=== PATIENT | male | born 1945 | race Caucasian/White ===

== ENCOUNTER 2017-11-01 01:53 | Inpatient (IN) | payer OTHER ==
--- NOTE | 2017-11-01 02:04 | PDOC ---
History of Present Illness - General Chief Complaint: Altered Mental Status Stated Complaint: ALTERED MENTAL STATUS Time Seen by Provider: 11/01/17 02:03 - History of Present Illness Initial Comments: 11/01/17 02:04 Mr. David is a 72 yo male w/ pmh of neurogenic bladder w/ suprapubic tube, Syringomyelia, CVA, HTN, COPD, seizure, and frequent UTIs who presents for evaluation of nonspecific memory problems including dislodged suprapubic catheter as of today although he cannot recall how it was dislodged. He reports he has been forgetting things lately and cannot recall what day it is. The patient denies chest pain, shortness of breath, headache and dizziness. Denies fever, chills, nausea, vomit, diarrhea and constipation. Denies dysuria, frequency, urgency and hematuria. Allergies: NKDA PCP: Willow Pryor Past History - Past Medical History Allergies/Adverse Reactions: Allergies Allergy/AdvReac Type Severity Reaction Status Date / Time No Known Allergies Allergy Verified 11/01/17 02:07 Home Medications: Ambulatory Orders Gabapentin [Neurontin] 3 cap PO TID 05/25/13 Baclofen 10 mg PO TID 10/18/13 Metoprolol Tartrate [Lopressor -] 25 mg PO BID 10/18/13 hydrOXYzine HCL [Atarax -] 25 mg PO DAILY PRN 10/18/13 Phenytoin Na Extended [Dilantin -] 100 mg PO TID #100 capsule 10/23/13 Multivitamins [Multivit ([facility] Formulary)] 1 tab PO DAILY 04/14/14 Nitrofurantoin Macrocrystal [Nitrofurantoin] 1 cap PO DAILY 04/14/14 Amox-Tr/K Cl [Augmentin - 875Mg Tablet] 1 tab PO BID #14 tablet 01/06/15 Cefdinir [Omnicef -] 300 mg PO BID #20 capsule 01/06/15 CVA: Yes (left side weakness s/p tbi/cva: pt offers NO detail) COPD: Yes GI Disorders: Yes (CONSTIPATION) Disorders: Yes (Suprapubic catheter/mrsa urine) HTN: Yes Seizures: Yes - Surgical History Appendectomy: Yes - Immunization History Td Vaccination: (UNK) Immunization Up to Date: Yes (UNK) - Suicide/Smoking/Psychosocial Hx Smoking Status: No Smoking History: Never smoked Years of Tobacco Use: 0 Have you smoked in the past 12 months: No Number of Cigarettes Smoked Daily: 0 Cigars Per Day: 0 Hx Alcohol Use: No Drug/Substance Use Hx: No Substance Use Type: None Hx Substance Use Treatment: No Review of Systems - Review of Systems Comments:: 11/01/17 02:03 GENERAL/CONSTITUTIONAL: No fever or chills. No weakness. HEAD, EYES, EARS, NOSE AND THROAT: No change in vision. No ear pain or discharge. No sore throat. CARDIOVASCULAR: No chest pain or shortness of breath RESPIRATORY: No cough, wheezing, or hemoptysis. GASTROINTESTINAL: No nausea, vomiting, diarrhea or constipation. GENITOURINARY: No dysuria, frequency, or change in urination. MUSCULOSKELETAL: No joint or muscle swelling or pain. No neck or back pain. SKIN: No rash NEUROLOGIC: No headache, vertigo, loss of consciousness, or change in strength/ sensation. ENDOCRINE: No increased thirst. No abnormal weight change HEMATOLOGIC/LYMPHATIC: No anemia, easy bleeding, or history of blood clots. ALLERGIC/IMMUNOLOGIC: No hives or skin allergy. *Physical Exam - Physical Exam Comments: 11/01/17 02:04 GENERAL: Awake, alert, and oriented x2, in no acute distress HEAD: No signs of trauma, normocephalic, atraumatic EYES: PERRLA, EOMI, sclera anicteric, conjunctiva clear ENT: Auricles normal inspection, hearing grossly normal, nares patent, oropharynx clear without exudates. Moist mucosa NECK: Normal ROM, supple, no lymphadenopathy, JVD, or masses LUNGS: No distress, speaks full sentences, clear to auscultation bilaterally HEART: Regular rate and rhythm, normal S1 and S2, no murmurs, rubs or gallops, peripheral pulses normal and equal bilaterally. ABDOMEN: +Suprapubic catheter noted - Soft, nontender, normoactive bowel sounds. No guarding, no rebound. No masses EXTREMITIES: +LLE noted to be smaller in size and tone than left. 2nd toe on LLE blackened and gangrenous. NEUROLOGICAL: Cranial nerves II through XII grossly intact. Normal speech, normal gait, no focal sensorimotor deficits SKIN: Warm, Dry, normal turgor, no rashes or lesions noted. ED Treatment Course - LABORATORY CBC & Chemistry Diagram: 11/01/17 05:25 11/01/17 05:25 Medical Decision Making - Medical Decision Making 11/01/17 03:04 Mr. David is a 72 yo male w/ pmh as described who presents for evaluation of AMS. Per daughter he has gotten frequent UTI's in the past however none for the last few years. He often will have memory lapses when these occur and this is what the daughter believes is happening now. 11/01/17 06:05 Mr. David noted to have UA positive for leukocytes 3+. Also EKG findings significant of irregularly irregular rhythm. With this in conjuction with AMS as reported, paging inpatient team for admission for obs. 11/01/17 06:21 Lactate noted to be 2.3. 2nd liter NS given. 11/01/17 06:29 Patient admitted for further workup / monitoring *DC/Admit/Observation/Transfer Diagnosis at time of Disposition: History of recurrent UTI (urinary tract infection), Acute electrocardiography changes Altered mental status Qualifiers: Altered mental status type: unspecified Qualified Code(s): R41.82 - Altered mental status, unspecified - Discharge Dispostion Condition at time of disposition: Fair Decision to Admit order: Yes - Referrals Referrals: ON STAFF,NOT [Primary Care Provider] - - Patient Instructions - Post Discharge Activity
[2017-11-01] MEDS ORDERED: SODIUM CHLORIDE 1,000 ML IV STA ×2 (02:49→06:20)
[2017-11-01] MEDS ORDERED: PIPERACILLIN/TAZOB 3.375 GM 3.375 GM in DEXTROSE 5%-WATER - 50 ML IVPB ONE (04:24)
[2017-11-01] MEDS ORDERED: PIPERACILLIN/TAZOB 3.375 GM 3.375 GM/50 ML BAG IVPB ONE (05:03)
[2017-11-01 05:40] LABS: BASO % 0.4 % (0-2.0); EOS % 1.8 % (0-4.5); HEMATOCRIT 39.7 % (35.4-49); HEMOGLOBIN 13.2 GM/dL (11.7-16.9); LYMPH % 20.6 % (8-40); MCH 28.8 pg (25.7-33.7); MCHC 33.2 g/dl (32.0-35.9); MEAN CELL VOLUME 86.6 fl (80-96); MEAN PLT VOLUME 6.3 fl (7.5-11.1); MONO % 7.1 % (3.8-10.2); NEUT % 70.1 % (42.8-82.8); PLATELET COUNT 374 K/MM3 (134-434); RBC 4.58 M/mm3 (4.00-5.60); RDW 14.7 % (11.9-15.9); WHITE BLOOD COUNT 7.3 K/mm3 (4.0-10.0)
[2017-11-01 05:54] LABS: URINE APPEARANCE SLCLOUDY; URINE BILIRUBIN NEGATIVE (<2.0 mg/dL); URINE COLOR STRAW; URINE GLUCOSE (UA) 1+ (NEGATIVE); URINE KETONE NEGATIVE (NEGATIVE); URINE NITRITE POSITIVE (NEGATIVE); URINE PROTEIN NEGATIVE (NEGATIVE); URINE UROBILINOGEN NEGATIVE mg/dL (0.2-1.0)
[2017-11-01 05:58] LABS: URINE LEUK ESTERASE 3+ (NEGATIVE)
[2017-11-01 06:00] LABS: ALBUMIN 4.1 g/dl (3.4-5.0); ALK PHOS 150 U/L (45-117); ANION GAP 6 (8-16); BILIRUBIN,TOTAL 0.2 mg/dL (0.2-1.0); BLOOD UREA NITROGEN 8 mg/dL (7-18); CALCIUM 9.6 mg/dL (8.5-10.1); CHLORIDE 104 mmol/L (98-107); CO2 30 mmol/L (21-32); CREATININE 1.3 mg/dL (0.7-1.3); GLUCOSE,RANDOM 94 mg/dL (74-106); POTASSIUM 3.8 mmol/L (3.5-5.1); SGOT/AST 17 U/L (15-37); SGPT/ALT 15 U/L (12-78); SODIUM 140 mmol/L (136-145); TOT PROT 8.4 g/dl (6.4-8.2)
[2017-11-01 06:03] LABS: URINE BACTERIA MODERATE /hpf (NONE SEEN); URINE MUCUS RARE
[2017-11-01 12:20] VITALS: BMI 22.1
[2017-11-01] MEDS ORDERED: hydrOXYzine HCL 25 MG TABLET (FP) PO PRN (13:31)
[2017-11-01] MEDS ORDERED: SODIUM CHLORIDE 1,000 ML IV SCH (13:45)
[2017-11-01] MEDS: PHENYTOIN NA EXTENDED 100 MG CAPSULE (FP) PO SCH ×2 (13:49→21:34)
[2017-11-01] MEDS ORDERED: GABAPENTIN 400 MG CAPSULE (FP) PO SCH (14:00)
[2017-11-01] MEDS: BACLOFEN 10 MG TABLET (FP) PO SCH ×2 (14:25→21:37)
--- NOTE | 2017-11-01 14:56 | HP ---
Admitting History and Physical - Primary Care Physician PCP: Willow Pryor - Admission Chief Complaint: AMS History of Present Illness: This is a 72 year old male with pmhx of pmh of Syringomyelia with suprapubic tube which is changed monthly, last UTI ~5 years ago, CVA, HTN, COPD, seizure, presented to the ED with lightheadedness and "disillusionment." The patient states he knew right away it was a UTI. He denies sob, palpitations, dizziness, BARRAZA, visual chantes, fever, chills, hematuria, abdominal pain. Due to the syringomyelia he has partial sensation of his bilateral lower ext and walks with a walker.Pt [place] [facility] with daughter and grandchild. 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: CVA, Seizure, Other (paraplegia syringomyelia) Cardiovascular: Yes: HTN Pulmonary: Yes: COPD Renal/: Yes: Neurogenic Bladder, Other (SUPRAPUBIC TUBE) Infectious Disease: Yes: MRSA, Other (PSEUDOMONAS, E fecalis UTI) - Past Surgical History Additional Past Surgical History: spinal shunt several years ago - Smoking History Smoking history: Never smoked Have you smoked in the past 12 months: No Aproximately how many cigarettes per day: 0 - Alcohol/Substance Use Hx Alcohol Use: No - Social History Usual Living Arrangement: Yes: With Child ADL: Family Assistance 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 History of Recent Travel: No Home Medications - Allergies Allergies/Adverse Reactions: Allergies Allergy/AdvReac Type Severity Reaction Status Date / Time No Known Allergies Allergy Verified 11/01/17 02:07 - Home Medications Home Medications: Ambulatory Orders Gabapentin [Neurontin] 3 cap PO TID 05/25/13 Baclofen 10 mg PO TID 10/18/13 Metoprolol Tartrate [Lopressor -] 25 mg PO BID 10/18/13 hydrOXYzine HCL [Atarax -] 25 mg PO DAILY PRN 10/18/13 Phenytoin Na Extended [Dilantin -] 100 mg PO TID #100 capsule 10/23/13 Multivitamins [Multivit ([facility] Formulary)] 1 tab PO DAILY 04/14/14 Nitrofurantoin Macrocrystal [Nitrofurantoin] 1 cap PO DAILY 04/14/14 Amox-Tr/K Cl [Augmentin - 875Mg Tablet] 1 tab PO BID #14 tablet 01/06/15 Cefdinir [Omnicef -] 300 mg PO BID #20 capsule 01/06/15 Review of Systems - Review of Systems Constitutional: reports: No Symptoms Eyes: reports: No Symptoms HENT: reports: No Symptoms Neck: reports: No Symptoms Cardiovascular: reports: No Symptoms Respiratory: reports: SOB Gastrointestinal: reports: No Symptoms Genitourinary: reports: No Symptoms Musculoskeletal: reports: No Symptoms Integumentary: reports: No Symptoms Neurological: reports: Change in LOC Endocrine: reports: No Symptoms Hematology/Lymphatic: reports: No Symptoms Psychiatric: reports: No Symptoms Physical Examination Vital Signs: Vital Signs Temperature 98.5 F 11/01/17 14:23 Pulse Rate 88 11/01/17 14:23 Respiratory Rate 17 11/01/17 14:23 Blood Pressure 142/77 11/01/17 14:23 O2 Sat by Pulse Oximetry (%) 98 11/01/17 09:10 Constitutional: Yes: No Distress Eyes: Yes: Conjunctiva Clear HENT: Yes: Atraumatic Neck: Yes: Supple Cardiovascular: Yes: Regular Rate and Rhythm, S1, S2 Respiratory: Yes: Diminished (L>R, R base crackles) Gastrointestinal: Yes: Normal Bowel Sounds, Soft Renal/: Yes: Other (supra pubic tube) Musculoskeletal: Yes: WNL Extremities: Yes: WNL Edema: No Peripheral Pulses WNL: Yes Neurological: Yes: Alert, Oriented, Loss of Sensation (bilateral, diminsihed sensation worse on left) Psychiatric: Yes: Oriented Labs: CBC, BMP 11/01/17 05:25 11/01/17 05:25 Imaging - Results Chest X-ray: Report Reviewed, Image Reviewed Problem List - Problems (1) Altered mental status Code(s): R41.82 - ALTERED MENTAL STATUS, UNSPECIFIED Qualifiers: Altered mental status type: unspecified Qualified Code(s): R41.82 - Altered mental status, unspecified (2) History of recurrent UTI (urinary tract infection) Code(s): Z87.440 - PERSONAL HISTORY OF URINARY (TRACT) INFECTIONS Assessment/Plan Assessment: 72 year old male admitted with AMS Plan: 1. AMS d/t UTI - AMS improved, returned to baseline - Repeat LA now - Started IVF - Urine cx pending - Urine cx in past with pesudomonas sensitive for zosyn - Dose all meds for cr cl 50 - Takes daily macrobid - Urine, BC pending - ID consulted 2. EKG changes - Stat EKG now - Cardiology consult - PT states he takes lopressor not for cardiac history but for feelings of suffocation at night - Telemetry noted: NRS with pacs, similar to past EKG 2014 3. Syringomyelia - PT Eval, pt ambulates with walker - Baclofen 10mg TID 4. HTN - Lopressor 25mg BID 5. Seizures - Dilantin 100mg TID 6. DVT - Heparin sq Visit type - Emergency Visit Emergency Visit: Yes ED Registration Date: 11/01/17 Care time: The patient presented to the Emergency Department on the above date and was hospitalized for further evaluation of their emergent condition. - New Patient This patient is new to me today: Yes Date on this admission: 11/01/17 - Critical Care Critical Care patient: No Hospitalist Screening - Colonoscopy Questionnaire Colonoscopy Questionnaire: Colonoscopy Questionnaire - Patient: 50 - 75 years old and never had a screening colonoscopy: Unknown History of colon or rectal polyps, or CA: Unknown History of IBD, Crohn's disease or UC: Unknown History of abdominal radiation therapy as a child: Unknown - Relative: 1 with colon or rectal CA, or polyps at age 60 or younger: Unknown Colon or rectal CA diagnosed at age 45 or younger: Unknown Multiple relatives with colon or rectal CA: Unknown - Outcome: Screening Result: Negative Screen
--- NOTE | 2017-11-01 15:13 | CON.CARD ---
Consult Consult Specialty:: Cardiology Reason for Consultation:: Abnormal ECG - History of Present Illness History of Present Illness: 72 yo male w/ pmh of neurogenic bladder w/ suprapubic tube, Syringomyelia, CVA, HTN, COPD, seizure, and frequent UTIs who presents for evaluation of nonspecific memory problems including dislodged suprapubic catheter as of today although he cannot recall how it was dislodged. He reports he has been forgetting things lately and cannot recall what day it is. The patient denies chest pain, shortness of breath, headache and dizziness. Denies fever, chills, nausea, vomit, diarrhea and constipation. Denies dysuria, frequency, urgency and hematuria. 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 History of Recent Travel: No Home Medications - Allergies Allergies/Adverse Reactions: Allergies Allergy/AdvReac Type Severity Reaction Status Date / Time No Known Allergies Allergy Verified 11/01/17 02:07 - Home Medications Home Medications: Ambulatory Orders Gabapentin [Neurontin] 3 cap PO TID 05/25/13 Baclofen 10 mg PO TID 10/18/13 Metoprolol Tartrate [Lopressor -] 25 mg PO BID 10/18/13 hydrOXYzine HCL [Atarax -] 25 mg PO DAILY PRN 10/18/13 Phenytoin Na Extended [Dilantin -] 100 mg PO TID #100 capsule 10/23/13 Multivitamins [Multivit ([facility] Formulary)] 1 tab PO DAILY 04/14/14 Nitrofurantoin Macrocrystal [Nitrofurantoin] 1 cap PO DAILY 04/14/14 Amox-Tr/K Cl [Augmentin - 875Mg Tablet] 1 tab PO BID #14 tablet 01/06/15 Cefdinir [Omnicef -] 300 mg PO BID #20 capsule 01/06/15 Review of Systems - Review of Systems Constitutional: reports: Weakness Eyes: reports: No Symptoms HENT: reports: No Symptoms Neck: reports: No Symptoms Cardiovascular: denies: Chest Pain, Edema, Palpitations, Shortness of Breath Respiratory: reports: No Symptoms Gastrointestinal: reports: No Symptoms Vital Signs: Vital Signs Temperature 98.5 F 11/01/17 14:23 Pulse Rate 88 11/01/17 14:23 Respiratory Rate 17 11/01/17 14:23 Blood Pressure 142/77 11/01/17 14:23 O2 Sat by Pulse Oximetry (%) 98 11/01/17 09:10 Constitutional: Yes: No Distress, Calm. No: Pallor Eyes: Yes: Conjunctiva Clear, EOM Intact HENT: Yes: Atraumatic, Normocephalic Neck: Yes: Supple, Trachea Midline Respiratory: Yes: Regular, CTA Bilaterally Gastrointestinal: Yes: Normal Bowel Sounds, Soft Cardiovascular: Yes: Regular Rate and Rhythm. No: Gallop, Rub Heart Sounds: Yes: S1, S2 Murmur: No: Systolic Murmur, Diastolic Murmur Edema: No - Other Data Labs, Other Data: CBC, BMP 11/01/17 05:25 11/01/17 05:25 NSR nl axis and interval No STT changes. Imaging - Results Chest X-ray: Image Reviewed Problem List - Problems (1) Acute electrocardiography changes Assessment/Plan: No events on telemetry. ECG is normal. ER ECG showed occasioanl Atrial premature beats. No evidence of cardiac abnormality. DC telemetry. Will see as needed. Code(s): R94.31 - ABNORMAL ELECTROCARDIOGRAM [ECG] [EKG]
[2017-11-01 16:00] LABS: ANION GAP 7 (8-16); BLOOD UREA NITROGEN 9 mg/dL (7-18); CALCIUM 8.5 mg/dL (8.5-10.1); CHLORIDE 109 mmol/L (98-107); CO2 27 mmol/L (21-32); CREATININE 1.2 mg/dL (0.7-1.3); GLUCOSE,RANDOM 98 mg/dL (74-106); SODIUM 143 mmol/L (136-145)
[2017-11-01] MEDS ORDERED: PIPERACILLIN/TAZOBACTAM 3.375 GM VIAL IVPB ONE (17:27)
[2017-11-01] MEDS ORDERED: DEXTROSE 5%-WATER - 50 ML IVPB ONE (17:27)
[2017-11-01] MEDS: SODIUM CHLORIDE 1,000 ML IV SCH (17:46)
[2017-11-01] MEDS: PIPERACILLIN/TAZOB 3.375 GM 3.375 GM in DEXTROSE 5%-WATER - 50 ML IVPB SCH (17:46)
[2017-11-01] MEDS ORDERED: PIPERACILLIN/TAZOB 3.375 GM 3.375 GM in DEXTROSE 5%-WATER - 50 ML IVPB SCH (18:00)
[2017-11-01] MEDS ORDERED: PIPERACILLIN/TAZOB 2.25 GM 2.25 GM in DEXTROSE 5%-WATER - 50 ML IVPB SCH (18:00)
[2017-11-01] MEDS: HEPARIN NA (PORCINE) 5,000 UNITS/ML 1ML VIAL SQ SCH (21:35)
[2017-11-01] MEDS: METOPROLOL TARTRATE 25 MG TABLET (FP) PO SCH (21:41)
[2017-11-02] MEDS ORDERED: DEXTROSE 5%-WATER - 50 ML IVPB ONE (03:35)
[2017-11-02] MEDS ORDERED: PIPERACILLIN/TAZOBACTAM 3.375 GM VIAL IVPB ONE (03:35)
[2017-11-02] MEDS: PIPERACILLIN/TAZOB 3.375 GM 3.375 GM in DEXTROSE 5%-WATER - 50 ML IVPB SCH (03:47)
[2017-11-02] MEDS: PHENYTOIN NA EXTENDED 100 MG CAPSULE (FP) PO SCH ×3 (05:17→21:05)
[2017-11-02] MEDS: HEPARIN NA (PORCINE) 5,000 UNITS/ML 1ML VIAL SQ SCH ×3 (05:24→21:07)
[2017-11-02] MEDS: BACLOFEN 10 MG TABLET (FP) PO SCH ×3 (05:25→21:06)
[2017-11-02 06:33] LABS: BASO % 0.4 % (0-2.0); EOS % 2.6 % (0-4.5); HEMATOCRIT 32.4 % (35.4-49); LYMPH % 27.1 % (8-40); MCH 29.2 pg (25.7-33.7); MCHC 33.8 g/dl (32.0-35.9); MEAN CELL VOLUME 86.5 fl (80-96); MEAN PLT VOLUME 6.5 fl (7.5-11.1); MONO % 6.4 % (3.8-10.2); NEUT % 63.5 % (42.8-82.8); PLATELET COUNT 294 K/MM3 (134-434); RBC 3.75 M/mm3 (4.00-5.60); RDW 14.9 % (11.9-15.9); WHITE BLOOD COUNT 5.5 K/mm3 (4.0-10.0)
[2017-11-02 06:45] LABS: CHLORIDE 110 mmol/L (98-107); POTASSIUM 3.7 mmol/L (3.5-5.1); SODIUM 142 mmol/L (136-145)
[2017-11-02 06:55] LABS: ALBUMIN 3.3 g/dl (3.4-5.0); ALK PHOS 111 U/L (45-117); ANION GAP 7 (8-16); BILIRUBIN,TOTAL 0.4 mg/dL (0.2-1.0); BLOOD UREA NITROGEN 13 mg/dL (7-18); CALCIUM 8.4 mg/dL (8.5-10.1); CO2 25 mmol/L (21-32); CREATININE 1.3 mg/dL (0.7-1.3); GLUCOSE,RANDOM 83 mg/dL (74-106); MAGNESIUM 2.1 mg/dL (1.8-2.4); PHOSPHOROUS 3.8 mg/dL (2.5-4.9); SGOT/AST 11 U/L (15-37); SGPT/ALT 10 U/L (12-78); TOT PROT 6.4 g/dl (6.4-8.2)
--- NOTE | 2017-11-02 07:52 | PN ---
Progress Note (short form) - Note Progress Note: ID I have seen Samy multiple admissions over the years Typicaly presents with alteration of mental status which he equates with onset of UTI> As he has suprapubic catheter he is always colonized in the bladder. He rarely has fever and never has elevation of WBC. Same is true now On Zosyn Microbiology 01/06/15 13:01 Urine - Urine Malloy Urine Culture - Final Pseudomonas Aeruginosa Enterococcus Faecalis 08/10/11 09:47 Blood - Peripheral Venous Blood Culture - Final i n i r 11/01/17 05:25 Blood - Peripheral Venous Blood Culture - Preliminary NO GROWTH OBTAINED AFTER 24 HOURS, INCUBATION TO CONTINUE FOR 4 DAYS. 11/01/17 05:25 Blood - Peripheral Venous Blood Culture - Preliminary NO GROWTH OBTAINED AFTER 24 HOURS, INCUBATION TO CONTINUE FOR 4 DAYS. 08/10/11 09:47 Blood - Peripheral Venous i n i r Selected Entries 11/01/17 15:10 Temperature 98.3 F Pulse Rate 86 Respiratory 17 Rate Blood Pressure 178/74 Laboratory Tests 11/01/17 11/02/17 11/02/17 05:25 05:40 05:40 WBC 5.5 RBC 3.75 L Hgb 11.0 L D BUN 13 D Ur Leukocyte Esterase 3+ H Urine WBC (Auto) 126 Urine RBC (Auto) 11 Urine Bacteria Moderate Assessment Alteration of mental status Asymtomatic bacteruria SUprapubic catheter malfunction Plan Continue Zosyn until we get cultures back then decide what to do next Doubt po paty Guzman MD Problem List - Problems (1) Altered mental status Code(s): R41.82 - ALTERED MENTAL STATUS, UNSPECIFIED Qualifiers: Altered mental status type: unspecified Qualified Code(s): R41.82 - Altered mental status, unspecified (2) History of recurrent UTI (urinary tract infection) Code(s): Z87.440 - PERSONAL HISTORY OF URINARY (TRACT) INFECTIONS (3) Toxic metabolic encephalopathy Code(s): QTN7627 -
--- NOTE | 2017-11-02 09:23 | CONS ---
DATE OF CONSULTATION: DATE OF DICTATION: 11/02/2017 HISTORY OF PRESENT ILLNESS: This is a 72-year-old -[place] male with a history of syringomyelia and a suprapubic catheter who presented to the emergency room with altered mental status and lightheadedness. The patient is familiar to our service as we have admitted him multiple times over many years for similar presentations in which typically he develops altered mental status while at home and then gets admitted with a diagnosis of urinary tract infection to account for the alteration of mental status. As he has a chronic suprapubic catheter, not surprisingly, he always grows bacteria from his urine cultures. That said, he has not been admitted to the hospital for several years and obviously then has been doing well from a standpoint of a UTI. He, otherwise, feels well here and had no fever on admission and his WBC count, as typically happens, was normal. He was empirically treated with piperacillin/tazobactam per the nurse practitioner and I am asked to see him at this time, noting that he feels well with no chills, abdominal pain, or urinary complaints. He is completely lucid and knows that he is alert and oriented and feels back to his baseline mental status self. PAST MEDICAL HISTORY: Includes seizure disorder, paraplegia, syringomyelia, suprapubic catheter. MEDICATIONS: Baclofen, gabapentin, metoprolol, phenytoin, multivitamins. ALLERGIES: None known. 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 Denies smoking, alcohol, substance, abuse. FAMILY HISTORY: Reviewed and noncontributory. REVIEW OF SYSTEMS: Respiratory: No cough, shortness of breath. Cardiac: No chest pain, palpitations, murmur. Gastrointestinal: No abdominal pain, nausea, vomiting, diarrhea. Genitourinary: Chronic indwelling Malloy catheter. PHYSICAL EXAMINATION: General: An alert, pleasant male in no acute distress. Vital Signs: Temperature 98.3, pulse 86, blood pressure 178/74, respirations __ ___. Neck: Supple without adenopathy. Heart: S1, S2 regular rhythm without audible murmur or gallop. Abdomen: Soft, nontender without hepatosplenomegaly. Extremities: Reveal no clubbing, cyanosis, or edema. Genitourinary: Revealed a suprapubic catheter. The BUN was 13, creatinine 1.3, liver enzymes within normal limits. White count is 7.3, hemoglobin 13.2, platelets of 374. Urinalysis 3+ esterase, 126 white cells , 11 red cells, moderate bacteria. ASSESSMENT: A 72-year-old male with syringomyelia, chronic suprapubic catheter presents with altered mental status in the absence of other symptoms to suggest sepsis or urinary tract infection. Pyuria noted on his admitted urinalysis, not uncommon for patients with suprapubic catheters, does not necessarily imply the presence of a urinary tract infection. That said, he is currently on Zosyn, his blood cultures are negative, and his urine culture is pending. I will continue him on the current antibiotics for now, pending final urine culture report. I doubt that he will be susceptible to anything orally. Further recommendations regarding duration of antibiotic treatment to follow tomorrow. Last urine tox screen for evaluation of altered MS YARI ROSE M.D. VIPUL/[id number] MTDD
[2017-11-02] MEDS ORDERED: PIPERACILLIN/TAZOBACTAM 4.5 GM VIAL IVPB ONE ×2 (09:52→17:39)
[2017-11-02] MEDS ORDERED: PT OWN MED DRAWER 7, Y5N ONE ×2 (09:52→20:40)
[2017-11-02] MEDS ORDERED: DEXTROSE 5%-WATER 100 ML IVPB ONE ×2 (09:53→17:39)
[2017-11-02] MEDS ORDERED: PIPERACILLIN/TAZOB 3.375 GM 3.375 GM in DEXTROSE 5%-WATER - 50 ML IVPB SCH (10:00)
[2017-11-02] MEDS ORDERED: MULTIVITAMINS (DAILY MVI) TABLET (FP) PO SCH (10:00)
[2017-11-02] MEDS: METOPROLOL TARTRATE 25 MG TABLET (FP) PO SCH ×2 (10:42→21:07)
[2017-11-02] MEDS: PIPERACILLIN/TAZOB 4.5 GM 4.5 GM in DEXTROSE 5%-WATER 100 ML IVPB SCH ×2 (10:43→17:50)
[2017-11-02] MEDS: SODIUM CHLORIDE 1,000 ML IV SCH ×2 (10:52→17:37)
[2017-11-02 12:04] LABS: COCAINE, UR NEGATIVE ng/ml (CUTOFF=300); METHADONE, UR NEGATIVE ng/ml (CUTOFF=300); OPIATES, URI NEGATIVE ng/ml (CUTOFF=300); PHENCYCLIDINE,URINE NEGATIVE ng/ml (CUTOFF=25); URINE AMPHETAMINES NEGATIVE ng/ml (CUTOFF=500); URINE BARBITURATES NEGATIVE ng/ml (CUTOFF=200); URINE BENZODIAZEPINES NEGATIVE ng/ml (CUTOFF=200)
--- NOTE | 2017-11-02 17:54 | PN ---
Progress Note (short form) - Note Progress Note: Subjective: The patient was seen and examined at the bedside, he has no complaints at this time Current Medications Generic Name Dose Route Start Last Admin Trade Name Alex PRN Reason Stop Dose Admin Baclofen 10 mg 11/01/17 14:00 11/02/17 13:52 Lioresal - PO 10 mg TID DEBBI Administration Heparin Sodium (Porcine) 5,000 unit 11/01/17 22:00 11/02/17 13:52 Heparin - SQ 5,000 unit TID DEBBI Administration Hydroxyzine HCl 25 mg 11/01/17 13:31 Atarax - PO DAILY PRN FOR ITCHING Sodium Chloride 1,000 mls @ 42 mls/hr 11/01/17 16:15 11/02/17 17:37 Normal Saline - IV Not Given ASDIR DEBBI Piperacillin Sod/Tazobactam 100 mls @ 200 mls/hr 11/02/17 10:00 11/02/17 17: 50 Sod 4.5 gm/ Dextrose IVPB 200 mls/hr Q8H-IV DEBBI Administration Protocol Metoprolol Tartrate 25 mg 11/01/17 22:00 11/02/17 10:42 Lopressor - PO 25 mg BID DEBBI Administration Multivitamins/Minerals/Vitamin C 1 tab 11/02/17 10:00 11/02/17 10:42 Tab-A-Vit - PO 1 tab DAILY DEBBI Administration Phenytoin Sodium 100 mg 11/01/17 14:00 11/02/17 13:52 Dilantin - PO 100 mg TID DEBBI Administration Objective: Vital Signs Period Temp Pulse Resp BP Sys/Soler Pulse Ox Last 24 Hr 98.3 F-98.6 F 81-97 17-20 137-158/70-93 98-98 Physical Exam: General: NAD, A&Ox3 Ext: Left foot, 2nd digit necrosis CBCD WBC 5.5 K/mm3 (4.0-10.0) 11/02/17 05:40 RBC 3.75 M/mm3 (4.00-5.60) L 11/02/17 05:40 Hgb 11.0 GM/dL (11.7-16.9) L D 11/02/17 05:40 Hct 32.4 % (35.4-49) L D 11/02/17 05:40 MCV 86.5 fl (80-96) 11/02/17 05:40 MCHC 33.8 g/dl (32.0-35.9) 11/02/17 05:40 RDW 14.9 % (11.9-15.9) 11/02/17 05:40 Plt Count 294 K/MM3 (134-434) D 11/02/17 05:40 MPV 6.5 fl (7.5-11.1) L 11/02/17 05:40 CMP Sodium 142 mmol/L (136-145) 11/02/17 05:40 Potassium 3.7 mmol/L (3.5-5.1) 11/02/17 05:40 Chloride 110 mmol/L (98-107) H 11/02/17 05:40 Carbon Dioxide 25 mmol/L (21-32) 11/02/17 05:40 Anion Gap 7 (8-16) L 11/02/17 05:40 BUN 13 mg/dL (7-18) D 11/02/17 05:40 Creatinine 1.3 mg/dL (0.7-1.3) 11/02/17 05:40 Creat Clearance w eGFR 54.57 (>60) 11/02/17 05:40 Random Glucose 83 mg/dL (74-106) 11/02/17 05:40 Calcium 8.4 mg/dL (8.5-10.1) L 11/02/17 05:40 Total Bilirubin 0.4 mg/dL (0.2-1.0) D 11/02/17 05:40 AST 11 U/L (15-37) L D 11/02/17 05:40 ALT 10 U/L (12-78) L D 11/02/17 05:40 Alkaline Phosphatase 111 U/L (45-117) D 11/02/17 05:40 Total Protein 6.4 g/dl (6.4-8.2) D 11/02/17 05:40 Albumin 3.3 g/dl (3.4-5.0) L 11/02/17 05:40 CARDIAC ENZYMES Troponin I < 0.02 ng/ml (0.00-0.05) 11/01/17 15:00 Microbiology 11/01/17 05:25 Urine - Urine Clean Catch Urine Culture - Preliminary Lactose Fermenting Neg Bacilli 11/01/17 05:25 Blood - Peripheral Venous Blood Culture - Preliminary NO GROWTH OBTAINED AFTER 24 HOURS, INCUBATION TO CONTINUE FOR 4 DAYS. 11/01/17 05:25 Blood - Peripheral Venous Blood Culture - Preliminary NO GROWTH OBTAINED AFTER 24 HOURS, INCUBATION TO CONTINUE FOR 4 DAYS. Assessment: This is a 72 year old male with PMHx of CVA, HTN, COPD, neurogenic bladder, multidrug resistant UTI, who presented to [facility] ED with lightheadedness and confusion. Plan: 1) Acute metabolic encephalopathy 2/2 UTI - AMS resolved - Continue Zosyn - Urine culture with lactose fermenting negative bacilli. Awaiting final culture - Appreciate ID consult 2) EKG changes - ER ECG showed occasioanl Atrial premature beats - Per cardiology, no evidence of cardiac abnormality - D/c tele 3) Syringomyelia - PT Eval, pt ambulates with walker - Baclofen 10mg TID 4) HTN - Continue Lopressor 5) Hx of seizures - Continue Dilantin 6) Visit type - Emergency Visit Emergency Visit: Yes ED Registration Date: 11/03/17 Care time: The patient presented to the Emergency Department on the above date and was hospitalized for further evaluation of their emergent condition. - New Patient This patient is new to me today: No - Critical Care Critical Care patient: No
--- NOTE | 2017-11-02 23:56 | EKG ---
Test Reason : Blood Pressure : / mmHG Vent. Rate : 093 BPM Atrial Rate : 093 BPM P-R Int : 138 ms QRS Dur : 084 ms QT Int : 384 ms P-R-T Axes : 056 001 053 degrees QTc Int : 477 ms NORMAL SINUS RHYTHM NORMAL ECG WHEN COMPARED WITH ECG OF 01-NOV-2017 03:58, SINUS RHYTHM HAS REPLACED ATRIAL FIBRILLATION Confirmed by TIMOTEO GARCIA MD ([id number]) on 11/02/2017 11:55:51 PM Referred By: Flory KEY Confirmed By:TIMOTEO GARCIA MD
--- NOTE | 2017-11-03 00:25 | EKG ---
Test Reason : Blood Pressure : / mmHG Vent. Rate : 103 BPM Atrial Rate : 103 BPM P-R Int : 144 ms QRS Dur : 086 ms QT Int : 364 ms P-R-T Axes : 062 -06 085 degrees QTc Int : 476 ms SINUS TACHYCARDIA WITH PREMATURE SUPRAVENTRICULAR COMPLEXES OTHERWISE NORMAL ECG WHEN COMPARED WITH ECG OF 29-AUG-2014 08:38, NO SIGNIFICANT CHANGE WAS FOUND Confirmed by TIMOTEO GARCIA MD ([id number]) on 11/03/2017 12:25:27 AM Referred By: Confirmed By:TIMOTEO GARCIA MD
[2017-11-03] MEDS ORDERED: DEXTROSE 5%-WATER 100 ML IVPB ONE ×3 (02:45→16:19)
[2017-11-03] MEDS ORDERED: PIPERACILLIN/TAZOBACTAM 4.5 GM VIAL IVPB ONE ×2 (02:45→09:05)
[2017-11-03] MEDS: PIPERACILLIN/TAZOB 4.5 GM 4.5 GM in DEXTROSE 5%-WATER 100 ML IVPB SCH (03:01)
[2017-11-03] MEDS: HEPARIN NA (PORCINE) 5,000 UNITS/ML 1ML VIAL SQ SCH ×3 (05:33→21:17)
[2017-11-03] MEDS: PHENYTOIN NA EXTENDED 100 MG CAPSULE (FP) PO SCH ×3 (05:33→21:17)
[2017-11-03] MEDS: BACLOFEN 10 MG TABLET (FP) PO SCH ×3 (05:34→21:17)
[2017-11-03 07:15] LABS: HEMATOCRIT 31.8 % (35.4-49); HEMOGLOBIN 10.8 GM/dL (11.7-16.9); MCH 29.4 pg (25.7-33.7); MEAN CELL VOLUME 86.5 fl (80-96); MEAN PLT VOLUME 6.5 fl (7.5-11.1); PLATELET COUNT 278 K/MM3 (134-434); RBC 3.68 M/mm3 (4.00-5.60); RDW 14.3 % (11.9-15.9); WHITE BLOOD COUNT 6.5 K/mm3 (4.0-10.0)
[2017-11-03] MEDS ORDERED: hydrOXYzine HCL 25 MG TABLET (FP) PO PRN (07:24)
[2017-11-03 08:21] LABS: CHLORIDE 109 mmol/L (98-107); POTASSIUM 3.8 mmol/L (3.5-5.1); SODIUM 141 mmol/L (136-145)
[2017-11-03] MEDS: METOPROLOL TARTRATE 25 MG TABLET (FP) PO SCH ×2 (09:09→21:17)
[2017-11-03] MEDS: SODIUM CHLORIDE 1,000 ML IV SCH (09:09)
[2017-11-03] MEDS: MULTIVITAMINS (DAILY MVI) TABLET (FP) PO SCH (09:09)
[2017-11-03 09:14] LABS: ALBUMIN 3.1 g/dl (3.4-5.0); ALK PHOS 99 U/L (45-117); ANION GAP 8 (8-16); BILIRUBIN,TOTAL 0.4 mg/dL (0.2-1.0); BLOOD UREA NITROGEN 16 mg/dL (7-18); CALCIUM 8.5 mg/dL (8.5-10.1); CO2 24 mmol/L (21-32); CREATININE 1.3 mg/dL (0.7-1.3); GLUCOSE,RANDOM 85 mg/dL (74-106); SGOT/AST 10 U/L (15-37); SGPT/ALT 10 U/L (12-78); TOT PROT 6.3 g/dl (6.4-8.2)
[2017-11-03] MEDS ORDERED: PIPERACILLIN/TAZOB 4.5 GM 4.5 GM in DEXTROSE 5%-WATER 100 ML IVPB SCH (10:00)
[2017-11-03] MEDS ORDERED: PT OWN MED DRAWER 7, Y5N ONE (13:47)
[2017-11-03] MEDS ORDERED: PHENYTOIN NA EXTENDED 100 MG CAPSULE (FP) PO SCH (14:00)
--- NOTE | 2017-11-03 14:35 | PN ---
Progress Note, Physician History of Present Illness: Awake, alert No complaints No suprapubic pain No fever/ chills Afebrile WBC WNL Urine c/s Klebsiella (s) ceftriaxone - Current Medication List Current Medications: Active Medications Baclofen (Lioresal -) 10 mg PO TID [facility] Last Admin: 11/03/17 14:00 Dose: 10 mg Heparin Sodium (Porcine) (Heparin -) 5,000 unit SQ TID [facility] Last Admin: 11/03/17 13:59 Dose: 5,000 unit Hydroxyzine HCl (Atarax -) 25 mg PO DAILY PRN PRN Reason: FOR ITCHING Sodium Chloride (Normal Saline -) 1,000 mls @ 42 mls/hr IV ASDIR [facility] Last Admin: 11/03/17 09:09 Dose: 42 mls/hr Piperacillin Sod/Tazobactam (Sod 4.5 gm/ Dextrose) 100 mls @ 200 mls/hr IVPB Q8H-IV [facility] PRN Reason: Protocol Last Admin: 11/03/17 09:09 Dose: 200 mls/hr Metoprolol Tartrate (Lopressor -) 25 mg PO BID [facility] Last Admin: 11/03/17 09:09 Dose: 25 mg Multivitamins/Minerals/Vitamin C (Tab-A-Vit -) 1 tab PO DAILY [facility] Last Admin: 11/03/17 09:09 Dose: 1 tab Phenytoin Sodium (Dilantin -) 100 mg PO TID [facility] Last Admin: 11/03/17 13:59 Dose: 100 mg - Objective Vital Signs: Vital Signs Temperature 97.7 F 11/03/17 14:00 Pulse Rate 86 11/03/17 14:00 Respiratory Rate 18 11/03/17 14:00 Blood Pressure 154/78 11/03/17 14:00 O2 Sat by Pulse Oximetry (%) 98 11/03/17 07:52 Constitutional: Yes: No Distress Eyes: Yes: Conjunctiva Clear Cardiovascular: Yes: Regular Rate and Rhythm, S1, S2 Respiratory: Yes: CTA Bilaterally Gastrointestinal: Yes: Normal Bowel Sounds, Soft. No: Tenderness Genitourinary: Yes: Other (no suprapubic tenderness) Labs: CBC, BMP 11/03/17 06:39 11/03/17 06:39 Assessment/Plan Recurrent UTI Toxic metabolic encephalopathy resolved Hx neurogenic bladder/ suprapubic catheter Substitute ceftriaxone
[2017-11-03] MEDS: CEFTRIAXONE 2 GM in DEXTROSE 5%-WATER 100 ML IVPB SCH (15:38)
--- NOTE | 2017-11-03 16:11 | CONSULT ---
- Consultation REQUESTING PROVIDER: CONSULT REQUEST: We have been asked to surgically evaluate this patient for necrotic wound of Left 2nd toe. PCP:Jessica Woodall HISTORY OF PRESENT ILLNESS: 72yo M h/o syringomyelia with partial paralysis, CVA, COPD, HTN, seizure disorder was admitted to the hospital for AMS and UTI. Vascular surgery was contacted to evaluate a necrotic wound on the LLE 2nd toe. Pt states that the toe "has looked funny for awhile" and that he is unsure exactly how long it has been black. Pt states that he does no have much feeling in his left foot from her paralysis, but is ambulatory but admits hit his feet on things often and not taking good care of them. Pt denies any history of vascular problems or surgeries on his legs or feet. Pt reiterated multiple times that his preference would be to go home and have this worked up as an outpatient as he wants to leave the hospital as soon as possible. PMHx: Syringomyelia, CVA, COPD, HTN, seizure disorder SH: former smoker quit "many" years ago Home Medications Medication Instructions Recorded Gabapentin [Neurontin] 3 cap PO TID 05/25/13 Baclofen 10 mg PO TID 10/18/13 Metoprolol Tartrate [Lopressor -] 25 mg PO BID 10/18/13 hydrOXYzine HCL [Atarax -] 25 mg PO DAILY PRN 10/18/13 Multivitamins [Multivit ([facility] 1 tab PO DAILY 04/14/14 Formulary)] Nitrofurantoin Macrocrystal 1 cap PO DAILY 04/14/14 [Nitrofurantoin] Amox-Tr/K Cl [Augmentin - 875Mg 1 tab PO BID #14 tablet 01/06/15 Tablet] Cefdinir [Omnicef -] 300 mg PO BID #20 capsule 01/06/15 Phenytoin Na Extended [Dilantin -] 100 mg PO TID 11/03/17 Allergies Allergy/AdvReac Type Severity Reaction Status Date / Time No Known Allergies Allergy Verified 11/01/17 02:07 REVIEW OF SYSTEMS: CONSTITUTIONAL: Absent: fever, chills, diaphoresis, generalized weakness, malaise, loss of appetite, weight change MUSCULOSKELETAL: Absent: myalgia, arthralgia, joint swelling, SKIN: Absent: rash, itching, pallor NEUROLOGIC: Absent: numbness in Left foot PHYSICAL EXAM: GENERAL: Awake, alert, and fully oriented, in no acute distress. HEAD: Normal with no signs of trauma. EYES: PERRL, sclera anicteric, conjunctiva clear. LUNGS: Breathing comfortably HEART: Regular rate and rhythm. LOWER EXTREMITIES: warm, well-perfused. No calf tenderness. No peripheral edema. LLE shows dry gangrene on distal phalanx 2nd toe, nontender, no erythema or discharge. NEUROLOGICAL: Normal speech, gait not observed. PSYCH: Cooperative. Good eye contact. Appropriate mood and affect. SKIN: Warm, dry, normal turgor, no rashes or lesions noted. Vital Signs Temperature 97.7 F 11/03/17 14:00 Pulse Rate 86 11/03/17 14:00 Respiratory Rate 18 11/03/17 14:00 Blood Pressure 154/78 11/03/17 14:00 O2 Sat by Pulse Oximetry (%) 98 11/03/17 07:52 Lab Results WBC 6.5 K/mm3 (4.0-10.0) 11/03/17 06:39 RBC 3.68 M/mm3 (4.00-5.60) L 11/03/17 06:39 Hgb 10.8 GM/dL (11.7-16.9) L 11/03/17 06:39 Hct 31.8 % (35.4-49) L 11/03/17 06:39 MCV 86.5 fl (80-96) 11/03/17 06:39 MCHC 34.0 g/dl (32.0-35.9) 11/03/17 06:39 RDW 14.3 % (11.9-15.9) 11/03/17 06:39 Plt Count 278 K/MM3 (134-434) 11/03/17 06:39 Sodium 141 mmol/L (136-145) 11/03/17 06:39 Potassium 3.8 mmol/L (3.5-5.1) 11/03/17 06:39 Chloride 109 mmol/L (98-107) H 11/03/17 06:39 Carbon Dioxide 24 mmol/L (21-32) 11/03/17 06:39 Anion Gap 8 (8-16) 11/03/17 06:39 BUN 16 mg/dL (7-18) D 11/03/17 06:39 Creatinine 1.3 mg/dL (0.7-1.3) 11/03/17 06:39 Random Glucose 85 mg/dL (74-106) 11/03/17 06:39 Calcium 8.5 mg/dL (8.5-10.1) 11/03/17 06:39 Problem List - Problems (1) Dry gangrene Assessment/Plan: 72yo M with dry gangrene of Left 2nd toe -recommend lena/pvr study to evaluate vasculature -clean dry dressing to toe -will follow up after studies Code(s): I96 - GANGRENE, NOT ELSEWHERE CLASSIFIED
--- NOTE | 2017-11-03 17:40 | PN ---
Progress Note (short form) - Note Progress Note: Subjective: The patient was seen and examined at the bedside, he has no complaints at this time Current Medications Generic Name Dose Route Start Last Admin Trade Name Alex PRN Reason Stop Dose Admin Baclofen 10 mg 11/03/17 14:00 11/03/17 14:00 Lioresal - PO 10 mg TID DEBBI Administration Heparin Sodium (Porcine) 5,000 unit 11/03/17 14:00 11/03/17 13:59 Heparin - SQ 5,000 unit TID DEBBI Administration Hydroxyzine HCl 25 mg 11/03/17 07:24 Atarax - PO DAILY PRN FOR ITCHING Sodium Chloride 1,000 mls @ 42 mls/hr 11/03/17 07:24 11/03/17 09:09 Normal Saline - IV 42 mls/hr ASDIR DEBBI Administration Ceftriaxone Sodium 2 gm/ 100 mls @ 200 mls/hr 11/03/17 15:00 11/03/17 15:38 Dextrose IVPB 200 mls/hr DAILY DEBBI Administration Protocol Metoprolol Tartrate 25 mg 11/03/17 10:00 11/03/17 09:09 Lopressor - PO 25 mg BID DEBBI Administration Multivitamins/Minerals/Vitamin C 1 tab 11/03/17 10:00 11/03/17 09:09 Tab-A-Vit - PO 1 tab DAILY DEBBI Administration Phenytoin Sodium 100 mg 11/03/17 14:00 11/03/17 13:59 Dilantin - PO 100 mg TID DEBBI Administration Objective: Vital Signs Period Temp Pulse Resp BP Sys/Soler Pulse Ox Last 24 Hr 97.5 F-97.7 F 82-86 16-18 148-164/68-90 98-98 Physical Exam: General: NAD, A&Ox3 Ext: Left foot, 2nd digit necrosis CBCD WBC 6.5 K/mm3 (4.0-10.0) 11/03/17 06:39 RBC 3.68 M/mm3 (4.00-5.60) L 11/03/17 06:39 Hgb 10.8 GM/dL (11.7-16.9) L 11/03/17 06:39 Hct 31.8 % (35.4-49) L 11/03/17 06:39 MCV 86.5 fl (80-96) 11/03/17 06:39 MCHC 34.0 g/dl (32.0-35.9) 11/03/17 06:39 RDW 14.3 % (11.9-15.9) 11/03/17 06:39 Plt Count 278 K/MM3 (134-434) 11/03/17 06:39 MPV 6.5 fl (7.5-11.1) L 11/03/17 06:39 CMP Sodium 141 mmol/L (136-145) 11/03/17 06:39 Potassium 3.8 mmol/L (3.5-5.1) 11/03/17 06:39 Chloride 109 mmol/L (98-107) H 11/03/17 06:39 Carbon Dioxide 24 mmol/L (21-32) 11/03/17 06:39 Anion Gap 8 (8-16) 11/03/17 06:39 BUN 16 mg/dL (7-18) D 11/03/17 06:39 Creatinine 1.3 mg/dL (0.7-1.3) 11/03/17 06:39 Creat Clearance w eGFR 54.57 (>60) 11/03/17 06:39 Random Glucose 85 mg/dL (74-106) 11/03/17 06:39 Calcium 8.5 mg/dL (8.5-10.1) 11/03/17 06:39 Total Bilirubin 0.4 mg/dL (0.2-1.0) 11/03/17 06:39 AST 10 U/L (15-37) L 11/03/17 06:39 ALT 10 U/L (12-78) L 11/03/17 06:39 Alkaline Phosphatase 99 U/L (45-117) 11/03/17 06:39 Total Protein 6.3 g/dl (6.4-8.2) L 11/03/17 06:39 Albumin 3.1 g/dl (3.4-5.0) L 11/03/17 06:39 CARDIAC ENZYMES Troponin I < 0.02 ng/ml (0.00-0.05) 11/01/17 15:00 Microbiology 11/01/17 05:25 Urine - Urine Clean Catch Urine Culture - Final Klebsiella Pneumoniae 11/01/17 05:25 Blood - Peripheral Venous Blood Culture - Preliminary NO GROWTH OBTAINED AFTER 48 HOURS, INCUBATION TO CONTINUE FOR 3 DAYS. 11/01/17 05:25 Blood - Peripheral Venous Blood Culture - Preliminary NO GROWTH OBTAINED AFTER 48 HOURS, INCUBATION TO CONTINUE FOR 3 DAYS. Assessment: This is a 72 year old male with PMHx of CVA, HTN, COPD, neurogenic bladder, multidrug resistant UTI, who presented to [facility] ED with lightheadedness and confusion. Plan: 1) Acute metabolic encephalopathy 2/2 UTI - AMS resolved - Abx changed today to Ceftriaxone - Urine culture with klebsiella pneumoniae - Appreciate ID consult 2) Dry gangrene - Left 2nd digit dry gangrene - F/u lena/pvr study to eval vasculature - Clean dressing to toe - Appreciate surgery consult 3) EKG changes - ER ECG showed occasioanl Atrial premature beats - Per cardiology, no evidence of cardiac abnormality - D/c tele 4) Syringomyelia - PT Eval, pt ambulates with walker: family refused yesterday and patient was at a test today - Baclofen 10mg TID 5) HTN - Continue Lopressor 6) Hx of seizures - Continue Dilantin Visit type - Emergency Visit Emergency Visit: Yes ED Registration Date: 11/03/17 Care time: The patient presented to the Emergency Department on the above date and was hospitalized for further evaluation of their emergent condition. - New Patient This patient is new to me today: No - Critical Care Critical Care patient: No
[2017-11-04] MEDS ORDERED: PT OWN MED DRAWER 7, Y5N ONE ×2 (05:59→13:38)
[2017-11-04] MEDS: BACLOFEN 10 MG TABLET (FP) PO SCH ×3 (07:00→21:39)
[2017-11-04] MEDS: HEPARIN NA (PORCINE) 5,000 UNITS/ML 1ML VIAL SQ SCH ×3 (07:00→21:39)
[2017-11-04] MEDS: PHENYTOIN NA EXTENDED 100 MG CAPSULE (FP) PO SCH ×3 (07:00→21:40)
--- NOTE | 2017-11-04 07:56 | PN ---
Progress Note, Physician Chief Complaint: ID Ceftriaxone as of yesterday - Current Medication List Current Medications: Active Medications Baclofen (Lioresal -) 10 mg PO TID [facility] Last Admin: 11/03/17 21:17 Dose: 10 mg Heparin Sodium (Porcine) (Heparin -) 5,000 unit SQ TID [facility] Last Admin: 11/03/17 21:17 Dose: 5,000 unit Hydroxyzine HCl (Atarax -) 25 mg PO DAILY PRN PRN Reason: FOR ITCHING Sodium Chloride (Normal Saline -) 1,000 mls @ 42 mls/hr IV ASDIR [facility] Last Admin: 11/03/17 09:09 Dose: 42 mls/hr Ceftriaxone Sodium 2 gm/ (Dextrose) 100 mls @ 200 mls/hr IVPB DAILY [facility]; Protocol Last Admin: 11/03/17 15:38 Dose: 200 mls/hr Metoprolol Tartrate (Lopressor -) 25 mg PO BID [facility] Last Admin: 11/03/17 21:17 Dose: 25 mg Multivitamins/Minerals/Vitamin C (Tab-A-Vit -) 1 tab PO DAILY [facility] Last Admin: 11/03/17 09:09 Dose: 1 tab Phenytoin Sodium (Dilantin -) 100 mg PO TID [facility] Last Admin: 11/03/17 21:17 Dose: 100 mg - Objective Vital Signs: Vital Signs Temperature 98 F 11/04/17 02:00 Pulse Rate 70 11/04/17 02:00 Respiratory Rate 18 11/04/17 02:00 Blood Pressure 152/68 11/04/17 02:00 O2 Sat by Pulse Oximetry (%) 98 11/03/17 21:00 Neck: Yes: WNL, Supple Cardiovascular: Yes: S1, S2 Respiratory: Yes: WNL, Regular, CTA Bilaterally Gastrointestinal: Yes: Soft. No: Tenderness Edema: No Labs: CBC, BMP 11/03/17 06:39 11/03/17 06:39 Problem List - Problems (1) Altered mental status Code(s): R41.82 - ALTERED MENTAL STATUS, UNSPECIFIED Qualifiers: Altered mental status type: unspecified Qualified Code(s): R41.82 - Altered mental status, unspecified (2) History of recurrent UTI (urinary tract infection) Code(s): Z87.440 - PERSONAL HISTORY OF URINARY (TRACT) INFECTIONS (3) Toxic metabolic encephalopathy Code(s): YRB0141 - Assessment/Plan Microbiology 11/01/17 05:25 Urine - Urine Clean Catch Urine Culture - Final Klebsiella Pneumoniae 11/01/17 05:25 Blood - Peripheral Venous Blood Culture - Preliminary NO GROWTH OBTAINED AFTER 72 HOURS, INCUBATION TO CONTINUE FOR 2 DAYS. 11/01/17 05:25 Blood - Peripheral Venous Blood Culture - Preliminary NO GROWTH OBTAINED AFTER 72 HOURS, INCUBATION TO CONTINUE FOR 2 DAYS. Laboratory Tests 11/01/17 11/03/17 05:25 06:39 WBC 6.5 Hgb 10.8 L Hct 31.8 L Plt Count 278 Ur Leukocyte Esterase 3+ H Urine Bacteria Moderate Assessment Klebsiella UTI(?) on Ceftriaxone Altered mental status improved Plan Continue current therapy IV for now with plan to change to po in a day or 2 Megan TRACY
[2017-11-04] MEDS ORDERED: DEXTROSE 5%-WATER 100 ML IVPB ONE (09:24)
[2017-11-04] MEDS: MULTIVITAMINS (DAILY MVI) TABLET (FP) PO SCH (09:29)
[2017-11-04] MEDS: METOPROLOL TARTRATE 25 MG TABLET (FP) PO SCH ×2 (09:29→21:40)
[2017-11-04] MEDS: CEFTRIAXONE 2 GM in DEXTROSE 5%-WATER 100 ML IVPB SCH (09:29)
[2017-11-04] MEDS: SODIUM CHLORIDE 1,000 ML IV SCH (09:29)
--- NOTE | 2017-11-04 14:47 | PN ---
Progress Note (short form) - Note Progress Note: Subjective: The patient was seen and examined at the bedside, he states he does not want to stay any longer and that he "doesn't care that my toe is black". Informed the patient why arterial doppler needs to be done and he responded "I don't care if I lose my leg" Current Medications Generic Name Dose Route Start Last Admin Trade Name Freq PRN Reason Stop Dose Admin Baclofen 10 mg 11/03/17 14:00 11/04/17 13:49 Lioresal - PO 10 mg TID DEBBI Administration Heparin Sodium (Porcine) 5,000 unit 11/03/17 14:00 11/04/17 13:49 Heparin - SQ 5,000 unit TID DEBBI Administration Hydroxyzine HCl 25 mg 11/03/17 07:24 Atarax - PO DAILY PRN FOR ITCHING Sodium Chloride 1,000 mls @ 42 mls/hr 11/03/17 07:24 11/04/17 09:29 Normal Saline - IV Not Given ASDIR DEBBI Ceftriaxone Sodium 2 gm/ 100 mls @ 200 mls/hr 11/03/17 15:00 11/04/17 09:29 Dextrose IVPB 200 mls/hr DAILY DEBBI Administration Protocol Metoprolol Tartrate 25 mg 11/03/17 10:00 11/04/17 09:29 Lopressor - PO 25 mg BID DEBBI Administration Multivitamins/Minerals/Vitamin C 1 tab 11/03/17 10:00 11/04/17 09:29 Tab-A-Vit - PO 1 tab DAILY DEBBI Administration Phenytoin Sodium 100 mg 11/03/17 14:00 11/04/17 13:49 Dilantin - PO 100 mg TID DEBBI Administration Objective: Vital Signs Period Temp Pulse Resp BP Sys/Soler Pulse Ox Last 24 Hr 98 F-98.5 F 70-76 18-20 136-158/68-102 98-98 Physical Exam: General: NAD, A&Ox3 Refused CBCD WBC 6.5 K/mm3 (4.0-10.0) 11/03/17 06:39 RBC 3.68 M/mm3 (4.00-5.60) L 11/03/17 06:39 Hgb 10.8 GM/dL (11.7-16.9) L 11/03/17 06:39 Hct 31.8 % (35.4-49) L 11/03/17 06:39 MCV 86.5 fl (80-96) 11/03/17 06:39 MCHC 34.0 g/dl (32.0-35.9) 11/03/17 06:39 RDW 14.3 % (11.9-15.9) 11/03/17 06:39 Plt Count 278 K/MM3 (134-434) 11/03/17 06:39 MPV 6.5 fl (7.5-11.1) L 11/03/17 06:39 CMP Sodium 141 mmol/L (136-145) 11/03/17 06:39 Potassium 3.8 mmol/L (3.5-5.1) 11/03/17 06:39 Chloride 109 mmol/L (98-107) H 11/03/17 06:39 Carbon Dioxide 24 mmol/L (21-32) 11/03/17 06:39 Anion Gap 8 (8-16) 11/03/17 06:39 BUN 16 mg/dL (7-18) D 11/03/17 06:39 Creatinine 1.3 mg/dL (0.7-1.3) 11/03/17 06:39 Creat Clearance w eGFR 54.57 (>60) 11/03/17 06:39 Random Glucose 85 mg/dL (74-106) 11/03/17 06:39 Calcium 8.5 mg/dL (8.5-10.1) 11/03/17 06:39 Total Bilirubin 0.4 mg/dL (0.2-1.0) 11/03/17 06:39 AST 10 U/L (15-37) L 11/03/17 06:39 ALT 10 U/L (12-78) L 11/03/17 06:39 Alkaline Phosphatase 99 U/L (45-117) 11/03/17 06:39 Total Protein 6.3 g/dl (6.4-8.2) L 11/03/17 06:39 Albumin 3.1 g/dl (3.4-5.0) L 11/03/17 06:39 CARDIAC ENZYMES Troponin I < 0.02 ng/ml (0.00-0.05) 11/01/17 15:00 Microbiology 11/01/17 05:25 Blood - Peripheral Venous Blood Culture - Preliminary NO GROWTH OBTAINED AFTER 72 HOURS, INCUBATION TO CONTINUE FOR 2 DAYS. 11/01/17 05:25 Blood - Peripheral Venous Blood Culture - Preliminary NO GROWTH OBTAINED AFTER 72 HOURS, INCUBATION TO CONTINUE FOR 2 DAYS. 11/01/17 05:25 Urine - Urine Clean Catch Urine Culture - Final Klebsiella Pneumoniae Assessment: This is a 72 year old male with PMHx of CVA, HTN, COPD, neurogenic bladder, multidrug resistant UTI, who presented to [facility] ED with lightheadedness and confusion. Plan: 1) Acute metabolic encephalopathy 2/2 UTI - AMS resolved - Continue Ceftriaxone (changed yesterday) - Urine culture with klebsiella pneumoniae - Appreciate ID consult 2) Dry gangrene - Left 2nd digit dry gangrene - F/u lena/pvr study to eval vasculature - Clean dressing to toe - Appreciate surgery consult 3) EKG changes - ER ECG showed occasioanl Atrial premature beats - Per cardiology, no evidence of cardiac abnormality - D/c tele 4) Syringomyelia - PT Eval, pt ambulates with walker: patient continues to refuse PT - Baclofen 10mg TID 5) HTN - Continue Lopressor 6) Hx of seizures - Continue Dilantin Visit type - Emergency Visit Emergency Visit: Yes ED Registration Date: 11/03/17 Care time: The patient presented to the Emergency Department on the above date and was hospitalized for further evaluation of their emergent condition. - New Patient This patient is new to me today: Yes Date on this admission: 11/04/17 - Critical Care Critical Care patient: No
--- NOTE | 2017-11-04 16:34 | EKG ---
Test Reason : Blood Pressure : / mmHG Vent. Rate : 105 BPM Atrial Rate : 108 BPM P-R Int : 000 ms QRS Dur : 088 ms QT Int : 368 ms P-R-T Axes : 000 -04 101 degrees QTc Int : 486 ms ATRIAL FIBRILLATION WITH RAPID VENTRICULAR RESPONSE ABNORMAL QRS-T ANGLE, CONSIDER PRIMARY T WAVE ABNORMALITY ABNORMAL ECG WHEN COMPARED WITH ECG OF 01-NOV-2017 03:58, ATRIAL FIBRILLATION HAS REPLACED SINUS RHYTHM Confirmed by NERISSA TRACY, GWENDOLYN ([id number]) on 11/04/2017 4:33:59 PM Referred By: Confirmed By:GWENDOLYN MULTANI MD
[2017-11-05] MEDS: PHENYTOIN NA EXTENDED 100 MG CAPSULE (FP) PO SCH ×2 (06:01→16:42)
[2017-11-05] MEDS: HEPARIN NA (PORCINE) 5,000 UNITS/ML 1ML VIAL SQ SCH ×2 (06:02→16:41)
[2017-11-05] MEDS: BACLOFEN 10 MG TABLET (FP) PO SCH ×2 (06:02→16:42)
--- NOTE | 2017-11-05 07:43 | PN ---
Progress Note (short form) - Note Progress Note: ID Ceftriaxone Afebrile stable Selected Entries 11/05/17 04:24 Temperature 98.5 F Pulse Rate 90 Respiratory 18 Rate Blood Pressure 139/72 Microbiology 11/01/17 05:25 Urine - Urine Clean Catch Urine Culture - Final Klebsiella Pneumoniae 11/01/17 05:25 Blood - Peripheral Venous Blood Culture - Preliminary NO GROWTH OBTAINED AFTER 96 HOURS, INCUBATION TO CONTINUE FOR 1 DAYS. 11/01/17 05:25 Blood - Peripheral Venous Blood Culture - Preliminary NO GROWTH OBTAINED AFTER 96 HOURS, INCUBATION TO CONTINUE FOR 1 DAYS. Assessment Chronic malik Urinary tract infection working diagnosis sensitive Plan Give Ceftriaxone today and consider discharging on Vantin 100mg bid for 10 days Megan TRACY Problem List - Problems (1) Altered mental status Code(s): R41.82 - ALTERED MENTAL STATUS, UNSPECIFIED Qualifiers: Altered mental status type: unspecified Qualified Code(s): R41.82 - Altered mental status, unspecified (2) History of recurrent UTI (urinary tract infection) Code(s): Z87.440 - PERSONAL HISTORY OF URINARY (TRACT) INFECTIONS (3) Toxic metabolic encephalopathy Code(s): MGV5078 -
--- NOTE | 2017-11-05 08:29 | DS ---
Physical Exam: SUBJECTIVE: Patient seen and examined at bedside. Voices no complaints. Willing to stay for CTA later today. OBJECTIVE: Vital Signs Period Temp Pulse Resp BP Sys/Soler Pulse Ox Last 24 Hr 98.4 F-98.6 F 75-90 17-18 136-158/72-102 98 PHYSICAL EXAM GENERAL: The patient is awake, alert, and fully oriented, in no acute distress. LUNGS: Breath sounds equal, clear to auscultation bilaterally, no wheezes, no crackles, no accessory muscle use. HEART: Regular rate and rhythm, S1, S2 ABDOMEN: Soft, nontender, nondistended, normoactive bowel sounds, no guarding, no rebound, no hepatosplenomegaly, no masses. RIGHT LOWER EXTREMITY: 2+ pulses, warm, well-perfused, no edema. LEFT LOWER EXTREMITY: pulses not palpable, foot is warm; necrosis tip of left second toe NEUROLOGICAL: Cranial nerves II through XII grossly intact. Normal speech, gait not observed. LABS CBCD WBC 6.5 K/mm3 (4.0-10.0) 11/03/17 06:39 RBC 3.68 M/mm3 (4.00-5.60) L 11/03/17 06:39 Hgb 10.8 GM/dL (11.7-16.9) L 11/03/17 06:39 Hct 31.8 % (35.4-49) L 11/03/17 06:39 MCV 86.5 fl (80-96) 11/03/17 06:39 MCHC 34.0 g/dl (32.0-35.9) 11/03/17 06:39 RDW 14.3 % (11.9-15.9) 11/03/17 06:39 Plt Count 278 K/MM3 (134-434) 11/03/17 06:39 MPV 6.5 fl (7.5-11.1) L 11/03/17 06:39 CMP Sodium 141 mmol/L (136-145) 11/03/17 06:39 Potassium 3.8 mmol/L (3.5-5.1) 11/03/17 06:39 Chloride 109 mmol/L (98-107) H 11/03/17 06:39 Carbon Dioxide 24 mmol/L (21-32) 11/03/17 06:39 Anion Gap 8 (8-16) 11/03/17 06:39 BUN 16 mg/dL (7-18) D 11/03/17 06:39 Creatinine 1.3 mg/dL (0.7-1.3) 11/03/17 06:39 Creat Clearance w eGFR 54.57 (>60) 11/03/17 06:39 Calcium 8.5 mg/dL (8.5-10.1) 11/03/17 06:39 Total Bilirubin 0.4 mg/dL (0.2-1.0) 11/03/17 06:39 AST 10 U/L (15-37) L 11/03/17 06:39 ALT 10 U/L (12-78) L 11/03/17 06:39 Alkaline Phosphatase 99 U/L (45-117) 11/03/17 06:39 Total Protein 6.3 g/dl (6.4-8.2) L 11/03/17 06:39 Albumin 3.1 g/dl (3.4-5.0) L 11/03/17 06:39 HOSPITAL COURSE: Date of Admission:11/03/17 Date of Discharge: 11/05/17 Pre hospital course This is a 72 year-old male with a PMH significant for HTN, CVA, COPD, seizure disorder, neurogenic bladder (suprapubic catheter changed monthly), recurrent UTIs, and 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 Patient presented to the ED with lightheadedness and "disillusionment." The patient states he knew right away it was a UTI. He denied sob, palpitations, dizziness, BARRAZA, visual chantes, fever, chills, hematuria, abdominal pain. Acute metabolic encephalopathy secondary to Klebsiella UTI - AMS resolved - treated with ceftriaxone, discharged on Vantin to complete another 10 days of treatment Left second toe gangrene - seen and evaluated by vascular surgery - CTA performed prior to discharge, results pending - patient to follow up with [facility] Paraplegia secondary to syringomyelia - ambulates with walker; refused PT - continued Baclofen 10mg TID HTN - Continued Lopressor Seizure disorder - Continued Dilantin Minutes to complete discharge: 35 Discharge Summary Reason For Visit: ACUTE ELECTROCARDIOGRAPHY CHANGES, AMS Current Active Problems Acute electrocardiography changes (Acute) Altered mental status (Acute) Dry gangrene (Acute) History of recurrent UTI (urinary tract infection) (Acute) Condition: Improved - Instructions Diet, Activity, Other Instructions: A prescription has been sent to your pharmacy for Vantin which is an antibiotic to treat your urinary tract infection. Take this medication as directed and be sure to finish all the medication. It is recommended you follow up at the [facility] to treat your gangrenous toe. You can call [phone] to make an appointment. Return to the emergency department for any new or worsening symptoms. Referrals: Fly Cohn MD [Staff Physician] - Disposition: HOME - Home Medications Comprehensive Discharge Medication List: Ambulatory Orders Gabapentin [Neurontin] 3 cap PO TID 05/25/13 Baclofen 10 mg PO TID 10/18/13 Metoprolol Tartrate [Lopressor -] 25 mg PO BID 10/18/13 hydrOXYzine HCL [Atarax -] 25 mg PO DAILY PRN 10/18/13 Multivitamins [Multivit ([facility])] 1 tab PO DAILY 04/14/14 Phenytoin Na Extended [Dilantin -] 100 mg PO TID 11/03/17 Cefpodoxime Proxetil [Vantin (Nf) -] 100 mg PO BID #20 tablet 11/05/17 This patient is new to me today: Yes Date on this admission: 11/06/17 Emergency Visit: Yes ED Registration Date: 11/03/17 Care time: The patient presented to the Emergency Department on the above date and was hospitalized for further evaluation of their emergent condition. Critical Care patient: No - Discharge Referral Referred to [facility] No
--- NOTE | 2017-11-05 10:03 | PN ---
Progress Note (short form) - Note Progress Note: [facility] Pt seen and examined. Left 2nd toe gangrene - pt not sure how long his toe has been like that. There is no palpable dp pulse in the left foot. faint PT pulse. DELANEY/PVR -- shows waveforms to be decreased in amplitude in left metatarsal. Radiology read study as limited - pt moving. Pt needs further imaging. -- in the form of a CTA. Cr is 1.3. Please hydrate. Pt wants to go home for his grandsons monserrat on thursday. Pt does not want to stay. Can come for further workup to [facility] next week. If we hydrate him today, we might be able to get CTA prior to him being DC ken. Fly Cohn DO
[2017-11-05] MEDS ORDERED: DEXTROSE 5%-WATER 100 ML IVPB ONE (10:18)
[2017-11-05] MEDS: MULTIVITAMINS (DAILY MVI) TABLET (FP) PO SCH (10:21)
[2017-11-05] MEDS: METOPROLOL TARTRATE 25 MG TABLET (FP) PO SCH (10:21)
[2017-11-05] MEDS: CEFTRIAXONE 2 GM in DEXTROSE 5%-WATER 100 ML IVPB SCH (10:21)
[2017-11-05] MEDS ORDERED: SODIUM CHLORIDE 1,000 ML IV SCH (12:45)
[2017-11-05 13:24] VITALS: PULSE 92; TEMP 98.3
[2017-11-05 14:07] VITALS: BP 144/83
[2017-11-05] MEDS ORDERED: PT OWN MED DRAWER 7, Y5N ONE (16:39)
== END 2017-11-05 20:19 | disposition home or self-care (01) | DRG 698 ==
LOC: JER 01:53 → SUPCPDRO 01:53 → JERBED 06:28 → UNDOADMOB 06:42 → JERBED 06:42 → J2W 11:22 → OBSVTOIN 11-03 14:47
PROVIDERS: ADMIT Internal Medicine; ATTEND Nurse Practitioner Acute Care
DX: T83.511A Infection and inflammatory reaction due to indwelling urethral catheter, initial encounter (principal); G92 Toxic encephalopathy; I96 Gangrene, not elsewhere classified; G95.0 Syringomyelia and syringobulbia; G40.89 Other seizures; I69.354 Hemiplegia and hemiparesis following cerebral infarction affecting left non-dominant side; N39.0 Urinary tract infection, site not specified; Y84.6 Urinary catheterization as the cause of abnormal reaction of the patient, or of later complication, without mention of misadventure at the time of the procedure; B96.1 Klebsiella pneumoniae [K. pneumoniae] as the cause of diseases classified elsewhere; I10 Essential (primary) hypertension; J44.9 Chronic obstructive pulmonary disease, unspecified; N31.9 Neuromuscular dysfunction of bladder, unspecified; K59.00 Constipation, unspecified; B96.5 Pseudomonas (aeruginosa) (mallei) (pseudomallei) as the cause of diseases classified elsewhere; Z87.891 Personal history of nicotine dependence
CPT/HCPCS: 36415; 71045-TC-FY; 75635-TC; 80048; 80053; 80307; 81003; 81015; 83605; 83735; 84100; 84484; 85025; 85027; 87040; 87086; 87186; 93005; 93010; 93923; 99283-25; G0378; J0475; J1644; J7030

== ENCOUNTER 2017-12-04 13:39 | Day surgery (SDC) | payer OTHER ==
[2017-12-02 16:40] VITALS: BMI 23.6
[2017-12-04] MEDS ORDERED: LIDOCAINE HCL 1%, 10 MG/ML (20ML VIAL) ONE (13:59)
[2017-12-04] MEDS ORDERED: HEPARIN NA (PORCINE) 5,000 UNITS/ML 1ML VIAL ONE (13:59)
[2017-12-04] MEDS ORDERED: PROPOFOL 20 ML ONE ×3 (15:12→15:59)
[2017-12-04] MEDS ORDERED: ceFAZolin SODIUM 1 GM VIAL ONE (15:27)
--- NOTE | 2017-12-04 16:33 | OP ---
Operative Note - Note: Operative Date: 12/04/17 Pre-Operative Diagnosis: Left toe wound Operation: CO2 aortogram, LLE CO2 angiogram, SFA/Popliteal artery angioplaty with SFA stent placement Findings: SFA occlusion. Post-Operative Diagnosis: Same as Pre-op Surgeon: Fly Cohn Anesthesia: Fractional Estimated Blood Loss (mls): 50 Operative Report Dictated: Yes
--- NOTE | 2017-12-04 16:35 | HP ---
Admitting History and Physical - Admission Chief Complaint: Left foot toe ulcer . US showed sfa occlusion. 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 History of Recent Travel: No Home Medications - Allergies Allergies/Adverse Reactions: Allergies Allergy/AdvReac Type Severity Reaction Status Date / Time No Known Allergies Allergy Verified 12/02/17 16:58 - Home Medications Home Medications: Ambulatory Orders Gabapentin [Neurontin] 3 cap PO TID 05/25/13 Baclofen 10 mg PO TID 10/18/13 Metoprolol Tartrate [Lopressor -] 25 mg PO BID 10/18/13 hydrOXYzine HCL [Atarax -] 25 mg PO DAILY PRN 10/18/13 Multivitamins [Multivit ([facility] Formulary)] 1 tab PO DAILY 04/14/14 Phenytoin Na Extended [Dilantin -] 100 mg PO TID 11/03/17 Furosemide 20 mg PO DAILY 12/02/17 Review of Systems - Review of Systems Constitutional: reports: No Symptoms Eyes: reports: No Symptoms HENT: reports: No Symptoms Neck: reports: No Symptoms Cardiovascular: reports: No Symptoms Respiratory: reports: No Symptoms Integumentary: reports: No Symptoms Neurological: reports: No Symptoms Endocrine: reports: No Symptoms Hematology/Lymphatic: reports: No Symptoms Psychiatric: reports: No Symptoms Physical Examination Vital Signs: Vital Signs Temperature 98.3 F 12/04/17 14:31 Pulse Rate 77 12/04/17 14:31 Respiratory Rate 16 12/04/17 14:31 Blood Pressure 152/83 12/04/17 14:31 O2 Sat by Pulse Oximetry (%) 100 12/04/17 14:31 Constitutional: Yes: Well Nourished, No Distress, Calm Eyes: Yes: WNL, Conjunctiva Clear, EOM Intact HENT: Yes: WNL, Atraumatic, Normocephalic Neck: Yes: WNL, Supple, Trachea Midline Cardiovascular: Yes: WNL, Regular Rate and Rhythm Respiratory: Yes: WNL, Regular, CTA Bilaterally Gastrointestinal: Yes: WNL, Normal Bowel Sounds Musculoskeletal: Yes: WNL Extremities: Yes: WNL Edema: No Integumentary: Yes: WNL Neurological: Yes: WNL, Alert, Oriented ...Motor Strength: WNL Psychiatric: Yes: WNL Problem List - Problems (1) Toe ulcer Assessment/Plan: Left toe ulcer. 1. For angiogram today Code(s): L97.509 - NON-PRESSURE CHRONIC ULCER OTH PRT UNSP FOOT W UNSP SEVERITY Assessment/Plan left toe ulcer 1. For angiogram today
[2017-12-04] MEDS ORDERED: CLOPIDOGREL BISULFATE 75 MG TABLET (FP) PO SCH (16:45)
[2017-12-04] MEDS ORDERED: CLOPIDOGREL BISULFATE 75 MG TABLET (FP) ONE (17:31)
[2017-12-04 18:07] VITALS: TEMP 97.6
[2017-12-04 21:31] VITALS: BP 152/81; PULSE 69
--- NOTE | 2017-12-15 13:29 | OP ---
DATE OF OPERATION: 12/04/2017 PREOPERATIVE DIAGNOSIS: Left lower extremity toe ulcer. POSTOPERATIVE DIAGNOSIS: Left lower extremity toe ulcer. PROCEDURE: Aortogram, left lower extremity angiogram, superficial femoral artery popliteal artery angioplasty with stent placement. SURGEON: Fly Noble MD ANESTHESIA: Fractional. BLOOD LOSS: 50 mL. INDICATIONS: The patient is a 72-year-old male who comes into ambulatory surgery due to a toe ulcer that has been going on for over 3 months. Preoperative ultrasound showed that he has severe disease in his SFA popliteal artery with occlusion. It was thought that he would need an angiogram. Patient was consented for the procedure understanding all risks, benefits, and alternatives and was then taken to the operating room. PROCEDURE IN DETAIL: Once in the operating room, he was laid down on the operating table in the supine manner, and the area of the right and left groin was prepped and draped in the sterile surgical manner. We then injected 10 mL of lidocaine 1% over the right common femoral artery. We then used a micropuncture needle, punctured the right common femoral artery, a micropuncture wire was inserted, and a traditional 5-Portuguese sheath was inserted. A 0.035 floppy guidewire was inserted into the aorta under fluoroscopy. We then followed with an Omni Flush catheter. We then shot an aortogram via hand injection showing that the aorta and iliac arteries were without any disease. We then placed a 0.035 floppy guidewire up and over to the left common femoral artery and our Omni Flush catheter followed. We then shot an angiogram of the left lower extremity showing that the common femoral artery, the profunda, and the proximal SFA were patent. The mid SFA was . The SFA and the adductor canal going down to the above knee popliteal was occluded, the below popliteal artery was patent, and the patient had 2-vessel runoff into the foot. At this point, we placed a 0.035 stiff guidewire into the SFA, removed our Omni Flush catheter, and placed a 6 x 45 crossover sheath. Then, 5000 units of IV heparin were administered to the patient. We then brought our 0.035 stiff guidewire down to the occlusion. We then placed an Omni Flush catheter in, and we were able to selectively cross our lesion and place the wire into the peroneal artery. We followed that with our Quick-Cross catheter, and we were able to see that we were intraluminal by shooting an angiogram. At this point, we went ahead and used a 5 x 10 Ultraverse Balloon and performed angioplasty of the occluded segment of the SFA and above-knee popliteal artery. We then went ahead and used a 6 x 150 Life Stent, and we were able to place the stent in the area. We ballooned that in place using a 5 x 10 Ultraverse Balloon. Completion angiogram now showed .that the area was now patent. There was no recoil. There was good brisk good flow going down into the foot, and the vessel was patent. At this point, we brought our sheath up and over. A StarClose device was successfully deployed in the right common femoral artery. Pressure was held for 5 minutes. After there was no bleeding, the area was wet and dried, and Dermabond was placed. The patient tolerated the procedure with no complications. Patient transferred to PACU in stable condition. FLY NOBLE DO [id number]
== END 2017-12-04 20:15 | disposition home or self-care (01) ==
LOC: JASU-SURG 13:39
PROVIDERS: ATTEND Surgery Vascular Surgery
PROC: B40DYZZ Plain Radiography of Aorta and Bilateral Lower Extremity Arteries using Other Contrast (ICD-10-PCS; 2017-12-04)
PROC: 047N3DZ Dilation of Left Popliteal Artery with Intraluminal Device, Percutaneous Approach (ICD-10-PCS; principal; 2017-12-04 15:00)
DX: I70.292 Other atherosclerosis of native arteries of extremities, left leg (principal); L97.529 Non-pressure chronic ulcer of other part of left foot with unspecified severity; I10 Essential (primary) hypertension; J44.9 Chronic obstructive pulmonary disease, unspecified
CPT/HCPCS: 37226; C1877; 76000-TC-FY; 94760; J1644

== ENCOUNTER 2017-12-18 21:59 | Emergency (ER) | payer OTHER ==
[2017-12-18 22:18] VITALS: BP 141/87; PULSE 72; TEMP 98.1; BMI 23.6
[2017-12-18 22:24] LABS: URINE APPEARANCE CLEAR; URINE BILIRUBIN NEGATIVE (<2.0 mg/dL); URINE COLOR STRAW; URINE GLUCOSE (UA) NEGATIVE (NEGATIVE); URINE KETONE NEGATIVE (NEGATIVE); URINE NITRITE NEGATIVE (NEGATIVE); URINE PROTEIN NEGATIVE (NEGATIVE); URINE UROBILINOGEN NEGATIVE mg/dL (0.2-1.0)
[2017-12-18 22:26] LABS: URINE LEUK ESTERASE 2+ (NEGATIVE)
[2017-12-18 22:31] LABS: URINE BACTERIA FEW /hpf (NONE SEEN)
--- NOTE | 2017-12-18 22:59 | PDOC ---
History of Present Illness - General Chief Complaint: Urinary Problem Stated Complaint: Urinary Problem Time Seen by Provider: 12/18/17 22:44 History Source: Patient, Old Records Exam Limitations: No Limitations - History of Present Illness Travel History: No Initial Comments: 12/18/17 22:56 72-year-old man past medical history of syringomyelia and neurogenic bladder presents to the emergency Department with 1 day of penile pain starting this morning. Patient states his symptoms are consistent with previous UTIs and is concerned that he has a urinary tract infection. Patient is suprapubic tube in place upon arrival. Past History - Past Medical History Allergies/Adverse Reactions: Allergies Allergy/AdvReac Type Severity Reaction Status Date / Time No Known Allergies Allergy Verified 12/02/17 16:58 Home Medications: Ambulatory Orders Gabapentin [Neurontin] 3 cap PO TID 05/25/13 Baclofen 10 mg PO TID 10/18/13 Metoprolol Tartrate [Lopressor -] 25 mg PO BID 10/18/13 hydrOXYzine HCL [Atarax -] 25 mg PO DAILY PRN 10/18/13 Multivitamins [Multivit ([facility] Formulary)] 1 tab PO DAILY 04/14/14 Phenytoin Na Extended [Dilantin -] 100 mg PO TID 11/03/17 Furosemide 20 mg PO DAILY 12/02/17 Clopidogrel Bisulfate [Plavix] 75 mg PO DAILY #30 tablet 12/04/17 Anemia: No Asthma: No Cancer: No Cardiac Disorders: No CVA: (DENIES CVA) COPD: Yes CHF: No Dementia: No Diabetes: No GI Disorders: Yes (CONSTIPATION) Disorders: Yes (Suprapubic catheter/mrsa urine) HTN: Yes Hypercholesterolemia: No Seizures: Yes - Surgical History Abdominal Surgery: No Appendectomy: Yes Cardiac Surgery: No Cholecystectomy: No Lung Surgery: No Neurologic Surgery: No Orthopedic Surgery: No - Immunization History Td Vaccination: (UNK) Immunization Up to Date: Yes (UNK) - Suicide/Smoking/Psychosocial Hx Smoking Status: No Smoking History: Never smoked Years of Tobacco Use: 0 Have you smoked in the past 12 months: No Number of Cigarettes Smoked Daily: 0 Cigars Per Day: 0 Hx Alcohol Use: Yes (RARELY BEER) Drug/Substance Use Hx: No Substance Use Type: None Hx Substance Use Treatment: No Abd/GI Specific PMHX - Complaint Specific PMHX GERD: No Review of Systems - Review of Systems Able to Perform ROS?: Yes Is the patient limited Sinhala proficient: No Constitutional: No: Symptoms Reported HEENTM: No: Symptoms Reported Respiratory: No: Symptoms reported Cardiac (ROS): No: Symptoms Reported ABD/GI: No: Symptoms Reported : Yes: See HPI Musculoskeletal: No: Symptoms Reported Integumentary: No: Symptoms Reported Neurological: No: Symptoms reported Endocrine: No: Symptoms Reported Hematologic/Lymphatic: No: Symptoms Reported *Physical Exam - Vital Signs Last Vital Signs Temp Pulse Resp BP Pulse Ox 98.1 F 72 16 141/87 100 12/18/17 22:00 12/18/17 22:00 12/18/17 22:00 12/18/17 22:00 12/18/17 22:00 - Physical Exam General Appearance: Yes: Appropriately Dressed. No: Apparent Distress Respiratory/Chest: positive: Lungs Clear, Normal Breath Sounds. negative: Respiratory Distress, Accessory Muscle Use Cardiovascular: positive: Regular Rhythm, Regular Rate. negative: Murmur Gastrointestinal/Abdominal: positive: Normal Bowel Sounds, Soft. negative: Tender Male Genitalia: positive: normal genitalia. negative: discharge, testicular tenderness Musculoskeletal: positive: Normal Inspection. negative: CVA Tenderness Extremity: positive: Normal Inspection Integumentary: positive: Normal Color, Dry, Warm Neurologic: positive: Alert, Normal Response ED Treatment Course - LABORATORY CBC & Chemistry Diagram: 12/19/17 00:00 12/19/17 00:00 - ADDITIONAL ORDERS Additional order review: Laboratory Results 12/18/17 22:17 Urine Color Straw Urine Appearance Clear Urine pH 6.0 Ur Specific [place] 1.003 Urine Protein Negative Urine Glucose (UA) Negative Urine Ketones Negative Urine Blood Negative Urine Nitrite Negative Urine Bilirubin Negative Urine Urobilinogen Negative Ur Leukocyte Esterase 2+ H Urine WBC (Auto) <1 Urine RBC (Auto) <1 Urine Bacteria Few Medical Decision Making - Medical Decision Making 12/18/17 22:58 A/P: 72-year-old male with history of neurogenic bladder with penile pain No penile discharge noted Suprapubic tube in place. No erythema noted to insertion site UA, urine culture, reassess 12/18/17 23:17 Urinalysis positive for 2+ leuk esterase with normal white blood cell and RBC count. Few bacteria are seen. Patient with continued pain at the urinary meatus although it does not pass urine. I will collect basic labs and blood cultures to rule out occult infection. No systemic signs of infection discharge the patient home to follow- up with his primary doctor and urologist 12/19/17 01:11 Creatinine is 1.4 which is consistent with patient's baseline. No evidence of occult infection. Review of patient's previous urine microbiology shows multidrug-resistant Klebsiella and pseudomonas infections. Results have been related to patient who verbalizes understanding of why he will not be getting antibiotics as his urine is likely colonized if it does grow any bacteria. Patient to be discharged home to follow-up with his primary doctor and urologist. Patient is aware that he may receive a phone call regarding his cultures in the next few days. Patient verbalizes satisfaction in the care received and the current plan. *DC/Admit/Observation/Transfer Diagnosis at time of Disposition: Asymptomatic bacteriuria - Discharge Dispostion Disposition: HOME Condition at time of disposition: Fair Decision to Admit order: No - Referrals Referrals: Willow Proyr [Primary Care Provider] - - Patient Instructions Additional Instructions: Rest, drink lots of fluids: Teas, water, soups Avoid contact with others until fevers and symptoms resolved Lots of handwashing and good hygiene Continue [id number] medications for symptomatic relief Tylenol or Motrin for fever and pain Followup with private physician in one week for repeat urinalysis/reevaluation Return to emergency department for worsened symptoms, fevers, dehydration - Post Discharge Activity
[2017-12-19 00:34] LABS: BASO % 0.6 % (0-2.0); EOS % 2.9 % (0-4.5); HEMATOCRIT 31.9 % (35.4-49); HEMOGLOBIN 10.4 GM/dL (11.7-16.9); LYMPH % 19.6 % (8-40); MCH 28.2 pg (25.7-33.7); MCHC 32.6 g/dl (32.0-35.9); MEAN CELL VOLUME 86.4 fl (80-96); MEAN PLT VOLUME 6.6 fl (7.5-11.1); MONO % 12.3 % (3.8-10.2); NEUT % 64.6 % (42.8-82.8); PLATELET COUNT 369 K/MM3 (134-434); WHITE BLOOD COUNT 5.2 K/mm3 (4.0-10.0)
[2017-12-19 00:55] LABS: ANION GAP 11 (8-16); BLOOD UREA NITROGEN 12 mg/dL (7-18); CALCIUM 9.2 mg/dL (8.5-10.1); CHLORIDE 104 mmol/L (98-107); CO2 26 mmol/L (21-32); CREATININE 1.4 mg/dL (0.7-1.3); GLUCOSE,RANDOM 74 mg/dL (74-106); POTASSIUM 4.2 mmol/L (3.5-5.1); SODIUM 141 mmol/L (136-145)
== END 2017-12-19 02:39 | disposition home or self-care (01) ==
LOC: JER 21:59
DX: R82.71 Bacteriuria (principal); Z93.50 Unspecified cystostomy status
CPT/HCPCS: 36415; 80048; 81003; 81015; 85025; 87086; 99283-25

== ENCOUNTER 2018-10-01 10:09 | Emergency (ER) | payer OTHER ==
[2018-10-01 10:30] VITALS: TEMP 97.9; BMI 23.6
[2018-10-01 11:01] LABS: URINE APPEARANCE CLEAR; URINE BACTERIA 699.7 /hpf (NEGATIVE); URINE BILIRUBIN NEGATIVE (NEGATIVE); URINE CASTS 17 /lpf (0-8); URINE COLOR YELLOW; URINE GLUCOSE (UA) NEGATIVE (NEGATIVE); URINE KETONE TRACE (NEGATIVE); URINE LEUK ESTERASE 3+ (NEGATIVE); URINE NITRITE NEGATIVE (NEGATIVE); URINE PROTEIN 1+ (NEGATIVE); URINE RBC 156 /hpf (0-4); URINE UROBILINOGEN 0.2 mg/dL (0.2-1.0); URINE WBC 31 /hpf (0-5)
[2018-10-01 12:17] LABS: BASO % 0.7 % (0-2.0); EOS % 0.7 % (0-4.5); HEMATOCRIT 37.1 % (35.4-49); HEMOGLOBIN 12.2 GM/dL (11.7-16.9); LYMPH % 18.8 % (8-40); MCH 28.5 pg (25.7-33.7); MCHC 32.9 g/dl (32.0-35.9); MEAN CELL VOLUME 86.4 fl (80-96); MEAN PLT VOLUME 6.8 fl (7.5-11.1); MONO % 11.4 % (3.8-10.2); NEUT % 68.4 % (42.8-82.8); PLATELET COUNT 351 K/MM3 (134-434); RDW 15.9 % (11.9-15.9); WHITE BLOOD COUNT 5.2 K/mm3 (4.0-10.0)
[2018-10-01 12:36] LABS: ALK PHOS 144 U/L (45-117); ANION GAP 5 MMOL/L (8-16); BILIRUBIN,TOTAL 0.2 mg/dL (0.2-1); BLOOD UREA NITROGEN 11 mg/dL (7-18); CALCIUM 9.5 mg/dL (8.5-10.1); CHLORIDE 104 mmol/L (98-107); CO2 29 mmol/L (21-32); CREATININE 1.5 mg/dL (0.55-1.3); GLUCOSE,RANDOM 105 mg/dL (74-106); POTASSIUM 4.9 mmol/L (3.5-5.1); SGOT/AST 23 U/L (15-37); SGPT/ALT 15 U/L (13-61); SODIUM 138 mmol/L (136-145); TOT PROT 7.6 g/dl (6.4-8.2)
[2018-10-01] MEDS ORDERED: SULFAMETHOXAZOLE/TRIMETHOPRIM 800MG/160MG D.S. TABLET PO ONE (13:02)
[2018-10-01] MEDS ORDERED: SULFAMETHOXAZOLE/TRIMETHOPRIM 800MG/160MG D.S. TABLET ONE (13:32)
--- NOTE | 2018-10-01 13:34 | PDOC ---
Documentation entered by Terese Burton SCRIBE, acting as scribe for Chase Monson MD. Chase Monson MD: This documentation has been prepared by the Josephine bustos Amanda, SCRIBE, under my direction and personally reviewed by me in its entirety. I confirm that the documentation accurately reflects all work, treatment, procedures, and medical decision making performed by me. History of Present Illness - General Chief Complaint: Urinary Problem Stated Complaint: R/O UTI Time Seen by Provider: 10/01/18 10:29 History Source: Patient Exam Limitations: No Limitations - History of Present Illness Initial Comments: 10/01/18 11:15 The patient is a 73 year old male, with a significant past medical history of Syringomyelia with suprapubic tube which is changed monthly (last changed 2 weeks ago), CVA, HTN, COPD, seizure, and spinal shunt, who presents to the emergency department with complaint of altered mental status which he describes as feeling off. He states he feels he has a UTI, however, denies dysuria, abdominal pain or back pain. He denies any other complaints. He does endorse having a recent procedure (possibly prostate bx 1 or 2 weeks ago) and was on a recent course of flagyl and bactrim. The patient denies fever, chills, nausea, vomit, diarrhea and constipation. The patient denies chest pain, shortness of breath, headache and dizziness. The patient denies dysuria, frequency, urgency and hematuria. Allergies: NKDA PCP - Dr. Pryor ([facility]) Urologist: Dr. Dennis Sharp Past History - Past Medical History Allergies/Adverse Reactions: Allergies Allergy/AdvReac Type Severity Reaction Status Date / Time No Known Allergies Allergy Verified 12/02/17 16:58 Home Medications: Ambulatory Orders Gabapentin [Neurontin] 3 cap PO TID 05/25/13 Baclofen 10 mg PO TID 10/18/13 Metoprolol Tartrate [Lopressor -] 25 mg PO BID 10/18/13 hydrOXYzine HCL [Atarax -] 25 mg PO DAILY PRN 10/18/13 Multivitamins [Multivit ([facility] Formulary)] 1 tab PO DAILY 04/14/14 Phenytoin Na Extended [Dilantin -] 100 mg PO TID 11/03/17 Furosemide 20 mg PO DAILY 12/02/17 Clopidogrel Bisulfate [Plavix] 75 mg PO DAILY #30 tablet 12/04/17 Amoxicillin/Potassium Clav [Augmentin 875-125 Tablet] 1 each PO BID #14 tablet 10/01/18 Anemia: No Asthma: No Cancer: No Cardiac Disorders: No CVA: (DENIES CVA) COPD: Yes CHF: No Dementia: No Diabetes: No GI Disorders: Yes (CONSTIPATION) Disorders: Yes (Suprapubic catheter/mrsa urine) HTN: Yes Hypercholesterolemia: No Seizures: Yes - Surgical History Abdominal Surgery: No Appendectomy: Yes Cardiac Surgery: No Cholecystectomy: No Lung Surgery: No Neurologic Surgery: No Orthopedic Surgery: No - Immunization History Td Vaccination: (UNK) Immunization Up to Date: Yes (UNK) - Suicide/Smoking/Psychosocial Hx Smoking Status: No Smoking History: Never smoked Years of Tobacco Use: 0 Have you smoked in the past 12 months: No Number of Cigarettes Smoked Daily: 0 Cigars Per Day: 0 Hx Alcohol Use: No Drug/Substance Use Hx: No Substance Use Type: None Hx Substance Use Treatment: No Review of Systems - Review of Systems Able to Perform ROS?: Yes Comments:: 10/01/18 11:16 CONSTITUTIONAL: No reported: Fever, Chills, Diaphoresis, Generalized Weakness, Malaise, Loss of Appetite HEENT: No reported: Rhinorrhea, Nasal Congestion, Throat Pain, Throat Swelling, Difficulty Swallowing, Mouth Swelling, Ear Pain, Eye Pain, Visual Changes CARDIOVASCULAR: No reported: Chest Pain, Syncope, Palpitations, Irregular Heart Rate, Lightheadedness, Peripheral Edema RESPIRATORY: No reported: Cough, Shortness of Breath, SOB with Exertion, Orthopnea, Wheezing , Stridor, Hemoptysis GASTROINTESTINAL: No reported: Abdominal pain, Abdominal Distension, Nausea, Vomiting, Diarrhea, Constipation, Melena, Hematochezia GENITOURINARY: No reported: Dysuria, Frequency, Urgency, Hesitancy, Flank Pain, Genital Pain MUSCULOSKELETAL: No reported: Myalgia, Arthralgia, Joint Swelling, Back pain, Neck Pain SKIN: No reported: Rash, Itching, Pallor HEMEATOLOGIC/IMMUNOLOGIC: No reported: Easy Bleeding, Easy Bruising, Lymphadenopathy, Frequent infections ENDOCRINE: No reported: Unexplained Weight Gain, Unexplained Weight Loss, Heat Intolerance , Cold Intolerance NEUROLOGIC: (+) altered ("feeling off"). No reported: Headache, Focal Weakness, Paresthesias, Vertigo, Lightheadedness, Unsteady Gait, Seizure, Incontinence PSYCHIATRIC: No reported: Anxiety, Depression *Physical Exam - Vital Signs Last Vital Signs Temp Pulse Resp BP Pulse Ox 97.9 F 70 18 153/73 99 10/01/18 10:22 10/01/18 10:22 10/01/18 10:22 10/01/18 10:22 10/01/18 10:22 - Physical Exam Comments: 10/01/18 11:16 GENERAL: The patient is awake, alert, and fully oriented, Nontoxic - in no acute distress. HEAD: Normocephalic, atraumatic. EYES: extraocular movements intact, sclera anicteric, conjunctiva clear. ENT: Normal voice, Moist mucous membranes. NECK: Normal range of motion, supple LUNGS: Breath sounds equal, clear to auscultation bilaterally. No wheezes, no rhonchi, no rales. HEART: Regular rate and rhythm, without murmur, rub or gallop. ABDOMEN: Suprapubic catheter in place without surrounding erythema, tenderness, or signs of infection. Soft, nontender, No guarding, no rebound.No CVA tenderness EXTREMITIES: Normal range of motion, no edema. No cyanosis. No erythema, or tenderness. NEUROLOGICAL: No facial assymetry, Normal speech, PSYCH: Normal mood, normal affect. SKIN: Warm, Dry, normal turgor, ED Treatment Course - LABORATORY CBC & Chemistry Diagram: 10/01/18 11:49 10/01/18 11:49 - ADDITIONAL ORDERS Additional order review: Laboratory Results 10/01/18 10:32 Urine Color Yellow Urine Appearance Clear Urine pH 7.0 Ur Specific [place] 1.017 Urine Protein 1+ H Urine Glucose (UA) Negative Urine Ketones Trace H Urine Blood 3+ H Urine Nitrite Negative Urine Bilirubin Negative Urine Urobilinogen 0.2 Ur Leukocyte Esterase 3+ H Urine WBC (Auto) 31 Urine RBC (Auto) 156 Urine Casts (Auto) 17 U Epithel Cells (Auto) 2.0 Urine Bacteria (Auto) 699.7 Medical Decision Making - Medical Decision Making 10/01/18 11:33 73y M with neurogenic bladder presents with malaise/fatigue geno tthe patient states is cw prior history of UTI. pt denie sany fevers, back pain/chills, n/v. pt well appearing on exam will ck basic labs case dw dr. Mann covering for Dr. King - requests labs and if neg can dc the pt withoutpatient fu w/ augmetin as he was recently on bactrim 10/01/18 13:01 pt was on bactrim recently - will start augmentin and a dose of iv ctx here pts labs unremarkble w/o signs of leukocytosis no clinical signs of uti/sepsis will send culture to see if +UTI will start augmentin and pt fu with urology as outpatient return precautions were discussed I discussed the physical exam findings, ancillary test results and final diagnoses with the patient. I answered all of the patient's questions. The patient was satisfied with the care received and felt comfortable with the discharge plan and treatment plan. The patient will call their primary care physician within 24 hours to arrange follow-up and will return to the Emergency Department with any new, persistent or worsening symptoms. *DC/Admit/Observation/Transfer Diagnosis at time of Disposition: Weakness - Discharge Dispostion Disposition: HOME Condition at time of disposition: Stable Decision to Admit order: No - Prescriptions Prescriptions: Amoxicillin/Potassium Clav [Augmentin 875-125 Tablet] 1 each PO BID #14 tablet - Referrals Referrals: Willow Pryor MD [Primary Care Provider] - Dennis Sharp MD [Staff Physician] - - Patient Instructions Printed Discharge Instructions: DI for Urinary Tract Infection (UTI) Additional Instructions: Your weakness may be caused by a UTI. Take the bactrim as prescribed until cultures are back. Follow up with your urologist next week. Return to the Emergency Department if you have fever/chills, backpain, vomiting or any other concerns. - Post Discharge Activity
[2018-10-01] MEDS ORDERED: CEFTRIAXONE 1 GM in DEXTROSE 5%-WATER - 50 ML IVPB ONE (14:09)
[2018-10-01] MEDS ORDERED: SODIUM CHLORIDE 1,000 ML IV ONE (14:09)
[2018-10-01] MEDS ORDERED: CEFTRIAXONE 1 GM/50 ML BAG ONE (14:11)
[2018-10-01 15:35] VITALS: PULSE 72
[2018-10-01 15:52] VITALS: BP 142/70
== END 2018-10-01 17:46 | disposition home or self-care (01) ==
LOC: JER 10:09
DX: N39.0 Urinary tract infection, site not specified (principal); R53.1 Weakness; I10 Essential (primary) hypertension; J44.9 Chronic obstructive pulmonary disease, unspecified; G40.909 Epilepsy, unspecified, not intractable, without status epilepticus; Z93.50 Unspecified cystostomy status; Z86.73 Personal history of transient ischemic attack (TIA), and cerebral infarction without residual deficits; Z86.14 Personal history of Methicillin resistant Staphylococcus aureus infection; Z96.89 Presence of other specified functional implants
CPT/HCPCS: 36415; 80053; 81003; 85025; 87040; 87086; 96365; 99282-25; J7030

== ENCOUNTER 2018-12-04 21:14 | Emergency (ER) | payer OTHER ==
--- NOTE | 2018-12-04 21:27 | PDOC ---
History of Present Illness - General Chief Complaint: Weakness Stated Complaint: WEAKNESS Time Seen by Provider: 12/04/18 21:24 History Source: Patient - History of Present Illness Initial Comments: 12/04/18 21:33 The patient is a 73 year old male with a PMH of syringomyelia ngomyelia with suprapubic tube which is changed monthly (last changed yesterday), CVA, HTN, COPD, seizure, and spinal shunt, who presents to our ED c/o 1 day h/o dysuria. Denies any hematuria, increased urgency/frequency, fevers/chills, abdominal pain or flank pain. NKDA Surgical: states he has had surgeries but he doesn't remember which surgeries; as per EMR, spinal shunt Social: denies toxic habits PMD: Dr. Konstantin Adams ([facility]) Urology: Dr. Lila Adams As per EMR, patient most recently evaluated in our ED for generalized weakness/ malaise in 09/2018, UA showed 3+ blood and (+) LE, labs unremarkable. Patient urologist requested Augmentin and outpatient follow-up. Patient d/c home. UCx contaminated. Past History - Past Medical History Allergies/Adverse Reactions: Allergies Allergy/AdvReac Type Severity Reaction Status Date / Time No Known Allergies Allergy Verified 12/04/18 21:35 Home Medications: Ambulatory Orders Gabapentin [Neurontin] 3 cap PO TID 05/25/13 Baclofen 10 mg PO TID 10/18/13 Metoprolol Tartrate [Lopressor -] 25 mg PO BID 10/18/13 hydrOXYzine HCL [Atarax -] 25 mg PO DAILY PRN 10/18/13 Multivitamins [Multivit ([facility] Formul[facility])] 1 tab PO DAILY 04/14/14 Phenytoin Na Extended [Dilantin -] 100 mg PO TID 11/03/17 Furosemide 20 mg PO DAILY 12/02/17 Clopidogrel Bisulfate [Plavix] 75 mg PO DAILY #30 tablet 12/04/17 Amoxicillin/Potassium Clav [Augmentin 875-125 Tablet] 1 each PO BID #14 tablet 10/01/18 Anemia: No Asthma: No Cancer: No Cardiac Disorders: No CVA: (DENIES CVA) COPD: Yes CHF: No Dementia: No Diabetes: No GI Disorders: Yes (CONSTIPATION) Disorders: Yes (Suprapubic catheter/mrsa urine) HTN: Yes Hypercholesterolemia: No Seizures: Yes - Surgical History Abdominal Surgery: No Appendectomy: Yes Cardiac Surgery: No Cholecystectomy: No Lung Surgery: No Neurologic Surgery: No Orthopedic Surgery: No - Immunization History Td Vaccination: (UNK) Immunization Up to Date: Yes (UNK) - Suicide/Smoking/Psychosocial Hx Smoking Status: No Smoking History: Never smoked Years of Tobacco Use: 0 Have you smoked in the past 12 months: No Number of Cigarettes Smoked Daily: 0 Cigars Per Day: 0 Hx Alcohol Use: Yes (RARELY BEER) Drug/Substance Use Hx: No Substance Use Type: None Hx Substance Use Treatment: No Review of Systems - Review of Systems Constitutional: No: Chills, Fever Respiratory: No: Cough, Shortness of Breath Cardiac (ROS): No: Chest Pain, Palpitations ABD/GI: No: Constipated, Diarrhea, Nausea, Vomiting : Yes: Dysuria. No: Hematuria *Physical Exam - Physical Exam General Appearance: Yes: Thin HEENT: positive: Normal Voice, Hearing Grossly Normal Neck: positive: Trachea midline, Supple Respiratory/Chest: positive: Wheezing. negative: Rapid RR Cardiovascular: positive: S1, S2 Vascular Pulses: Dorsalis-Pedis (R): 2+, Doralis-Pedis (L): 2+ Gastrointestinal/Abdominal: positive: Normal Bowel Sounds, Soft, Other ( Attending exam: RUQ TTP w/o peritoneal sign) ED Treatment Course - LABORATORY CBC & Chemistry Diagram: 12/04/18 22:40 12/04/18 22:40 Medical Decision Making - Medical Decision Making 12/04/18 21:54 73 y/o male with suprapubic tube 2/2 to syringomyelia presents c/o dysuria. Hypertensive (183/85), other VS unremarkable Will check UA for active infection as well as basic labs. Replace suprapubic tube Reassess. 12/04/18 22:57 Multiple failed attempts at peripheral IV access, IV access obtained using U/S Labs pending 12/04/18 23:55 UA negative No leukocytosis Will discharge patient home as low clinical suspicion for active infection ( patient afebrile, no concerning lab findings) Patient reassessed @ bedside BP 155/80, other VSS Amenable to discharge and will return to ED with new/worsening/concerning symptoms. 12/05/18 00:16 Call received from patient's daughter, Myra David, updated on plan of care. Agrees with d/c home and close urology follow-up as outpatent. I discussed the physical exam findings, ancillary test results and final diagnoses with the patient. I answered all of the patient's questions. The patient was satisfied with the care received and felt comfortable with the discharge plan and treatment plan. The patient will return to the Emergency Department with any new, persistent or worsening symptoms. *DC/Admit/Observation/Transfer Diagnosis at time of Disposition: History of recurrent UTI (urinary tract infection) - Discharge Dispostion Disposition: HOME Condition at time of disposition: Good Decision to Admit order: No - Referrals - Patient Instructions Additional Instructions: You were evaluated today for your abdominal pain with urination. A test of your urine and all of your labs show no concerning findings. At this time you are safe for discharge home. Follow up with your primary care doctor in the next 3 days. Your care is not complete until you are evaluated by your primary care doctor. Return to the Emergency Department for any new/worsening/concerning symptoms. - Post Discharge Activity
[2018-12-04 21:34] VITALS: TEMP 98.1; BMI 20.7
[2018-12-04 22:54] LABS: BASO % 0.6 % (0-2.0); EOS % 1.8 % (0-4.5); HEMATOCRIT 39.4 % (35.4-49); HEMOGLOBIN 12.9 GM/dL (11.7-16.9); LYMPH % 14.5 % (8-40); MCH 28.7 pg (25.7-33.7); MCHC 32.7 g/dl (32.0-35.9); MEAN CELL VOLUME 87.7 fl (80-96); MEAN PLT VOLUME 6.6 fl (7.5-11.1); MONO % 5.3 % (3.8-10.2); NEUT % 77.8 % (42.8-82.8); PLATELET COUNT 384 K/MM3 (134-434); RBC 4.49 M/mm3 (4.00-5.60); RDW 14.8 % (11.9-15.9); WHITE BLOOD COUNT 7.2 K/mm3 (4.0-10.0)
[2018-12-04 23:13] LABS: INR 0.91 (0.83-1.09); PROTHROMBIN TIME (PATIENT) 10.7 SEC (9.7-13.0)
[2018-12-04 23:16] LABS: ACTIVATED PTT 35.9 SECONDS (25.2-36.5)
[2018-12-04 23:27] LABS: URINE APPEARANCE TURBID; URINE COLOR YELLOW
[2018-12-04 23:28] LABS: PH,URINE 7.5 (5.0-8.0); URINE BILIRUBIN NEGATIVE (NEGATIVE); URINE GLUCOSE (UA) NEGATIVE (NEGATIVE); URINE KETONE NEGATIVE (NEGATIVE); URINE PROTEIN 2+ (NEGATIVE); URINE UROBILINOGEN 0.2 mg/dL (0.2-1.0)
[2018-12-04 23:29] LABS: URINE LEUK ESTERASE 3+ (NEGATIVE); URINE NITRITE NEGATIVE (NEGATIVE)
[2018-12-04 23:32] LABS: URINE BACTERIA 4+ /hpf (NEGATIVE); URINE RBC 0-2 /hpf (0-4)
[2018-12-04 23:33] LABS: URINE CRYSTALS FEW CALCIUM OXALATE /hpf
[2018-12-04 23:43] LABS: ALBUMIN 4.6 g/dl (3.4-5.0); BILIRUBIN,TOTAL 0.3 mg/dL (0.2-1); CALCIUM 9.7 mg/dL (8.5-10.1); CREATININE 1.3 mg/dL (0.55-1.3); TOT PROT 9.1 g/dl (6.4-8.2)
[2018-12-04 23:44] LABS: POTASSIUM 4.2 mmol/L (3.5-5.1)
--- NOTE | 2018-12-04 23:51 | PDOC ---
Documentation entered by Suzie Castaneda SCRIBE, acting as scribe for Tee Victor MD. Tee Victor MD: This documentation has been prepared by the Leonel bustos Collisia, SCRIBE, under my direction and personally reviewed by me in its entirety. I confirm that the documentation accurately reflects all work, treatment, procedures, and medical decision making performed by me. Attending Attestation - Resident Resident Name: BaGertrude - ED Attending Attestation I have performed the following: I have examined & evaluated the patient, The case was reviewed & discussed with the resident, I agree w/resident's findings & plan, Exceptions are as noted - HPI HPI: 12/04/18 23:46 The patient is a 73 year old male with a significant past medical history of hypertension, COPD, seizure, spina shunt and syringomyelia (with suprapubic tube ) who presents to the emergency department with dysuria for 1 day. The patient reports having his suprapubic tube changed earlier this week. He denies any hematuria, urgency, frequency, fever, chills, nausea, vomiting, diarrhea, constipation. He denies any abdominal or flank pain. He denies any other symptoms or complaints. PMD: Dr. Lila Adams - Physicial Exam PE: 12/04/18 23:56 Vitals: Triage vital signs reviewed General Appearance: No acute distress, well nourished, well developed Chest Wall: Nontender Cardiac: Regular rate and rhythm, no murmurs, no rubs, no gallops Lungs: Clear to auscultation bilateral, good air movement bilaterally Abdomen: Soft, nondistended, normal bowel sounds, nontender to palpation Extremities: Full range of motion to all extremities, no cyanosis, clubbing, or edema Skin: Warm and dry, no rashes or lesions, no rash, no petechiae Psych: Normal mood, normal affect 12/05/18 01:26 - Medical Decision Making 12/04/18 23:47 The patient is a 73 year old male with a significant past medical history of hypertension, COPD, seizure, spinal shunt and syringomyelia (with suprapubic tube) who presents to the emergency department with dysuria for 1 day. Will check get labs, UA/UC, change malik and reasses. Mild dysuria has since resolved patient with no complaints at this time urinalysis was taken from chronic Malik. Given no fever no white count low suspicion for acute infection at this time cultures sent. UA with slight WBC and leukocytosis likely from chronic indwelling malik. We'll follow up culture place patient in call backlog findings discussed with patient however we have arranged for transportation home Findings, the need for follow-up and strict return instructions discussed with patient and family.
[2018-12-05 00:40] VITALS: BP 165/90; PULSE 76
--- NOTE | 2018-12-05 13:07 | EKG ---
Test Reason : Blood Pressure : / mmHG Vent. Rate : 069 BPM Atrial Rate : 069 BPM P-R Int : 148 ms QRS Dur : 086 ms QT Int : 410 ms P-R-T Axes : 070 006 051 degrees QTc Int : 439 ms NORMAL SINUS RHYTHM WITH SINUS ARRHYTHMIA POOR R WAVE PROGRESSION NONSPECIFIC ST ABNORMALITY Confirmed by ASAD RÍOS MD ([id number]) on 12/05/2018 1:07:03 PM Referred By: Confirmed By:ASAD RÍOS MD
== END 2018-12-05 02:43 | disposition home or self-care (01) ==
LOC: JER 21:14
DX: R30.0 Dysuria (principal); Z87.440 Personal history of urinary (tract) infections; Z93.59 Other cystostomy status; G95.0 Syringomyelia and syringobulbia; I10 Essential (primary) hypertension; J44.9 Chronic obstructive pulmonary disease, unspecified; G40.909 Epilepsy, unspecified, not intractable, without status epilepticus
CPT/HCPCS: 36415; 71045-TC-FY; 80053; 81003; 83605; 84484; 85025; 85610; 85730; 87040; 87086; 93005; 93010; 99284-25

== ENCOUNTER 2019-01-28 17:10 | Emergency (ER) | payer OTHER ==
[2019-01-28 17:33] VITALS: BMI 23.7
--- NOTE | 2019-01-28 18:13 | PDOC ---
History of Present Illness - General Chief Complaint: Altered Mental Status Stated Complaint: ALTERED MENTAL STATUS Time Seen by Provider: 01/28/19 17:48 History Source: Unavil. due to pt. cond. Exam Limitations: Clinical Condition - History of Present Illness Initial Comments: 01/28/19 18:09 73yo man PMH of syringomyelia w/ suprapubic tube which is changed monthly, CVA, HTN, COPD, seizure, and spinal shunt, who presents from home with altered mental status. Seen frequently in the past for UTI and AMS. Patient altered and not oriented at time of exam giving nonsense answers, most frequently "I can't" to all questions. Only affirmative answer when asked if he has pain when palpated near suprapubic catheter. PER CHART REVIEW: NKDA Surgical: spinal shunt Social: denied smoking / ETOH / illicits PMD: Dr. Konstantin Admas ([facility]) Urology: Dr. Lila Adams Past History - Past Medical History Allergies/Adverse Reactions: Allergies Allergy/AdvReac Type Severity Reaction Status Date / Time No Known Allergies Allergy Verified 01/28/19 17:29 Home Medications: Ambulatory Orders Gabapentin [Neurontin] 3 cap PO TID 05/25/13 Baclofen 10 mg PO TID 10/18/13 Metoprolol Tartrate [Lopressor -] 25 mg PO BID 10/18/13 hydrOXYzine HCL [Atarax -] 25 mg PO DAILY PRN 10/18/13 Multivitamins [Multivit ([facility] Formulary)] 1 tab PO DAILY 04/14/14 Phenytoin Na Extended [Dilantin -] 100 mg PO TID 11/03/17 Furosemide 20 mg PO DAILY 12/02/17 Clopidogrel Bisulfate [Plavix] 75 mg PO DAILY #30 tablet 12/04/17 Amoxicillin/Potassium Clav [Augmentin 875-125 Tablet] 1 each PO BID #14 tablet 10/01/18 Sulfamethoxazole/Trimethoprim [Bactrim Ds -] 1 tab PO BID #14 tablet 01/28/19 Anemia: No Asthma: No Cancer: No Cardiac Disorders: No CVA: (DENIES CVA) COPD: Yes CHF: No Dementia: No Diabetes: No GI Disorders: Yes (CONSTIPATION) Disorders: Yes (Suprapubic catheter/mrsa urine) HTN: Yes Hypercholesterolemia: No Seizures: Yes Other medical history: SYRINGOMYELIA - Surgical History Abdominal Surgery: No Appendectomy: Yes Cardiac Surgery: No Cholecystectomy: No Lung Surgery: No Neurologic Surgery: No Orthopedic Surgery: No - Immunization History Td Vaccination: (UNK) Immunization Up to Date: Yes (UNK) - Suicide/Smoking/Psychosocial Hx Smoking Status: No Smoking History: Never smoked Years of Tobacco Use: 0 Have you smoked in the past 12 months: No Number of Cigarettes Smoked Daily: 0 Cigars Per Day: 0 Hx Alcohol Use: No Drug/Substance Use Hx: No Substance Use Type: None Hx Substance Use Treatment: No Review of Systems - Review of Systems Able to Perform ROS?: No (Patient noncooperative ) Is the patient limited Citizen [place] proficient: No *Physical Exam - Vital Signs Last Vital Signs Temp Pulse Resp BP Pulse Ox 97.5 F L 97 H 18 162/88 99 01/28/19 17:30 01/28/19 17:30 01/28/19 17:30 01/28/19 17:30 01/28/19 17:30 - Physical Exam Comments: 01/28/19 19:29 Vitals reviewed, AFVSS Gen: older man, resting in hospital stretcher, minimally cooperative HEENT: normal morphologies, EOMI, MMM, trachea midline, no apparent trauma CV: RRR, nl s1/s2, no murmurs or bruits appreciated Pulm: CTABL, normal WOB, no wheezes / rales / rhonchi Abd: soft, nontender, nondistended, indicates some pain with palpation around suprapubic catheter site - non-swollen, non-erythematous, no crepitus, no rebound or guarding. Neuro: A&Ox0 with nonsensical answers on my exam, moves all extremities Pulses: 2+ Radial and PT Ext: no clubbing / cyanosis / edema ED Treatment Course - LABORATORY CBC & Chemistry Diagram: 01/28/19 19:00 01/28/19 19:00 Medical Decision Making - Medical Decision Making 01/28/19 18:22 73yo man PMH of syringomyelia w/ suprapubic tube which is changed monthly, CVA, HTN, COPD, seizure, and spinal shunt, who presents from home with altered mental status. H&P limited by AMS, chart review demonstrates recurrent UTIs with AMS at presentation. Due to limited cooperation and clinical state, plan for full workup for vascular, metabolic, infectious causes. Will defer intox assessment given no Hx, no toxidrome evident. Possible psych component. Most likely AMS secondary to UTI. -CXR, NCHCT, EKG -CBC, CMP, Lactate, Cardiac Profile, BGM, VBG -UA, UCx -IV placed with US guidance, 20 gauge, L AC -1L IVF 01/28/19 19:27 -PT more interactive with other providers, more appropriately responsive -EKG without ischemic changes, NSR, normal axis, normal intervals, no concerning morphologies 01/28/19 19:50 -Pt having full conversations with other staff members, alert and oriented, laughs at sports jokes -Cantankerous with CT staff, refuses head CT - non-focal neuro exam, variable MSE with different people, normal coags, no trauma - low concern for acute intracranial process. -Found attempting to exit his bed - functional paraplegia - witnessed sliding down onto the floor in attempt to leave 01/28/19 19:53 -Vitals remain stable, still not talking to this interviewer or assigned nurse -No leukocytosis, normal H&H, normal INR, Lactate 1.2 01/28/19 20:24 -Pt with UTI, culture pending -Recent cultures with contamination, last recent positive was in 2018 -IVF switched to banana bag given temporal wasting / low weight ? malnutrition, folic acid ordered -Give Bactrim DS here and order to pharmacy -Mild hyponetramia 135, otherwise unremarkable CMP Dispo plan: home 01/28/19 21:18 -Attempted to locate suprapubic catheter in the ED to replace catheter in infected urine. No supplies available, pt instructed to follow up with his PCP and urologist in the next several days for a change. -Banana bag still running while we arrange transport home. *DC/Admit/Observation/Transfer Diagnosis at time of Disposition: History of recurrent UTI (urinary tract infection), UTI (lower urinary tract infection) - Discharge Dispostion Disposition: HOME Condition at time of disposition: Improved Decision to Admit order: No - Prescriptions Prescriptions: Sulfamethoxazole/Trimethoprim [Bactrim Ds -] 1 tab PO BID #14 tablet - Referrals - Patient Instructions Printed Discharge Instructions: DI for Urinary Tract Infection (UTI) Additional Instructions: 1. You were seen and evaluated in the ED for altered mental status, you were found to be unaltered. Your urine studies showed that you have a urinary tract infection. 2. You were given IV fluids and one dose of antibiotics in the department. The rest of your antibiotic course was sent to your pharmacy. Please fill this prescription as soon as you can (tonight or tomorrow morning) and take the pill twice a day for the next seven days. If your urine culture shows a bacteria resistant to the prescribed antibiotic, you will received a phone call regarding this and a change of medication. 3. Please follow up with your primary care doctor within 1-2 days. If you are unable to see them in this time, please do not hesitate to return to the ED for any new or concerning symptoms including but not limited to; changes in your mental status, pain non-resolving with medication, chest pain, shortness of breath, or fevers and chills with back pain. - Post Discharge Activity
[2019-01-28 19:22] LABS: VENOUS PC02 53.4 mmHg (41-51); VENOUS PH 7.36 (7.31-7.41)
[2019-01-28 19:24] LABS: VENOUS PO2 < 49 mmHg (30-40)
[2019-01-28] MEDS ORDERED: SODIUM CHLORIDE 1,000 ML IV STA (19:26)
[2019-01-28 19:40] LABS: BASO % 0.2 % (0-2.0); HEMATOCRIT 38.4 % (35.4-49); HEMOGLOBIN 12.9 GM/dL (11.7-16.9); LYMPH % 11.4 % (8-40); MCH 28.6 pg (25.7-33.7); MCHC 33.7 g/dl (32.0-35.9); MEAN PLT VOLUME 6.4 fl (7.5-11.1); NEUT % 81.4 % (42.8-82.8); PLATELET COUNT 425 K/MM3 (134-434); RBC 4.51 M/mm3 (4.00-5.60); RDW 14.9 % (11.9-15.9); WHITE BLOOD COUNT 7.9 K/mm3 (4.0-10.0)
[2019-01-28 19:41] LABS: INR 1.01 (0.83-1.09); PROTHROMBIN TIME (PATIENT) 11.9 SEC (9.7-13.0)
[2019-01-28] MEDS ORDERED: FOLIC ACID INJECTION - 1 MG, THIAMINE HCL 100 MG, MULTIVIT INJECTION ADULT 10 ML in SOD... IVPB ONE (20:08)
[2019-01-28 20:12] LABS: EPI CELLS 6.9 /HPF (0-5/HPF); HYALINE CASTS 76 /lpf (0-8); PH,URINE >= 9.0 (5.0-8.0); URINE APPEARANCE TURBID; URINE BACTERIA 2821.3 /hpf (NEGATIVE); URINE BILIRUBIN NEGATIVE (NEGATIVE); URINE COLOR YELLOW; URINE GLUCOSE (UA) NEGATIVE (NEGATIVE); URINE KETONE NEGATIVE (NEGATIVE); URINE LEUK ESTERASE 3+ (NEGATIVE); URINE NITRITE POSITIVE (NEGATIVE); URINE PROTEIN 1+ (NEGATIVE); URINE RBC 3 /hpf (0-4); URINE UROBILINOGEN 0.2 mg/dL (0.2-1.0); URINE WBC 112 /hpf (0-5)
[2019-01-28] MEDS ORDERED: SULFAMETHOXAZOLE/TRIMETHOPRIM 800MG/160MG D.S. TABLET PO ONE (20:16)
--- NOTE | 2019-01-28 20:19 | PDOC ---
Documentation entered by Cecille Saldana SCRIBE, acting as scribe for Nemo Kapadia MD. Nemo Kapadia MD: This documentation has been prepared by the scribe, Cecille Saldana SCRIBE, under my direction and personally reviewed by me in its entirety. I confirm that the documentation accurately reflects all work, treatment, procedures, and medical decision making performed by me. Attending Attestation - Resident Resident Name: EnzoFracisco - ED Attending Attestation I have performed the following: I have examined & evaluated the patient, The case was reviewed & discussed with the resident, I agree w/resident's findings & plan, Exceptions are as noted - HPI HPI: 01/28/19 19:40 The patient is a 73-year-old male, with a past medical history of syringomyelia (with suprapubic tube that is changed monthly), CVA, HTN, COPD, seizure, and spinal shunt, who presents to the ED with AMS. HPI is limited due to patients clinical condition. - Physicial Exam PE: 01/28/19 19:40 GENERAL: (+)Thin cachetic, temporal wasting. Awake, alert, and fully oriented, in no acute distress HEAD: No signs of trauma EYES: PERRLA, EOMI, sclera anicteric, conjunctiva clear ENT: Auricles normal inspection, hearing grossly normal, nares patent, oropharynx clear without exudates. Moist mucosa NECK: Normal ROM, supple, no lymphadenopathy, JVD, or masses LUNGS: Breath sounds equal, clear to auscultation bilaterally. No wheezes, and no crackles HEART: Regular rate and rhythm, normal S1 and S2, no murmurs, rubs or gallops ABDOMEN: (+)Suprapubic tenderness. Soft, normoactive bowel sounds. No guarding , no rebound. No masses EXTREMITIES: Normal range of motion, no edema. No clubbing or cyanosis. No cords, erythema, or tenderness NEUROLOGICAL: Alert and oriented x3. SKIN: Warm, Dry, normal turgor, no rashes or lesions noted. - Medical Decision Making 01/28/19 21:28 Pt feeling better; we will treat him with bactrimDS for his UTI and he will follow with Dr. Sharp early next week; we d/w his daughter and she is agreeing to take him home; she understands that he is alert and awake and feeling better and that all labs are normal. UTI. 01/29/19 00:20 Ambulance is here to take pt home.
[2019-01-28] MEDS ORDERED: SULFAMETHOXAZOLE/TRIMETHOPRIM 800MG/160MG D.S. TABLET ONE (20:29)
[2019-01-28 20:36] LABS: ALBUMIN 4.4 g/dl (3.4-5.0); BILIRUBIN,TOTAL 0.4 mg/dL (0.2-1); BLOOD UREA NITROGEN 9.8 mg/dL (7-18); CALCIUM 9.9 mg/dL (8.5-10.1); CREATININE 1.1 mg/dL (0.55-1.3); POTASSIUM 4.5 mmol/L (3.5-5.1); TOT PROT 8.7 g/dl (6.4-8.2)
[2019-01-28 22:50] VITALS: PULSE 100
[2019-01-28 22:58] LABS: URINE CRYSTALS AMORPHOUS PHOSPHATES /hpf; YEAST NONE SEEN (NEGATIVE)
[2019-01-29 00:21] VITALS: BP 167/79; TEMP 97.9
--- NOTE | 2019-01-30 11:40 | EKG ---
Test Reason : Blood Pressure : / mmHG Vent. Rate : 081 BPM Atrial Rate : 081 BPM P-R Int : 164 ms QRS Dur : 088 ms QT Int : 370 ms P-R-T Axes : 060 -02 042 degrees QTc Int : 429 ms NORMAL SINUS RHYTHM NONSPECIFIC T WAVE ABNORMALITY ABNORMAL ECG WHEN COMPARED WITH ECG OF 04-DEC-2018 22:46, NO SIGNIFICANT CHANGE WAS FOUND Confirmed by TINO CHIRINOS MD ([id number]) on 01/30/2019 11:39:36 AM Referred By: Confirmed By:TINO CHIRINOS MD
== END 2019-01-29 00:22 | disposition home or self-care (01) ==
LOC: JER 17:10
PROC: 3E033GC Introduction of Other Therapeutic Substance into Peripheral Vein, Percutaneous Approach (ICD-10-PCS; principal; 2019-01-28)
PROC: 3E0337Z Introduction of Electrolytic and Water Balance Substance into Peripheral Vein, Percutaneous Approach (ICD-10-PCS; 2019-01-28)
DX: N39.0 Urinary tract infection, site not specified (principal); I10 Essential (primary) hypertension; J44.9 Chronic obstructive pulmonary disease, unspecified; Z95.828 Presence of other vascular implants and grafts; R56.9 Unspecified convulsions; Z86.73 Personal history of transient ischemic attack (TIA), and cerebral infarction without residual deficits; Z87.440 Personal history of urinary (tract) infections; G95.0 Syringomyelia and syringobulbia
CPT/HCPCS: 36415; 71045-TC-FY; 80053; 81003; 82550; 82553; 82803; 83605; 84484; 85025; 85610; 87040; 87086; 87186; 93005; 93010; 96361; 96365; 99284-25; J7030

== ENCOUNTER 2019-02-03 00:49 | Inpatient (IN) | payer OTHER ==
--- NOTE | 2019-02-03 01:40 | PDOC ---
Attending Attestation - Resident Resident Name: Pillo Peters - ED Attending Attestation I have performed the following: I have examined & evaluated the patient, The case was reviewed & discussed with the resident, I agree w/resident's findings & plan - HPI HPI: 02/03/19 02:59 see resident hpi - Physicial Exam PE: 02/03/19 03:01 agree with resident exam - Medical Decision Making 02/03/19 03:02 73 yo male with pseudomonas positive urine culture and indwelling suprapubic catheter Zosyn administered based on sensitivity admit to hospitalist service
--- NOTE | 2019-02-03 01:46 | PDOC ---
History of Present Illness - General Chief Complaint: Urinary Problem Stated Complaint: UTI Time Seen by Provider: 02/03/19 01:40 History Source: Patient Exam Limitations: No Limitations - History of Present Illness Initial Comments: 02/03/19 02:31 73M w/ pmh of syringomelia, neurogenic bladder w/ suprapubic catheter, thoracic spine shunt, CVA, weakness to LLE, HTN, COPD, seizures referred to [email or web address] for UCX results resulting w/ pseudomonas. Patient had recent [facility] presentation on 01/28/19 for AMS thought to be 2/2 to UTI(+LE, +nitrites), sent home with bactrim and instructed to fu with his urologist for catheter exchange. UCX results returned on 02/02/19. Patient received a phone call instructing him to present to the ED for IVF. Denies symptoms. Denies changes in catheter output color, smell. Did not fu w/ urology. Endorses daily cleaning of suprapubic site with hydrogen peroxide. Lives at home with daughter and other family members. Ambulates with walker at baseline but has had increasing weakness. Associated Symptoms: reports: denies symptoms. denies: chest pain, cough, diaphoresis, fever/chills, loss of appetite, malaise, nausea/vomiting, shortness of breath, syncope Past History - Travel Traveled outside of the country in the last 30 days: No Close contact w/someone who was outside of country & ill: No - Past Medical History Allergies/Adverse Reactions: Allergies Allergy/AdvReac Type Severity Reaction Status Date / Time No Known Allergies Allergy Verified 02/03/19 00:54 Home Medications: Ambulatory Orders Gabapentin [Neurontin] 3 cap PO TID 05/25/13 Baclofen 10 mg PO TID 10/18/13 Metoprolol Tartrate [Lopressor -] 25 mg PO BID 10/18/13 hydrOXYzine HCL [Atarax -] 25 mg PO DAILY PRN 10/18/13 Multivitamins [Multivit ([facility] Formulary)] 1 tab PO DAILY 04/14/14 Phenytoin Na Extended [Dilantin -] 100 mg PO TID 11/03/17 Furosemide 20 mg PO DAILY 12/02/17 Clopidogrel Bisulfate [Plavix] 75 mg PO DAILY #30 tablet 12/04/17 Amoxicillin/Potassium Clav [Augmentin 875-125 Tablet] 1 each PO BID #14 tablet 10/01/18 Sulfamethoxazole/Trimethoprim [Bactrim Ds -] 1 tab PO BID #14 tablet 01/28/19 Anemia: No Asthma: No Cancer: No Cardiac Disorders: No CVA: (DENIES CVA) COPD: Yes CHF: No Dementia: No Diabetes: No GI Disorders: Yes (CONSTIPATION) Disorders: Yes (Suprapubic catheter/mrsa urine) HTN: Yes Hypercholesterolemia: No Seizures: Yes - Surgical History Abdominal Surgery: Yes (?anterior approach to spine surgery) Appendectomy: Yes Cardiac Surgery: No Cholecystectomy: No Lung Surgery: No Neurologic Surgery: Yes (T7 shunt) Orthopedic Surgery: No - Family Disease History Family Disease History: Heart Disease: Grandparents (HTN) - Immunization History Td Vaccination: (UNK) Immunization Up to Date: Yes (UNK) - Suicide/Smoking/Psychosocial Hx Smoking Status: No Smoking History: Former smoker (quit 25ys prior) Years of Tobacco Use: 0 Have you smoked in the past 12 months: No Number of Cigarettes Smoked Daily: 0 Cigars Per Day: 0 Information on smoking cessation initiated: No Hx Alcohol Use: No Drug/Substance Use Hx: No Substance Use Type: None Hx Substance Use Treatment: No Review of Systems - Review of Systems Able to Perform ROS?: Yes Is the patient limited Kiswahili proficient: No Constitutional: Yes: Loss of Appetite, Unintentional Wgt. Loss (loss ~20lbs in 4months). No: Chills, Fever, Weakness HEENTM: No: Eye Pain, Double Vision, Difficulty Swallowing Respiratory: No: Cough, Orthopnea, Shortness of Breath, SOB at Rest, Wheezing Cardiac (ROS): No: Chest Pain, Irregular Heart Rate, Lightheadedness, Palpitations ABD/GI: Yes: Poor Appetite. No: Abdominal Distended, Constipated, Diarrhea, Nausea, Vomiting : No: Burning, Dysuria, Discharge, Urgency, Testicular Swelling Musculoskeletal: No: See HPI, Back Pain, Muscle Weakness Integumentary: No: Bruising, Change in Color, Dryness, Erythema Neurological: No: Headache, Numbness, Seizure, Tremors, Dizziness *Physical Exam - Vital Signs Last Vital Signs Temp Pulse Resp BP Pulse Ox 97.8 F 80 18 176/89 H 100 02/03/19 00:54 02/03/19 00:54 02/03/19 00:54 02/03/19 00:54 02/03/19 00:54 - Physical Exam General Appearance: Yes: Cachetic, Thin. No: Apparent Distress HEENT: positive: Normal Voice. negative: Pale Conjunctivae, Photophobia, Scleral Icterus (R), Scleral Icterus (L), Muffled/Hoarse voice Neck: positive: Trachea midline, Supple. negative: Tender, Decreased range of motion, Lymphadenopathy (R), Lymphadenopathy (L) Respiratory/Chest: positive: Lungs Clear, Normal Breath Sounds. negative: Chest Tender, Accessory Muscle Use Cardiovascular: positive: Regular Rate, S1, S2 Gastrointestinal/Abdominal: positive: Soft. negative: Distended, Guarding, Rebound, Tenderness Male Genitalia: positive: other (suprapubic catheter in place w/o discharge or erythema at site. Urinary leg bag is empty). negative: CVAT Musculoskeletal: positive: Decreased Range of Motion (Left wrist abduction) Extremity: positive: Other (Left LLE atrophy, weakness to dorsiflexion/ plantarflexion. Left wrist with firm nodules and grossly abnormal bony deformity , bony deformity to L MTPs. Left dorsal forearm with 5-10cm mobile soft subcutaneous mass) Integumentary: positive: Dry Neurologic: positive: Fully Oriented, Alert. negative: Confused, Disoriented ED Treatment Course - LABORATORY CBC & Chemistry Diagram: 02/03/19 03:40 02/03/19 03:40 Medical Decision Making - Medical Decision Making 02/03/19 03:19 73M w/ pmh of syringomelia, neurogenic bladder w/ suprapubic catheter, thoracic spine shunt, CVA, weakness to LLE, HTN, COPD, seizures referred to [facility] for UCX results showing pseudomonas. Patient is asymptomatic. - fu CBC, CMP - UA showing +LE, +nitrites - administer zosyn 02/03/19 05:44 - WBC 6.3 - Cr 1.5 -- CAMACHO - decision to admit for complicated UTI growing pseudomonas *DC/Admit/Observation/Transfer Diagnosis at time of Disposition: History of recurrent UTI (urinary tract infection) UTI (urinary tract infection) due to urinary indwelling catheter Qualifiers: Indwelling urinary catheter type: indwelling urethral catheter Encounter type: initial encounter Qualified Code(s): T83.511A - Infection and inflammatory reaction due to indwelling urethral catheter, initial encounter; N39.0 - Urinary tract infection, site not specified - Discharge Dispostion Condition at time of disposition: Stable Decision to Admit order: Yes - Referrals - Patient Instructions - Post Discharge Activity
[2019-02-03] MEDS ORDERED: PIPERACILLIN/TAZOB 4.5 GM 4.5 GM in DEXTROSE 5%-WATER 100 ML IVPB ONE (02:50)
[2019-02-03 03:22] LABS: EPI CELLS 1.7 /HPF (0-5/HPF); HYALINE CASTS 22 /lpf (0-8); URINE APPEARANCE CLOUDY; URINE BACTERIA 856.7 /hpf (NEGATIVE); URINE BILIRUBIN NEGATIVE (NEGATIVE); URINE COLOR YELLOW; URINE GLUCOSE (UA) NEGATIVE (NEGATIVE); URINE KETONE TRACE (NEGATIVE); URINE LEUK ESTERASE 3+ (NEGATIVE); URINE NITRITE POSITIVE (NEGATIVE); URINE PROTEIN 1+ (NEGATIVE); URINE RBC 2 /hpf (0-4); URINE UROBILINOGEN 0.2 mg/dL (0.2-1.0); URINE WBC 45 /hpf (0-5)
[2019-02-03] MEDS ORDERED: PIPERACILLIN/TAZOB 4.5 GM 4.5 GM/100 ML BAG IVPB ONE (03:50)
[2019-02-03 04:06] LABS: BASO % 0.7 % (0-2.0); HEMATOCRIT 36.6 % (35.4-49); HEMOGLOBIN 12.2 GM/dL (11.7-16.9); LYMPH % 24.1 % (8-40); MCH 28.5 pg (25.7-33.7); MCHC 33.2 g/dl (32.0-35.9); MEAN CELL VOLUME 85.8 fl (80-96); MEAN PLT VOLUME 6.5 fl (7.5-11.1); MONO % 7.6 % (3.8-10.2); NEUT % 65.6 % (42.8-82.8); PLATELET COUNT 423 K/MM3 (134-434); RBC 4.27 M/mm3 (4.00-5.60); RDW 14.9 % (11.9-15.9); WHITE BLOOD COUNT 6.3 K/mm3 (4.0-10.0)
[2019-02-03 04:38] LABS: YEAST NEGATIVE (NEGATIVE)
[2019-02-03 05:25] LABS: ALBUMIN 4.2 g/dl (3.4-5.0); BILIRUBIN,TOTAL 0.2 mg/dL (0.2-1); CALCIUM 9.2 mg/dL (8.5-10.1); CREATININE 1.5 mg/dL (0.55-1.3)
[2019-02-03 05:41] LABS: BLOOD UREA NITROGEN 18.1 mg/dL (7-18)
--- NOTE | 2019-02-03 07:38 | HP ---
CHIEF COMPLAINT:UTI PCP:Dr. Pryor; Urologist; Dr. Sharp HISTORY OF PRESENT ILLNESS: 73 y/o male with PMH of syringomyelia (started at age 28), HTN, seizure disorder, previous CVA, neurogenic bladder (requiring suprapubic catheter) presents to the ED after being called back urine cx resuts- patient was here on 02/09 with AMS found to have a UTI and was sent home on Bactrim, patient was called back on Thursday when the culture came back growing Pseudomonas. He has had recurrent UTI's growing psueodomonas, MRSA, and klebsiella in the past- he has a suprapubic catheter which he gets changed every month by Dr. Sharp and the last time it was changed was 2 weeks ago; he denies any urinary symptoms ( no burning, frequency, no foul smelling odor). 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 Family History: family history of HTN on both sides Allergies No Known Allergies Allergy (Verified 02/03/19 00:54) HOME MEDICATIONS: Home Medications Medication Instructions Recorded Gabapentin [Neurontin] 3 cap PO TID 05/25/13 Baclofen 10 mg PO TID 10/18/13 Metoprolol Tartrate [Lopressor -] 25 mg PO BID 10/18/13 hydrOXYzine HCL [Atarax -] 25 mg PO DAILY PRN 10/18/13 Multivitamins [Multivit ([facility] 1 tab PO DAILY 04/14/14 Formulary)] Phenytoin Na Extended [Dilantin -] 100 mg PO TID 11/03/17 Furosemide 20 mg PO DAILY 12/02/17 Clopidogrel Bisulfate [Plavix] 75 mg PO DAILY #30 tablet 12/04/17 Amoxicillin/Potassium Clav 1 each PO BID #14 tablet 10/01/18 [Augmentin 875-125 Tablet] Sulfamethoxazole/Trimethoprim 1 tab PO BID #14 tablet 01/28/19 [Bactrim Ds -] REVIEW OF SYSTEMS (all ROS negative) CONSTITUTIONAL: Absent: fever, chills, diaphoresis, generalized weakness, malaise, loss of appetite, weight change HEENT: Absent: rhinorrhea, nasal congestion, throat pain, throat swelling, difficulty swallowing, mouth swelling, ear pain, eye pain, visual changes CARDIOVASCULAR: Absent: chest pain, syncope, palpitations, irregular heart rate, lightheadedness , peripheral edema RESPIRATORY: Absent: cough, shortness of breath, dyspnea with exertion, orthopnea, wheezing, stridor, hemoptysis GASTROINTESTINAL: Absent: abdominal pain, abdominal distension, nausea, vomiting, diarrhea, constipation, melena, hematochezia GENITOURINARY: Absent: dysuria, frequency, urgency, hesitancy, hematuria, flank pain, genital pain MUSCULOSKELETAL: Absent: myalgia, arthralgia, joint swelling, back pain, neck pain SKIN: Absent: rash, itching, pallor HEMATOLOGIC/IMMUNOLOGIC: Absent: easy bleeding, easy bruising, lymphadenopathy, frequent infections ENDOCRINE: Absent: unexplained weight gain, unexplained weight loss, heat intolerance, cold intolerance NEUROLOGIC: Absent: headache, focal weakness or paresthesias, dizziness, unsteady gait, seizure, mental status changes, bladder or bowel incontinence PSYCHIATRIC: Absent: anxiety, depression, suicidal or homicidal ideation, hallucinations. PHYSICAL EXAMINATION Vital Signs - 24 hr 02/03/19 02/03/19 02/03/19 00:54 06:28 06:44 Temperature 97.8 F Pulse Rate 80 Pulse Rate [ 75 Apical] Respiratory 18 18 Rate Blood Pressure 176/89 H Blood Pressure 145/67 [Right Arm] O2 Sat by Pulse 100 96 99 Oximetry (%) GENERAL: Awake, alert, and fully oriented, in no acute distress. EYES: PEERLA; EOMI; no scleral icterus NECK: no JVD; no lymphadenoapthy LUNGS:CTA B/L; no rales, rhonchi or wheezing HEART: Regular rate and rhythm, normal S1 and S2 without murmur, rub or gallop. ABDOMEN: Soft, nontender, not distended, no suprapubic tenderness upon palpation ; +BS in all 4 quadrants EXTREMITIES: warm; well-perfused no clubbing/cyanosis or edema NEUROLOGICAL: Cranial nerves II-XII intact. moving extremities however diminished sensation on B/L LE SKIN: Warm, dry, normal turgor, no rashes or lesions noted, normal capillary refill. Laboratory Results - last 24 hr 02/03/19 02/03/19 02/03/19 03:07 03:40 03:40 WBC 6.3 RBC 4.27 Hgb 12.2 Hct 36.6 MCV 85.8 MCH 28.5 MCHC 33.2 RDW 14.9 Plt Count 423 MPV 6.5 L Absolute Neuts (auto) 4.1 Neutrophils % 65.6 Lymphocytes % 24.1 D Monocytes % 7.6 Eosinophils % 2.0 D Basophils % 0.7 D Nucleated RBC % 0 Sodium 136 Potassium 4.0 Chloride 99 Carbon Dioxide 28 Anion Gap 9 BUN 18.1 H Creatinine 1.5 H Est GFR (CKD-EPI)AfAm 53.52 Est GFR (CKD-EPI)NonAf 46.17 Random Glucose 114 H Calcium 9.2 Total Bilirubin 0.2 AST 26 ALT 16 Alkaline Phosphatase 179 H Total Protein 8.0 Albumin 4.2 Urine Color Yellow Urine Appearance Cloudy Urine pH 6.0 D Ur Specific [place] 1.018 Urine Protein 1+ H Urine Glucose (UA) Negative Urine Ketones Trace H Urine Blood Negative Urine Nitrite Positive H Urine Bilirubin Negative Urine Urobilinogen 0.2 Ur Leukocyte Esterase 3+ H Urine WBC (Auto) 45 Urine RBC (Auto) 2 Urine Casts (Auto) 22 U Pathogenic Cast Auto Negative U Epithel Cells (Auto) 1.7 Urine Bacteria (Auto) 856.7 Urine Yeast (Auto) Negative ASSESSMENT/PLAN: 73 y/o male with PMH of syringomyelia (started at age 28), HTN, seizure disorder, previous CVA, neurogenic bladder (requiring suprapubic catheter) presents to the ED after being called back urine cx resuts growing Pseudomonas #Complicated UTI 2/2 suprapubic catheter urine cx from 01/30 growing Pseudomonas sensitive to Zosyn -patient already received 1 dose of Zosyn in the ED -will c/w Zosyn -Will consult urology, Dr. Sharp -ID consult- Dr. Springer #CAMACHO patients Cr upon arrival was 1.5 -baseline is around 1.1-1.2 -will hydrate and monitor #HTN will continue with lopressor 25 BID #Seizure Disorder patient has not had a seizure in many years -will c/w patients Dilantin 100 TID F/E/N NS @75mls x1 bag monitor electrolytes sodium controlled diet dvt ppx: heparin sq Problem List - Problem (1) HTN (hypertension) Code(s): I10 - ESSENTIAL (PRIMARY) HYPERTENSION (2) Seizure disorder Code(s): G40.909 - EPILEPSY, UNSP, NOT INTRACTABLE, WITHOUT STATUS EPILEPTICUS (3) UTI (urinary tract infection) due to urinary indwelling catheter Code(s): T83.511A - I/I REACT D/T INDWELLING URETHRAL CATHETER, INIT; N39.0 - URINARY TRACT INFECTION, SITE NOT SPECIFIED Qualifiers: Indwelling urinary catheter type: indwelling urethral catheter Encounter type: initial encounter Qualified Code(s): T83.511A - Infection and inflammatory reaction due to indwelling urethral catheter, initial encounter; N39.0 - Urinary tract infection, site not specified Visit type - Emergency Visit Emergency Visit: Yes ED Registration Date: 02/03/19 Care time: The patient presented to the Emergency Department on the above date and was hospitalized for further evaluation of their emergent condition. - New Patient This patient is new to me today: Yes Date on this admission: 02/03/19 - Critical Care Critical Care patient: No ATTENDING PHYSICIAN STATEMENT I saw and evaluated the patient. I reviewed the resident's note and discussed the case with the resident. I agree with the resident's findings and plan as documented. SUBJECTIVE: OBJECTIVE: ASSESSMENT AND PLAN:
[2019-02-03] MEDS ORDERED: SODIUM CHLORIDE 1,000 ML IV SCH (08:45)
[2019-02-03] MEDS ORDERED: hydrOXYzine HCL 25 MG TABLET (FP) PO PRN (09:09)
[2019-02-03] MEDS: HEPARIN NA (PORCINE) 5,000 UNITS/ML 1ML VIAL SQ SCH ×3 (09:12→22:22)
[2019-02-03] MEDS ORDERED: hydrALAZINE HCL 25 MG TABLET (FP) ONE ×2 (09:20→21:38)
[2019-02-03] MEDS: hydrALAZINE HCL 25 MG TABLET (FP) PO SCH ×2 (09:24→22:22)
[2019-02-03] MEDS ORDERED: FUROSEMIDE 40 MG TABLET (FP) ONE (09:26)
[2019-02-03] MEDS ORDERED: PIPERACILLIN/TAZOB 3.375 GM 3.375 GM/50 ML BAG IVPB ONE (09:26)
[2019-02-03] MEDS ORDERED: METOPROLOL TARTRATE 25 MG TABLET (FP) ONE ×2 (09:26→21:38)
[2019-02-03] MEDS: METOPROLOL TARTRATE 25 MG TABLET (FP) PO SCH ×2 (09:35→22:22)
[2019-02-03] MEDS ORDERED: PIPERACILLIN/TAZOB 3.375 GM 3.375 GM in DEXTROSE 5%-WATER - 50 ML IVPB SCH (10:00)
[2019-02-03] MEDS ORDERED: FUROSEMIDE 20 MG PO SCH (10:00)
--- NOTE | 2019-02-03 11:38 | EKG ---
Test Reason : Blood Pressure : / mmHG Vent. Rate : 078 BPM Atrial Rate : 078 BPM P-R Int : 146 ms QRS Dur : 088 ms QT Int : 424 ms P-R-T Axes : 070 -02 044 degrees QTc Int : 483 ms NORMAL SINUS RHYTHM NONSPECIFIC T WAVE ABNORMALITY ABNORMAL ECG WHEN COMPARED WITH ECG OF 28-JAN-2019 17:19, NO SIGNIFICANT CHANGE WAS FOUND Confirmed by NIEVES HULL MD ([id number]) on 02/03/2019 11:38:00 AM Referred By: Confirmed By:NIEVES HULL MD
--- NOTE | 2019-02-03 13:08 | PN ---
Teaching Attending Note Name of Resident: Sylwia See ATTENDING PHYSICIAN STATEMENT I saw and evaluated the patient. I reviewed the resident's note and discussed the case with the resident. I agree with the resident's findings and plan as documented. CC: patient was called due to + urine cx for pseudomonas HPI: Unfortunate 73 y/o man with h/o Syringomyelia, neurogenic bladder, suprapubic cath, recurrent UTIs, seizure disorder, CVA who presented to the ER on 01/28 for AMS , He was found to have pyuria and was prescribed Bactrim to go home. He was called yesterday due to urine cx growing pseudomonas. after his ER visit, his mental status continued to improve, he is at his base line now. denies fever , chills, abd pain, or change in urine odor or color. He has suprapubic cath which gets changed monthly by Dr. Sharp. it was changed last 2 weeks ago. he denies any change in hi PO intake. No N/V. OBJECTIVE: NAD, awake, alert, oriented. cooperative. HEENT: MMM, no JVD, no facial droop, round equal pupils, reactive to light. CV: RRR, no MRG Lungs: CTAB Abd: soft, NT, ND , NL BS. suprapubic cath in place with intact surrounding skin Ext : no edema or erythema on legs or arms. 3 cm bulge under L elbow with no skin changes and no tenderness. No skin breakdown on feet. Neuro: EOMI, round equal pupils, reactive to light ,no facial droop. tongue and uvula at mid line. strength 5/5 in upper extremities proximally and distally. RLE: 1/5 hip flexion and knee flexion. 0/5 ankle drosiflexion and plantar flexion LLLE: : 0/5 hip flexion and knee flexion. 0/5 ankle drosiflexion and plantar flexion sensation decreased on LE L > R. and on LUE. Nl sensation in face and RUE. reflexes: 2+ knee jerk b/l. 1+ biceps bilaterally ASSESSMENT AND PLAN: Unfortunate 73 y/o man with h/o Syringomyelia, neurogenic bladder, suprapubic cath, recurrent UTIs, seizure disorder, CVA who presented to Er on 01/28, diagnosed with UTI, then called back due to + cx for pseudomonas 1- Possible Complicated UTI: patient might be colonized , but due to the AMS on 01/28 might need to treat for UTI. of note, AMS could be the result of volume depletion. - sensitivity reviewed. will give zosyn pending ID input ( ? need to treat) - will ask uro to change cath 2- Darío: likely volume depletion. - start gentle hydration and repeat Cr in am - if no improvement , then will perform US to r/o obstruction - hold lasix 3- H/o Seizures: resume his dilantin 4- Syringomyelia and Paraplegia: - cont baclofen - cont neurontin. 5- HTN: cont hydralazin DVT PX: Heparin sq dispo : HLOC pending above
[2019-02-03] MEDS ORDERED: PATIENT'S OWN MEDICATION (NON-FORMULARY) (Baclofen [Baclofen] 10 MG) PO SCH (14:00)
--- NOTE | 2019-02-03 14:13 | PN ---
Progress Note (short form) - Note Progress Note: ID consult dictated imp/reccd 73 yo man seen in ER on 01/28 with confusion improved with IVF started on bactrim and discharged home he was called back on Thursday and didn't come because he felt fine still feels well today, no complaints alert he has a suprapubic tube he is alert and afebrile wbc is normal I donot think he has a symptomatic UTI urine culture represents colonization can d/c zosyn suspect camacho due to bactrim Problem List - Problems (1) Asymptomatic bacteriuria Code(s): N39.0 - URINARY TRACT INFECTION, SITE NOT SPECIFIED (2) CAMACHO (acute kidney injury) Code(s): N17.9 - ACUTE KIDNEY FAILURE, UNSPECIFIED (3) Suprapubic catheter Code(s): Z93.59 - OTHER CYSTOSTOMY STATUS
[2019-02-03] MEDS ORDERED: BACLOFEN 10 MG TABLET (FP) ONE ×2 (14:45→21:38)
[2019-02-03] MEDS ORDERED: PHENYTOIN NA EXTENDED 100 MG CAPSULE (FP) ONE ×2 (14:45→21:38)
[2019-02-03] MEDS ORDERED: HEPARIN NA (PORCINE) 5,000 UNITS/ML 1ML VIAL ONE ×2 (14:46→21:39)
[2019-02-03] MEDS: GABAPENTIN 400 MG CAPSULE (FP) PO SCH ×2 (16:10→22:22)
[2019-02-03] MEDS: BACLOFEN 10 MG TABLET (FP) PO SCH ×2 (16:11→22:22)
[2019-02-03] MEDS: PHENYTOIN NA EXTENDED 100 MG CAPSULE (FP) PO SCH ×2 (16:11→22:22)
--- NOTE | 2019-02-03 20:12 | CONS ---
DATE OF CONSULTATION: 02/03/2019 This is a 73-year-old man who is known from prior admissions. He has a history of suprapubic tube that he has had for years. He has a history of syringomyelia, hypertension, seizure disorder, and a neurogenic bladder with a suprapubic tube. He was seen in the emergency room on the , at which time he complained of change in mental status, which he felt was indicative of a urinary tract infection. He was given some IV fluids, oral Bactrim, and discharged home. After going home, he reports being back at his baseline and feeling well. On Thursday, he received a call from the hospital saying that he had a drug-resistant urine culture and to come back. He did not return because he felt great and he had errands to run. He returned today for follow up and was admitted. He currently feels well. He has no nausea, vomiting, diarrhea. He is awake and alert. PAST MEDICAL HISTORY: Notable for a history of syringomyelia, COPD. He has a suprapubic tube. He has had multiple resistant organisms in the past. he has had an appendectomy. He has had spine surgery. FAMILY HISTORY: Notable for hypertension in his grandparents. SOCIAL HISTORY: He is a former smoker. He quit many years ago. He lives in the community. He lives at home with his daughter and he ambulates with a walker at baseline. REVIEW OF SYSTEMS: He has no nausea, vomiting, diarrhea, or dysuria. He has no fevers or chills. He has never had fevers or chills. PHYSICAL EXAMINATION: General: He is awake and alert. Vital Signs: Temperature is 98.2, pulse is 59, blood pressure 180/80, respiratory rate 15. He is saturating 98% on room air. HEENT: He is normocephalic. His eyes are anicteric. Neck: Supple. Lungs: Clear to auscultation. Heart: Regular rate and rhythm. Abdomen: Soft. He has a suprapubic tube, the site of which is clean. Extremities: Without edema. LABORATORY: Notable for a white count of 6.3, hemoglobin 12.2, platelets are 423. BUN is 18 and creatinine is 1.5. Urine culture from the is growing pseudomonas. IN SUMMARY: This is a 73-year-old man who was called back for a urine culture from the for an organism that we never treated him for, yet he is asymptomatic and feels well. I do not feel that he has a symptomatic UTI. The suprapubic tube was always going to grow some organism and it will always be colonized. There is no guarantee that he will not have a UTI in the future, but currently he does not have a UTI and I would stop the Zosyn. I suspect his elevated creatinine is due to his Bactrim. The case was discussed with the hospitalist and the antibiotics were discontinued. GATITO SMITH M.D. [id number]
--- NOTE | 2019-02-03 21:52 | CONS ---
DATE OF CONSULTATION: DATE OF DICTATION: 02/03/2019 HISTORY: Patient is a 73-year-old male admitted via the emergency room this afternoon with history of possible urosepsis. Patient does have history of syringomyelia as well as neurogenic with a suprapubic catheter for the past 7 years. He also has a thoracic spine shunt. He has had a CVA in the past with weakness to the left lower extremity. Patient also has a history of high blood pressure, COPD, and seizure disorder. He has been getting recurrent urinary tract infections with pseudomonas. Patient was recently at [facility] with a similar episode. Was treated with Bactrim and was discharged. He did not follow up with his urologist. He presently denies any fever or chills. He denies travelling out of the country. He denies any allergies. He is on multiple medications including gabapentin, baclofen, metoprolol, Atarax, vitamins, Dilantin, Lasix, Plavix, Augmentin, and Bactrim. He does complain of constipation. His suprapubic tract has always cultured positive for MRSA. He has had spinal surgery in the past. He also has a shunt at the level of T7. The patient's BUN 18.1 and creatinine 1.5 in the emergency room. His random glucose was 114. His white count was 6.3, hemoglobin 12.2, hematocrit 36.6, platelets were 423. The patient's urine revealed a large amount of RBCs as well as nitrates. He was commenced on Zosyn on admission. DIAGNOSIS: Urosepsis. The patient should undergo a renal and pelvic ultrasound to rule out upper tract disease. We will also change suprapubic [place] during this hospital admission. We will follow with you. JESSICA KAPLAN M.D. [id number]
[2019-02-04 02:54] VITALS: BMI 22.6
[2019-02-04] MEDS: HEPARIN NA (PORCINE) 5,000 UNITS/ML 1ML VIAL SQ SCH ×2 (07:38→14:51)
[2019-02-04] MEDS: PHENYTOIN NA EXTENDED 100 MG CAPSULE (FP) PO SCH ×2 (07:39→14:51)
[2019-02-04] MEDS: GABAPENTIN 400 MG CAPSULE (FP) PO SCH ×2 (07:39→14:51)
[2019-02-04] MEDS: BACLOFEN 10 MG TABLET (FP) PO SCH ×2 (07:49→14:52)
[2019-02-04 08:09] LABS: BASO % 0.6 % (0-2.0); EOS % 3.9 % (0-4.5); HEMATOCRIT 32.1 % (35.4-49); HEMOGLOBIN 10.7 GM/dL (11.7-16.9); LYMPH % 26.1 % (8-40); MCH 28.9 pg (25.7-33.7); MCHC 33.2 g/dl (32.0-35.9); MEAN CELL VOLUME 87.1 fl (80-96); MEAN PLT VOLUME 6.5 fl (7.5-11.1); MONO % 8.5 % (3.8-10.2); NEUT % 60.9 % (42.8-82.8); PLATELET COUNT 363 K/MM3 (134-434); RBC 3.69 M/mm3 (4.00-5.60); RDW 15.5 % (11.9-15.9); WHITE BLOOD COUNT 4.6 K/mm3 (4.0-10.0)
[2019-02-04 08:51] LABS: ALBUMIN 3.4 g/dl (3.4-5.0); BILIRUBIN,TOTAL 0.2 mg/dL (0.2-1); CALCIUM 8.8 mg/dL (8.5-10.1); CREATININE 1.4 mg/dL (0.55-1.3); MAGNESIUM 2.9 mg/dL (1.8-2.4); PHOSPHOROUS 4.2 mg/dL (2.5-4.9); POTASSIUM 4.1 mmol/L (3.5-5.1); TOT PROT 6.8 g/dl (6.4-8.2)
[2019-02-04 10:42] VITALS: BP 152/84; PULSE 91; TEMP 97.6
[2019-02-04] MEDS: hydrALAZINE HCL 25 MG TABLET (FP) PO SCH (10:46)
[2019-02-04] MEDS: METOPROLOL TARTRATE 25 MG TABLET (FP) PO SCH (10:46)
--- NOTE | 2019-02-04 17:43 | PN ---
Teaching Attending Note Name of Resident: Pavel Sharp ATTENDING PHYSICIAN STATEMENT I saw and evaluated the patient. I reviewed the resident's note and discussed the case with the resident. I agree with the resident's findings and plan as documented. SUBJECTIVE: No fever or chills. No pain . No BARRAZA . OBJECTIVE: NAD, awake, alert, oriented. cooperative. CV: RRR, no MRG Lungs: CTAB Abd: soft, NT, ND , NL BS. suprapubic cath in place with intact surrounding skin Ext : no edema or erythema on legs or arms. 3 cm bulge under L elbow with no skin changes and no tenderness. No skin breakdown on feet. ASSESSMENT AND PLAN: Unfortunate 73 y/o man with h/o Syringomyelia, neurogenic bladder, suprapubic cath, recurrent UTIs, seizure disorder, CVA who presented to Er on 01/28, diagnosed with UTI, then called back due to + cx for pseudomonas 1- Colonization of the urine. no need for Abx suprapubic cath to be changed on Thursday at urologist office 2- CAMACHO: - US with b/l hydro . d/w uro : there is no old US to compare. - not sure of etiology of hydro, ? vesicoureteral reflux. - this was d/w his urologist who will follow up . - cont to hold lasix after dc. decision to resume is per PCP and after blood work in 1 week . 3- H/o Seizures: cont dilantin 4- Syringomyelia and Paraplegia: - cont baclofen - cont neurontin. 5- HTN: cont hydralazin DC home today .f/u with uro and PCP
--- NOTE | 2019-02-04 18:02 | PN ---
Physical Exam: SUBJECTIVE: Patient seen and examined at bedside. No acute events. OBJECTIVE: Vital Signs Period Temp Pulse Resp BP Sys/Soler Pulse Ox Last 24 Hr 97.6 F-98.3 F 67-91 16-18 115-152/56-84 98-100 GENERAL: The patient is awake, alert, and fully oriented, in no acute distress. HEAD: Normal with no signs of trauma. NECK: supple. LUNGS: Breath sounds equal, clear to auscultation bilaterally, no wheezes, no crackles, no accessory muscle use. HEART: Regular rate and rhythm, S1, S2 without murmur, rub or gallop. ABDOMEN: Soft, nontender, nondistended, normoactive bowel sounds, no guarding, no rebound, suprapubic catheter in place with some discharge around insertion site. EXTREMITIES: 2+ pulses, warm, well-perfused, no edema. pt has b/l hypothenar, thenar atrophy, as well as elbow questionable tophi and hand mass. NEUROLOGICAL: immobile left leg, mobile right leg. PSYCH: Normal mood, normal affect. SKIN: Warm, dry, no rashes or lesions noted Laboratory Results - last 24 hr 02/04/19 02/04/19 06:05 06:05 WBC 4.6 RBC 3.69 L Hgb 10.7 L Hct 32.1 L MCV 87.1 MCH 28.9 MCHC 33.2 RDW 15.5 Plt Count 363 MPV 6.5 L Absolute Neuts (auto) 2.8 Neutrophils % 60.9 Lymphocytes % 26.1 Monocytes % 8.5 Eosinophils % 3.9 D Basophils % 0.6 Nucleated RBC % 0 Sodium 140 Potassium 4.1 Chloride 105 Carbon Dioxide 29 Anion Gap 6 L BUN 16.0 Creatinine 1.4 H Est GFR (CKD-EPI)AfAm 58.17 Est GFR (CKD-EPI)NonAf 50.19 Random Glucose 85 Calcium 8.8 Phosphorus 4.2 Magnesium 2.9 H Total Bilirubin 0.2 AST 18 ALT 11 L Alkaline Phosphatase 129 H Total Protein 6.8 Albumin 3.4 Active Medications Generic Name Dose Route Start Last Admin Trade Name Freq PRN Reason Stop Dose Admin Baclofen 10 mg 02/03/19 14:00 02/04/19 14:52 Lioresal - PO Not Given TID [facility] Gabapentin 1,200 mg 02/03/19 14:00 02/04/19 14:51 Neurontin - PO 1,200 mg TID DEBBI Administration Heparin Sodium (Porcine) 5,000 unit 02/03/19 07:45 02/04/19 14:51 Heparin - SQ Not Given TID DEBBI Hydralazine HCl 25 mg 02/03/19 10:00 02/04/19 10:46 Apresoline - PO 25 mg BID DEBBI Administration Hydroxyzine HCl 25 mg 02/03/19 09:09 Atarax - PO DAILY PRN FOR ITCHING Metoprolol Tartrate 25 mg 02/03/19 10:00 02/04/19 10:46 Lopressor - PO 25 mg BID DEBBI Administration Phenytoin Sodium 100 mg 02/03/19 14:00 02/04/19 14:51 Dilantin - PO 100 mg TID DEBBI Administration ASSESSMENT/PLAN: 73 y/o male with PMH of syringomyelia (started at age 28), HTN, seizure disorder, previous CVA, neurogenic bladder (requiring suprapubic catheter) presents to the ED after being called back urine cx resuts growing Pseudomonas #Complicated UTI 2/2 suprapubic catheter urine cx from 01/30 growing Pseudomonas sensitive to Zosyn but resistant to oral abx d/c w/o abx per Dr. Munoz. Spoke w PCP (Dr. Pryor)- agrees w d/c plan - Dr. Sharp- spoke w dr. gustafson he will see pt thursday in office to replace suprapubic catheter. cleared for d/c uro perspective. - surgery following mass on left arm. #[place] patients Cr upon arrival was 1.5 -baseline is around 1.1-1.2 -will hydrate and monitor - off lasix and d/w pcp regarding rechecking bmp since being off lasix as o/p. #HTN will continue with lopressor 25 BID #Seizure Disorder patient has not had a seizure in many years -will c/w patients Dilantin 100 TID F/E/N NS @75mls x1 bag monitor electrolytes sodium controlled diet dvt ppx: heparin sq Visit type - Emergency Visit Emergency Visit: Yes ED Registration Date: 02/03/19 Care time: The patient presented to the Emergency Department on the above date and was hospitalized for further evaluation of their emergent condition. - New Patient This patient is new to me today: Yes Date on this admission: 02/04/19 - Critical Care Critical Care patient: No - Discharge Referral Referred to [facility] No ATTENDING PHYSICIAN STATEMENT I saw and evaluated the patient. I reviewed the resident's note and discussed the case with the resident. I agree with the resident's findings and plan as documented. SUBJECTIVE: OBJECTIVE: ASSESSMENT AND PLAN:
== END 2019-02-04 21:41 | disposition home or self-care (01) | DRG 699 ==
LOC: JER 00:49 → JERBED 05:48 → J6S 02-04 00:54
PROVIDERS: ADMIT Internal Medicine; ATTEND Internal Medicine
DX: T83.511A Infection and inflammatory reaction due to indwelling urethral catheter, initial encounter (principal); N17.9 Acute kidney failure, unspecified; G82.20 Paraplegia, unspecified; G95.0 Syringomyelia and syringobulbia; N13.30 Unspecified hydronephrosis; I10 Essential (primary) hypertension; Y83.9 Surgical procedure, unspecified as the cause of abnormal reaction of the patient, or of later complication, without mention of misadventure at the time of the procedure; N39.0 Urinary tract infection, site not specified; B96.5 Pseudomonas (aeruginosa) (mallei) (pseudomallei) as the cause of diseases classified elsewhere; N31.9 Neuromuscular dysfunction of bladder, unspecified; Z93.59 Other cystostomy status
CPT/HCPCS: 36415; 76775-TC; 76856-TC; 80053; 81003; 83735; 84100; 85025; 87086; 87186; 93005; 93010; 99285-25; J0475; J1644; J7030

== ENCOUNTER 2020-09-20 23:43 | Emergency (ER) | payer OTHER ==
[2020-09-21 02:31] LABS: BASO % 0.4 % (0-2.0); EOS % 1.5 % (0-4.5); HEMATOCRIT 32.3 % (35.4-49); HEMOGLOBIN 10.8 GM/dL (11.7-16.9); LYMPH % 8.8 % (8-40); MCH 28.3 pg (25.7-33.7); MCHC 33.3 g/dl (32.0-35.9); MEAN CELL VOLUME 85.1 fl (80-96); MEAN PLT VOLUME 6.4 fl (7.5-11.1); MONO % 7.5 % (3.8-10.2); NEUT % 81.8 % (42.8-82.8); PLATELET COUNT 355 K/MM3 (134-434); RDW 14.9 % (11.9-15.9); WHITE BLOOD COUNT 6.4 K/mm3 (4.0-10.0)
[2020-09-21 02:56] LABS: POTASSIUM 4.3 mmol/L (3.5-5.1)
[2020-09-21 02:58] LABS: ALBUMIN 3.8 g/dl (3.4-5.0); CALCIUM 9.1 mg/dL (8.5-10.1)
[2020-09-21 02:59] LABS: BLOOD UREA NITROGEN 14.5 mg/dL (7-18)
[2020-09-21 03:01] LABS: CREATININE 1.2 mg/dL (0.55-1.3)
[2020-09-21 03:03] LABS: BILIRUBIN,TOTAL 0.3 mg/dL (0.2-1); TOT PROT 7.4 g/dl (6.4-8.2)
[2020-09-21 03:38] VITALS: TEMP 97.7; BMI 22.8
[2020-09-21 04:59] VITALS: BP 122/76; PULSE 68
== END 2020-09-21 04:59 | disposition home or self-care (01) ==
LOC: JER 23:43
DX: T83.098A Other mechanical complication of other urinary catheter, initial encounter (principal)
CPT/HCPCS: 36415; 80053; 85025; 99283-25

== ENCOUNTER 2020-12-09 11:15 | Inpatient (IN) | payer OTHER ==
[2020-12-09 13:42] LABS: BASO % 0.5 % (0-2.0); EOS % 1.1 % (0-4.5); HEMOGLOBIN 10.3 GM/dL (11.7-16.9); LYMPH % 6.8 % (8-40); MCH 26.7 pg (25.7-33.7); MCHC 33.1 g/dl (32.0-35.9); MEAN CELL VOLUME 80.8 fl (80-96); MONO % 6.6 % (3.8-10.2); PLATELET COUNT 461 10^3/uL (134-434); RBC 3.84 M/mm3 (4.00-5.60); WHITE BLOOD COUNT 12.4 K/mm3 (4.0-10.0)
[2020-12-09 13:45] LABS: MEAN PLT VOLUME 5.8 fl (7.5-11.1)
[2020-12-09 13:50] LABS: INR 1.13 (0.83-1.09); PROTHROMBIN TIME (PATIENT) 13.8 SEC (9.7-13.0)
[2020-12-09 13:52] LABS: ACTIVATED PTT 38.7 SECONDS (25.2-36.5)
[2020-12-09 14:01] LABS: CALCIUM 8.8 mg/dL (8.5-10.1)
[2020-12-09 14:02] LABS: BLOOD UREA NITROGEN 11.1 mg/dL (7-18)
[2020-12-09 14:05] LABS: CREATININE 1.1 mg/dL (0.55-1.3)
[2020-12-09] MEDS ORDERED: METOPROLOL TARTRATE 25 MG TABLET (FP) PO ONE (21:00)
[2020-12-09] MEDS: PHENYTOIN NA EXTENDED 100 MG CAPSULE (FP) PO SCH (21:13)
[2020-12-10] MEDS: PHENYTOIN NA EXTENDED 100 MG CAPSULE (FP) PO SCH ×3 (06:18→21:30)
[2020-12-10] MEDS ORDERED: ACETAMINOPHEN 1000 MG/100 ML VIAL (NON FORMULARY) IVPB PRN (07:57)
[2020-12-10] MEDS ORDERED: BACLOFEN 10 MG TABLET (FP) PO PRN (09:46)
[2020-12-10] MEDS ORDERED: CYCLOBENZAPRINE HCL 10 MG TABLET (FP) PO PRN (09:46)
[2020-12-10] MEDS ORDERED: hydrOXYzine PAMOATE 25 MG CAPSULE (FP) PO PRN (09:46)
[2020-12-10] MEDS ORDERED: cefTRIAXone SODIUM 1 GM VIAL ONE (09:53)
[2020-12-10] MEDS ORDERED: DEXTROSE 5%-WATER - 50 ML IVPB ONE (09:53)
[2020-12-10] MEDS ORDERED: TIOTROPIUM BROMIDE 2.5 MCG (SPIRIVA) RESPIMAT INHALER IH SCH (10:00)
[2020-12-10] MEDS: SODIUM CHLORIDE 1,000 ML IV SCH (10:08)
[2020-12-10] MEDS: CEFTRIAXONE 1 GM in DEXTROSE 5%-WATER - 50 ML IVPB SCH (10:09)
[2020-12-10 10:23] LABS: HEMATOCRIT 33.6 % (35.4-49); HEMOGLOBIN 11.1 GM/dL (11.7-16.9); MCH 26.9 pg (25.7-33.7); MCHC 33.1 g/dl (32.0-35.9); MEAN CELL VOLUME 81.4 fl (80-96); PLATELET COUNT 448 10^3/uL (134-434); RBC 4.12 M/mm3 (4.00-5.60); RDW 14.9 % (11.9-15.9); WHITE BLOOD COUNT 13.6 K/mm3 (4.0-10.0)
[2020-12-10] MEDS: METOPROLOL TARTRATE 25 MG TABLET (FP) PO SCH ×2 (10:36→21:32)
[2020-12-10] MEDS: hydrALAZINE HCL 25 MG TABLET (FP) PO SCH ×2 (10:36→21:31)
[2020-12-10 10:46] LABS: ALBUMIN 3.7 g/dl (3.4-5.0); CALCIUM 9.2 mg/dL (8.5-10.1)
[2020-12-10 10:47] LABS: BLOOD UREA NITROGEN 15.1 mg/dL (7-18); MAGNESIUM 2.1 mg/dL (1.8-2.4)
[2020-12-10 10:49] LABS: PHOSPHOROUS 3.8 mg/dL (2.5-4.9)
[2020-12-10 10:50] LABS: CREATININE 1.1 mg/dL (0.55-1.3)
[2020-12-10 10:51] LABS: BILIRUBIN,TOTAL 0.4 mg/dL (0.2-1)
[2020-12-10 18:10] VITALS: BMI 20.8
[2020-12-11] MEDS: PHENYTOIN NA EXTENDED 100 MG CAPSULE (FP) PO SCH ×3 (06:23→21:45)
[2020-12-11] MEDS: SODIUM CHLORIDE 1,000 ML IV SCH ×2 (08:36→18:55)
[2020-12-11 09:20] LABS: CALCIUM 8.1 mg/dL (8.5-10.1)
[2020-12-11 09:21] LABS: BLOOD UREA NITROGEN 13.5 mg/dL (7-18)
[2020-12-11 09:24] LABS: CREATININE 0.9 mg/dL (0.55-1.3); HEMATOCRIT 28.7 % (35.4-49); HEMOGLOBIN 9.4 GM/dL (11.7-16.9); MCH 26.9 pg (25.7-33.7); MCHC 32.9 g/dl (32.0-35.9); MEAN CELL VOLUME 81.7 fl (80-96); MEAN PLT VOLUME 6.2 fl (7.5-11.1); PLATELET COUNT 393 10^3/uL (134-434); RBC 3.51 M/mm3 (4.00-5.60); RDW 15.3 % (11.9-15.9); WHITE BLOOD COUNT 7.8 K/mm3 (4.0-10.0)
[2020-12-11] MEDS ORDERED: PT OWN MED DRAWER 7, Y5N ONE ×2 (09:36→22:23)
[2020-12-11] MEDS ORDERED: cefTRIAXone SODIUM 1 GM VIAL ONE (09:37)
[2020-12-11] MEDS ORDERED: DEXTROSE 5%-WATER - 50 ML IVPB ONE (09:37)
[2020-12-11] MEDS: CEFTRIAXONE 1 GM in DEXTROSE 5%-WATER - 50 ML IVPB SCH (09:43)
[2020-12-11] MEDS: METOPROLOL TARTRATE 25 MG TABLET (FP) PO SCH ×2 (09:43→21:45)
[2020-12-11] MEDS: hydrALAZINE HCL 25 MG TABLET (FP) PO SCH ×2 (09:43→21:45)
[2020-12-11] MEDS: TIOTROPIUM BROMIDE 2.5 MCG (SPIRIVA) RESPIMAT INHALER IH SCH (09:44)
[2020-12-11] MEDS ORDERED: MEROPENEM 1 GM in DEXTROSE 5%-WATER 100 ML IVPB SCH (18:00)
[2020-12-12] MEDS: PHENYTOIN NA EXTENDED 100 MG CAPSULE (FP) PO SCH ×5 (06:44→21:53)
[2020-12-12] MEDS ORDERED: DEXTROSE 5%-WATER - 50 ML IVPB ONE (09:49)
[2020-12-12] MEDS ORDERED: cefTRIAXone SODIUM 1 GM VIAL ONE (09:49)
[2020-12-12] MEDS: TIOTROPIUM BROMIDE 2.5 MCG (SPIRIVA) RESPIMAT INHALER IH SCH (09:54)
[2020-12-12] MEDS: hydrALAZINE HCL 25 MG TABLET (FP) PO SCH ×4 (09:54→21:56)
[2020-12-12] MEDS: METOPROLOL TARTRATE 25 MG TABLET (FP) PO SCH ×4 (09:54→21:56)
[2020-12-12] MEDS ORDERED: CEFTRIAXONE 1 GM in DEXTROSE 5%-WATER - 50 ML IVPB SCH (10:00)
[2020-12-12] MEDS: SODIUM CHLORIDE 1,000 ML IV SCH ×2 (10:55→14:32)
[2020-12-12] MEDS ORDERED: PROPOFOL 20 ML ONE (11:56)
[2020-12-12] MEDS ORDERED: ONDANSETRON 4 MG/2 ML VIAL IVPUSH PRN ×3 (11:58→19:38)
[2020-12-12] MEDS ORDERED: MIDAZOLAM HCL 2 MG/2 ML SINGLE DOSE VIAL ONE (12:10)
[2020-12-12] MEDS ORDERED: BACLOFEN 10 MG TABLET (FP) PO PRN (13:43)
[2020-12-12] MEDS ORDERED: CYCLOBENZAPRINE HCL 10 MG TABLET (FP) PO PRN (13:43)
[2020-12-12] MEDS ORDERED: hydrOXYzine PAMOATE 25 MG CAPSULE (FP) PO PRN (13:43)
[2020-12-12] MEDS ORDERED: ACETAMINOPHEN 325 MG TABLET (FP) PO PRN (22:41)
[2020-12-12] MEDS ORDERED: ASPIRIN 81 MG CHEWABLE TABLETS PO ONE (23:32)
[2020-12-13] MEDS ORDERED: ACETAMINOPHEN 1000 MG/100 ML VIAL (NON FORMULARY) IVPB ONE (00:46)
[2020-12-13] MEDS ORDERED: ATORVASTATIN CA 80 MG TABLET (FP) PO SCH (01:00)
[2020-12-13] MEDS: PHENYTOIN NA EXTENDED 100 MG CAPSULE (FP) PO SCH ×2 (05:09→20:39)
[2020-12-13] MEDS ORDERED: PANTOPRAZOLE SODIUM 40 MG VIAL IVPUSH ONE (05:29)
[2020-12-13] MEDS ORDERED: SODIUM CHLORIDE 0.9% 500 ML INFUS.BAG IV ONE (05:30)
[2020-12-13] MEDS ORDERED: SIMETHICONE 80 MG TAB.CHEW (FP) PO ONE (05:33)
[2020-12-13 07:57] LABS: BLOOD UREA NITROGEN 13.5 mg/dL (7-18); MAGNESIUM 1.5 mg/dL (1.8-2.4)
[2020-12-13 08:00] LABS: CALCIUM 7.5 mg/dL (8.5-10.1)
[2020-12-13 08:01] LABS: CREATININE 1.6 mg/dL (0.55-1.3)
[2020-12-13 08:21] LABS: HEMATOCRIT 27.4 % (35.4-49); HEMOGLOBIN 8.7 GM/dL (11.7-16.9); MCH 26.2 pg (25.7-33.7); MCHC 31.8 g/dl (32.0-35.9); MEAN CELL VOLUME 82.3 fl (80-96); MEAN PLT VOLUME 6.2 fl (7.5-11.1); PLATELET COUNT 300 10^3/uL (134-434); RBC 3.32 M/mm3 (4.00-5.60); RDW 15.9 % (11.9-15.9)
[2020-12-13 08:23] LABS: INR 1.4 (0.83-1.09)
[2020-12-13 08:26] LABS: ACTIVATED PTT 34.1 SECONDS (25.2-36.5)
[2020-12-13 08:46] LABS: CHOLESTEROL 147 mg/dL (50-200)
[2020-12-13 08:47] LABS: TRIGLYCERIDES 232 mg/dL (0-150)
[2020-12-13 08:48] LABS: LDL CHOLESTEROL (ONLY SJRH) 68 mg/dL (5-100)
[2020-12-13 08:49] LABS: HDL CHOLESTEROL 25 mg/dL (40-60)
[2020-12-13] MEDS ORDERED: cefTRIAXone SODIUM 1 GM VIAL ONE (09:25)
[2020-12-13] MEDS ORDERED: DEXTROSE 5%-WATER - 50 ML IVPB ONE (09:25)
[2020-12-13] MEDS ORDERED: CEFTRIAXONE 1 GM in DEXTROSE 5%-WATER - 50 ML IVPB SCH (10:00)
[2020-12-13] MEDS ORDERED: TIOTROPIUM BROMIDE 2.5 MCG (SPIRIVA) RESPIMAT INHALER IH SCH (10:00)
[2020-12-13] MEDS ORDERED: MAGNESIUM SULF 50% (8.12 MEQ/2 ML-1 GM VIAL) IVPB ONE (11:07)
[2020-12-13 11:11] LABS: CHLORIDE 101 mmol/L (98-107); SODIUM 135 mmol/L (136-145)
[2020-12-13 11:14] LABS: CALCIUM 8.1 mg/dL (8.5-10.1)
[2020-12-13 11:15] LABS: ANION GAP 10 MMOL/L (8-16); CO2 24 mmol/L (21-32); GLUCOSE,RANDOM 109 mg/dL (74-106)
[2020-12-13 11:16] LABS: BLOOD UREA NITROGEN 13.8 mg/dL (7-18)
[2020-12-13 11:18] LABS: BILIRUBIN,TOTAL 0.4 mg/dL (0.2-1); SGPT/ALT 48 U/L (13-61)
[2020-12-13 11:20] LABS: ALK PHOS 203 U/L (45-117)
[2020-12-13 11:21] LABS: SGOT/AST 73 U/L (15-37)
[2020-12-13 11:30] LABS: CREATININE 1.6 mg/dL (0.55-1.3)
[2020-12-13 11:32] LABS: ALBUMIN 2.7 g/dl (3.4-5.0)
[2020-12-13 12:52] LABS: BASO % 0.4 % (0-2.0); EOS % 0.1 % (0-4.5); HEMATOCRIT 28.1 % (35.4-49); HEMOGLOBIN 8.9 GM/dL (11.7-16.9); LYMPH % 2.2 % (8-40); MCH 26.5 pg (25.7-33.7); MCHC 31.7 g/dl (32.0-35.9); MEAN CELL VOLUME 83.5 fl (80-96); MEAN PLT VOLUME 6.7 fl (7.5-11.1); MONO % 4.3 % (3.8-10.2); PLATELET COUNT 327 10^3/uL (134-434); RBC 3.37 M/mm3 (4.00-5.60); RDW 15.7 % (11.9-15.9); WHITE BLOOD COUNT 22.6 K/mm3 (4.0-10.0)
[2020-12-13] MEDS ORDERED: PANTOPRAZOLE SODIUM 80 MG in SODIUM CHLORIDE 100 ML IVPB SCH (13:00)
[2020-12-13 13:18] LABS: ANISOCYTOSIS 1+; PLATELET ESTIMATE NORMAL
[2020-12-13] MEDS ORDERED: MUPIROCIN 2% TOPICAL OINTMENT FOR DECOLONIZATION NS SCH (13:30)
[2020-12-13] MEDS ORDERED: LACTATED RINGERS SOLUTION 1000 ML INFUS.BAG IV ONE (16:18)
[2020-12-13 16:37] LABS: INR 1.51 (0.83-1.09); PROTHROMBIN TIME (PATIENT) 18.4 SEC (9.7-13.0)
[2020-12-13 18:35] LABS: URINE APPEARANCE Clear; URINE BILIRUBIN Negative (NEGATIVE); URINE COLOR Yellow; URINE GLUCOSE (UA) Negative (NEGATIVE); URINE KETONE Negative (NEGATIVE); URINE LEUK ESTERASE 2+ (NEGATIVE); URINE NITRITE Negative (NEGATIVE); URINE PROTEIN 2+ (NEGATIVE); URINE UROBILINOGEN 0.2 mg/dL (0.2-1.0)
[2020-12-13 18:48] LABS: EPI CELLS 34.6 /uL (0-25.1); HYALINE CASTS 4.19 /uL (0-3.1); URINE BACTERIA 10.7 /uL (0-1359); URINE WBC 310.4 /uL (0-25.8)
[2020-12-13] MEDS ORDERED: hydrOXYzine PAMOATE 25 MG CAPSULE (FP) PO PRN (19:56)
[2020-12-13] MEDS ORDERED: CYCLOBENZAPRINE HCL 10 MG TABLET (FP) PO PRN (19:56)
[2020-12-13] MEDS ORDERED: ONDANSETRON 4 MG/2 ML VIAL IVPUSH PRN (19:56)
[2020-12-13] MEDS: SODIUM CHLORIDE 1,000 ML IV SCH ×2 (20:38→20:42)
[2020-12-13] MEDS ORDERED: METOPROLOL TARTRATE 5 MG/5 ML VIAL IVPB ONE (20:58)
[2020-12-13] MEDS ORDERED: METOPROLOL TARTRATE 5 MG/5 ML VIAL IVPUSH ONE (21:01)
[2020-12-13] MEDS ORDERED: CHLORHEXIDINE GLUCONATE 4% CLEANSER FOR DECOLONIZATION TP SCH (22:00)
[2020-12-13] MEDS ORDERED: PANTOPRAZOLE SODIUM 40 MG VIAL IVPUSH SCH (22:00)
[2020-12-13] MEDS: METOPROLOL TARTRATE 25 MG TABLET (FP) PO SCH (23:45)
[2020-12-14] MEDS ORDERED: PHENYTOIN SODIUM 100 MG/2 ML VIAL IVPB ONE (00:30)
[2020-12-14] MEDS: PHENYTOIN NA EXTENDED 100 MG CAPSULE (FP) PO SCH ×3 (00:35→22:09)
[2020-12-14] MEDS: ATORVASTATIN CA 80 MG TABLET (FP) PO SCH ×2 (00:36→22:09)
[2020-12-14] MEDS: PHENYTOIN SODIUM 100 MG/2 ML VIAL IVPB SCH ×3 (06:07→22:20)
[2020-12-14 08:46] LABS: ALBUMIN 2.5 g/dl (3.4-5.0); BLOOD UREA NITROGEN 10.4 mg/dL (7-18); CALCIUM 8.4 mg/dL (8.5-10.1)
[2020-12-14 08:49] LABS: CREATININE 0.9 mg/dL (0.55-1.3)
[2020-12-14 08:51] LABS: BILIRUBIN,TOTAL 0.2 mg/dL (0.2-1)
[2020-12-14] MEDS ORDERED: DEXTROSE 5%-WATER - 50 ML IVPB ONE (09:07)
[2020-12-14] MEDS ORDERED: cefTRIAXone SODIUM 1 GM VIAL ONE (09:07)
[2020-12-14] MEDS ORDERED: METOPROLOL TARTRATE 5 MG/5 ML VIAL IVPUSH ONE (09:13)
[2020-12-14] MEDS: CEFTRIAXONE 1 GM in DEXTROSE 5%-WATER - 50 ML IVPB SCH (09:16)
[2020-12-14] MEDS: TIOTROPIUM BROMIDE 2.5 MCG (SPIRIVA) RESPIMAT INHALER IH SCH (09:17)
[2020-12-14] MEDS: METOPROLOL TARTRATE 25 MG TABLET (FP) PO SCH ×4 (09:17→22:09)
[2020-12-14] MEDS ORDERED: PANTOPRAZOLE SODIUM 40 MG VIAL IVPUSH SCH ×2 (10:00)
[2020-12-14 10:30] LABS: INR 1.28 (0.83-1.09); PROTHROMBIN TIME (PATIENT) 15.4 SEC (9.7-13.0)
[2020-12-14 13:44] LABS: HEMATOCRIT 24.1 % (35.4-49); HEMOGLOBIN 7.7 GM/dL (11.7-16.9); MCH 26.4 pg (25.7-33.7); MEAN CELL VOLUME 82.3 fl (80-96); MEAN PLT VOLUME 6.6 fl (7.5-11.1); PLATELET COUNT 253 10^3/uL (134-434); RBC 2.92 M/mm3 (4.00-5.60); RDW 15.7 % (11.9-15.9); WHITE BLOOD COUNT 14.7 K/mm3 (4.0-10.0)
[2020-12-14] MEDS ORDERED: METOPROLOL TARTRATE 5 MG/5 ML VIAL ONE (14:02)
[2020-12-14] MEDS: POLYETHYLENE GLYCOL (HEALTHYLAX) 3350 17 GM PACKET PO SCH ×2 (14:09→22:09)
[2020-12-14] MEDS ORDERED: MAGNESIUM SULF 50% (8.12 MEQ/2 ML-1 GM VIAL) IVPB ONE (17:22)
[2020-12-14] MEDS: PANTOPRAZOLE SODIUM 80 MG in SODIUM CHLORIDE 100 ML IVPB SCH (17:55)
[2020-12-14] MEDS: SODIUM CHLORIDE 1,000 ML IV SCH (20:04)
[2020-12-15] MEDS: PANTOPRAZOLE SODIUM 80 MG in SODIUM CHLORIDE 100 ML IVPB SCH ×4 (01:17→23:00)
[2020-12-15] MEDS: PHENYTOIN NA EXTENDED 100 MG CAPSULE (FP) PO SCH ×3 (06:26→21:44)
[2020-12-15] MEDS: PHENYTOIN SODIUM 100 MG/2 ML VIAL IVPB SCH ×3 (06:27→21:54)
[2020-12-15] MEDS: POLYETHYLENE GLYCOL (HEALTHYLAX) 3350 17 GM PACKET PO SCH ×4 (06:27→21:58)
[2020-12-15 07:55] LABS: HEMATOCRIT 23.9 % (35.4-49); HEMOGLOBIN 7.8 GM/dL (11.7-16.9); MCH 26.7 pg (25.7-33.7); MCHC 32.7 g/dl (32.0-35.9); MEAN CELL VOLUME 81.7 fl (80-96); PLATELET COUNT 261 10^3/uL (134-434); RBC 2.93 M/mm3 (4.00-5.60); RDW 15.6 % (11.9-15.9); WHITE BLOOD COUNT 11.2 K/mm3 (4.0-10.0)
[2020-12-15 08:37] LABS: BLOOD UREA NITROGEN 8.1 mg/dL (7-18); CALCIUM 8.2 mg/dL (8.5-10.1)
[2020-12-15 08:38] LABS: ALBUMIN 2.4 g/dl (3.4-5.0); MAGNESIUM 2.1 mg/dL (1.8-2.4)
[2020-12-15 08:40] LABS: CREATININE 0.8 mg/dL (0.55-1.3)
[2020-12-15 08:41] LABS: BILIRUBIN,TOTAL 0.4 mg/dL (0.2-1); PHOSPHOROUS 2.7 mg/dL (2.5-4.9); TOT PROT 5.7 g/dl (6.4-8.2)
[2020-12-15] MEDS ORDERED: POTASSIUM CHLORIDE ORAL LIQUID 20 MEQ/15 ML PO ONE (09:03)
[2020-12-15] MEDS ORDERED: cefTRIAXone SODIUM 1 GM VIAL ONE (10:06)
[2020-12-15] MEDS ORDERED: DEXTROSE 5%-WATER - 50 ML IVPB ONE (10:06)
[2020-12-15] MEDS: CEFTRIAXONE 1 GM in DEXTROSE 5%-WATER - 50 ML IVPB SCH (10:10)
[2020-12-15] MEDS: METOPROLOL TARTRATE 25 MG TABLET (FP) PO SCH ×2 (10:10→21:44)
[2020-12-15] MEDS ORDERED: PT OWN MED DRAWER 7, Y5N ONE (11:57)
[2020-12-15] MEDS: TIOTROPIUM BROMIDE 2.5 MCG (SPIRIVA) RESPIMAT INHALER IH SCH (13:27)
[2020-12-15] MEDS: BACLOFEN 10 MG TABLET (FP) PO PRN (17:21)
[2020-12-15] MEDS: AMINO ACIDS/PROTEIN HYDROLYS 30 ML LIQUID.PKT PO SCH (17:21)
[2020-12-15] MEDS: SODIUM CHLORIDE 1,000 ML IV SCH ×2 (17:22→19:00)
[2020-12-15] MEDS: ATORVASTATIN CA 80 MG TABLET (FP) PO SCH (21:44)
[2020-12-15] MEDS ORDERED: dilTIAZem HCL 50 MG/10 ML - 10 ML VIAL IVPUSH ONE (22:06)
[2020-12-16] MEDS ORDERED: dilTIAZem HCL 25 MG/5 ML - 5 ML VIAL IVPUSH ONE (00:34)
[2020-12-16] MEDS: PHENYTOIN SODIUM 100 MG/2 ML VIAL IVPB SCH ×3 (06:12→21:14)
[2020-12-16] MEDS: PHENYTOIN NA EXTENDED 100 MG CAPSULE (FP) PO SCH ×3 (06:36→21:14)
[2020-12-16] MEDS: POLYETHYLENE GLYCOL (HEALTHYLAX) 3350 17 GM PACKET PO SCH ×3 (06:37→21:14)
[2020-12-16] MEDS: AMINO ACIDS/PROTEIN HYDROLYS 30 ML LIQUID.PKT PO SCH ×2 (09:47→18:02)
[2020-12-16] MEDS: METOPROLOL TARTRATE 25 MG TABLET (FP) PO SCH ×2 (09:47→21:14)
[2020-12-16] MEDS: TIOTROPIUM BROMIDE 2.5 MCG (SPIRIVA) RESPIMAT INHALER IH SCH (09:47)
[2020-12-16] MEDS: PANTOPRAZOLE SODIUM 80 MG in SODIUM CHLORIDE 100 ML IVPB SCH ×2 (10:30→18:02)
[2020-12-16] MEDS: BACLOFEN 10 MG TABLET (FP) PO PRN (11:25)
[2020-12-16] MEDS ORDERED: cefTRIAXone SODIUM 1 GM VIAL ONE (13:59)
[2020-12-16] MEDS ORDERED: DEXTROSE 5%-WATER - 50 ML IVPB ONE (13:59)
[2020-12-16] MEDS: CEFTRIAXONE 1 GM in DEXTROSE 5%-WATER - 50 ML IVPB SCH (14:11)
[2020-12-16] MEDS: SODIUM CHLORIDE 1,000 ML IV SCH (21:13)
[2020-12-16] MEDS: ATORVASTATIN CA 80 MG TABLET (FP) PO SCH (21:14)
[2020-12-16] MEDS ORDERED: POTASSIUM CHLORIDE TABS 20 MEQ TABLET.ER (FP) PO ONE (21:30)
[2020-12-16] MEDS: MELATONIN 1 MG TABLET PO SCH (22:00)
[2020-12-17] MEDS: SODIUM CHLORIDE 1,000 ML IV SCH ×2 (01:00→21:40)
[2020-12-17] MEDS: PANTOPRAZOLE SODIUM 80 MG in SODIUM CHLORIDE 100 ML IVPB SCH ×4 (03:28→23:45)
[2020-12-17] MEDS: POLYETHYLENE GLYCOL (HEALTHYLAX) 3350 17 GM PACKET PO SCH ×3 (05:48→21:30)
[2020-12-17] MEDS: PHENYTOIN SODIUM 100 MG/2 ML VIAL IVPB SCH (05:48)
[2020-12-17] MEDS: PHENYTOIN NA EXTENDED 100 MG CAPSULE (FP) PO SCH ×3 (05:48→21:29)
[2020-12-17] MEDS ORDERED: PT OWN MED DRAWER 7, Y5N ONE (08:57)
[2020-12-17] MEDS: TIOTROPIUM BROMIDE 2.5 MCG (SPIRIVA) RESPIMAT INHALER IH SCH (09:56)
[2020-12-17] MEDS: METOPROLOL TARTRATE 25 MG TABLET (FP) PO SCH ×2 (09:56→21:29)
[2020-12-17] MEDS: AMINO ACIDS/PROTEIN HYDROLYS 30 ML LIQUID.PKT PO SCH ×2 (09:56→16:57)
[2020-12-17 10:46] LABS: BASO % 0.4 % (0-2.0); EOS % 2.6 % (0-4.5); LYMPH % 11.6 % (8-40); MCH 26.9 pg (25.7-33.7); MCHC 32.8 g/dl (32.0-35.9); MEAN CELL VOLUME 81.9 fl (80-96); MEAN PLT VOLUME 6.4 fl (7.5-11.1); MONO % 9.9 % (3.8-10.2); NEUT % 75.5 % (42.8-82.8); PLATELET COUNT 359 10^3/uL (134-434); RBC 2.44 M/mm3 (4.00-5.60); RDW 15.8 % (11.9-15.9); WHITE BLOOD COUNT 10.2 K/mm3 (4.0-10.0)
[2020-12-17 10:51] LABS: HEMOGLOBIN 6.6 GM/dL (11.7-16.9)
[2020-12-17 11:08] LABS: CALCIUM 8.3 mg/dL (8.5-10.1)
[2020-12-17 11:09] LABS: ALBUMIN 2.5 g/dl (3.4-5.0); BLOOD UREA NITROGEN 8.3 mg/dL (7-18); MAGNESIUM 1.8 mg/dL (1.8-2.4)
[2020-12-17 11:12] LABS: CREATININE 0.9 mg/dL (0.55-1.3); PHOSPHOROUS 2.9 mg/dL (2.5-4.9)
[2020-12-17 11:14] LABS: BILIRUBIN,TOTAL 0.3 mg/dL (0.2-1)
[2020-12-17] MEDS: BACLOFEN 10 MG TABLET (FP) PO PRN ×2 (12:35→21:32)
[2020-12-17] MEDS ORDERED: METOCLOPRAMIDE HCL 10 MG TABLET (FP) PO ONE (14:03)
[2020-12-17] MEDS: ATORVASTATIN CA 80 MG TABLET (FP) PO SCH (21:29)
[2020-12-17] MEDS: MELATONIN 1 MG TABLET PO SCH (21:33)
[2020-12-18] MEDS ORDERED: PT OWN MED DRAWER 7, Y5N ONE ×2 (00:31→11:57)
[2020-12-18] MEDS: PANTOPRAZOLE SODIUM 80 MG in SODIUM CHLORIDE 100 ML IVPB SCH ×3 (00:53→12:46)
[2020-12-18] MEDS: PHENYTOIN NA EXTENDED 100 MG CAPSULE (FP) PO SCH ×2 (05:41→15:32)
[2020-12-18] MEDS: POLYETHYLENE GLYCOL (HEALTHYLAX) 3350 17 GM PACKET PO SCH ×2 (05:41→15:33)
[2020-12-18 08:40] LABS: HEMATOCRIT 28.4 % (35.4-49); HEMOGLOBIN 9.4 GM/dL (11.7-16.9); MCH 27.2 pg (25.7-33.7); MCHC 33.2 g/dl (32.0-35.9); MEAN PLT VOLUME 6.5 fl (7.5-11.1); PLATELET COUNT 306 10^3/uL (134-434); RBC 3.46 M/mm3 (4.00-5.60); WHITE BLOOD COUNT 8.2 K/mm3 (4.0-10.0)
[2020-12-18 08:48] LABS: CALCIUM 8.5 mg/dL (8.5-10.1)
[2020-12-18 08:49] LABS: ALBUMIN 2.5 g/dl (3.4-5.0); BLOOD UREA NITROGEN 10.2 mg/dL (7-18); MAGNESIUM 1.9 mg/dL (1.8-2.4)
[2020-12-18 08:52] LABS: CREATININE 0.8 mg/dL (0.55-1.3)
[2020-12-18 08:54] LABS: BILIRUBIN,TOTAL 0.8 mg/dL (0.2-1); TOT PROT 6.1 g/dl (6.4-8.2)
[2020-12-18] MEDS: METOPROLOL TARTRATE 25 MG TABLET (FP) PO SCH (10:18)
[2020-12-18] MEDS: AMINO ACIDS/PROTEIN HYDROLYS 30 ML LIQUID.PKT PO SCH ×2 (10:18→18:13)
[2020-12-18] MEDS: TIOTROPIUM BROMIDE 2.5 MCG (SPIRIVA) RESPIMAT INHALER IH SCH (10:18)
[2020-12-18] MEDS: SODIUM CHLORIDE 1,000 ML IV SCH (10:18)
[2020-12-18] MEDS: BACLOFEN 10 MG TABLET (FP) PO PRN (10:29)
[2020-12-18 14:08] LABS: HEP B CORE AB, TOT Negative (Negative)
[2020-12-18 20:03] VITALS: BP 154/80; PULSE 85; TEMP 99
== END 2020-12-18 21:02 | disposition home or self-care (01) | DRG 662 ==
LOC: JER 11:15 → JERBED 12:21 → J8W 14:50 → J4W 12-12 23:34
PROVIDERS: ADMIT Internal Medicine; ATTEND Student in an Organized Health Care Education/Training Program
PROC: 0TJB8ZZ Inspection of Bladder, Via Natural or Artificial Opening Endoscopic (ICD-10-PCS; 2020-12-12)
PROC: 0TPB00Z Removal of Drainage Device from Bladder, Open Approach (ICD-10-PCS; principal; 2020-12-12 13:00)
PROC: 0T9B00Z Drainage of Bladder with Drainage Device, Open Approach (ICD-10-PCS; 2020-12-13)
PROC: 30233N1 Transfusion of Nonautologous Red Blood Cells into Peripheral Vein, Percutaneous Approach (ICD-10-PCS; 2020-12-18)
DX: T83.028A Displacement of other urinary catheter, initial encounter (principal); E43 Unspecified severe protein-calorie malnutrition; A41.89 Other specified sepsis; N17.9 Acute kidney failure, unspecified; G82.20 Paraplegia, unspecified; I48.92 Unspecified atrial flutter; I47.1 Supraventricular tachycardia; K92.0 Hematemesis; G95.0 Syringomyelia and syringobulbia; E87.1 Hypo-osmolality and hyponatremia; N39.0 Urinary tract infection, site not specified; R06.6 Hiccough; J44.9 Chronic obstructive pulmonary disease, unspecified; N31.9 Neuromuscular dysfunction of bladder, unspecified; D64.9 Anemia, unspecified; K56.41 Fecal impaction; D50.9 Iron deficiency anemia, unspecified; I10 Essential (primary) hypertension; R56.9 Unspecified convulsions; R74.8 Abnormal levels of other serum enzymes; K64.8 Other hemorrhoids; D72.829 Elevated white blood cell count, unspecified; E87.6 Hypokalemia; Z68.20 Body mass index [BMI] 20.0-20.9, adult; Y84.8 Other medical procedures as the cause of abnormal reaction of the patient, or of later complication, without mention of misadventure at the time of the procedure; Z86.73 Personal history of transient ischemic attack (TIA), and cerebral infarction without residual deficits
CPT/HCPCS: 36415; 36430; 36511; 70450-TC; 74018-TC-FY; 74019-TC-FY; 74176-TC; 76700-TC; 76856-TC; 80048; 80053; 80061; 81003; 82436; 82570; 82728; 82962; 83540; 83550; 83605; 83721; 83735; 84100; 84133; 84300; 84484; 85025; 85027; 85610; 85730; 86140; 86704; 86706; 86707; 86708; 86709; 86803; 86850; 86900; 86901; 86922; 87040; 87205; 87340; 93005; 93010; 93880-TC; 94760; 97162-GP; 99285-25; C9803; J0131; J0475; P9016; P9038; U0003; U0005

== ENCOUNTER 2021-01-25 09:13 | Inpatient (IN) | payer OTHER ==
[2021-01-25] MEDS ORDERED: SODIUM CHLORIDE 0.9% 500 ML INFUS.BAG IV ONE (09:38)
[2021-01-25 11:18] LABS: EPI CELLS 3 /uL (0-25.1); HYALINE CASTS 3 /uL (0-3.1); PH,URINE 7.5 (5.0-8.0); URINE APPEARANCE CLOUDY; URINE BACTERIA 929 /uL (0-1359); URINE BILIRUBIN NEGATIVE (NEGATIVE); URINE COLOR YELLOW; URINE GLUCOSE (UA) NEGATIVE (NEGATIVE); URINE KETONE NEGATIVE (NEGATIVE); URINE LEUK ESTERASE 3+ (NEGATIVE); URINE NITRITE NEGATIVE (NEGATIVE); URINE PROTEIN 1+ (NEGATIVE); URINE UROBILINOGEN 0.2 mg/dL (0.2-1.0); URINE WBC 417 /uL (0-25.8)
[2021-01-25] MEDS ORDERED: PIPERACILLIN/TAZOB 4.5 GM 4.5 GM in DEXTROSE 5%-WATER 100 ML IVPB ONE (11:33)
[2021-01-25 12:02] LABS: BASO % 0.4 % (0-2.0); EOS % 2.6 % (0-4.5); HEMATOCRIT 33.6 % (35.4-49); HEMOGLOBIN 11.2 GM/dL (11.7-16.9); MCH 27.3 pg (25.7-33.7); MCHC 33.2 g/dl (32.0-35.9); MEAN CELL VOLUME 82.1 fl (80-96); MEAN PLT VOLUME 5.9 fl (7.5-11.1); MONO % 5.9 % (3.8-10.2); NEUT % 78.1 % (42.8-82.8); PLATELET COUNT 456 10^3/uL (134-434); RDW 16.1 % (11.9-15.9); WHITE BLOOD COUNT 7.4 K/mm3 (4.0-10.0)
[2021-01-25 12:23] LABS: CHLORIDE 97 mmol/L (98-107); SODIUM 134 mmol/L (136-145)
[2021-01-25 12:25] LABS: CALCIUM 9.5 mg/dL (8.5-10.1)
[2021-01-25 12:26] LABS: ALBUMIN 3.9 g/dl (3.4-5.0); ANION GAP 9 MMOL/L (8-16); BLOOD UREA NITROGEN 15.9 mg/dL (7-18); CO2 29 mmol/L (21-32); GLUCOSE,RANDOM 103 mg/dL (74-106)
[2021-01-25 12:29] LABS: CREATININE 1.2 mg/dL (0.55-1.3); SGOT/AST 44 U/L (15-37); SGPT/ALT 29 U/L (13-61)
[2021-01-25 12:30] LABS: BILIRUBIN,TOTAL 0.3 mg/dL (0.2-1); TOT PROT 9.3 g/dl (6.4-8.2)
[2021-01-25 12:32] LABS: ALK PHOS 215 U/L (45-117)
[2021-01-25] MEDS ORDERED: VANCOMYCIN 1 GM in D5W (PRE-DOCKED) 1,000 MG/250 ML IVPB ONE (12:37)
[2021-01-25] MEDS ORDERED: VANCOMYCIN 1 GRAM (PRE-DOCKED) 1,000 MG/250 ML BAG IVPB ONE (13:10)
[2021-01-25] MEDS ORDERED: PIPERACILLIN/TAZOB 4.5 GM 4.5 GM/100 ML BAG IVPB ONE (13:10)
[2021-01-25] MEDS ORDERED: PIPERACILLIN/TAZOB 3.375 GM 3.375 GM in DEXTROSE 5%-WATER - 50 ML IVPB SCH (15:00)
[2021-01-25] MEDS ORDERED: CYCLOBENZAPRINE HCL 10 MG TABLET (FP) PO PRN (16:10)
[2021-01-25] MEDS ORDERED: BACLOFEN 10 MG TABLET (FP) PO PRN (16:10)
[2021-01-25] MEDS ORDERED: PIPERACILLIN/TAZOB 3.375 GM 3.375 GM/50 ML BAG IVPB ONE (16:47)
[2021-01-25 16:50] LABS: MAGNESIUM 2.2 mg/dL (1.8-2.4)
[2021-01-25 16:54] LABS: PHOSPHOROUS 4.4 mg/dL (2.5-4.9)
[2021-01-25] MEDS ORDERED: CEFTRIAXONE 1 GM in DEXTROSE 5%-WATER - 50 ML IVPB SCH (17:00)
[2021-01-25] MEDS: PIPERACILLIN/TAZOB 3.375 GM 3.375 GM in DEXTROSE 5%-WATER - 50 ML IVPB SCH ×2 (17:02→22:40)
[2021-01-25] MEDS ORDERED: POLYETHYLENE GLYCOL (HEALTHYLAX) 3350 17 GM PACKET ONE (17:56)
[2021-01-25] MEDS ORDERED: CEFTRIAXONE 1 GM/50 ML BAG ONE (17:56)
[2021-01-25] MEDS: POLYETHYLENE GLYCOL (HEALTHYLAX) 3350 17 GM PACKET PO SCH (18:11)
[2021-01-25] MEDS ORDERED: DEXTROSE 5%-WATER - 50 ML IVPB ONE (22:39)
[2021-01-25] MEDS ORDERED: PIPERACILLIN/TAZOBACTAM 3.375 GM VIAL IVPB ONE (22:39)
[2021-01-25] MEDS: hydrALAZINE HCL 25 MG TABLET (FP) PO SCH (22:46)
[2021-01-25] MEDS: METOPROLOL TARTRATE 25 MG TABLET (FP) PO SCH (22:47)
[2021-01-25] MEDS: ATORVASTATIN CA 80 MG TABLET (FP) PO SCH (22:47)
[2021-01-25] MEDS: HEPARIN NA (PORCINE) 5,000 UNITS/ML 1ML VIAL SQ SCH (22:47)
[2021-01-25] MEDS: PHENYTOIN NA EXTENDED 100 MG CAPSULE (FP) PO SCH (22:47)
[2021-01-26 01:56] VITALS: BMI 20.8
[2021-01-26] MEDS ORDERED: PIPERACILLIN/TAZOBACTAM 3.375 GM VIAL IVPB ONE ×4 (03:38→22:42)
[2021-01-26] MEDS ORDERED: DEXTROSE 5%-WATER - 50 ML IVPB ONE ×4 (03:39→22:42)
[2021-01-26] MEDS: PIPERACILLIN/TAZOB 3.375 GM 3.375 GM in DEXTROSE 5%-WATER - 50 ML IVPB SCH ×4 (03:40→23:00)
[2021-01-26] MEDS: PHENYTOIN NA EXTENDED 100 MG CAPSULE (FP) PO SCH ×3 (05:12→23:00)
[2021-01-26] MEDS: HEPARIN NA (PORCINE) 5,000 UNITS/ML 1ML VIAL SQ SCH ×3 (05:12→23:00)
[2021-01-26] MEDS: MULTIVITAMINS (DAILY MVI) TABLET (FP) PO SCH (09:23)
[2021-01-26] MEDS: METOPROLOL TARTRATE 25 MG TABLET (FP) PO SCH ×2 (09:23→23:00)
[2021-01-26] MEDS: PANTOPRAZOLE 40 MG TABLET PO SCH (09:23)
[2021-01-26] MEDS: POLYETHYLENE GLYCOL (HEALTHYLAX) 3350 17 GM PACKET PO SCH (09:23)
[2021-01-26] MEDS: hydrALAZINE HCL 25 MG TABLET (FP) PO SCH ×2 (09:23→23:00)
[2021-01-26 11:32] LABS: BASO % 0.5 % (0-2.0); EOS % 2.9 % (0-4.5); HEMATOCRIT 27.9 % (35.4-49); HEMOGLOBIN 9.5 GM/dL (11.7-16.9); LYMPH % 19.9 % (8-40); MCH 27.8 pg (25.7-33.7); MCHC 33.9 g/dl (32.0-35.9); MEAN CELL VOLUME 81.8 fl (80-96); MEAN PLT VOLUME 6.2 fl (7.5-11.1); MONO % 6.6 % (3.8-10.2); NEUT % 70.1 % (42.8-82.8); PLATELET COUNT 362 10^3/uL (134-434); RBC 3.41 M/mm3 (4.00-5.60); RDW 16.3 % (11.9-15.9); WHITE BLOOD COUNT 5.7 K/mm3 (4.0-10.0)
[2021-01-26 11:48] LABS: BLOOD UREA NITROGEN 17.7 mg/dL (7-18); CALCIUM 8.7 mg/dL (8.5-10.1)
[2021-01-26 11:49] LABS: MAGNESIUM 2.1 mg/dL (1.8-2.4)
[2021-01-26 11:51] LABS: CREATININE 1.3 mg/dL (0.55-1.3)
[2021-01-26 11:53] LABS: BILIRUBIN,TOTAL 0.3 mg/dL (0.2-1)
[2021-01-26 12:06] LABS: ALBUMIN 2.9 g/dl (3.4-5.0); TOT PROT 6.6 g/dl (6.4-8.2)
[2021-01-26] MEDS: LIDOCAINE 5% TOPICAL PATCH TP SCH (16:52)
[2021-01-26] MEDS: ATORVASTATIN CA 80 MG TABLET (FP) PO SCH (23:00)
[2021-01-26] MEDS: LIDOCAINE PATCH REMOVAL MC SCH (23:01)
[2021-01-27] MEDS ORDERED: PIPERACILLIN/TAZOBACTAM 3.375 GM VIAL IVPB ONE ×5 (01:52→22:00)
[2021-01-27] MEDS ORDERED: DEXTROSE 5%-WATER - 0 ML IVPB ONE (01:52)
[2021-01-27] MEDS: PIPERACILLIN/TAZOB 3.375 GM 3.375 GM in DEXTROSE 5%-WATER - 50 ML IVPB SCH ×4 (02:06→22:36)
[2021-01-27] MEDS: PHENYTOIN NA EXTENDED 100 MG CAPSULE (FP) PO SCH ×3 (05:10→22:37)
[2021-01-27] MEDS: HEPARIN NA (PORCINE) 5,000 UNITS/ML 1ML VIAL SQ SCH ×3 (05:10→22:36)
[2021-01-27] MEDS ORDERED: DEXTROSE 5%-WATER - 50 ML IVPB ONE ×4 (10:47→22:00)
[2021-01-27 10:52] LABS: BASO % 0.9 % (0-2.0); HEMATOCRIT 31.2 % (35.4-49); HEMOGLOBIN 10.2 GM/dL (11.7-16.9); LYMPH % 20.5 % (8-40); MCH 27.4 pg (25.7-33.7); MCHC 32.8 g/dl (32.0-35.9); MEAN CELL VOLUME 83.4 fl (80-96); MEAN PLT VOLUME 6.6 fl (7.5-11.1); MONO % 7.6 % (3.8-10.2); PLATELET COUNT 377 10^3/uL (134-434); RBC 3.74 M/mm3 (4.00-5.60); RDW 15.9 % (11.9-15.9); WHITE BLOOD COUNT 6.5 K/mm3 (4.0-10.0)
[2021-01-27] MEDS: METOPROLOL TARTRATE 25 MG TABLET (FP) PO SCH ×2 (10:53→22:36)
[2021-01-27] MEDS: MULTIVITAMINS (DAILY MVI) TABLET (FP) PO SCH (10:53)
[2021-01-27] MEDS: LIDOCAINE 5% TOPICAL PATCH TP SCH (10:53)
[2021-01-27] MEDS: POLYETHYLENE GLYCOL (HEALTHYLAX) 3350 17 GM PACKET PO SCH (10:53)
[2021-01-27] MEDS: hydrALAZINE HCL 25 MG TABLET (FP) PO SCH ×2 (10:53→22:36)
[2021-01-27] MEDS: PANTOPRAZOLE 40 MG TABLET PO SCH (10:53)
[2021-01-27 11:00] LABS: BLOOD UREA NITROGEN 16.7 mg/dL (7-18); CALCIUM 8.7 mg/dL (8.5-10.1)
[2021-01-27 11:01] LABS: MAGNESIUM 2.3 mg/dL (1.8-2.4)
[2021-01-27 11:04] LABS: CREATININE 1.3 mg/dL (0.55-1.3); PHOSPHOROUS 4.6 mg/dL (2.5-4.9)
[2021-01-27] MEDS: BACITRACIN 15 GM TUBE TOPICAL OINTMENT TP SCH ×2 (18:43→22:37)
[2021-01-27] MEDS ORDERED: BISACODYL 5 MG TABLET.DR (FP) PO ONE (19:22)
[2021-01-27] MEDS ORDERED: BISACODYL 10 MG SUPP.RECT PR ONE (19:22)
[2021-01-27] MEDS ORDERED: BACITRACIN 15 GM TUBE TOPICAL OINTMENT TP SCH (22:00)
[2021-01-27] MEDS: ATORVASTATIN CA 80 MG TABLET (FP) PO SCH (22:36)
[2021-01-27] MEDS: LIDOCAINE PATCH REMOVAL MC SCH (22:37)
[2021-01-28] MEDS ORDERED: DEXTROSE 5%-WATER - 50 ML IVPB ONE ×6 (01:41→20:59)
[2021-01-28] MEDS ORDERED: PIPERACILLIN/TAZOBACTAM 3.375 GM VIAL IVPB ONE ×6 (01:41→20:59)
[2021-01-28] MEDS: PIPERACILLIN/TAZOB 3.375 GM 3.375 GM in DEXTROSE 5%-WATER - 50 ML IVPB SCH ×4 (02:05→21:07)
[2021-01-28] MEDS: MELATONIN 5 MG TABLETS PO PRN (02:24)
[2021-01-28] MEDS: HEPARIN NA (PORCINE) 5,000 UNITS/ML 1ML VIAL SQ SCH ×3 (06:16→21:08)
[2021-01-28] MEDS: PHENYTOIN NA EXTENDED 100 MG CAPSULE (FP) PO SCH ×3 (06:16→21:08)
[2021-01-28] MEDS: PANTOPRAZOLE 40 MG TABLET PO SCH (09:06)
[2021-01-28] MEDS: hydrALAZINE HCL 25 MG TABLET (FP) PO SCH ×2 (09:06→21:08)
[2021-01-28] MEDS: POLYETHYLENE GLYCOL (HEALTHYLAX) 3350 17 GM PACKET PO SCH (09:06)
[2021-01-28] MEDS: MULTIVITAMINS (DAILY MVI) TABLET (FP) PO SCH (09:06)
[2021-01-28] MEDS: LIDOCAINE 5% TOPICAL PATCH TP SCH (09:06)
[2021-01-28] MEDS: METOPROLOL TARTRATE 25 MG TABLET (FP) PO SCH ×2 (09:06→21:08)
[2021-01-28] MEDS: BACITRACIN 15 GM TUBE TOPICAL OINTMENT TP SCH ×2 (09:15→21:08)
[2021-01-28] MEDS ORDERED: BISACODYL 10 MG SUPP.RECT PR ONE (14:07)
[2021-01-28] MEDS ORDERED: BISACODYL 5 MG TABLET.DR (FP) PO ONE (14:07)
[2021-01-28] MEDS ORDERED: BACLOFEN 10 MG TABLET (FP) PO PRN (14:40)
[2021-01-28] MEDS: SIMETHICONE 80 MG TAB.CHEW (FP) PO PRN (21:07)
[2021-01-28] MEDS: ATORVASTATIN CA 80 MG TABLET (FP) PO SCH (21:07)
[2021-01-28] MEDS: LIDOCAINE PATCH REMOVAL MC SCH (21:08)
[2021-01-28] MEDS ORDERED: PT OWN MED DRAWER 7, Y5N ONE (23:08)
[2021-01-29] MEDS: PHENYTOIN NA EXTENDED 100 MG CAPSULE (FP) PO SCH ×3 (05:29→21:54)
[2021-01-29] MEDS: HEPARIN NA (PORCINE) 5,000 UNITS/ML 1ML VIAL SQ SCH ×3 (05:29→21:55)
[2021-01-29] MEDS ORDERED: ONDANSETRON 4 MG/2 ML VIAL IVPUSH PRN (08:13)
[2021-01-29] MEDS ORDERED: PIPERACILLIN/TAZOBACTAM 3.375 GM VIAL IVPB ONE ×2 (09:45→14:03)
[2021-01-29] MEDS ORDERED: DEXTROSE 5%-WATER - 50 ML IVPB ONE ×2 (09:45→14:03)
[2021-01-29] MEDS: LIDOCAINE 5% TOPICAL PATCH TP SCH (10:23)
[2021-01-29] MEDS: POLYETHYLENE GLYCOL (HEALTHYLAX) 3350 17 GM PACKET PO SCH (10:24)
[2021-01-29] MEDS: BACITRACIN 15 GM TUBE TOPICAL OINTMENT TP SCH ×2 (10:24→21:54)
[2021-01-29] MEDS: PIPERACILLIN/TAZOB 3.375 GM 3.375 GM in DEXTROSE 5%-WATER - 50 ML IVPB SCH ×2 (10:24→14:57)
[2021-01-29] MEDS: hydrALAZINE HCL 25 MG TABLET (FP) PO SCH ×2 (10:24→21:54)
[2021-01-29] MEDS: ASCORBIC ACID 500 MG TABLET (FP) PO SCH (10:24)
[2021-01-29] MEDS: ZINC SULFATE 220 MG CAPSULE (FP) PO SCH ×2 (10:24→21:54)
[2021-01-29] MEDS: AMINO ACIDS/PROTEIN HYDROLYS 30 ML LIQUID.PKT PO SCH ×2 (10:24→17:01)
[2021-01-29] MEDS: PANTOPRAZOLE 40 MG TABLET PO SCH (10:24)
[2021-01-29] MEDS: MULTIVITAMINS (DAILY MVI) TABLET (FP) PO SCH (10:24)
[2021-01-29] MEDS: METOPROLOL TARTRATE 25 MG TABLET (FP) PO SCH ×2 (10:24→21:54)
[2021-01-29 10:39] LABS: HEMATOCRIT 29.9 % (35.4-49); HEMOGLOBIN 9.8 GM/dL (11.7-16.9); MCH 27.1 pg (25.7-33.7); MCHC 32.7 g/dl (32.0-35.9); MEAN PLT VOLUME 6.5 fl (7.5-11.1); PLATELET COUNT 424 10^3/uL (134-434); RDW 16.1 % (11.9-15.9); WHITE BLOOD COUNT 7.3 K/mm3 (4.0-10.0)
[2021-01-29 11:01] LABS: ALBUMIN 3.2 g/dl (3.4-5.0); BLOOD UREA NITROGEN 22.8 mg/dL (7-18); CALCIUM 9.5 mg/dL (8.5-10.1)
[2021-01-29 11:02] LABS: MAGNESIUM 2.5 mg/dL (1.8-2.4)
[2021-01-29 11:05] LABS: CREATININE 1.2 mg/dL (0.55-1.3); PHOSPHOROUS 4.2 mg/dL (2.5-4.9)
[2021-01-29 11:06] LABS: BILIRUBIN,TOTAL 0.4 mg/dL (0.2-1); TOT PROT 7.5 g/dl (6.4-8.2)
[2021-01-29] MEDS ORDERED: MEROPENEM 1 GM in DEXTROSE 5%-WATER 100 ML IVPB ONE (15:41)
[2021-01-29] MEDS ORDERED: MEROPENEM 1 GM VIAL (RESTRICTED TO ID) IVPB ONE (21:37)
[2021-01-29] MEDS ORDERED: DEXTROSE 5%-WATER 100 ML IVPB ONE (21:37)
[2021-01-29] MEDS: ATORVASTATIN CA 80 MG TABLET (FP) PO SCH (21:54)
[2021-01-29] MEDS: MEROPENEM 1 GM in DEXTROSE 5%-WATER 100 ML IVPB SCH (21:54)
[2021-01-29] MEDS: LIDOCAINE PATCH REMOVAL MC SCH (21:55)
[2021-01-29] MEDS: MELATONIN 5 MG TABLETS PO PRN (22:06)
[2021-01-29] MEDS: SIMETHICONE 80 MG TAB.CHEW (FP) PO PRN (23:28)
[2021-01-30] MEDS: HEPARIN NA (PORCINE) 5,000 UNITS/ML 1ML VIAL SQ SCH ×3 (06:41→21:16)
[2021-01-30] MEDS: PHENYTOIN NA EXTENDED 100 MG CAPSULE (FP) PO SCH ×3 (06:41→21:16)
[2021-01-30 08:52] LABS: HEMATOCRIT 27.7 % (35.4-49); HEMOGLOBIN 9.2 GM/dL (11.7-16.9); MCH 27.2 pg (25.7-33.7); MCHC 33.2 g/dl (32.0-35.9); MEAN PLT VOLUME 6.2 fl (7.5-11.1); PLATELET COUNT 398 10^3/uL (134-434); RBC 3.38 M/mm3 (4.00-5.60); RDW 16.1 % (11.9-15.9); WHITE BLOOD COUNT 6.4 K/mm3 (4.0-10.0)
[2021-01-30 09:22] LABS: CALCIUM 9.4 mg/dL (8.5-10.1)
[2021-01-30 09:23] LABS: ALBUMIN 3.2 g/dl (3.4-5.0); BLOOD UREA NITROGEN 21.7 mg/dL (7-18)
[2021-01-30 09:26] LABS: BILIRUBIN,TOTAL 0.4 mg/dL (0.2-1); CREATININE 1.1 mg/dL (0.55-1.3)
[2021-01-30 09:27] LABS: TOT PROT 7.2 g/dl (6.4-8.2)
[2021-01-30] MEDS ORDERED: DEXTROSE 5%-WATER 100 ML IVPB ONE (10:13)
[2021-01-30] MEDS ORDERED: MEROPENEM 1 GM VIAL (RESTRICTED TO ID) IVPB ONE (10:13)
[2021-01-30] MEDS: ZINC SULFATE 220 MG CAPSULE (FP) PO SCH ×2 (10:23→21:20)
[2021-01-30] MEDS: METOPROLOL TARTRATE 25 MG TABLET (FP) PO SCH ×2 (10:23→21:16)
[2021-01-30] MEDS: MULTIVITAMINS (DAILY MVI) TABLET (FP) PO SCH (10:23)
[2021-01-30] MEDS: MEROPENEM 1 GM in DEXTROSE 5%-WATER 100 ML IVPB SCH ×2 (10:23→21:17)
[2021-01-30] MEDS: AMINO ACIDS/PROTEIN HYDROLYS 30 ML LIQUID.PKT PO SCH ×2 (10:23→16:46)
[2021-01-30] MEDS: hydrALAZINE HCL 25 MG TABLET (FP) PO SCH ×2 (10:23→21:16)
[2021-01-30] MEDS: ASCORBIC ACID 500 MG TABLET (FP) PO SCH (10:23)
[2021-01-30] MEDS: PANTOPRAZOLE 40 MG TABLET PO SCH (10:23)
[2021-01-30] MEDS: LIDOCAINE 5% TOPICAL PATCH TP SCH (10:24)
[2021-01-30] MEDS: BACITRACIN 15 GM TUBE TOPICAL OINTMENT TP SCH ×2 (10:24→21:16)
[2021-01-30] MEDS: POLYETHYLENE GLYCOL (HEALTHYLAX) 3350 17 GM PACKET PO SCH (10:24)
[2021-01-30 14:55] VITALS: PULSE 86
[2021-01-30] MEDS: ATORVASTATIN CA 80 MG TABLET (FP) PO SCH (21:16)
[2021-01-30] MEDS: LIDOCAINE PATCH REMOVAL MC SCH (21:16)
[2021-01-30 21:21] VITALS: BP 143/68; TEMP 98.6
== END 2021-01-30 21:30 | disposition home or self-care (01) | DRG 698 ==
LOC: JER 09:13 → JERBED 14:27 → J6S 22:12
PROVIDERS: ADMIT Internal Medicine; ATTEND Internal Medicine
PROC: 0T2BX0Z Change Drainage Device in Bladder, External Approach (ICD-10-PCS; principal; 2021-01-25)
DX: T83.511A Infection and inflammatory reaction due to indwelling urethral catheter, initial encounter (principal); G93.41 Metabolic encephalopathy; N17.9 Acute kidney failure, unspecified; M50.00 Cervical disc disorder with myelopathy, unspecified cervical region; G95.0 Syringomyelia and syringobulbia; G82.20 Paraplegia, unspecified; N39.0 Urinary tract infection, site not specified; I10 Essential (primary) hypertension; N31.9 Neuromuscular dysfunction of bladder, unspecified; E78.00 Pure hypercholesterolemia, unspecified; K59.09 Other constipation; G40.909 Epilepsy, unspecified, not intractable, without status epilepticus; J44.9 Chronic obstructive pulmonary disease, unspecified; R53.1 Weakness; R68.0 Hypothermia, not associated with low environmental temperature; Z93.59 Other cystostomy status; Z86.73 Personal history of transient ischemic attack (TIA), and cerebral infarction without residual deficits; Y84.8 Other medical procedures as the cause of abnormal reaction of the patient, or of later complication, without mention of misadventure at the time of the procedure
CPT/HCPCS: 36415; 70450-TC; 71045-TC-FY; 72125-TC; 72131-TC; 72170-TC-FY; 80048; 80053; 81003; 82550; 82553; 82607; 83605; 83735; 84100; 84439; 84443; 84484; 85025; 85027; 86780; 87040; 87086; 87186; 93005; 93010; 97163-GP; 99285-25; C9803; J1644; U0003; U0005

== ENCOUNTER 2021-02-01 20:16 | Inpatient (IN) | payer OTHER ==
[2021-02-01] MEDS ORDERED: MIDAZOLAM HCL 2 MG/2 ML SINGLE DOSE VIAL IVPUSH ONE (21:08)
[2021-02-01] MEDS ORDERED: MIDAZOLAM HCL 2 MG/2 ML SINGLE DOSE VIAL ONE (21:37)
[2021-02-01] MEDS ORDERED: MIDAZOLAM HCL 5 MG/1 ML Single Dose Vial IM ONE (21:37)
[2021-02-01 22:41] LABS: BASO % 0.4 % (0-2.0); EOS % 2.8 % (0-4.5); HEMOGLOBIN 10.9 GM/dL (11.7-16.9); LYMPH % 14.4 % (8-40); MCH 27.4 pg (25.7-33.7); MEAN CELL VOLUME 82.9 fl (80-96); MONO % 8.1 % (3.8-10.2); NEUT % 74.3 % (42.8-82.8); PLATELET COUNT 388 10^3/uL (134-434); RBC 3.98 M/mm3 (4.00-5.60); RDW 16.3 % (11.9-15.9); WHITE BLOOD COUNT 5.7 K/mm3 (4.0-10.0)
[2021-02-01 22:55] LABS: CHLORIDE 99 mmol/L (98-107); SODIUM 136 mmol/L (136-145)
[2021-02-01 22:57] LABS: ALBUMIN 3.4 g/dl (3.4-5.0); CALCIUM 9.6 mg/dL (8.5-10.1)
[2021-02-01 22:58] LABS: ANION GAP 8 MMOL/L (8-16); BLOOD UREA NITROGEN 18.1 mg/dL (7-18); CO2 29 mmol/L (21-32); GLUCOSE,RANDOM 105 mg/dL (74-106)
[2021-02-01 23:00] LABS: SGPT/ALT 30 U/L (13-61)
[2021-02-01 23:01] LABS: CREATININE 1.2 mg/dL (0.55-1.3); SGOT/AST 39 U/L (15-37)
[2021-02-01 23:02] LABS: BILIRUBIN,TOTAL 0.2 mg/dL (0.2-1); TOT PROT 7.6 g/dl (6.4-8.2)
[2021-02-01 23:03] LABS: ALK PHOS 152 U/L (45-117)
[2021-02-01 23:17] LABS: EPI CELLS 13 /uL (0-25.1); HYALINE CASTS 2 /uL (0-3.1); URINE APPEARANCE CLEAR; URINE BACTERIA 7 /uL (0-1359); URINE BILIRUBIN NEGATIVE (NEGATIVE); URINE COLOR YELLOW; URINE GLUCOSE (UA) NEGATIVE (NEGATIVE); URINE KETONE NEGATIVE (NEGATIVE); URINE LEUK ESTERASE 2+ (NEGATIVE); URINE NITRITE NEGATIVE (NEGATIVE); URINE PROTEIN NEGATIVE (NEGATIVE); URINE RBC 4 /uL (0-23.9); URINE UROBILINOGEN 0.2 mg/dL (0.2-1.0); URINE WBC 32 /uL (0-25.8)
[2021-02-01] MEDS ORDERED: MEROPENEM 1 GM in DEXTROSE 5%-WATER 100 ML IVPB ONE (23:51)
[2021-02-02] MEDS ORDERED: MEROPENEM 1 GM VIAL (RESTRICTED TO ID) IVPB ONE (00:04)
[2021-02-02] MEDS ORDERED: MIDAZOLAM HCL 2 MG/2 ML SINGLE DOSE VIAL ONE (01:27)
[2021-02-02] MEDS ORDERED: MIDAZOLAM HCL 2 MG/2 ML SINGLE DOSE VIAL IVPUSH ONE (01:38)
[2021-02-02] MEDS ORDERED: SODIUM CHLORIDE 1,000 ML IV STA (03:40)
[2021-02-02] MEDS: HEPARIN NA (PORCINE) 5,000 UNITS/ML 1ML VIAL SQ SCH ×2 (13:41→21:22)
[2021-02-02 16:21] VITALS: BMI 19.8
[2021-02-02] MEDS ORDERED: PIPERACILLIN/TAZOBACTAM 3.375 GM VIAL IVPB ONE (17:01)
[2021-02-02] MEDS ORDERED: DEXTROSE 5%-WATER - 50 ML IVPB ONE (17:02)
[2021-02-02] MEDS: PIPERACILLIN/TAZOB 3.375 GM 3.375 GM in DEXTROSE 5%-WATER - 50 ML IVPB SCH (17:09)
[2021-02-03] MEDS ORDERED: DEXTROSE 5%-WATER - 50 ML IVPB ONE ×2 (01:53→10:47)
[2021-02-03] MEDS ORDERED: PIPERACILLIN/TAZOBACTAM 3.375 GM VIAL IVPB ONE ×2 (01:53→10:47)
[2021-02-03] MEDS: PIPERACILLIN/TAZOB 3.375 GM 3.375 GM in DEXTROSE 5%-WATER - 50 ML IVPB SCH ×3 (02:04→10:55)
[2021-02-03] MEDS: HEPARIN NA (PORCINE) 5,000 UNITS/ML 1ML VIAL SQ SCH ×3 (06:07→21:30)
[2021-02-03 15:28] LABS: CALCIUM 9.4 mg/dL (8.5-10.1)
[2021-02-03 15:29] LABS: ALBUMIN 3.4 g/dl (3.4-5.0); BLOOD UREA NITROGEN 16.9 mg/dL (7-18); MAGNESIUM 2.6 mg/dL (1.8-2.4)
[2021-02-03 15:32] LABS: CREATININE 0.9 mg/dL (0.55-1.3); PHOSPHOROUS 3.9 mg/dL (2.5-4.9)
[2021-02-03 15:33] LABS: BILIRUBIN,TOTAL 0.3 mg/dL (0.2-1); TOT PROT 7.6 g/dl (6.4-8.2)
[2021-02-04] MEDS: HEPARIN NA (PORCINE) 5,000 UNITS/ML 1ML VIAL SQ SCH ×3 (05:48→22:20)
[2021-02-04] MEDS: FUROSEMIDE 40 MG TABLET (FP) PO SCH (16:05)
[2021-02-04] MEDS: ATORVASTATIN CA 80 MG TABLET (FP) PO SCH (22:20)
[2021-02-04] MEDS: METOPROLOL TARTRATE 25 MG TABLET (FP) PO SCH (22:20)
[2021-02-05] MEDS: HEPARIN NA (PORCINE) 5,000 UNITS/ML 1ML VIAL SQ SCH ×3 (05:49→21:11)
[2021-02-05 09:39] LABS: BASO % 0.4 % (0-2.0); EOS % 2.8 % (0-4.5); HEMATOCRIT 30.2 % (35.4-49); HEMOGLOBIN 10.2 GM/dL (11.7-16.9); LYMPH % 15.3 % (8-40); MCH 27.8 pg (25.7-33.7); MCHC 33.9 g/dl (32.0-35.9); MONO % 6.6 % (3.8-10.2); NEUT % 74.9 % (42.8-82.8); PLATELET COUNT 465 10^3/uL (134-434); RBC 3.68 M/mm3 (4.00-5.60); RDW 16.5 % (11.9-15.9)
[2021-02-05] MEDS ORDERED: BISACODYL 5 MG TABLET.DR (FP) PO ONE (09:46)
[2021-02-05 10:05] LABS: CALCIUM 9.3 mg/dL (8.5-10.1)
[2021-02-05 10:06] LABS: ALBUMIN 3.3 g/dl (3.4-5.0); BLOOD UREA NITROGEN 16.3 mg/dL (7-18)
[2021-02-05 10:09] LABS: CREATININE 1.1 mg/dL (0.55-1.3)
[2021-02-05 10:11] LABS: BILIRUBIN,TOTAL 0.3 mg/dL (0.2-1); TOT PROT 7.4 g/dl (6.4-8.2)
[2021-02-05] MEDS: AMINO ACIDS/PROTEIN HYDROLYS 30 ML LIQUID.PKT PO SCH ×2 (10:21→18:13)
[2021-02-05] MEDS: METOPROLOL TARTRATE 25 MG TABLET (FP) PO SCH ×2 (10:21→21:11)
[2021-02-05] MEDS: FUROSEMIDE 40 MG TABLET (FP) PO SCH (10:21)
[2021-02-05] MEDS: ATORVASTATIN CA 80 MG TABLET (FP) PO SCH (21:11)
[2021-02-06] MEDS: HEPARIN NA (PORCINE) 5,000 UNITS/ML 1ML VIAL SQ SCH ×3 (06:05→21:09)
[2021-02-06] MEDS: DOCUSATE SODIUM 100 MG CAPSULE (FP) PO SCH ×3 (06:51→21:09)
[2021-02-06] MEDS: AMINO ACIDS/PROTEIN HYDROLYS 30 ML LIQUID.PKT PO SCH ×2 (08:32→17:18)
[2021-02-06 09:23] LABS: BASO % 0.3 % (0-2.0); EOS % 1.7 % (0-4.5); HEMATOCRIT 30.6 % (35.4-49); HEMOGLOBIN 10.3 GM/dL (11.7-16.9); LYMPH % 10.3 % (8-40); MCH 27.7 pg (25.7-33.7); MCHC 33.8 g/dl (32.0-35.9); MEAN CELL VOLUME 81.9 fl (80-96); MEAN PLT VOLUME 6.3 fl (7.5-11.1); MONO % 6.5 % (3.8-10.2); NEUT % 81.2 % (42.8-82.8); PLATELET COUNT 529 10^3/uL (134-434); RBC 3.73 M/mm3 (4.00-5.60); RDW 16.5 % (11.9-15.9); WHITE BLOOD COUNT 10.6 K/mm3 (4.0-10.0)
[2021-02-06 10:02] LABS: CALCIUM 9.6 mg/dL (8.5-10.1)
[2021-02-06 10:04] LABS: ALBUMIN 3.3 g/dl (3.4-5.0)
[2021-02-06 10:06] LABS: CREATININE 1.1 mg/dL (0.55-1.3)
[2021-02-06 10:08] LABS: BILIRUBIN,TOTAL 0.3 mg/dL (0.2-1); TOT PROT 7.6 g/dl (6.4-8.2)
[2021-02-06] MEDS ORDERED: PT OWN MED DRAWER 7, Y5N ONE ×3 (10:14→12:27)
[2021-02-06] MEDS: METOPROLOL TARTRATE 25 MG TABLET (FP) PO SCH ×2 (10:22→21:09)
[2021-02-06] MEDS: FUROSEMIDE 40 MG TABLET (FP) PO SCH (10:22)
[2021-02-06] MEDS: OXcarbazepine 150 MG TABLET (UD) PO SCH ×2 (12:18→21:09)
[2021-02-06] MEDS: ATORVASTATIN CA 80 MG TABLET (FP) PO SCH (21:09)
[2021-02-07] MEDS: HEPARIN NA (PORCINE) 5,000 UNITS/ML 1ML VIAL SQ SCH ×2 (05:33→13:37)
[2021-02-07] MEDS: AMINO ACIDS/PROTEIN HYDROLYS 30 ML LIQUID.PKT PO SCH ×2 (08:01→17:10)
[2021-02-07] MEDS: METOPROLOL TARTRATE 25 MG TABLET (FP) PO SCH (10:05)
[2021-02-07] MEDS: DOCUSATE SODIUM 100 MG CAPSULE (FP) PO SCH (10:05)
[2021-02-07] MEDS: FUROSEMIDE 40 MG TABLET (FP) PO SCH (10:05)
[2021-02-07] MEDS: OXcarbazepine 150 MG TABLET (UD) PO SCH (10:06)
[2021-02-07 16:03] VITALS: BP 134/63; PULSE 69; TEMP 97.9
== END 2021-02-07 17:16 | disposition home health service (06) | DRG 71 ==
LOC: JER 20:16 → JERBED 02-02 03:31 → J8W 02-02 10:37
PROVIDERS: ADMIT Internal Medicine; ATTEND Internal Medicine
DX: G93.41 Metabolic encephalopathy (principal); R64 Cachexia; Z68.1 Body mass index [BMI] 19.9 or less, adult; E46 Unspecified protein-calorie malnutrition; G82.20 Paraplegia, unspecified; Q05.9 Spina bifida, unspecified; N31.9 Neuromuscular dysfunction of bladder, unspecified; T44.3X5A Adverse effect of other parasympatholytics [anticholinergics and antimuscarinics] and spasmolytics, initial encounter; I69.398 Other sequelae of cerebral infarction; D64.9 Anemia, unspecified; L89.322 Pressure ulcer of left buttock, stage 2; L89.312 Pressure ulcer of right buttock, stage 2
CPT/HCPCS: 36415; 70450-TC; 70496-TC; 70498-TC; 71045-TC-FY; 80053; 80307; 81003; 82140; 82550; 82553; 82962; 83605; 83735; 84100; 84443; 84484; 85025; 87040; 87086; 93005; 93010; 95816; 97116-GP; 97161-GP; 99285-25; C9803; J1644; U0003; U0005

== ENCOUNTER 2021-02-24 16:00 | Inpatient (IN) | payer OTHER ==
[2021-02-24 16:42] VITALS: BMI 25.1
[2021-02-24] MEDS ORDERED: SODIUM CHLORIDE 0.9% 500 ML INFUS.BAG IV ONE (17:42)
[2021-02-24 18:27] LABS: BASO % 0.4 % (0-2.0); EOS % 1.1 % (0-4.5); HEMATOCRIT 30.4 % (35.4-49); HEMOGLOBIN 10.1 GM/dL (11.7-16.9); LYMPH % 9.5 % (8-40); MCH 27.1 pg (25.7-33.7); MCHC 33.1 g/dl (32.0-35.9); MEAN CELL VOLUME 81.9 fl (80-96); MEAN PLT VOLUME 6.1 fl (7.5-11.1); MONO % 4.9 % (3.8-10.2); NEUT % 84.1 % (42.8-82.8); PLATELET COUNT 473 10^3/uL (134-434); RBC 3.71 M/mm3 (4.00-5.60); WHITE BLOOD COUNT 9.2 K/mm3 (4.0-10.0)
[2021-02-24 18:47] LABS: CHLORIDE 98 mmol/L (98-107); SODIUM 137 mmol/L (136-145)
[2021-02-24 18:48] LABS: CALCIUM 9.5 mg/dL (8.5-10.1)
[2021-02-24 18:49] LABS: ALBUMIN 3.2 g/dl (3.4-5.0); ANION GAP 7 MMOL/L (8-16); CO2 32 mmol/L (21-32); GLUCOSE,RANDOM 116 mg/dL (74-106); MAGNESIUM 2.8 mg/dL (1.8-2.4)
[2021-02-24 18:50] LABS: URINE BARBITURATES NEGATIVE (NEGATIVE)
[2021-02-24 18:51] LABS: METHADONE, UR NEGATIVE (NEGATIVE); OPIATES, URI NEGATIVE (NEGATIVE); PHENCYCLIDINE,URINE NEGATIVE (NEGATIVE)
[2021-02-24 18:52] LABS: CREATININE 1.4 mg/dL (0.55-1.3); SGOT/AST 32 U/L (15-37); SGPT/ALT 40 U/L (13-61)
[2021-02-24 18:54] LABS: BILIRUBIN,TOTAL 0.2 mg/dL (0.2-1)
[2021-02-24 18:55] LABS: ALK PHOS 153 U/L (45-117)
[2021-02-24 18:57] LABS: BLOOD UREA NITROGEN 19.6 mg/dL (7-18)
[2021-02-24 19:06] LABS: COCAINE, UR NEGATIVE (NEGATIVE); URINE AMPHETAMINES NEGATIVE (NEGATIVE); URINE BENZODIAZEPINES NEGATIVE (NEGATIVE)
[2021-02-24 19:42] LABS: URINE APPEARANCE SL CLOUDY; URINE BILIRUBIN NEGATIVE (NEGATIVE); URINE COLOR YELLOW; URINE GLUCOSE (UA) NEGATIVE (NEGATIVE); URINE KETONE NEGATIVE (NEGATIVE)
[2021-02-24 19:43] LABS: URINE PROTEIN TRACE (NEGATIVE); URINE UROBILINOGEN 0.2 mg/dL (0.2-1.0)
[2021-02-24 19:44] LABS: URINE LEUK ESTERASE 3+ (NEGATIVE); URINE NITRITE NEGATIVE (NEGATIVE)
[2021-02-24 20:01] LABS: EPI CELLS 2+ /uL (0-25.1); URINE BACTERIA 2+ /uL (0-1359); URINE WBC 20-30 /uL (0-25.8)
[2021-02-24] MEDS ORDERED: HALOPERIDOL LACTATE 5 MG/ML IM ONE (20:40)
[2021-02-24] MEDS ORDERED: LORazepam 2 MG/ML SDV VIAL IVPUSH ONE ×2 (20:40→21:40)
[2021-02-24] MEDS ORDERED: HALOPERIDOL LACTATE 5 MG/ML ONE ×2 (20:41→20:48)
[2021-02-24] MEDS ORDERED: LORazepam 2 MG/ML SDV VIAL ONE (21:45)
[2021-02-25] MEDS ORDERED: MEROPENEM 1 GM VIAL (RESTRICTED TO ID) IVPB ONE ×2 (02:09→10:03)
[2021-02-25] MEDS: MEROPENEM 1 GM in DEXTROSE 5%-WATER 100 ML IVPB SCH ×4 (02:43→17:22)
[2021-02-25] MEDS ORDERED: LINEZOLID 600 MG PREMIX BAG 600 MG in PREMIX 300 IVPB SCH (02:45)
[2021-02-25] MEDS: SODIUM CHLORIDE 1,000 ML IV SCH ×2 (03:11→17:55)
[2021-02-25] MEDS ORDERED: LINEZOLID 600 MG PREMIX BAG 600 MG/300 ML BAG IVPB SCH (03:30)
[2021-02-25] MEDS ORDERED: HEPARIN NA (PORCINE) 5,000 UNITS/ML 1ML VIAL ONE (05:53)
[2021-02-25] MEDS: HEPARIN NA (PORCINE) 5,000 UNITS/ML 1ML VIAL SQ SCH ×3 (05:57→23:05)
[2021-02-25] MEDS ORDERED: LORazepam 2 MG/ML SDV VIAL IM ONE (10:30)
[2021-02-25] MEDS: OXcarbazepine 150 MG TABLET (UD) PO SCH ×2 (17:21→23:05)
[2021-02-25] MEDS ORDERED: PIPERACILLIN/TAZOBACTAM 3.375 GM VIAL IVPB ONE (17:34)
[2021-02-25] MEDS ORDERED: DEXTROSE 5%-WATER - 50 ML IVPB ONE (17:35)
[2021-02-25] MEDS: PIPERACILLIN/TAZOB 3.375 GM 3.375 GM in DEXTROSE 5%-WATER - 50 ML IVPB SCH (17:55)
[2021-02-25] MEDS: hydrALAZINE HCL 25 MG TABLET (FP) PO SCH (23:05)
[2021-02-25] MEDS: ATORVASTATIN CA 80 MG TABLET (FP) PO SCH (23:05)
[2021-02-26] MEDS ORDERED: DEXTROSE 5%-WATER - 50 ML IVPB ONE ×3 (01:41→17:14)
[2021-02-26] MEDS ORDERED: PIPERACILLIN/TAZOBACTAM 3.375 GM VIAL IVPB ONE ×3 (01:41→17:14)
[2021-02-26] MEDS: PIPERACILLIN/TAZOB 3.375 GM 3.375 GM in DEXTROSE 5%-WATER - 50 ML IVPB SCH ×3 (02:23→17:31)
[2021-02-26] MEDS: HEPARIN NA (PORCINE) 5,000 UNITS/ML 1ML VIAL SQ SCH ×3 (05:32→21:17)
[2021-02-26 08:44] LABS: BASO % 0.7 % (0-2.0); EOS % 1.8 % (0-4.5); HEMATOCRIT 25.8 % (35.4-49); HEMOGLOBIN 8.7 GM/dL (11.7-16.9); LYMPH % 13.3 % (8-40); MCH 27.4 pg (25.7-33.7); MCHC 33.8 g/dl (32.0-35.9); MEAN CELL VOLUME 81.2 fl (80-96); MEAN PLT VOLUME 6.2 fl (7.5-11.1); MONO % 5.5 % (3.8-10.2); NEUT % 78.7 % (42.8-82.8); PLATELET COUNT 413 10^3/uL (134-434); RBC 3.17 M/mm3 (4.00-5.60); RDW 16.2 % (11.9-15.9); WHITE BLOOD COUNT 6.6 K/mm3 (4.0-10.0)
[2021-02-26 08:57] LABS: ALBUMIN 2.9 g/dl (3.4-5.0); BLOOD UREA NITROGEN 14.6 mg/dL (7-18); MAGNESIUM 2.6 mg/dL (1.8-2.4)
[2021-02-26 09:02] LABS: PHOSPHOROUS 3.8 mg/dL (2.5-4.9)
[2021-02-26 09:03] LABS: BILIRUBIN,TOTAL 0.5 mg/dL (0.2-1); TOT PROT 6.8 g/dl (6.4-8.2)
[2021-02-26] MEDS ORDERED: PT OWN MED DRAWER 7, Y5N ONE ×2 (09:39→21:02)
[2021-02-26] MEDS: hydrALAZINE HCL 25 MG TABLET (FP) PO SCH ×2 (09:45→21:17)
[2021-02-26] MEDS: OXcarbazepine 150 MG TABLET (UD) PO SCH ×2 (09:45→21:17)
[2021-02-26] MEDS: PANTOPRAZOLE 40 MG TABLET PO SCH (09:45)
[2021-02-26] MEDS: SODIUM CHLORIDE 1,000 ML IV SCH (09:46)
[2021-02-26] MEDS: BACITRACIN 15 GM TUBE TOPICAL OINTMENT TP SCH (11:42)
[2021-02-26] MEDS: ATORVASTATIN CA 80 MG TABLET (FP) PO SCH (21:17)
[2021-02-27] MEDS ORDERED: PIPERACILLIN/TAZOBACTAM 3.375 GM VIAL IVPB ONE ×4 (00:27→17:59)
[2021-02-27] MEDS ORDERED: DEXTROSE 5%-WATER - 50 ML IVPB ONE ×4 (00:28→17:59)
[2021-02-27] MEDS: PIPERACILLIN/TAZOB 3.375 GM 3.375 GM in DEXTROSE 5%-WATER - 50 ML IVPB SCH ×3 (01:25→18:01)
[2021-02-27] MEDS: HEPARIN NA (PORCINE) 5,000 UNITS/ML 1ML VIAL SQ SCH ×3 (05:24→21:20)
[2021-02-27] MEDS: hydrALAZINE HCL 25 MG TABLET (FP) PO SCH ×2 (11:20→21:20)
[2021-02-27] MEDS: PANTOPRAZOLE 40 MG TABLET PO SCH (11:20)
[2021-02-27] MEDS: BACITRACIN 15 GM TUBE TOPICAL OINTMENT TP SCH (11:21)
[2021-02-27] MEDS ORDERED: PT OWN MED DRAWER 7, Y5N ONE (11:29)
[2021-02-27] MEDS: OXcarbazepine 150 MG TABLET (UD) PO SCH ×2 (11:36→21:35)
[2021-02-27] MEDS ORDERED: MULTIVITAMINS (DAILY MVI) TABLET (FP) PO ONE (18:10)
[2021-02-27 20:36] LABS: EPI CELLS >36 /uL (0-25.1); HYALINE CASTS 13 /uL (0-3.1); PH,URINE 8.5 (5.0-8.0); URINE APPEARANCE CLOUDY; URINE BACTERIA 1527 /uL (0-1359); URINE BILIRUBIN NEGATIVE (NEGATIVE); URINE COLOR YELLOW; URINE GLUCOSE (UA) NEGATIVE (NEGATIVE); URINE KETONE NEGATIVE (NEGATIVE); URINE LEUK ESTERASE 2+ (NEGATIVE); URINE NITRITE POSITIVE (NEGATIVE); URINE PROTEIN NEGATIVE (NEGATIVE); URINE RBC 13 /uL (0-23.9); URINE UROBILINOGEN 0.2 mg/dL (0.2-1.0); URINE WBC 85 /uL (0-25.8)
[2021-02-27] MEDS: ATORVASTATIN CA 80 MG TABLET (FP) PO SCH (21:20)
[2021-02-28] MEDS ORDERED: PIPERACILLIN/TAZOBACTAM 3.375 GM VIAL IVPB ONE ×3 (01:05→16:46)
[2021-02-28] MEDS ORDERED: DEXTROSE 5%-WATER - 50 ML IVPB ONE ×3 (01:05→16:46)
[2021-02-28] MEDS: PIPERACILLIN/TAZOB 3.375 GM 3.375 GM in DEXTROSE 5%-WATER - 50 ML IVPB SCH ×3 (01:31→18:11)
[2021-02-28] MEDS: HEPARIN NA (PORCINE) 5,000 UNITS/ML 1ML VIAL SQ SCH ×3 (05:24→23:02)
[2021-02-28] MEDS: AMINO ACIDS/PROTEIN HYDROLYS 30 ML LIQUID.PKT PO SCH ×2 (07:57→18:12)
[2021-02-28] MEDS: PANTOPRAZOLE 40 MG TABLET PO SCH (09:55)
[2021-02-28] MEDS: hydrALAZINE HCL 25 MG TABLET (FP) PO SCH ×2 (09:55→23:02)
[2021-02-28] MEDS: OXcarbazepine 150 MG TABLET (UD) PO SCH ×2 (09:56→23:02)
[2021-02-28] MEDS: BACITRACIN 15 GM TUBE TOPICAL OINTMENT TP SCH (10:02)
[2021-02-28] MEDS ORDERED: TOBRAMYCIN SULFATE IVPB ONE (10:07)
[2021-02-28] MEDS ORDERED: SODIUM CHLORIDE IVPB ONE (10:07)
[2021-02-28 10:28] LABS: BASO % 0.3 % (0-2.0); EOS % 1.8 % (0-4.5); HEMATOCRIT 26.4 % (35.4-49); HEMOGLOBIN 8.9 GM/dL (11.7-16.9); LYMPH % 14.4 % (8-40); MCH 27.2 pg (25.7-33.7); MCHC 33.8 g/dl (32.0-35.9); MEAN CELL VOLUME 80.5 fl (80-96); MEAN PLT VOLUME 5.9 fl (7.5-11.1); MONO % 5.1 % (3.8-10.2); NEUT % 78.4 % (42.8-82.8); PLATELET COUNT 409 10^3/uL (134-434); RBC 3.28 M/mm3 (4.00-5.60); RDW 16.4 % (11.9-15.9); WHITE BLOOD COUNT 6.8 K/mm3 (4.0-10.0)
[2021-02-28] MEDS ORDERED: ACETAMINOPHEN 1000 MG/100 ML VIAL (NON FORMULARY) IVPB ONE (10:44)
[2021-02-28 10:48] LABS: CALCIUM 8.9 mg/dL (8.5-10.1)
[2021-02-28 10:52] LABS: CREATININE 1.2 mg/dL (0.55-1.3)
[2021-02-28] MEDS ORDERED: POTASSIUM CHLORIDE TABS 20 MEQ TABLET.ER (FP) PO ONE (15:26)
[2021-02-28] MEDS ORDERED: PT OWN MED DRAWER 7, Y5N ONE (22:35)
[2021-02-28] MEDS: ATORVASTATIN CA 80 MG TABLET (FP) PO SCH (23:02)
[2021-03-01] MEDS ORDERED: DEXTROSE 5%-WATER - 50 ML IVPB ONE ×3 (01:43→16:49)
[2021-03-01] MEDS ORDERED: PIPERACILLIN/TAZOBACTAM 3.375 GM VIAL IVPB ONE ×3 (01:43→16:49)
[2021-03-01] MEDS: PIPERACILLIN/TAZOB 3.375 GM 3.375 GM in DEXTROSE 5%-WATER - 50 ML IVPB SCH ×3 (02:28→17:01)
[2021-03-01] MEDS: HEPARIN NA (PORCINE) 5,000 UNITS/ML 1ML VIAL SQ SCH ×3 (06:16→22:50)
[2021-03-01] MEDS ORDERED: FERROUS SO4 325 MG TABLET (FP) PO SCH (08:00)
[2021-03-01] MEDS ORDERED: PT OWN MED DRAWER 7, Y5N ONE ×2 (09:08→22:28)
[2021-03-01] MEDS: OXcarbazepine 150 MG TABLET (UD) PO SCH ×2 (09:23→22:50)
[2021-03-01] MEDS: BACITRACIN 15 GM TUBE TOPICAL OINTMENT TP SCH (09:23)
[2021-03-01] MEDS: AMINO ACIDS/PROTEIN HYDROLYS 30 ML LIQUID.PKT PO SCH ×2 (09:23→17:01)
[2021-03-01] MEDS: PANTOPRAZOLE 40 MG TABLET PO SCH (09:23)
[2021-03-01] MEDS: hydrALAZINE HCL 25 MG TABLET (FP) PO SCH ×2 (09:23→22:50)
[2021-03-01 21:02] VITALS: BP 149/80; PULSE 87; TEMP 98.1
[2021-03-01] MEDS: ATORVASTATIN CA 80 MG TABLET (FP) PO SCH (22:50)
== END 2021-03-02 00:45 | disposition home health service (06) | DRG 698 ==
LOC: JER 16:00 → JERBED 02-25 01:00 → J8W 02-25 15:34
PROVIDERS: ADMIT Internal Medicine
DX: T83.511A Infection and inflammatory reaction due to indwelling urethral catheter, initial encounter (principal); L89.313 Pressure ulcer of right buttock, stage 3; G93.41 Metabolic encephalopathy; G95.0 Syringomyelia and syringobulbia; R64 Cachexia; L97.818 Non-pressure chronic ulcer of other part of right lower leg with other specified severity; N17.9 Acute kidney failure, unspecified; G82.20 Paraplegia, unspecified; I10 Essential (primary) hypertension; G40.909 Epilepsy, unspecified, not intractable, without status epilepticus; N31.9 Neuromuscular dysfunction of bladder, unspecified; N39.0 Urinary tract infection, site not specified; B96.5 Pseudomonas (aeruginosa) (mallei) (pseudomallei) as the cause of diseases classified elsewhere; K59.09 Other constipation; E86.0 Dehydration; Z68.25 Body mass index [BMI] 25.0-25.9, adult; D64.9 Anemia, unspecified; D47.3 Essential (hemorrhagic) thrombocythemia; K80.80 Other cholelithiasis without obstruction; K76.0 Fatty (change of) liver, not elsewhere classified; R94.5 Abnormal results of liver function studies; Y84.8 Other medical procedures as the cause of abnormal reaction of the patient, or of later complication, without mention of misadventure at the time of the procedure; I12.9 Hypertensive chronic kidney disease with stage 1 through stage 4 chronic kidney disease, or unspecified chronic kidney disease; N18.9 Chronic kidney disease, unspecified; K64.8 Other hemorrhoids; N48.89 Other specified disorders of penis; Z86.73 Personal history of transient ischemic attack (TIA), and cerebral infarction without residual deficits; Z74.01 Bed confinement status
CPT/HCPCS: 36415; 70450-TC; 71045-TC-FY; 74230-TC-FY; 76700-TC; 76775-TC; 80048; 80053; 80307; 81003; 82550; 82728; 82977; 83540; 83550; 83735; 84100; 84439; 84443; 84466; 84484; 85025; 85045; 87086; 87186; 92611-GN; 93005; 93010; 97116-GP; 97161-GP; 99285-25; C9803; J0131; J1644; U0003; U0005

== ENCOUNTER 2021-03-09 10:09 | Observation (INO) | payer OTHER ==
[2021-03-09] MEDS ORDERED: SODIUM CHLORIDE 1,769 ML IV ONE (10:46)
[2021-03-09 11:10] LABS: EPI CELLS 7 /uL (0-25.1); HYALINE CASTS 4 /uL (0-3.1); PH,URINE 6.5 (5.0-8.0); URINE APPEARANCE CLOUDY; URINE BILIRUBIN NEGATIVE (NEGATIVE); URINE COLOR YELLOW; URINE GLUCOSE (UA) NEGATIVE (NEGATIVE); URINE KETONE NEGATIVE (NEGATIVE); URINE LEUK ESTERASE 3+ (NEGATIVE); URINE NITRITE POSITIVE (NEGATIVE); URINE PROTEIN 1+ (NEGATIVE); URINE UROBILINOGEN 0.2 mg/dL (0.2-1.0); URINE WBC 1369 /uL (0-25.8)
[2021-03-09 11:15] LABS: URINE BACTERIA 221.1 /uL (0-1359); URINE RBC 58.5 /uL (0-23.9); YEAST NON SEEN (NEGATIVE)
[2021-03-09] MEDS ORDERED: SODIUM CHLORIDE IVPB ONE (11:58)
[2021-03-09] MEDS ORDERED: TOBRAMYCIN SULFATE IVPB ONE (11:58)
[2021-03-09 12:02] LABS: BASO % 0.4 % (0-2.0); HEMATOCRIT 30.6 % (35.4-49); HEMOGLOBIN 10.1 GM/dL (11.7-16.9); MCH 27.1 pg (25.7-33.7); MEAN CELL VOLUME 82.3 fl (80-96); MEAN PLT VOLUME 6.3 fl (7.5-11.1); NEUT % 76.6 % (42.8-82.8); PLATELET COUNT 546 10^3/uL (134-434); RBC 3.72 M/mm3 (4.00-5.60); RDW 16.8 % (11.9-15.9); WHITE BLOOD COUNT 7.8 K/mm3 (4.0-10.0)
[2021-03-09 12:04] LABS: INR 0.99 (0.83-1.09); PROTHROMBIN TIME (PATIENT) 12.2 SEC (9.7-13.0)
[2021-03-09 12:07] LABS: ACTIVATED PTT 37.3 SECONDS (25.2-36.5)
[2021-03-09 12:20] LABS: CHLORIDE 108 mmol/L (98-107); SODIUM 142 mmol/L (136-145)
[2021-03-09 12:22] LABS: CALCIUM 9.3 mg/dL (8.5-10.1)
[2021-03-09 12:23] LABS: ALBUMIN 3.2 g/dl (3.4-5.0); ANION GAP 7 MMOL/L (8-16); BLOOD UREA NITROGEN 13.8 mg/dL (7-18); CO2 27 mmol/L (21-32); GLUCOSE,RANDOM 105 mg/dL (74-106)
[2021-03-09 12:26] LABS: CREATININE 1.1 mg/dL (0.55-1.3); SGOT/AST 38 U/L (15-37); SGPT/ALT 28 U/L (13-61)
[2021-03-09 12:28] LABS: BILIRUBIN,TOTAL 0.4 mg/dL (0.2-1); TOT PROT 7.8 g/dl (6.4-8.2)
[2021-03-09 12:29] LABS: ALK PHOS 125 U/L (45-117)
[2021-03-09 12:29] LABS: VENOUS BASE EXCESS -0.5 mmol/L (-2-2); VENOUS O2 SATURATION 24.3 % (70-80); VENOUS PCO2 59.6 mmHg (38-52); VENOUS PH 7.271 (7.310-7.410)
[2021-03-09] MEDS ORDERED: hydrOXYzine PAMOATE 25 MG CAPSULE (FP) PO PRN (14:25)
[2021-03-09] MEDS ORDERED: CYCLOBENZAPRINE HCL 10 MG TABLET (FP) PO PRN (14:25)
[2021-03-09] MEDS: SODIUM CHLORIDE 1,000 ML IV SCH (23:34)
[2021-03-09] MEDS: HEPARIN NA (PORCINE) 5,000 UNITS/ML 1ML VIAL SQ SCH (23:34)
[2021-03-09] MEDS: hydrALAZINE HCL 25 MG TABLET (FP) PO SCH (23:35)
[2021-03-09] MEDS: BACITRACIN 15 GM TUBE TOPICAL OINTMENT TP SCH (23:35)
[2021-03-09] MEDS: ATORVASTATIN CA 80 MG TABLET (FP) PO SCH (23:39)
[2021-03-09] MEDS: OXcarbazepine 150 MG TABLET (UD) PO SCH (23:39)
[2021-03-10 00:26] VITALS: BMI 20.2
[2021-03-10] MEDS ORDERED: LORazepam 2 MG/ML SDV VIAL IM ONE (08:27)
[2021-03-10] MEDS ORDERED: PT OWN MED DRAWER 7, Y5N ONE ×3 (09:43→21:25)
[2021-03-10] MEDS: HEPARIN NA (PORCINE) 5,000 UNITS/ML 1ML VIAL SQ SCH ×2 (09:45→22:05)
[2021-03-10] MEDS: FERROUS SO4 325 MG TABLET (FP) PO SCH (09:45)
[2021-03-10] MEDS: BACITRACIN 15 GM TUBE TOPICAL OINTMENT TP SCH ×2 (09:45→22:05)
[2021-03-10] MEDS: hydrALAZINE HCL 25 MG TABLET (FP) PO SCH ×2 (09:45→22:04)
[2021-03-10] MEDS: OXcarbazepine 150 MG TABLET (UD) PO SCH ×2 (09:45→22:05)
[2021-03-10] MEDS: PANTOPRAZOLE 40 MG TABLET PO SCH (09:45)
[2021-03-10 11:14] LABS: BASO % 0.6 % (0-2.0); EOS % 1.4 % (0-4.5); HEMATOCRIT 25.1 % (35.4-49); HEMOGLOBIN 8.3 GM/dL (11.7-16.9); LYMPH % 13.1 % (8-40); MCH 27.1 pg (25.7-33.7); MEAN CELL VOLUME 81.9 fl (80-96); MEAN PLT VOLUME 6.1 fl (7.5-11.1); MONO % 7.7 % (3.8-10.2); NEUT % 77.2 % (42.8-82.8); PLATELET COUNT 477 10^3/uL (134-434); RBC 3.06 M/mm3 (4.00-5.60); WHITE BLOOD COUNT 6.8 K/mm3 (4.0-10.0)
[2021-03-10 11:36] LABS: ALBUMIN 2.8 g/dl (3.4-5.0); BLOOD UREA NITROGEN 11.5 mg/dL (7-18); CALCIUM 9.1 mg/dL (8.5-10.1); MAGNESIUM 2.2 mg/dL (1.8-2.4)
[2021-03-10 11:41] LABS: BILIRUBIN,TOTAL 0.4 mg/dL (0.2-1); TOT PROT 6.9 g/dl (6.4-8.2)
[2021-03-10] MEDS ORDERED: POTASSIUM CHLORIDE TABS 20 MEQ TABLET.ER (FP) PO ONE (14:05)
[2021-03-10] MEDS: SODIUM CHLORIDE 1,000 ML IV SCH (15:32)
[2021-03-10] MEDS: ATORVASTATIN CA 80 MG TABLET (FP) PO SCH (22:04)
[2021-03-11 08:41] LABS: HEMATOCRIT 20.8 % (35.4-49); MCH 27.3 pg (25.7-33.7); MCHC 33.8 g/dl (32.0-35.9); MEAN CELL VOLUME 80.8 fl (80-96); MEAN PLT VOLUME 6.1 fl (7.5-11.1); PLATELET COUNT 522 10^3/uL (134-434); RBC 2.58 M/mm3 (4.00-5.60); RDW 17.3 % (11.9-15.9); WHITE BLOOD COUNT 6.4 K/mm3 (4.0-10.0)
[2021-03-11 09:06] LABS: BLOOD UREA NITROGEN 11.9 mg/dL (7-18)
[2021-03-11 09:10] LABS: CREATININE 0.9 mg/dL (0.55-1.3)
[2021-03-11] MEDS: hydrALAZINE HCL 25 MG TABLET (FP) PO SCH ×2 (09:34→21:30)
[2021-03-11] MEDS: HEPARIN NA (PORCINE) 5,000 UNITS/ML 1ML VIAL SQ SCH ×2 (09:34→21:30)
[2021-03-11] MEDS: FERROUS SO4 325 MG TABLET (FP) PO SCH (09:34)
[2021-03-11] MEDS: PANTOPRAZOLE 40 MG TABLET PO SCH (09:35)
[2021-03-11] MEDS: OXcarbazepine 150 MG TABLET (UD) PO SCH ×2 (09:35→21:30)
[2021-03-11] MEDS: BACITRACIN 15 GM TUBE TOPICAL OINTMENT TP SCH ×2 (09:35→21:31)
[2021-03-11] MEDS ORDERED: PT OWN MED DRAWER 7, Y5N ONE ×2 (10:14→20:59)
[2021-03-11] MEDS: ATORVASTATIN CA 80 MG TABLET (FP) PO SCH (21:31)
[2021-03-12] MEDS ORDERED: PT OWN MED DRAWER 7, Y5N ONE ×2 (09:26→21:22)
[2021-03-12] MEDS: HEPARIN NA (PORCINE) 5,000 UNITS/ML 1ML VIAL SQ SCH ×2 (09:30→21:28)
[2021-03-12] MEDS: FERROUS SO4 325 MG TABLET (FP) PO SCH (09:30)
[2021-03-12] MEDS: hydrALAZINE HCL 25 MG TABLET (FP) PO SCH ×2 (09:30→21:28)
[2021-03-12] MEDS: ASCORBIC ACID 500 MG TABLET (FP) PO SCH (09:30)
[2021-03-12] MEDS: BACITRACIN 15 GM TUBE TOPICAL OINTMENT TP SCH ×2 (09:30→21:28)
[2021-03-12] MEDS: PANTOPRAZOLE 40 MG TABLET PO SCH (09:31)
[2021-03-12] MEDS: MULTIVITAMINS (DAILY MVI) TABLET (FP) PO SCH (09:31)
[2021-03-12] MEDS: AMINO ACIDS/PROTEIN HYDROLYS 30 ML LIQUID.PKT PO SCH ×2 (09:31→16:51)
[2021-03-12] MEDS: ZINC SULFATE 220 MG CAPSULE (FP) PO SCH (09:31)
[2021-03-12] MEDS: OXcarbazepine 150 MG TABLET (UD) PO SCH ×2 (09:31→21:27)
[2021-03-12 09:43] LABS: BASO % 0.6 % (0-2.0); EOS % 2.4 % (0-4.5); HEMATOCRIT 28.8 % (35.4-49); HEMOGLOBIN 9.5 GM/dL (11.7-16.9); LYMPH % 21.3 % (8-40); MCH 26.9 pg (25.7-33.7); MCHC 33.1 g/dl (32.0-35.9); MEAN CELL VOLUME 81.2 fl (80-96); MEAN PLT VOLUME 6.5 fl (7.5-11.1); MONO % 7.3 % (3.8-10.2); NEUT % 68.4 % (42.8-82.8); PLATELET COUNT 537 10^3/uL (134-434); RBC 3.54 M/mm3 (4.00-5.60); RDW 17.3 % (11.9-15.9); WHITE BLOOD COUNT 5.8 K/mm3 (4.0-10.0)
[2021-03-12 10:08] LABS: CALCIUM 9.6 mg/dL (8.5-10.1)
[2021-03-12 10:09] LABS: MAGNESIUM 2.3 mg/dL (1.8-2.4)
[2021-03-12 10:10] LABS: BILIRUBIN,TOTAL 0.5 mg/dL (0.2-1); BLOOD UREA NITROGEN 13.9 mg/dL (7-18)
[2021-03-12 10:11] LABS: CREATININE 1.1 mg/dL (0.55-1.3); PHOSPHOROUS 4.4 mg/dL (2.5-4.9)
[2021-03-12 10:12] LABS: ALBUMIN 2.9 g/dl (3.4-5.0)
[2021-03-12] MEDS: ATORVASTATIN CA 80 MG TABLET (FP) PO SCH (21:27)
[2021-03-12] MEDS ORDERED: MELATONIN 5 MG TABLETS PO SCH (22:00)
[2021-03-13] MEDS: AMINO ACIDS/PROTEIN HYDROLYS 30 ML LIQUID.PKT PO SCH (08:46)
[2021-03-13] MEDS: MULTIVITAMINS (DAILY MVI) TABLET (FP) PO SCH (09:18)
[2021-03-13] MEDS: ASCORBIC ACID 500 MG TABLET (FP) PO SCH (09:19)
[2021-03-13] MEDS: PANTOPRAZOLE 40 MG TABLET PO SCH (09:19)
[2021-03-13] MEDS: FERROUS SO4 325 MG TABLET (FP) PO SCH (09:19)
[2021-03-13] MEDS: ZINC SULFATE 220 MG CAPSULE (FP) PO SCH (09:19)
[2021-03-13] MEDS: hydrALAZINE HCL 25 MG TABLET (FP) PO SCH (09:19)
[2021-03-13] MEDS: HEPARIN NA (PORCINE) 5,000 UNITS/ML 1ML VIAL SQ SCH (11:09)
[2021-03-13] MEDS: OXcarbazepine 150 MG TABLET (UD) PO SCH (11:10)
[2021-03-13] MEDS: BACITRACIN 15 GM TUBE TOPICAL OINTMENT TP SCH (11:10)
[2021-03-13 14:11] VITALS: BP 139/68; PULSE 91; TEMP 97.9
== END 2021-03-13 15:15 | disposition home or self-care (01) ==
LOC: JER 10:09 → JERBED 12:38 → UNDOADMOB 12:38 → INTOOBSV 12:38 → JERBED 14:46 → J8W 18:55
PROVIDERS: ADMIT Internal Medicine
PROC: 3E023GC Introduction of Other Therapeutic Substance into Muscle, Percutaneous Approach (ICD-10-PCS; principal; 2021-03-09)
PROC: 3E023NZ Introduction of Analgesics, Hypnotics, Sedatives into Muscle, Percutaneous Approach (ICD-10-PCS; 2021-03-09)
PROC: 3E0337Z Introduction of Electrolytic and Water Balance Substance into Peripheral Vein, Percutaneous Approach (ICD-10-PCS; 2021-03-09)
PROC: 3E03329 Introduction of Other Anti-infective into Peripheral Vein, Percutaneous Approach (ICD-10-PCS; 2021-03-09)
DX: G93.40 Encephalopathy, unspecified (principal); G95.0 Syringomyelia and syringobulbia; G82.20 Paraplegia, unspecified; N31.9 Neuromuscular dysfunction of bladder, unspecified; Z87.440 Personal history of urinary (tract) infections; I10 Essential (primary) hypertension; E78.5 Hyperlipidemia, unspecified; R56.9 Unspecified convulsions; D64.9 Anemia, unspecified; Z86.73 Personal history of transient ischemic attack (TIA), and cerebral infarction without residual deficits; D47.3 Essential (hemorrhagic) thrombocythemia; R79.89 Other specified abnormal findings of blood chemistry
CPT/HCPCS: 36415; 70450-TC; 71045-TC-FY; 80048; 80053; 81003; 82550; 82553; 82803; 82962; 83605; 83735; 84100; 84439; 84443; 84481; 84484; 85025; 85027; 85610; 85730; 87040; 87086; 93005; 93010; 96365; 96367; 96372; 97161-GP; 99285-25; C9803; G0378; J1644; U0003; U0005

== ENCOUNTER 2021-03-22 12:48 | Inpatient (IN) | payer OTHER ==
[2021-03-22 17:11] LABS: BASO % 0.9 % (0-2.0); EOS % 1.3 % (0-4.5); HEMATOCRIT 30.3 % (35.4-49); HEMOGLOBIN 9.8 GM/dL (11.7-16.9); LYMPH % 8.4 % (8-40); MCH 26.8 pg (25.7-33.7); MCHC 32.4 g/dl (32.0-35.9); MEAN CELL VOLUME 82.5 fl (80-96); MEAN PLT VOLUME 6.8 fl (7.5-11.1); MONO % 5.3 % (3.8-10.2); NEUT % 84.1 % (42.8-82.8); PLATELET COUNT 575 10^3/uL (134-434); RBC 3.67 M/mm3 (4.00-5.60); RDW 16.8 % (11.9-15.9); WHITE BLOOD COUNT 10.5 K/mm3 (4.0-10.0)
[2021-03-22 17:19] LABS: VENOUS BASE EXCESS 5.6 mmol/L (-2-2); VENOUS O2 SATURATION 27.4 % (70-80); VENOUS PCO2 61.2 mmHg (38-52); VENOUS PH 7.343 (7.310-7.410)
[2021-03-22 17:22] LABS: CHLORIDE 98 mmol/L (98-107); SODIUM 139 mmol/L (136-145)
[2021-03-22 17:24] LABS: ANION GAP 9 MMOL/L (8-16); CALCIUM 9.3 mg/dL (8.5-10.1); CO2 32 mmol/L (21-32)
[2021-03-22 17:25] LABS: BLOOD UREA NITROGEN 15.9 mg/dL (7-18)
[2021-03-22 17:28] LABS: GLUCOSE,RANDOM 113 mg/dL (74-106); SGOT/AST 28 U/L (15-37); SGPT/ALT 18 U/L (13-61)
[2021-03-22 17:29] LABS: BILIRUBIN,TOTAL 0.3 mg/dL (0.2-1); TOT PROT 8.1 g/dl (6.4-8.2)
[2021-03-22 17:30] LABS: ALK PHOS 121 U/L (45-117)
[2021-03-22] MEDS ORDERED: MIDAZOLAM HCL 2 MG/2 ML SINGLE DOSE VIAL IVPUSH ONE (19:38)
[2021-03-22] MEDS ORDERED: MIDAZOLAM HCL 2 MG/2 ML SINGLE DOSE VIAL ONE (19:42)
[2021-03-22 19:46] LABS: EPI CELLS >36 /uL (0-25.1); HYALINE CASTS 38 /uL (0-3.1); URINE APPEARANCE TURBID; URINE BACTERIA 2556 /uL (0-1359); URINE BILIRUBIN NEGATIVE (NEGATIVE); URINE COLOR YELLOW; URINE GLUCOSE (UA) NEGATIVE (NEGATIVE); URINE KETONE NEGATIVE (NEGATIVE); URINE LEUK ESTERASE 3+ (NEGATIVE); URINE NITRITE NEGATIVE (NEGATIVE); URINE PROTEIN 2+ (NEGATIVE); URINE WBC 12454 /uL (0-25.8)
[2021-03-22] MEDS ORDERED: TOBRAMYCIN SULFATE IVPB ONE (21:04)
[2021-03-22] MEDS ORDERED: SODIUM CHLORIDE IVPB ONE (21:04)
[2021-03-22] MEDS ORDERED: MEROPENEM 1 GM in DEXTROSE 5%-WATER 100 ML IVPB ONE (21:06)
[2021-03-22] MEDS ORDERED: MEROPENEM 1 GM VIAL (RESTRICTED TO ID) IVPB ONE (21:09)
[2021-03-22 21:21] LABS: URINE RBC 412 /uL (0-23.9)
[2021-03-22] MEDS ORDERED: AMPICILLIN NA/SULBACTAM NA 1.5 GM in SODIUM CHLORIDE 100 ML IVPB SCH (22:35)
[2021-03-23] MEDS ORDERED: AMPICILLIN NA/SULBACTAM NA 1.5 GM VIAL ONE ×2 (02:53→08:22)
[2021-03-23] MEDS ORDERED: SODIUM CHLORIDE 100 ML IVPB ONE ×2 (02:54→08:22)
[2021-03-23] MEDS: AMPICILLIN NA/SULBACTAM NA 1.5 GM in SODIUM CHLORIDE 100 ML IVPB SCH ×2 (02:57→08:34)
[2021-03-23] MEDS ORDERED: TOBRAMYCIN SULFATE IVPB SCH (04:00)
[2021-03-23] MEDS ORDERED: SODIUM CHLORIDE IVPB SCH (04:00)
[2021-03-23] MEDS: OXcarbazepine 150 MG TABLET (UD) PO SCH ×2 (09:51→21:05)
[2021-03-23] MEDS: hydrALAZINE HCL 25 MG TABLET (FP) PO SCH ×2 (09:51→21:05)
[2021-03-23] MEDS: ENOXAPARIN NA (PORCINE) 40 MG/0.4 ML DISP.SYRIN SQ SCH (09:52)
[2021-03-23 14:35] LABS: BASO % 0.8 % (0-2.0); EOS % 2.3 % (0-4.5); HEMOGLOBIN 9.5 GM/dL (11.7-16.9); LYMPH % 12.8 % (8-40); MCH 26.9 pg (25.7-33.7); MCHC 32.7 g/dl (32.0-35.9); MEAN CELL VOLUME 82.2 fl (80-96); MEAN PLT VOLUME 6.6 fl (7.5-11.1); MONO % 5.3 % (3.8-10.2); NEUT % 78.8 % (42.8-82.8); PLATELET COUNT 527 10^3/uL (134-434); RBC 3.52 M/mm3 (4.00-5.60); WHITE BLOOD COUNT 6.9 K/mm3 (4.0-10.0)
[2021-03-23 15:00] LABS: ALBUMIN 2.6 g/dl (3.4-5.0); CALCIUM 8.7 mg/dL (8.5-10.1)
[2021-03-23 15:01] LABS: BLOOD UREA NITROGEN 17.2 mg/dL (7-18); MAGNESIUM 2.5 mg/dL (1.8-2.4)
[2021-03-23 15:04] LABS: CREATININE 0.9 mg/dL (0.55-1.3); PHOSPHOROUS 3.4 mg/dL (2.5-4.9)
[2021-03-23 15:05] LABS: BILIRUBIN,TOTAL 0.6 mg/dL (0.2-1)
[2021-03-23] MEDS ORDERED: PT OWN MED DRAWER 7, Y5N ONE (20:37)
[2021-03-23] MEDS: ATORVASTATIN CA 80 MG TABLET (FP) PO SCH (21:05)
[2021-03-24] MEDS ORDERED: MELATONIN 5 MG TABLETS PO ONE ×2 (00:25→22:30)
[2021-03-24] MEDS ORDERED: SODIUM CHLORIDE IVPB SCH (02:00)
[2021-03-24] MEDS ORDERED: TOBRAMYCIN SULFATE IVPB SCH (02:00)
[2021-03-24 09:37] LABS: HEMATOCRIT 29.7 % (35.4-49); HEMOGLOBIN 9.5 GM/dL (11.7-16.9); MCH 26.8 pg (25.7-33.7); MEAN CELL VOLUME 83.9 fl (80-96); MEAN PLT VOLUME 6.1 fl (7.5-11.1); PLATELET COUNT 508 10^3/uL (134-434); RBC 3.54 M/mm3 (4.00-5.60); RDW 17.4 % (11.9-15.9); WHITE BLOOD COUNT 8.6 K/mm3 (4.0-10.0)
[2021-03-24] MEDS: hydrALAZINE HCL 25 MG TABLET (FP) PO SCH ×2 (09:51→21:29)
[2021-03-24] MEDS: ENOXAPARIN NA (PORCINE) 40 MG/0.4 ML DISP.SYRIN SQ SCH (09:51)
[2021-03-24] MEDS: OXcarbazepine 150 MG TABLET (UD) PO SCH ×2 (09:51→21:29)
[2021-03-24] MEDS: AMINO ACIDS/PROTEIN HYDROLYS 30 ML LIQUID.PKT PO SCH (17:22)
[2021-03-24] MEDS ORDERED: PT OWN MED DRAWER 7, Y5N ONE (20:45)
[2021-03-24] MEDS: ATORVASTATIN CA 80 MG TABLET (FP) PO SCH (21:29)
[2021-03-24] MEDS ORDERED: MELATONIN 1 MG TABLET PO ONE (22:06)
[2021-03-25] MEDS ORDERED: MELATONIN 5 MG TABLETS PO ONE (00:02)
[2021-03-25 08:16] LABS: BASO % 0.6 % (0-2.0); EOS % 3.4 % (0-4.5); HEMATOCRIT 26.3 % (35.4-49); HEMOGLOBIN 8.8 GM/dL (11.7-16.9); LYMPH % 15.4 % (8-40); MCH 27.1 pg (25.7-33.7); MCHC 33.3 g/dl (32.0-35.9); MEAN CELL VOLUME 81.2 fl (80-96); MEAN PLT VOLUME 6.2 fl (7.5-11.1); MONO % 7.2 % (3.8-10.2); NEUT % 73.4 % (42.8-82.8); PLATELET COUNT 492 10^3/uL (134-434); RBC 3.24 M/mm3 (4.00-5.60); WHITE BLOOD COUNT 6.4 K/mm3 (4.0-10.0)
[2021-03-25 08:38] LABS: CALCIUM 9.1 mg/dL (8.5-10.1)
[2021-03-25 08:39] LABS: ALBUMIN 2.5 g/dl (3.4-5.0)
[2021-03-25 08:44] LABS: BILIRUBIN,TOTAL 0.4 mg/dL (0.2-1); TOT PROT 6.5 g/dl (6.4-8.2)
[2021-03-25] MEDS ORDERED: PT OWN MED DRAWER 7, Y5N ONE ×2 (09:18→17:37)
[2021-03-25] MEDS: hydrALAZINE HCL 25 MG TABLET (FP) PO SCH (09:28)
[2021-03-25] MEDS: ENOXAPARIN NA (PORCINE) 40 MG/0.4 ML DISP.SYRIN SQ SCH (09:28)
[2021-03-25] MEDS: OXcarbazepine 150 MG TABLET (UD) PO SCH (09:35)
[2021-03-25] MEDS: AMINO ACIDS/PROTEIN HYDROLYS 30 ML LIQUID.PKT PO SCH ×2 (09:35→17:41)
[2021-03-25] MEDS ORDERED: MULTIVIT-MINERALS ORAL LIQUID PO SCH (10:00)
[2021-03-25] MEDS ORDERED: FUROSEMIDE 40 MG TABLET (FP) PO SCH (10:00)
[2021-03-25] MEDS ORDERED: COLLAGENASE CLOSTRIDIUM HIST. 30 GRAMS TUBE TP SCH (11:15)
[2021-03-25 15:25] VITALS: BP 114/76; PULSE 106; TEMP 98.1
== END 2021-03-25 19:30 | disposition home or self-care (01) | DRG 689 ==
LOC: JER 12:48 → JERBED 21:02 → J8W 03-23 02:10
PROVIDERS: ADMIT Internal Medicine
PROC: 0T2BX0Z Change Drainage Device in Bladder, External Approach (ICD-10-PCS; principal; 2021-03-22)
DX: N39.0 Urinary tract infection, site not specified (principal); G93.41 Metabolic encephalopathy; G82.20 Paraplegia, unspecified; J98.11 Atelectasis; G95.0 Syringomyelia and syringobulbia; G40.909 Epilepsy, unspecified, not intractable, without status epilepticus; D64.9 Anemia, unspecified; E78.5 Hyperlipidemia, unspecified; Z93.50 Unspecified cystostomy status; Z87.440 Personal history of urinary (tract) infections; I12.9 Hypertensive chronic kidney disease with stage 1 through stage 4 chronic kidney disease, or unspecified chronic kidney disease; N18.9 Chronic kidney disease, unspecified; L89.222 Pressure ulcer of left hip, stage 2; L89.316 Pressure-induced deep tissue damage of right buttock; L89.326 Pressure-induced deep tissue damage of left buttock
CPT/HCPCS: 36415; 70450-TC; 71045-TC-FY; 72125-TC; 80053; 81003; 82272; 82550; 82553; 82803; 83605; 83735; 84100; 84484; 85025; 85027; 87040; 87086; 87186; 93005; 93010; 93880-TC; 99285-25; C9803; U0003; U0005

== ENCOUNTER 2021-04-08 19:31 | Inpatient (IN) | payer OTHER ==
[2021-04-08 20:12] VITALS: BMI 22.6
[2021-04-08] MEDS ORDERED: LACTATED RINGERS SOLUTION 1000 ML INFUS.BAG IV ONE (20:14)
[2021-04-08] MEDS ORDERED: HALOPERIDOL LACTATE 5 MG/ML ONE (20:52)
[2021-04-08] MEDS ORDERED: LORazepam 2 MG/ML SDV VIAL ONE (20:57)
[2021-04-08] MEDS ORDERED: MEROPENEM 1 GM in DEXTROSE 5%-WATER 100 ML IVPB ONE (21:26)
[2021-04-08 21:34] LABS: LACTIC ACID 2.1 mmol/L (0.4-2.0)
[2021-04-08 21:51] LABS: HEMATOCRIT 28.4 % (35.4-49); HEMOGLOBIN 9.3 GM/dL (11.7-16.9); MCH 26.4 pg (25.7-33.7); MCHC 32.7 g/dl (32.0-35.9); MEAN CELL VOLUME 80.8 fl (80-96); MEAN PLT VOLUME 7.5 fl (7.5-11.1); PLATELET COUNT 546 10^3/uL (134-434); RBC 3.52 M/mm3 (4.00-5.60); RDW 17.3 % (11.9-15.9)
[2021-04-08 22:07] LABS: CHLORIDE 101 mmol/L (98-107); SODIUM 139 mmol/L (136-145)
[2021-04-08 22:09] LABS: ANION GAP 5 MMOL/L (8-16); BLOOD UREA NITROGEN 26.1 mg/dL (7-18); CALCIUM 9.4 mg/dL (8.5-10.1); CO2 33 mmol/L (21-32); GLUCOSE,RANDOM 121 mg/dL (74-106)
[2021-04-08 22:10] LABS: ALBUMIN 3.1 g/dl (3.4-5.0); MAGNESIUM 3.1 mg/dL (1.8-2.4)
[2021-04-08 22:12] LABS: CREATININE 1.4 mg/dL (0.55-1.3); SGPT/ALT 18 U/L (13-61)
[2021-04-08 22:13] LABS: SGOT/AST 49 U/L (15-37)
[2021-04-08 22:14] LABS: BILIRUBIN,TOTAL 0.3 mg/dL (0.2-1); PHOSPHOROUS 4.2 mg/dL (2.5-4.9); TOT PROT 8.1 g/dl (6.4-8.2)
[2021-04-08 22:15] LABS: ALK PHOS 131 U/L (45-117)
[2021-04-08 22:37] LABS: ANISOCYTOSIS 1+; MACROCYTOSIS 0; PLATELET ESTIMATE INCREASED
[2021-04-08 22:48] LABS: EPI CELLS 5 /uL (0-25.1); HYALINE CASTS 10 /uL (0-3.1); PH,URINE 7.5 (5.0-8.0); URINE APPEARANCE CLOUDY; URINE BACTERIA 1379 /uL (0-1359); URINE BILIRUBIN NEGATIVE (NEGATIVE); URINE COLOR YELLOW; URINE GLUCOSE (UA) NEGATIVE (NEGATIVE); URINE KETONE NEGATIVE (NEGATIVE); URINE LEUK ESTERASE 3+ (NEGATIVE); URINE NITRITE NEGATIVE (NEGATIVE); URINE PROTEIN TRACE (NEGATIVE); URINE RBC 40 /uL (0-23.9); URINE UROBILINOGEN 0.2 mg/dL (0.2-1.0); URINE WBC 553 /uL (0-25.8)
[2021-04-08 23:05] LABS: WHITE BLOOD COUNT 13.8 K/mm3 (4.0-10.0)
[2021-04-08] MEDS ORDERED: MEROPENEM 1 GM VIAL (RESTRICTED TO ID) IVPB ONE (23:06)
[2021-04-08 23:30] LABS: INR 1.1 (0.83-1.09); PROTHROMBIN TIME (PATIENT) 12.3 SEC (9.7-13.0)
[2021-04-08 23:32] LABS: ACTIVATED PTT 31.3 SECONDS (25.2-36.5)
[2021-04-08 23:39] LABS: BLOOD UREA NITROGEN 27.7 mg/dL (7-18); CALCIUM 8.8 mg/dL (8.5-10.1)
[2021-04-08 23:43] LABS: URINE CRYSTALS CALCIUM OXALATE /hpf
[2021-04-08 23:43] LABS: CREATININE 1.5 mg/dL (0.55-1.3)
[2021-04-09 01:29] LABS: IRON SERUM 39 ug/dL (50-175)
[2021-04-09 01:30] LABS: TOTAL IRON BINDING CAPACITY 425 ug/dL (250-450)
[2021-04-09] MEDS ORDERED: HALOPERIDOL DECANOATE 100 MG/ML IM ONE (02:28)
[2021-04-09] MEDS ORDERED: MEROPENEM 1 GM in DEXTROSE 5%-WATER 100 ML IVPB ONE (07:00)
[2021-04-09 09:30] LABS: BASO % 0.7 % (0-2.0); EOS % 1.4 % (0-4.5); HEMATOCRIT 27.5 % (35.4-49); LYMPH % 9.1 % (8-40); MCH 26.3 pg (25.7-33.7); MCHC 32.8 g/dl (32.0-35.9); MEAN CELL VOLUME 80.2 fl (80-96); MEAN PLT VOLUME 6.1 fl (7.5-11.1); MONO % 7.6 % (3.8-10.2); NEUT % 81.2 % (42.8-82.8); PLATELET COUNT 488 10^3/uL (134-434); RBC 3.43 M/mm3 (4.00-5.60); RDW 16.9 % (11.9-15.9); WHITE BLOOD COUNT 9.9 K/mm3 (4.0-10.0)
[2021-04-09 09:57] LABS: CALCIUM 9.6 mg/dL (8.5-10.1)
[2021-04-09 09:58] LABS: BLOOD UREA NITROGEN 25.1 mg/dL (7-18); MAGNESIUM 2.9 mg/dL (1.8-2.4)
[2021-04-09 10:01] LABS: CREATININE 1.2 mg/dL (0.55-1.3); PHOSPHOROUS 3.9 mg/dL (2.5-4.9)
[2021-04-09 10:02] LABS: BILIRUBIN,TOTAL 0.3 mg/dL (0.2-1); TOT PROT 7.6 g/dl (6.4-8.2)
[2021-04-09] MEDS ORDERED: DEXTROSE 5%-WATER 100 ML IVPB ONE (10:40)
[2021-04-09] MEDS ORDERED: MEROPENEM 1 GM VIAL (RESTRICTED TO ID) IVPB ONE (10:40)
[2021-04-09] MEDS: ENOXAPARIN NA (PORCINE) 40 MG/0.4 ML DISP.SYRIN SQ SCH (10:45)
[2021-04-09] MEDS: METOPROLOL TARTRATE 25 MG TABLET (FP) PO SCH ×3 (10:46→21:21)
[2021-04-09] MEDS: FUROSEMIDE 40 MG TABLET (FP) PO SCH ×2 (10:46→14:31)
[2021-04-09] MEDS: hydrALAZINE HCL 25 MG TABLET (FP) PO SCH ×3 (10:46→21:14)
[2021-04-09] MEDS ORDERED: PIPERACILLIN/TAZOBACTAM 3.375 GM VIAL IVPB ONE ×2 (13:45→16:56)
[2021-04-09] MEDS ORDERED: DEXTROSE 5%-WATER - 50 ML IVPB ONE ×2 (13:45→16:56)
[2021-04-09] MEDS: PIPERACILLIN/TAZOB 3.375 GM 3.375 GM in DEXTROSE 5%-WATER - 50 ML IVPB SCH ×2 (14:24→17:46)
[2021-04-09] MEDS: LORazepam 1 MG TABLET PO PRN ×2 (18:37→20:32)
[2021-04-09] MEDS: BACITRACIN 15 GM TUBE TOPICAL OINTMENT TP SCH (21:14)
[2021-04-09] MEDS: ATORVASTATIN CA 80 MG TABLET (FP) PO SCH (21:14)
[2021-04-09] MEDS: MELATONIN 5 MG TABLETS PO PRN (21:14)
[2021-04-10] MEDS ORDERED: PIPERACILLIN/TAZOBACTAM 3.375 GM VIAL IVPB ONE ×3 (01:19→17:03)
[2021-04-10] MEDS ORDERED: DEXTROSE 5%-WATER - 50 ML IVPB ONE ×3 (01:20→17:03)
[2021-04-10] MEDS: PIPERACILLIN/TAZOB 3.375 GM 3.375 GM in DEXTROSE 5%-WATER - 50 ML IVPB SCH ×3 (02:15→17:19)
[2021-04-10] MEDS: BACITRACIN 15 GM TUBE TOPICAL OINTMENT TP SCH ×2 (10:40→22:55)
[2021-04-10] MEDS: FUROSEMIDE 40 MG TABLET (FP) PO SCH (10:40)
[2021-04-10] MEDS: ENOXAPARIN NA (PORCINE) 40 MG/0.4 ML DISP.SYRIN SQ SCH (10:40)
[2021-04-10] MEDS: METOPROLOL TARTRATE 25 MG TABLET (FP) PO SCH ×2 (10:40→22:48)
[2021-04-10] MEDS: hydrALAZINE HCL 25 MG TABLET (FP) PO SCH ×2 (10:40→22:48)
[2021-04-10 11:43] LABS: BASO % 0.6 % (0-2.0); EOS % 2.2 % (0-4.5); HEMATOCRIT 26.2 % (35.4-49); HEMOGLOBIN 8.9 GM/dL (11.7-16.9); LYMPH % 12.8 % (8-40); MCH 26.9 pg (25.7-33.7); MCHC 33.8 g/dl (32.0-35.9); MEAN CELL VOLUME 79.7 fl (80-96); MEAN PLT VOLUME 6.3 fl (7.5-11.1); MONO % 7.3 % (3.8-10.2); NEUT % 77.1 % (42.8-82.8); PLATELET COUNT 500 10^3/uL (134-434); RBC 3.29 M/mm3 (4.00-5.60); RDW 16.8 % (11.9-15.9); WHITE BLOOD COUNT 6.5 K/mm3 (4.0-10.0)
[2021-04-10] MEDS: COLLAGENASE CLOSTRIDIUM HIST. 30 GRAMS TUBE TP SCH (11:45)
[2021-04-10 12:05] LABS: ALBUMIN 2.9 g/dl (3.4-5.0); BLOOD UREA NITROGEN 19.3 mg/dL (7-18); CALCIUM 9.6 mg/dL (8.5-10.1)
[2021-04-10 12:06] LABS: MAGNESIUM 2.3 mg/dL (1.8-2.4)
[2021-04-10 12:11] LABS: BILIRUBIN,TOTAL 0.3 mg/dL (0.2-1)
[2021-04-10 12:13] LABS: TOT PROT 7.3 g/dl (6.4-8.2)
[2021-04-10] MEDS: AMINO ACIDS/PROTEIN HYDROLYS 30 ML LIQUID.PKT PO SCH (17:19)
[2021-04-10] MEDS ORDERED: PT OWN MED DRAWER 7, Y5N ONE (22:34)
[2021-04-10] MEDS: ASCORBIC ACID 250 MG TABLET (FP) PO SCH (22:48)
[2021-04-10] MEDS: LORazepam 1 MG TABLET PO PRN (22:48)
[2021-04-10] MEDS: ATORVASTATIN CA 80 MG TABLET (FP) PO SCH (22:48)
[2021-04-11] MEDS ORDERED: DEXTROSE 5%-WATER - 50 ML IVPB ONE ×3 (03:02→16:42)
[2021-04-11] MEDS ORDERED: PIPERACILLIN/TAZOBACTAM 3.375 GM VIAL IVPB ONE ×3 (03:02→16:41)
[2021-04-11] MEDS: PIPERACILLIN/TAZOB 3.375 GM 3.375 GM in DEXTROSE 5%-WATER - 50 ML IVPB SCH ×3 (03:05→17:12)
[2021-04-11 08:22] LABS: BASO % 0.6 % (0-2.0); EOS % 2.5 % (0-4.5); HEMOGLOBIN 8.5 GM/dL (11.7-16.9); LYMPH % 17.8 % (8-40); MCH 26.8 pg (25.7-33.7); MCHC 33.9 g/dl (32.0-35.9); MEAN CELL VOLUME 78.8 fl (80-96); MEAN PLT VOLUME 6.2 fl (7.5-11.1); MONO % 7.8 % (3.8-10.2); NEUT % 71.3 % (42.8-82.8); PLATELET COUNT 489 10^3/uL (134-434); RBC 3.18 M/mm3 (4.00-5.60); RDW 16.8 % (11.9-15.9); WHITE BLOOD COUNT 7.4 K/mm3 (4.0-10.0)
[2021-04-11 08:32] LABS: ALBUMIN 2.6 g/dl (3.4-5.0); BLOOD UREA NITROGEN 22.6 mg/dL (7-18); CALCIUM 9.4 mg/dL (8.5-10.1); MAGNESIUM 2.3 mg/dL (1.8-2.4)
[2021-04-11 08:36] LABS: CREATININE 1.2 mg/dL (0.55-1.3)
[2021-04-11 08:37] LABS: BILIRUBIN,TOTAL 0.4 mg/dL (0.2-1); TOT PROT 6.8 g/dl (6.4-8.2)
[2021-04-11] MEDS ORDERED: PT OWN MED DRAWER 7, Y5N ONE ×2 (08:43→22:40)
[2021-04-11] MEDS: hydrALAZINE HCL 25 MG TABLET (FP) PO SCH ×2 (09:39→21:48)
[2021-04-11] MEDS: ZINC SULFATE 220 MG CAPSULE (FP) PO SCH (09:39)
[2021-04-11] MEDS: MULTIVITAMINS (DAILY MVI) TABLET (FP) PO SCH (09:39)
[2021-04-11] MEDS: ASCORBIC ACID 250 MG TABLET (FP) PO SCH ×2 (09:39→21:48)
[2021-04-11] MEDS: FUROSEMIDE 40 MG TABLET (FP) PO SCH (09:39)
[2021-04-11] MEDS: ENOXAPARIN NA (PORCINE) 40 MG/0.4 ML DISP.SYRIN SQ SCH (09:39)
[2021-04-11] MEDS: AMINO ACIDS/PROTEIN HYDROLYS 30 ML LIQUID.PKT PO SCH ×2 (09:39→17:12)
[2021-04-11] MEDS: METOPROLOL TARTRATE 25 MG TABLET (FP) PO SCH ×2 (09:39→21:48)
[2021-04-11] MEDS: ACETAMINOPHEN 325 MG TABLET (FP) PO PRN ×2 (09:41→21:48)
[2021-04-11] MEDS: COLLAGENASE CLOSTRIDIUM HIST. 30 GRAMS TUBE TP SCH (09:44)
[2021-04-11] MEDS: BACITRACIN 15 GM TUBE TOPICAL OINTMENT TP SCH ×2 (09:44→21:49)
[2021-04-11] MEDS: LORazepam 1 MG TABLET PO PRN (21:48)
[2021-04-11] MEDS: ATORVASTATIN CA 80 MG TABLET (FP) PO SCH (21:48)
[2021-04-11] MEDS: MELATONIN 5 MG TABLETS PO PRN (21:48)
[2021-04-12] MEDS ORDERED: PIPERACILLIN/TAZOBACTAM 3.375 GM VIAL IVPB ONE ×3 (01:56→15:53)
[2021-04-12] MEDS ORDERED: DEXTROSE 5%-WATER - 50 ML IVPB ONE ×3 (01:57→15:54)
[2021-04-12] MEDS: PIPERACILLIN/TAZOB 3.375 GM 3.375 GM in DEXTROSE 5%-WATER - 50 ML IVPB SCH ×3 (02:25→17:08)
[2021-04-12] MEDS: AMINO ACIDS/PROTEIN HYDROLYS 30 ML LIQUID.PKT PO SCH ×2 (09:20→16:42)
[2021-04-12] MEDS: ASCORBIC ACID 250 MG TABLET (FP) PO SCH ×2 (09:20→21:52)
[2021-04-12] MEDS: FUROSEMIDE 40 MG TABLET (FP) PO SCH (09:20)
[2021-04-12] MEDS: METOPROLOL TARTRATE 25 MG TABLET (FP) PO SCH ×2 (09:20→21:50)
[2021-04-12] MEDS: MULTIVITAMINS (DAILY MVI) TABLET (FP) PO SCH (09:21)
[2021-04-12] MEDS: ENOXAPARIN NA (PORCINE) 40 MG/0.4 ML DISP.SYRIN SQ SCH (09:21)
[2021-04-12] MEDS: ZINC SULFATE 220 MG CAPSULE (FP) PO SCH (09:21)
[2021-04-12] MEDS: hydrALAZINE HCL 25 MG TABLET (FP) PO SCH ×2 (09:21→21:50)
[2021-04-12] MEDS: COLLAGENASE CLOSTRIDIUM HIST. 30 GRAMS TUBE TP SCH (09:22)
[2021-04-12] MEDS: BACITRACIN 15 GM TUBE TOPICAL OINTMENT TP SCH ×2 (09:22→21:55)
[2021-04-12] MEDS ORDERED: OXcarbazepine 150 MG TABLET (UD) PO SCH ×2 (10:45→11:00)
[2021-04-12] MEDS: OXcarbazepine 300 MG TABLET (UD) PO SCH ×2 (11:34→22:25)
[2021-04-12 12:34] LABS: BASO % 0.4 % (0-2.0); EOS % 2.1 % (0-4.5); HEMATOCRIT 25.9 % (35.4-49); HEMOGLOBIN 8.5 GM/dL (11.7-16.9); LYMPH % 11.9 % (8-40); MCH 26.2 pg (25.7-33.7); MCHC 32.7 g/dl (32.0-35.9); MEAN CELL VOLUME 80.1 fl (80-96); MEAN PLT VOLUME 6.4 fl (7.5-11.1); NEUT % 76.6 % (42.8-82.8); PLATELET COUNT 483 10^3/uL (134-434); RBC 3.24 M/mm3 (4.00-5.60); RDW 16.6 % (11.9-15.9); WHITE BLOOD COUNT 7.7 K/mm3 (4.0-10.0)
[2021-04-12 12:46] LABS: ALBUMIN 2.6 g/dl (3.4-5.0); CALCIUM 9.1 mg/dL (8.5-10.1)
[2021-04-12 12:47] LABS: BLOOD UREA NITROGEN 28.5 mg/dL (7-18); MAGNESIUM 2.3 mg/dL (1.8-2.4)
[2021-04-12 12:50] LABS: CREATININE 1.2 mg/dL (0.55-1.3)
[2021-04-12 12:51] LABS: BILIRUBIN,TOTAL 0.4 mg/dL (0.2-1); TOT PROT 6.9 g/dl (6.4-8.2)
[2021-04-12] MEDS ORDERED: PT OWN MED DRAWER 7, Y5N ONE (21:35)
[2021-04-12] MEDS: BACLOFEN 10 MG TABLET (FP) PO SCH (21:50)
[2021-04-12] MEDS: ATORVASTATIN CA 80 MG TABLET (FP) PO SCH (21:50)
[2021-04-12] MEDS: MELATONIN 5 MG TABLETS PO SCH (21:51)
[2021-04-12] MEDS: PRAMIPEXOLE DIHYDROCHLORIDE 0.25 MG TABLET PO SCH (21:51)
[2021-04-13] MEDS ORDERED: PIPERACILLIN/TAZOBACTAM 3.375 GM VIAL IVPB ONE ×3 (01:11→17:18)
[2021-04-13] MEDS ORDERED: DEXTROSE 5%-WATER - 50 ML IVPB ONE ×3 (01:11→17:18)
[2021-04-13] MEDS: PIPERACILLIN/TAZOB 3.375 GM 3.375 GM in DEXTROSE 5%-WATER - 50 ML IVPB SCH ×3 (02:02→18:18)
[2021-04-13] MEDS: BACLOFEN 10 MG TABLET (FP) PO SCH ×3 (05:59→21:27)
[2021-04-13] MEDS: MULTIVITAMINS (DAILY MVI) TABLET (FP) PO SCH (09:20)
[2021-04-13] MEDS: ZINC SULFATE 220 MG CAPSULE (FP) PO SCH (09:20)
[2021-04-13] MEDS: hydrALAZINE HCL 25 MG TABLET (FP) PO SCH ×2 (09:20→21:27)
[2021-04-13] MEDS: AMINO ACIDS/PROTEIN HYDROLYS 30 ML LIQUID.PKT PO SCH ×2 (09:20→17:25)
[2021-04-13] MEDS: BACITRACIN 15 GM TUBE TOPICAL OINTMENT TP SCH ×2 (09:20→21:28)
[2021-04-13] MEDS: FUROSEMIDE 40 MG TABLET (FP) PO SCH (09:20)
[2021-04-13] MEDS: METOPROLOL TARTRATE 25 MG TABLET (FP) PO SCH ×2 (09:20→21:28)
[2021-04-13] MEDS: ENOXAPARIN NA (PORCINE) 40 MG/0.4 ML DISP.SYRIN SQ SCH (09:21)
[2021-04-13] MEDS: PRAMIPEXOLE DIHYDROCHLORIDE 0.25 MG TABLET PO SCH ×2 (09:21→21:28)
[2021-04-13] MEDS: COLLAGENASE CLOSTRIDIUM HIST. 30 GRAMS TUBE TP SCH (09:21)
[2021-04-13] MEDS ORDERED: PT OWN MED DRAWER 7, Y5N ONE ×2 (09:23→21:20)
[2021-04-13] MEDS: OXcarbazepine 300 MG TABLET (UD) PO SCH ×2 (09:24→21:28)
[2021-04-13] MEDS: ASCORBIC ACID 250 MG TABLET (FP) PO SCH ×2 (09:24→21:28)
[2021-04-13 10:36] LABS: ALBUMIN 2.9 g/dl (3.4-5.0); BLOOD UREA NITROGEN 28.5 mg/dL (7-18); CALCIUM 9.6 mg/dL (8.5-10.1)
[2021-04-13 10:37] LABS: MAGNESIUM 2.8 mg/dL (1.8-2.4)
[2021-04-13 10:39] LABS: CREATININE 1.3 mg/dL (0.55-1.3)
[2021-04-13 10:41] LABS: BILIRUBIN,TOTAL 0.5 mg/dL (0.2-1); TOT PROT 7.2 g/dl (6.4-8.2)
[2021-04-13 11:17] LABS: BASO % 1.3 % (0-2.0); EOS % 2.4 % (0-4.5); HEMATOCRIT 27.4 % (35.4-49); HEMOGLOBIN 9.1 GM/dL (11.7-16.9); LYMPH % 10.8 % (8-40); MCH 26.3 pg (25.7-33.7); MCHC 33.2 g/dl (32.0-35.9); MEAN CELL VOLUME 79.2 fl (80-96); MONO % 5.2 % (3.8-10.2); NEUT % 80.3 % (42.8-82.8); PLATELET COUNT 511 10^3/uL (134-434); RBC 3.46 M/mm3 (4.00-5.60); RDW 16.8 % (11.9-15.9); WHITE BLOOD COUNT 7.7 K/mm3 (4.0-10.0)
[2021-04-13] MEDS: ACETAMINOPHEN 325 MG TABLET (FP) PO PRN (14:34)
[2021-04-13] MEDS: MELATONIN 5 MG TABLETS PO SCH (21:28)
[2021-04-13] MEDS: ATORVASTATIN CA 80 MG TABLET (FP) PO SCH (21:28)
[2021-04-14] MEDS ORDERED: PIPERACILLIN/TAZOBACTAM 3.375 GM VIAL IVPB ONE ×3 (02:24→17:15)
[2021-04-14] MEDS ORDERED: DEXTROSE 5%-WATER - 50 ML IVPB ONE ×3 (02:25→17:15)
[2021-04-14] MEDS: PIPERACILLIN/TAZOB 3.375 GM 3.375 GM in DEXTROSE 5%-WATER - 50 ML IVPB SCH ×3 (02:36→17:57)
[2021-04-14] MEDS: BACLOFEN 10 MG TABLET (FP) PO SCH ×3 (05:39→21:08)
[2021-04-14] MEDS ORDERED: PT OWN MED DRAWER 7, Y5N ONE ×2 (09:34→20:25)
[2021-04-14] MEDS: FUROSEMIDE 40 MG TABLET (FP) PO SCH (09:39)
[2021-04-14] MEDS: METOPROLOL TARTRATE 25 MG TABLET (FP) PO SCH ×2 (09:39→21:09)
[2021-04-14] MEDS: ZINC SULFATE 220 MG CAPSULE (FP) PO SCH (09:39)
[2021-04-14] MEDS: MULTIVITAMINS (DAILY MVI) TABLET (FP) PO SCH (09:39)
[2021-04-14] MEDS: AMINO ACIDS/PROTEIN HYDROLYS 30 ML LIQUID.PKT PO SCH ×2 (09:39→17:57)
[2021-04-14] MEDS: PRAMIPEXOLE DIHYDROCHLORIDE 0.25 MG TABLET PO SCH ×2 (09:39→21:08)
[2021-04-14] MEDS: hydrALAZINE HCL 25 MG TABLET (FP) PO SCH ×2 (09:39→21:09)
[2021-04-14] MEDS: ENOXAPARIN NA (PORCINE) 40 MG/0.4 ML DISP.SYRIN SQ SCH (09:40)
[2021-04-14] MEDS: ASCORBIC ACID 250 MG TABLET (FP) PO SCH ×2 (09:40→21:09)
[2021-04-14] MEDS: COLLAGENASE CLOSTRIDIUM HIST. 30 GRAMS TUBE TP SCH (09:41)
[2021-04-14] MEDS: BACITRACIN 15 GM TUBE TOPICAL OINTMENT TP SCH ×2 (09:41→21:09)
[2021-04-14] MEDS: OXcarbazepine 300 MG TABLET (UD) PO SCH ×2 (09:41→21:09)
[2021-04-14] MEDS: ACETAMINOPHEN 325 MG TABLET (FP) PO PRN ×2 (09:43→21:18)
[2021-04-14 10:23] LABS: BASO % 0.5 % (0-2.0); EOS % 2.9 % (0-4.5); HEMATOCRIT 24.8 % (35.4-49); HEMOGLOBIN 8.3 GM/dL (11.7-16.9); LYMPH % 15.1 % (8-40); MCH 26.6 pg (25.7-33.7); MCHC 33.4 g/dl (32.0-35.9); MEAN CELL VOLUME 79.6 fl (80-96); MEAN PLT VOLUME 6.5 fl (7.5-11.1); MONO % 7.3 % (3.8-10.2); NEUT % 74.2 % (42.8-82.8); PLATELET COUNT 472 10^3/uL (134-434); RBC 3.11 M/mm3 (4.00-5.60); RDW 16.7 % (11.9-15.9); WHITE BLOOD COUNT 5.7 K/mm3 (4.0-10.0)
[2021-04-14 10:42] LABS: CALCIUM 9.4 mg/dL (8.5-10.1)
[2021-04-14 10:43] LABS: ALBUMIN 2.7 g/dl (3.4-5.0); BLOOD UREA NITROGEN 36.7 mg/dL (7-18); MAGNESIUM 2.5 mg/dL (1.8-2.4)
[2021-04-14 10:46] LABS: CREATININE 1.6 mg/dL (0.55-1.3)
[2021-04-14 10:47] LABS: BILIRUBIN,TOTAL 0.5 mg/dL (0.2-1); TOT PROT 7.1 g/dl (6.4-8.2)
[2021-04-14] MEDS: LIDOCAINE 5% TOPICAL PATCH TP SCH (13:58)
[2021-04-14] MEDS: LIDOCAINE PATCH REMOVAL MC SCH (21:09)
[2021-04-14] MEDS: ATORVASTATIN CA 80 MG TABLET (FP) PO SCH (21:09)
[2021-04-14] MEDS: MELATONIN 5 MG TABLETS PO SCH (21:09)
[2021-04-15] MEDS ORDERED: PIPERACILLIN/TAZOBACTAM 3.375 GM VIAL IVPB ONE ×3 (00:55→16:32)
[2021-04-15] MEDS ORDERED: DEXTROSE 5%-WATER - 50 ML IVPB ONE ×3 (00:55→16:32)
[2021-04-15] MEDS: PIPERACILLIN/TAZOB 3.375 GM 3.375 GM in DEXTROSE 5%-WATER - 50 ML IVPB SCH ×3 (02:35→17:13)
[2021-04-15] MEDS: BACLOFEN 10 MG TABLET (FP) PO SCH ×3 (06:31→21:04)
[2021-04-15 08:33] LABS: BASO % 0.7 % (0-2.0); EOS % 2.4 % (0-4.5); HEMATOCRIT 21.5 % (35.4-49); LYMPH % 14.6 % (8-40); MCH 26.4 pg (25.7-33.7); MCHC 32.7 g/dl (32.0-35.9); MEAN CELL VOLUME 80.7 fl (80-96); MEAN PLT VOLUME 6.5 fl (7.5-11.1); MONO % 5.3 % (3.8-10.2); PLATELET COUNT 484 10^3/uL (134-434); RBC 2.66 M/mm3 (4.00-5.60); WHITE BLOOD COUNT 7.1 K/mm3 (4.0-10.0)
[2021-04-15 09:00] LABS: ALBUMIN 2.6 g/dl (3.4-5.0); BLOOD UREA NITROGEN 39.9 mg/dL (7-18); CALCIUM 9.1 mg/dL (8.5-10.1)
[2021-04-15 09:04] LABS: CREATININE 1.6 mg/dL (0.55-1.3)
[2021-04-15 09:05] LABS: BILIRUBIN,TOTAL 0.2 mg/dL (0.2-1); TOT PROT 6.8 g/dl (6.4-8.2)
[2021-04-15] MEDS: LIDOCAINE 5% TOPICAL PATCH TP SCH (09:19)
[2021-04-15] MEDS: AMINO ACIDS/PROTEIN HYDROLYS 30 ML LIQUID.PKT PO SCH ×2 (09:19→17:13)
[2021-04-15] MEDS: FUROSEMIDE 40 MG TABLET (FP) PO SCH (09:20)
[2021-04-15] MEDS: ENOXAPARIN NA (PORCINE) 40 MG/0.4 ML DISP.SYRIN SQ SCH (09:20)
[2021-04-15] MEDS: METOPROLOL TARTRATE 25 MG TABLET (FP) PO SCH ×2 (09:20→21:03)
[2021-04-15] MEDS: hydrALAZINE HCL 25 MG TABLET (FP) PO SCH ×2 (09:20→21:03)
[2021-04-15] MEDS: PRAMIPEXOLE DIHYDROCHLORIDE 0.25 MG TABLET PO SCH ×2 (09:20→21:03)
[2021-04-15] MEDS: MULTIVITAMINS (DAILY MVI) TABLET (FP) PO SCH (09:20)
[2021-04-15] MEDS: ZINC SULFATE 220 MG CAPSULE (FP) PO SCH (09:20)
[2021-04-15] MEDS: COLLAGENASE CLOSTRIDIUM HIST. 30 GRAMS TUBE TP SCH (09:21)
[2021-04-15] MEDS: BACITRACIN 15 GM TUBE TOPICAL OINTMENT TP SCH ×2 (09:21→21:04)
[2021-04-15] MEDS: OXcarbazepine 300 MG TABLET (UD) PO SCH ×2 (09:21→21:04)
[2021-04-15] MEDS: ASCORBIC ACID 250 MG TABLET (FP) PO SCH ×2 (09:21→21:04)
[2021-04-15 09:23] LABS: MAGNESIUM 2.8 mg/dL (1.8-2.4)
[2021-04-15] MEDS ORDERED: IRON SUCROSE INJECTION 100 MG in SODIUM CHLORIDE 95 ML IVPB ONE (10:15)
[2021-04-15] MEDS: MELATONIN 5 MG TABLETS PO SCH (21:03)
[2021-04-15] MEDS: ATORVASTATIN CA 80 MG TABLET (FP) PO SCH (21:03)
[2021-04-15] MEDS: LIDOCAINE PATCH REMOVAL MC SCH (21:04)
[2021-04-16] MEDS ORDERED: PIPERACILLIN/TAZOBACTAM 3.375 GM VIAL IVPB ONE ×3 (01:13→15:10)
[2021-04-16] MEDS ORDERED: DEXTROSE 5%-WATER - 50 ML IVPB ONE ×3 (01:13→15:11)
[2021-04-16] MEDS: PIPERACILLIN/TAZOB 3.375 GM 3.375 GM in DEXTROSE 5%-WATER - 50 ML IVPB SCH ×4 (01:20→17:20)
[2021-04-16] MEDS: BACLOFEN 10 MG TABLET (FP) PO SCH ×3 (05:44→21:18)
[2021-04-16 07:34] LABS: BASO % 0.4 % (0-2.0); EOS % 1.1 % (0-4.5); HEMATOCRIT 22.9 % (35.4-49); HEMOGLOBIN 7.9 GM/dL (11.7-16.9); LYMPH % 11.9 % (8-40); MCH 26.8 pg (25.7-33.7); MCHC 34.5 g/dl (32.0-35.9); MEAN CELL VOLUME 77.6 fl (80-96); MEAN PLT VOLUME 6.4 fl (7.5-11.1); MONO % 7.2 % (3.8-10.2); NEUT % 79.4 % (42.8-82.8); PLATELET COUNT 465 10^3/uL (134-434); RBC 2.95 M/mm3 (4.00-5.60); RDW 16.7 % (11.9-15.9); WHITE BLOOD COUNT 6.7 K/mm3 (4.0-10.0)
[2021-04-16 07:51] LABS: ALBUMIN 2.8 g/dl (3.4-5.0); BLOOD UREA NITROGEN 32.9 mg/dL (7-18); CALCIUM 9.2 mg/dL (8.5-10.1)
[2021-04-16 07:52] LABS: MAGNESIUM 2.6 mg/dL (1.8-2.4)
[2021-04-16 07:54] LABS: CREATININE 1.3 mg/dL (0.55-1.3)
[2021-04-16 07:56] LABS: BILIRUBIN,TOTAL 0.3 mg/dL (0.2-1); TOT PROT 6.9 g/dl (6.4-8.2)
[2021-04-16] MEDS: MULTIVITAMINS (DAILY MVI) TABLET (FP) PO SCH (09:18)
[2021-04-16] MEDS: PRAMIPEXOLE DIHYDROCHLORIDE 0.25 MG TABLET PO SCH ×2 (09:18→21:17)
[2021-04-16] MEDS: ASCORBIC ACID 250 MG TABLET (FP) PO SCH ×2 (09:18→21:17)
[2021-04-16] MEDS: ENOXAPARIN NA (PORCINE) 40 MG/0.4 ML DISP.SYRIN SQ SCH (09:18)
[2021-04-16] MEDS: hydrALAZINE HCL 25 MG TABLET (FP) PO SCH ×2 (09:18→21:17)
[2021-04-16] MEDS: ZINC SULFATE 220 MG CAPSULE (FP) PO SCH (09:18)
[2021-04-16] MEDS: METOPROLOL TARTRATE 25 MG TABLET (FP) PO SCH ×2 (09:18→21:17)
[2021-04-16] MEDS: AMINO ACIDS/PROTEIN HYDROLYS 30 ML LIQUID.PKT PO SCH ×2 (09:18→17:20)
[2021-04-16] MEDS: LIDOCAINE 5% TOPICAL PATCH TP SCH (09:18)
[2021-04-16] MEDS: COLLAGENASE CLOSTRIDIUM HIST. 30 GRAMS TUBE TP SCH (09:19)
[2021-04-16] MEDS: BACITRACIN 15 GM TUBE TOPICAL OINTMENT TP SCH ×2 (09:19→21:18)
[2021-04-16] MEDS: OXcarbazepine 300 MG TABLET (UD) PO SCH ×2 (09:19→21:17)
[2021-04-16] MEDS ORDERED: LORazepam 2 MG/ML SDV VIAL IVPUSH ONE (13:45)
[2021-04-16] MEDS: ATORVASTATIN CA 80 MG TABLET (FP) PO SCH (21:16)
[2021-04-16] MEDS: MELATONIN 5 MG TABLETS PO SCH (21:16)
[2021-04-16] MEDS: LIDOCAINE PATCH REMOVAL MC SCH (21:18)
[2021-04-17] MEDS ORDERED: PIPERACILLIN/TAZOBACTAM 3.375 GM VIAL IVPB ONE ×2 (00:48→08:36)
[2021-04-17] MEDS ORDERED: DEXTROSE 5%-WATER - 50 ML IVPB ONE ×2 (00:49→08:36)
[2021-04-17] MEDS: PIPERACILLIN/TAZOB 3.375 GM 3.375 GM in DEXTROSE 5%-WATER - 50 ML IVPB SCH ×2 (01:13→09:23)
[2021-04-17] MEDS: BACLOFEN 10 MG TABLET (FP) PO SCH ×2 (05:40→14:32)
[2021-04-17 09:17] VITALS: TEMP 97.6
[2021-04-17] MEDS: AMINO ACIDS/PROTEIN HYDROLYS 30 ML LIQUID.PKT PO SCH (09:18)
[2021-04-17] MEDS: MULTIVITAMINS (DAILY MVI) TABLET (FP) PO SCH (09:19)
[2021-04-17] MEDS: ZINC SULFATE 220 MG CAPSULE (FP) PO SCH (09:19)
[2021-04-17] MEDS: hydrALAZINE HCL 25 MG TABLET (FP) PO SCH (09:19)
[2021-04-17] MEDS: BACITRACIN 15 GM TUBE TOPICAL OINTMENT TP SCH (09:19)
[2021-04-17] MEDS: PRAMIPEXOLE DIHYDROCHLORIDE 0.25 MG TABLET PO SCH (09:20)
[2021-04-17] MEDS: METOPROLOL TARTRATE 25 MG TABLET (FP) PO SCH (09:20)
[2021-04-17] MEDS: ENOXAPARIN NA (PORCINE) 40 MG/0.4 ML DISP.SYRIN SQ SCH (09:20)
[2021-04-17] MEDS: LIDOCAINE 5% TOPICAL PATCH TP SCH (09:20)
[2021-04-17] MEDS: ASCORBIC ACID 250 MG TABLET (FP) PO SCH (09:22)
[2021-04-17] MEDS: COLLAGENASE CLOSTRIDIUM HIST. 30 GRAMS TUBE TP SCH (09:22)
[2021-04-17] MEDS: OXcarbazepine 300 MG TABLET (UD) PO SCH (09:23)
[2021-04-17 09:53] LABS: EOS % 1.6 % (0-4.5); HEMATOCRIT 26.9 % (35.4-49); HEMOGLOBIN 8.9 GM/dL (11.7-16.9); LYMPH % 14.2 % (8-40); MCH 26.2 pg (25.7-33.7); MCHC 32.9 g/dl (32.0-35.9); MEAN CELL VOLUME 79.7 fl (80-96); MEAN PLT VOLUME 6.6 fl (7.5-11.1); MONO % 7.6 % (3.8-10.2); NEUT % 75.6 % (42.8-82.8); PLATELET COUNT 413 10^3/uL (134-434); RBC 3.38 M/mm3 (4.00-5.60); RDW 16.9 % (11.9-15.9); WHITE BLOOD COUNT 4.5 K/mm3 (4.0-10.0)
[2021-04-17 10:26] LABS: ALBUMIN 2.8 g/dl (3.4-5.0); BLOOD UREA NITROGEN 25.1 mg/dL (7-18); CALCIUM 9.4 mg/dL (8.5-10.1); MAGNESIUM 2.8 mg/dL (1.8-2.4)
[2021-04-17 10:29] LABS: CREATININE 1.3 mg/dL (0.55-1.3)
[2021-04-17 10:32] LABS: BILIRUBIN,TOTAL 0.5 mg/dL (0.2-1)
[2021-04-17 15:07] VITALS: BP 132/61; PULSE 71
== END 2021-04-17 15:41 | disposition home health service (06) | DRG 689 ==
LOC: JER 19:31 → JERBED 23:30 → J7W 04-09 07:05
PROVIDERS: ADMIT Internal Medicine; ATTEND Nurse Practitioner Acute Care
DX: N39.0 Urinary tract infection, site not specified (principal); L89.103 Pressure ulcer of unspecified part of back, stage 3; G93.41 Metabolic encephalopathy; L97.818 Non-pressure chronic ulcer of other part of right lower leg with other specified severity; G95.0 Syringomyelia and syringobulbia; N17.9 Acute kidney failure, unspecified; G82.20 Paraplegia, unspecified; E46 Unspecified protein-calorie malnutrition; B95.2 Enterococcus as the cause of diseases classified elsewhere; I10 Essential (primary) hypertension; N31.9 Neuromuscular dysfunction of bladder, unspecified; R56.9 Unspecified convulsions; Z68.22 Body mass index [BMI] 22.0-22.9, adult; K59.00 Constipation, unspecified; K64.8 Other hemorrhoids; M54.50 Low back pain, unspecified; R45.1 Restlessness and agitation; D64.9 Anemia, unspecified; G43.909 Migraine, unspecified, not intractable, without status migrainosus; L89.220 Pressure ulcer of left hip, unstageable; G25.81 Restless legs syndrome; Z93.59 Other cystostomy status; Z74.01 Bed confinement status; Z86.73 Personal history of transient ischemic attack (TIA), and cerebral infarction without residual deficits
CPT/HCPCS: 36415; 70450-TC; 71045-TC-FY; 74176-TC; 76775-TC; 76856-TC; 80048; 80053; 81003; 82272; 82550; 82553; 82607; 82962; 83540; 83550; 83605; 83735; 84100; 84443; 84484; 85025; 85610; 85730; 87040; 87086; 87186; 93005; 93010; 97161-GP; 99285-25; C9803; J0475; J1756; Q9967; U0003; U0005

== ENCOUNTER 2021-04-23 04:23 | Observation (INO) | payer OTHER ==
[2021-04-23 06:09] LABS: VENOUS BASE EXCESS 1.6 mmol/L (-2-2); VENOUS PCO2 60.8 mmHg (38-52); VENOUS PH 7.296 (7.310-7.410)
[2021-04-23 06:10] LABS: BASO % 0.3 % (0-2.0); EOS % 1.7 % (0-4.5); HEMATOCRIT 30.6 % (35.4-49); HEMOGLOBIN 9.9 GM/dL (11.7-16.9); LYMPH % 17.2 % (8-40); MCH 26.3 pg (25.7-33.7); MCHC 32.4 g/dl (32.0-35.9); MEAN CELL VOLUME 81.1 fl (80-96); MEAN PLT VOLUME 6.3 fl (7.5-11.1); MONO % 5.1 % (3.8-10.2); NEUT % 75.7 % (42.8-82.8); PLATELET COUNT 614 10^3/uL (134-434); RBC 3.77 M/mm3 (4.00-5.60); RDW 17.7 % (11.9-15.9); WHITE BLOOD COUNT 6.7 K/mm3 (4.0-10.0)
[2021-04-23 06:17] LABS: INR 1.06 (0.83-1.09); PROTHROMBIN TIME (PATIENT) 11.9 SEC (9.7-13.0)
[2021-04-23 06:20] LABS: ACTIVATED PTT 36.2 SECONDS (25.2-36.5)
[2021-04-23 06:28] LABS: CHLORIDE 102 mmol/L (98-107); SODIUM 139 mmol/L (136-145)
[2021-04-23 06:30] LABS: CALCIUM 9.9 mg/dL (8.5-10.1)
[2021-04-23 06:31] LABS: ANION GAP 7 MMOL/L (8-16); BLOOD UREA NITROGEN 18.1 mg/dL (7-18); CO2 29 mmol/L (21-32); GLUCOSE,RANDOM 115 mg/dL (74-106)
[2021-04-23 06:34] LABS: CREATININE 1.3 mg/dL (0.55-1.3); SGOT/AST 22 U/L (15-37); SGPT/ALT 23 U/L (13-61)
[2021-04-23 06:35] LABS: BILIRUBIN,TOTAL 0.2 mg/dL (0.2-1)
[2021-04-23 06:36] LABS: TOT PROT 8.6 g/dl (6.4-8.2)
[2021-04-23 07:08] LABS: ALBUMIN 3.8 g/dl (3.4-5.0); ALK PHOS 148 U/L (45-117)
[2021-04-23 07:21] LABS: EPI CELLS 4 /uL (0-25.1); HYALINE CASTS 3 /uL (0-3.1); URINE APPEARANCE CLOUDY; URINE BACTERIA >9,000 /uL (0-1359); URINE BILIRUBIN NEGATIVE (NEGATIVE); URINE COLOR YELLOW; URINE GLUCOSE (UA) NEGATIVE (NEGATIVE); URINE KETONE NEGATIVE (NEGATIVE); URINE LEUK ESTERASE 3+ (NEGATIVE); URINE NITRITE NEGATIVE (NEGATIVE); URINE PROTEIN NEGATIVE (NEGATIVE); URINE RBC 12 /uL (0-23.9); URINE UROBILINOGEN 0.2 mg/dL (0.2-1.0); URINE WBC 537 /uL (0-25.8)
[2021-04-23] MEDS ORDERED: MEROPENEM 1 GM in DEXTROSE 5%-WATER 100 ML IVPB ONE (09:50)
[2021-04-23] MEDS ORDERED: MEROPENEM 1 GM VIAL (RESTRICTED TO ID) IVPB ONE (10:05)
[2021-04-23] MEDS: SODIUM CHLORIDE 1,000 ML IV SCH (14:00)
[2021-04-23 18:27] LABS: HEMATOCRIT 26.6 % (35.4-49); HEMOGLOBIN 8.7 GM/dL (11.7-16.9); MCH 25.6 pg (25.7-33.7); MCHC 32.6 g/dl (32.0-35.9); MEAN CELL VOLUME 78.8 fl (80-96); MEAN PLT VOLUME 6.3 fl (7.5-11.1); PLATELET COUNT 499 10^3/uL (134-434); RBC 3.38 M/mm3 (4.00-5.60); RDW 17.6 % (11.9-15.9); WHITE BLOOD COUNT 6.5 K/mm3 (4.0-10.0)
[2021-04-23 20:02] LABS: ANISOCYTOSIS 1+; MACROCYTOSIS 1+; OVALOCYTE 1+; PLATELET ESTIMATE INCREASED
[2021-04-23] MEDS: ATORVASTATIN CA 80 MG TABLET (FP) PO SCH (21:00)
[2021-04-23] MEDS: MELATONIN 5 MG TABLETS PO SCH (21:00)
[2021-04-23] MEDS: METOPROLOL TARTRATE 25 MG TABLET (FP) PO SCH (21:00)
[2021-04-23 21:29] LABS: EPI CELLS 3 /uL (0-25.1); HYALINE CASTS 11 /uL (0-3.1); PH,URINE 6.5 (5.0-8.0); URINE APPEARANCE CLOUDY; URINE BILIRUBIN NEGATIVE (NEGATIVE); URINE COLOR YELLOW; URINE GLUCOSE (UA) NEGATIVE (NEGATIVE); URINE KETONE NEGATIVE (NEGATIVE); URINE LEUK ESTERASE 3+ (NEGATIVE); URINE NITRITE POSITIVE (NEGATIVE); URINE PROTEIN 1+ (NEGATIVE); URINE RBC 24 /uL (0-23.9); URINE UROBILINOGEN 0.2 mg/dL (0.2-1.0); URINE WBC 846 /uL (0-25.8)
[2021-04-23 21:52] LABS: URINE BACTERIA 36 /uL (0-1359)
[2021-04-24] MEDS: SODIUM CHLORIDE 1,000 ML IV SCH ×2 (05:28→19:11)
[2021-04-24] MEDS: METOPROLOL TARTRATE 25 MG TABLET (FP) PO SCH ×2 (09:43→21:05)
[2021-04-24] MEDS: PANTOPRAZOLE 40 MG TABLET PO SCH (09:43)
[2021-04-24] MEDS: FUROSEMIDE 40 MG TABLET (FP) PO SCH (09:43)
[2021-04-24 10:06] LABS: CREATININE 1.2 mg/dL (0.55-1.3); PHOSPHOROUS 3.9 mg/dL (2.5-4.9)
[2021-04-24 10:09] LABS: BILIRUBIN,TOTAL 0.3 mg/dL (0.2-1)
[2021-04-24 10:10] LABS: BLOOD UREA NITROGEN 21.8 mg/dL (7-18)
[2021-04-24 10:11] LABS: MAGNESIUM 2.3 mg/dL (1.8-2.4)
[2021-04-24 10:16] LABS: ALBUMIN 2.7 g/dl (3.4-5.0); TOT PROT 6.4 g/dl (6.4-8.2)
[2021-04-24] MEDS: BACITRACIN 15 GM TUBE TOPICAL OINTMENT TP SCH ×2 (11:05→21:04)
[2021-04-24] MEDS: COLLAGENASE CLOSTRIDIUM HIST. 30 GRAMS TUBE TP SCH (11:05)
[2021-04-24] MEDS: OXcarbazepine 300 MG TABLET (UD) PO SCH ×2 (11:05→21:06)
[2021-04-24] MEDS ORDERED: PT OWN MED DRAWER 7, Y5N ONE (11:14)
[2021-04-24] MEDS: HEPARIN NA (PORCINE) 5,000 UNITS/ML 1ML VIAL SQ SCH (21:04)
[2021-04-24] MEDS: MELATONIN 5 MG TABLETS PO SCH (21:06)
[2021-04-24] MEDS: ATORVASTATIN CA 80 MG TABLET (FP) PO SCH (21:06)
[2021-04-25] MEDS: SODIUM CHLORIDE 1,000 ML IV SCH ×3 (06:45→20:01)
[2021-04-25] MEDS: METOPROLOL TARTRATE 25 MG TABLET (FP) PO SCH ×2 (09:53→21:08)
[2021-04-25] MEDS: PANTOPRAZOLE 40 MG TABLET PO SCH (09:53)
[2021-04-25] MEDS: OXcarbazepine 300 MG TABLET (UD) PO SCH ×2 (09:53→21:10)
[2021-04-25] MEDS: FUROSEMIDE 40 MG TABLET (FP) PO SCH (09:53)
[2021-04-25] MEDS: HEPARIN NA (PORCINE) 5,000 UNITS/ML 1ML VIAL SQ SCH ×2 (09:54→21:08)
[2021-04-25] MEDS ORDERED: PT OWN MED DRAWER 7, Y5N ONE ×4 (10:02→20:45)
[2021-04-25 12:06] VITALS: BMI 18.8
[2021-04-25 12:41] LABS: BASO % 0.9 % (0-2.0); EOS % 2.4 % (0-4.5); HEMATOCRIT 25.2 % (35.4-49); HEMOGLOBIN 8.4 GM/dL (11.7-16.9); LYMPH % 14.6 % (8-40); MCH 26.3 pg (25.7-33.7); MCHC 33.5 g/dl (32.0-35.9); MEAN CELL VOLUME 78.4 fl (80-96); MEAN PLT VOLUME 6.1 fl (7.5-11.1); MONO % 7.3 % (3.8-10.2); NEUT % 74.8 % (42.8-82.8); PLATELET COUNT 505 10^3/uL (134-434); RBC 3.22 M/mm3 (4.00-5.60); RDW 17.4 % (11.9-15.9); WHITE BLOOD COUNT 5.7 K/mm3 (4.0-10.0)
[2021-04-25 12:50] LABS: ALBUMIN 2.8 g/dl (3.4-5.0)
[2021-04-25 12:51] LABS: BLOOD UREA NITROGEN 17.6 mg/dL (7-18); CALCIUM 9.1 mg/dL (8.5-10.1); MAGNESIUM 2.3 mg/dL (1.8-2.4)
[2021-04-25 12:56] LABS: BILIRUBIN,TOTAL 0.4 mg/dL (0.2-1); TOT PROT 6.7 g/dl (6.4-8.2)
[2021-04-25] MEDS: COLLAGENASE CLOSTRIDIUM HIST. 30 GRAMS TUBE TP SCH (13:32)
[2021-04-25] MEDS: BACITRACIN 15 GM TUBE TOPICAL OINTMENT TP SCH ×2 (13:33→21:10)
[2021-04-25] MEDS: PRAMIPEXOLE DIHYDROCHLORIDE 0.25 MG TABLET PO SCH ×2 (14:43→21:10)
[2021-04-25] MEDS: BACLOFEN 10 MG TABLET (FP) PO SCH ×2 (14:43→21:08)
[2021-04-25] MEDS: MELATONIN 5 MG TABLETS PO SCH (21:07)
[2021-04-25] MEDS: ATORVASTATIN CA 80 MG TABLET (FP) PO SCH (21:08)
[2021-04-26] MEDS: BACLOFEN 10 MG TABLET (FP) PO SCH ×2 (05:14→13:51)
[2021-04-26] MEDS ORDERED: PT OWN MED DRAWER 7, Y5N ONE (08:58)
[2021-04-26] MEDS: BACITRACIN 15 GM TUBE TOPICAL OINTMENT TP SCH (09:02)
[2021-04-26] MEDS: HEPARIN NA (PORCINE) 5,000 UNITS/ML 1ML VIAL SQ SCH (09:02)
[2021-04-26] MEDS: PANTOPRAZOLE 40 MG TABLET PO SCH (09:02)
[2021-04-26] MEDS: METOPROLOL TARTRATE 25 MG TABLET (FP) PO SCH (09:02)
[2021-04-26] MEDS: PRAMIPEXOLE DIHYDROCHLORIDE 0.25 MG TABLET PO SCH (09:02)
[2021-04-26] MEDS: FUROSEMIDE 40 MG TABLET (FP) PO SCH (09:02)
[2021-04-26] MEDS: COLLAGENASE CLOSTRIDIUM HIST. 30 GRAMS TUBE TP SCH (09:03)
[2021-04-26] MEDS: OXcarbazepine 300 MG TABLET (UD) PO SCH (09:13)
[2021-04-26 11:50] LABS: BASO % 0.4 % (0-2.0); HEMATOCRIT 26.3 % (35.4-49); HEMOGLOBIN 8.5 GM/dL (11.7-16.9); LYMPH % 11.7 % (8-40); MCH 25.7 pg (25.7-33.7); MCHC 32.2 g/dl (32.0-35.9); MEAN CELL VOLUME 79.8 fl (80-96); MONO % 10.6 % (3.8-10.2); NEUT % 75.3 % (42.8-82.8); PLATELET COUNT 418 10^3/uL (134-434); RDW 16.8 % (11.9-15.9); WHITE BLOOD COUNT 6.1 K/mm3 (4.0-10.0)
[2021-04-26 11:54] LABS: MEAN PLT VOLUME 5.8 fl (7.5-11.1)
[2021-04-26 12:11] LABS: ALBUMIN 2.6 g/dl (3.4-5.0); BLOOD UREA NITROGEN 16.3 mg/dL (7-18); CALCIUM 8.7 mg/dL (8.5-10.1); MAGNESIUM 2.5 mg/dL (1.8-2.4)
[2021-04-26 12:14] LABS: CREATININE 1.1 mg/dL (0.55-1.3)
[2021-04-26 12:16] LABS: BILIRUBIN,TOTAL 0.4 mg/dL (0.2-1); TOT PROT 6.3 g/dl (6.4-8.2)
[2021-04-26 14:46] VITALS: BP 124/59; PULSE 77; TEMP 97.7
== END 2021-04-26 16:11 | disposition home or self-care (01) ==
LOC: JER 04:23 → INTOOBSV 07:26 → UNDOADMOB 07:26 → JERBED 07:26 → J8W 11:46
PROVIDERS: ADMIT Internal Medicine; ATTEND Nurse Practitioner Family
PROC: 3E023GC Introduction of Other Therapeutic Substance into Muscle, Percutaneous Approach (ICD-10-PCS; principal; 2021-04-23)
PROC: 3E03329 Introduction of Other Anti-infective into Peripheral Vein, Percutaneous Approach (ICD-10-PCS; 2021-04-23)
PROC: 3E0337Z Introduction of Electrolytic and Water Balance Substance into Peripheral Vein, Percutaneous Approach (ICD-10-PCS; 2021-04-23)
DX: Z86.73 Personal history of transient ischemic attack (TIA), and cerebral infarction without residual deficits (principal); I10 Essential (primary) hypertension; R79.89 Other specified abnormal findings of blood chemistry; N31.2 Flaccid neuropathic bladder, not elsewhere classified; Z96.0 Presence of urogenital implants; G82.20 Paraplegia, unspecified; J44.9 Chronic obstructive pulmonary disease, unspecified; Z86.14 Personal history of Methicillin resistant Staphylococcus aureus infection; K59.00 Constipation, unspecified; Z29.9 Encounter for prophylactic measures, unspecified; Z87.440 Personal history of urinary (tract) infections; N17.9 Acute kidney failure, unspecified; G93.41 Metabolic encephalopathy; L89.320 Pressure ulcer of left buttock, unstageable; Z87.891 Personal history of nicotine dependence; G40.909 Epilepsy, unspecified, not intractable, without status epilepticus
CPT/HCPCS: 36415; 71045-TC-FY; 80053; 81003; 82272; 82803; 83036; 83540; 83550; 83605; 83735; 84100; 84443; 84484; 85025; 85610; 85730; 87040; 87086; 87186; 93005; 93010; 96365; 96372; 97161-GP; 99285-25; C9803; G0378; J0475; J1644; U0003; U0005

== ENCOUNTER 2021-04-28 23:19 | Inpatient (IN) | payer OTHER ==
[2021-04-29 01:58] LABS: ARTERIAL BLD GAS O2 SATURATION 97.2 % (95-98); ARTERIAL BLOOD GAS BASE EXCESS 1.6 mmol/L (-2-2); ARTERIAL BLOOD GAS PO2 94.9 mmHg (80-100); ARTERIAL BLOOD GAS pH 7.395 (7.350-7.450)
[2021-04-29 02:00] LABS: BASO % 0.5 % (0-2.0); EOS % 2.2 % (0-4.5); HEMATOCRIT 28.2 % (35.4-49); HEMOGLOBIN 9.1 GM/dL (11.7-16.9); LYMPH % 13.3 % (8-40); MCH 25.9 pg (25.7-33.7); MCHC 32.4 g/dl (32.0-35.9); MEAN PLT VOLUME 6.3 fl (7.5-11.1); PLATELET COUNT 395 10^3/uL (134-434); RBC 3.53 M/mm3 (4.00-5.60); RDW 17.5 % (11.9-15.9); WHITE BLOOD COUNT 5.7 K/mm3 (4.0-10.0)
[2021-04-29 02:06] LABS: CHLORIDE 102 mmol/L (98-107); SODIUM 137 mmol/L (136-145)
[2021-04-29 02:08] LABS: ALBUMIN 2.9 g/dl (3.4-5.0); ANION GAP 5 MMOL/L (8-16); BLOOD UREA NITROGEN 14.1 mg/dL (7-18); CALCIUM 8.6 mg/dL (8.5-10.1); CO2 30 mmol/L (21-32); GLUCOSE,RANDOM 113 mg/dL (74-106)
[2021-04-29 02:11] LABS: CREATININE 1.1 mg/dL (0.55-1.3); SGPT/ALT 22 U/L (13-61)
[2021-04-29 02:12] LABS: SGOT/AST 21 U/L (15-37)
[2021-04-29 02:13] LABS: BILIRUBIN,TOTAL 0.2 mg/dL (0.2-1); TOT PROT 7.2 g/dl (6.4-8.2)
[2021-04-29 02:14] LABS: ALK PHOS 123 U/L (45-117)
[2021-04-29 02:15] LABS: INR 1.07 (0.83-1.09); PROTHROMBIN TIME (PATIENT) 12.5 SEC (9.7-13.0)
[2021-04-29 03:07] LABS: EPI CELLS 6 /uL (0-25.1); HYALINE CASTS 0 /uL (0-3.1); PH,URINE 6.5 (5.0-8.0); URINE APPEARANCE CLEAR; URINE BACTERIA 297 /uL (0-1359); URINE BILIRUBIN NEGATIVE (NEGATIVE); URINE COLOR YELLOW; URINE GLUCOSE (UA) NEGATIVE (NEGATIVE); URINE KETONE NEGATIVE (NEGATIVE); URINE LEUK ESTERASE 2+ (NEGATIVE); URINE NITRITE NEGATIVE (NEGATIVE); URINE PROTEIN NEGATIVE (NEGATIVE); URINE RBC 4 /uL (0-23.9); URINE UROBILINOGEN 0.2 mg/dL (0.2-1.0); URINE WBC 47 /uL (0-25.8)
[2021-04-29 03:11] LABS: METHADONE, UR NEGATIVE (NEGATIVE); OPIATES, URI NEGATIVE (NEGATIVE); PHENCYCLIDINE,URINE NEGATIVE (NEGATIVE)
[2021-04-29 03:12] LABS: URINE BENZODIAZEPINES NEGATIVE (NEGATIVE)
[2021-04-29 03:20] LABS: COCAINE, UR NEGATIVE (NEGATIVE); URINE AMPHETAMINES NEGATIVE (NEGATIVE); URINE BARBITURATES NEGATIVE (NEGATIVE)
[2021-04-29 03:59] LABS: PH,URINE 6.5 (5.0-8.0); URINE APPEARANCE CLEAR; URINE BILIRUBIN NEGATIVE (NEGATIVE); URINE COLOR YELLOW; URINE GLUCOSE (UA) NEGATIVE (NEGATIVE); URINE KETONE NEGATIVE (NEGATIVE); URINE LEUK ESTERASE 1+ (NEGATIVE); URINE NITRITE NEGATIVE (NEGATIVE); URINE PROTEIN NEGATIVE (NEGATIVE); URINE UROBILINOGEN 0.2 mg/dL (0.2-1.0)
[2021-04-29] MEDS ORDERED: NALOXONE HCL 0.4 MG/ML VIAL ONE (05:16)
[2021-04-29] MEDS ORDERED: NALOXONE HCL 0.4 MG/ML VIAL IVPUSH ONE (05:18)
[2021-04-29 05:37] LABS: BASO % 0.4 % (0-2.0); HEMATOCRIT 24.7 % (35.4-49); HEMOGLOBIN 8.1 GM/dL (11.7-16.9); LYMPH % 15.3 % (8-40); MCH 26.1 pg (25.7-33.7); MCHC 32.9 g/dl (32.0-35.9); MEAN CELL VOLUME 79.3 fl (80-96); MEAN PLT VOLUME 6.1 fl (7.5-11.1); MONO % 8.4 % (3.8-10.2); NEUT % 72.9 % (42.8-82.8); PLATELET COUNT 381 10^3/uL (134-434); RBC 3.12 M/mm3 (4.00-5.60); RDW 17.4 % (11.9-15.9); WHITE BLOOD COUNT 5.3 K/mm3 (4.0-10.0)
[2021-04-29 05:38] LABS: CALCIUM 8.6 mg/dL (8.5-10.1)
[2021-04-29 05:39] LABS: ALBUMIN 2.4 g/dl (3.4-5.0); BLOOD UREA NITROGEN 14.4 mg/dL (7-18); MAGNESIUM 2.2 mg/dL (1.8-2.4)
[2021-04-29 05:42] LABS: PHOSPHOROUS 3.9 mg/dL (2.5-4.9)
[2021-04-29 05:44] LABS: BILIRUBIN,TOTAL 0.2 mg/dL (0.2-1); TOT PROT 6.3 g/dl (6.4-8.2)
[2021-04-29 06:14] LABS: ALLENS TEST POSITIVE; ARTERIAL BLD GAS O2 SATURATION 98.7 % (95-98); ARTERIAL BLOOD GAS BASE EXCESS 0.1 mmol/L (-2-2); ARTERIAL BLOOD GAS PO2 128.8 mmHg (80-100); ARTERIAL BLOOD GAS pH 7.435 (7.350-7.450)
[2021-04-29] MEDS ORDERED: SODIUM CHLORIDE 1,000 ML IV SCH ×2 (08:45→10:00)
[2021-04-29] MEDS ORDERED: ENOXAPARIN NA (PORCINE) 40 MG/0.4 ML DISP.SYRIN SQ ONE (09:45)
[2021-04-29] MEDS ORDERED: levETIRAcetam 500 MG/5 ML INJECTION VIAL IVPB ONE ×2 (09:55→10:11)
[2021-04-29] MEDS ORDERED: ENOXAPARIN NA (PORCINE) 40 MG/0.4 ML DISP.SYRIN SQ SCH (10:00)
[2021-04-29] MEDS ORDERED: LORazepam 2 MG/ML SDV VIAL IVPUSH ONE ×2 (10:06→10:14)
[2021-04-29] MEDS ORDERED: ERTAPENEM SODIUM 1 GM VIAL ONE (10:12)
[2021-04-29] MEDS ORDERED: LORazepam 2 MG/ML SDV VIAL ONE (10:12)
[2021-04-29] MEDS ORDERED: LACTATED RINGERS SOLUTION 1,000 ML/1,000 ML INFUS.BAG IV SCH (10:15)
[2021-04-29] MEDS ORDERED: ERTAPENEM SODIUM 1 GM in SODIUM CHLORIDE 50 ML IVPB ONE (10:15)
[2021-04-29] MEDS ORDERED: MUPIROCIN 2% TOPICAL OINTMENT FOR DECOLONIZATION NS SCH ×2 (10:15)
[2021-04-29] MEDS ORDERED: LORazepam 2 MG/ML SDV VIAL IVPUSH PRN (14:33)
[2021-04-29] MEDS ORDERED: MIDAZOLAM HCL 5 MG/1 ML Single Dose Vial IM ONE (21:30)
[2021-04-29] MEDS: levETIRAcetam 500 MG/5 ML INJECTION VIAL IVPB SCH (21:39)
[2021-04-29] MEDS ORDERED: CHLORHEXIDINE GLUCONATE 4% CLEANSER FOR DECOLONIZATION TP SCH ×2 (22:00)
[2021-04-29] MEDS ORDERED: levETIRAcetam 500 MG/5 ML INJECTION VIAL IVPB SCH ×2 (22:00)
[2021-04-29] MEDS: LORazepam 2 MG/ML SDV VIAL IVPUSH PRN (23:05)
[2021-04-30] MEDS: LORazepam 2 MG/ML SDV VIAL IVPUSH PRN (01:33)
[2021-04-30 07:09] LABS: BASO % 0.2 % (0-2.0); EOS % 0.1 % (0-4.5); HEMATOCRIT 25.6 % (35.4-49); HEMOGLOBIN 8.1 GM/dL (11.7-16.9); LYMPH % 4.7 % (8-40); MCH 25.5 pg (25.7-33.7); MCHC 31.7 g/dl (32.0-35.9); MEAN CELL VOLUME 80.6 fl (80-96); MEAN PLT VOLUME 6.3 fl (7.5-11.1); MONO % 4.1 % (3.8-10.2); NEUT % 90.9 % (42.8-82.8); PLATELET COUNT 412 10^3/uL (134-434); RBC 3.17 M/mm3 (4.00-5.60); RDW 17.8 % (11.9-15.9)
[2021-04-30 07:33] LABS: CALCIUM 8.9 mg/dL (8.5-10.1)
[2021-04-30 07:34] LABS: ALBUMIN 2.6 g/dl (3.4-5.0); BLOOD UREA NITROGEN 13.2 mg/dL (7-18)
[2021-04-30 07:38] LABS: BILIRUBIN,TOTAL 0.6 mg/dL (0.2-1); TOT PROT 6.6 g/dl (6.4-8.2)
[2021-04-30] MEDS: levETIRAcetam 500 MG/5 ML INJECTION VIAL IVPB SCH (09:31)
[2021-04-30] MEDS: ENOXAPARIN NA (PORCINE) 40 MG/0.4 ML DISP.SYRIN SQ SCH (09:32)
[2021-04-30] MEDS ORDERED: PANTOPRAZOLE 40 MG TABLET PO SCH (10:00)
[2021-04-30] MEDS ORDERED: LACTATED RINGERS SOLUTION 1,000 ML/1,000 ML INFUS.BAG IV SCH (12:30)
[2021-04-30] MEDS: levETIRAcetam 500 MG/5 ML ORAL SOLUTION (UNIT-DOSE CUPS) PO SCH (21:23)
[2021-05-01] MEDS: LORazepam 2 MG/ML SDV VIAL IVPUSH PRN (00:12)
[2021-05-01 07:03] VITALS: BMI 25.2
[2021-05-01 09:01] LABS: BASO % 0.9 % (0-2.0); EOS % 1.8 % (0-4.5); HEMATOCRIT 25.6 % (35.4-49); HEMOGLOBIN 8.3 GM/dL (11.7-16.9); LYMPH % 11.6 % (8-40); MCH 25.8 pg (25.7-33.7); MCHC 32.4 g/dl (32.0-35.9); MEAN CELL VOLUME 79.8 fl (80-96); MEAN PLT VOLUME 6.7 fl (7.5-11.1); MONO % 4.6 % (3.8-10.2); NEUT % 81.1 % (42.8-82.8); PLATELET COUNT 380 10^3/uL (134-434); RBC 3.21 M/mm3 (4.00-5.60); RDW 17.6 % (11.9-15.9); WHITE BLOOD COUNT 6.7 K/mm3 (4.0-10.0)
[2021-05-01] MEDS ORDERED: PT OWN MED DRAWER 7, Y5N ONE (09:43)
[2021-05-01] MEDS: ENOXAPARIN NA (PORCINE) 40 MG/0.4 ML DISP.SYRIN SQ SCH (09:45)
[2021-05-01] MEDS: levETIRAcetam 500 MG/5 ML ORAL SOLUTION (UNIT-DOSE CUPS) PO SCH ×2 (09:46→21:29)
[2021-05-01] MEDS: AMINO ACIDS/PROTEIN HYDROLYS 30 ML LIQUID.PKT PO SCH ×2 (09:47→17:23)
[2021-05-01] MEDS: MULTIVIT-MINERALS ORAL LIQUID PO SCH (09:47)
[2021-05-01] MEDS ORDERED: PANTOPRAZOLE SODIUM 40 MG VIAL IVPUSH SCH (10:00)
[2021-05-01 10:20] LABS: CALCIUM 9.4 mg/dL (8.5-10.1)
[2021-05-01 10:21] LABS: ALBUMIN 2.4 g/dl (3.4-5.0); BLOOD UREA NITROGEN 16.7 mg/dL (7-18); MAGNESIUM 2.6 mg/dL (1.8-2.4)
[2021-05-01 10:24] LABS: CREATININE 0.8 mg/dL (0.55-1.3)
[2021-05-01 10:25] LABS: BILIRUBIN,TOTAL 0.4 mg/dL (0.2-1); TOT PROT 6.4 g/dl (6.4-8.2)
[2021-05-01] MEDS ORDERED: LORazepam 2 MG/ML SDV VIAL IVPUSH PRN (11:54)
[2021-05-01] MEDS: LACTATED RINGERS SOLUTION 1,000 ML/1,000 ML INFUS.BAG IV SCH (14:19)
[2021-05-02 08:51] LABS: BASO % 0.8 % (0-2.0); EOS % 1.8 % (0-4.5); HEMATOCRIT 25.1 % (35.4-49); HEMOGLOBIN 8.2 GM/dL (11.7-16.9); LYMPH % 16.9 % (8-40); MCH 25.8 pg (25.7-33.7); MCHC 32.5 g/dl (32.0-35.9); MEAN CELL VOLUME 79.4 fl (80-96); MEAN PLT VOLUME 6.5 fl (7.5-11.1); MONO % 5.3 % (3.8-10.2); NEUT % 75.2 % (42.8-82.8); PLATELET COUNT 393 10^3/uL (134-434); RBC 3.17 M/mm3 (4.00-5.60); RDW 17.7 % (11.9-15.9); WHITE BLOOD COUNT 6.3 K/mm3 (4.0-10.0)
[2021-05-02 09:44] LABS: ALBUMIN 2.4 g/dl (3.4-5.0); BLOOD UREA NITROGEN 15.8 mg/dL (7-18); MAGNESIUM 2.4 mg/dL (1.8-2.4)
[2021-05-02 09:49] LABS: BILIRUBIN,TOTAL 0.3 mg/dL (0.2-1); TOT PROT 6.3 g/dl (6.4-8.2)
[2021-05-02] MEDS ORDERED: PANTOPRAZOLE SODIUM 40 MG VIAL IVPUSH SCH (10:00)
[2021-05-02] MEDS: AMINO ACIDS/PROTEIN HYDROLYS 30 ML LIQUID.PKT PO SCH ×2 (10:15→16:40)
[2021-05-02] MEDS: MULTIVIT-MINERALS ORAL LIQUID PO SCH (10:15)
[2021-05-02] MEDS: levETIRAcetam 500 MG/5 ML ORAL SOLUTION (UNIT-DOSE CUPS) PO SCH (10:16)
[2021-05-02] MEDS: ENOXAPARIN NA (PORCINE) 40 MG/0.4 ML DISP.SYRIN SQ SCH (10:16)
[2021-05-02] MEDS: LACTATED RINGERS SOLUTION 1,000 ML/1,000 ML INFUS.BAG IV SCH ×2 (16:40→23:50)
[2021-05-02] MEDS ORDERED: levETIRAcetam 500 MG/5 ML ORAL SOLUTION (UNIT-DOSE CUPS) PO SCH (20:11)
[2021-05-02] MEDS: levETIRAcetam 500 MG TABLET (FP) PO SCH (22:14)
[2021-05-02] MEDS: ATORVASTATIN CA 80 MG TABLET (FP) PO SCH (22:14)
[2021-05-02] MEDS: PRAMIPEXOLE DIHYDROCHLORIDE 0.25 MG TABLET PO SCH (22:14)
[2021-05-02] MEDS: METOPROLOL TARTRATE 25 MG TABLET (FP) PO SCH (22:14)
[2021-05-02] MEDS ORDERED: MELATONIN 5 MG TABLETS PO ONE (22:24)
[2021-05-03 09:18] LABS: BASO % 0.6 % (0-2.0); EOS % 2.4 % (0-4.5); HEMATOCRIT 22.9 % (35.4-49); HEMOGLOBIN 7.6 GM/dL (11.7-16.9); LYMPH % 16.6 % (8-40); MCHC 33.4 g/dl (32.0-35.9); MEAN CELL VOLUME 77.7 fl (80-96); MEAN PLT VOLUME 6.2 fl (7.5-11.1); NEUT % 73.4 % (42.8-82.8); PLATELET COUNT 347 10^3/uL (134-434); RBC 2.94 M/mm3 (4.00-5.60); RDW 17.5 % (11.9-15.9); WHITE BLOOD COUNT 5.2 K/mm3 (4.0-10.0)
[2021-05-03 09:32] LABS: ALBUMIN 2.4 g/dl (3.4-5.0); BLOOD UREA NITROGEN 14.5 mg/dL (7-18); CALCIUM 9.2 mg/dL (8.5-10.1)
[2021-05-03 09:33] LABS: MAGNESIUM 2.2 mg/dL (1.8-2.4)
[2021-05-03 09:35] LABS: CREATININE 0.9 mg/dL (0.55-1.3)
[2021-05-03 09:36] LABS: BILIRUBIN,TOTAL 0.6 mg/dL (0.2-1); TOT PROT 6.2 g/dl (6.4-8.2)
[2021-05-03] MEDS ORDERED: PANTOPRAZOLE 40 MG TABLET PO SCH (10:00)
[2021-05-03] MEDS ORDERED: PT OWN MED DRAWER 7, Y5N ONE ×2 (11:00→20:16)
[2021-05-03] MEDS: MULTIVIT-MINERALS ORAL LIQUID PO SCH (11:08)
[2021-05-03] MEDS: FUROSEMIDE 40 MG TABLET (FP) PO SCH (11:09)
[2021-05-03] MEDS: ENOXAPARIN NA (PORCINE) 40 MG/0.4 ML DISP.SYRIN SQ SCH (11:09)
[2021-05-03] MEDS: levETIRAcetam 500 MG TABLET (FP) PO SCH ×2 (11:09→21:18)
[2021-05-03] MEDS: PANTOPRAZOLE 40 MG TABLET PO SCH (11:09)
[2021-05-03] MEDS: METOPROLOL TARTRATE 25 MG TABLET (FP) PO SCH ×2 (11:09→21:18)
[2021-05-03] MEDS: AMINO ACIDS/PROTEIN HYDROLYS 30 ML LIQUID.PKT PO SCH ×2 (11:09→18:36)
[2021-05-03] MEDS: PRAMIPEXOLE DIHYDROCHLORIDE 0.25 MG TABLET PO SCH ×2 (11:10→21:18)
[2021-05-03] MEDS: LACTATED RINGERS SOLUTION 1,000 ML/1,000 ML INFUS.BAG IV SCH (20:26)
[2021-05-03] MEDS: ATORVASTATIN CA 80 MG TABLET (FP) PO SCH (21:18)
[2021-05-03] MEDS: MELATONIN 5 MG TABLETS PO SCH (21:18)
[2021-05-04] MEDS: AMINO ACIDS/PROTEIN HYDROLYS 30 ML LIQUID.PKT PO SCH ×3 (09:00→17:58)
[2021-05-04 10:20] LABS: BASO % 0.5 % (0-2.0); EOS % 2.2 % (0-4.5); HEMATOCRIT 25.3 % (35.4-49); HEMOGLOBIN 8.3 GM/dL (11.7-16.9); LYMPH % 15.6 % (8-40); MCH 25.8 pg (25.7-33.7); MCHC 32.8 g/dl (32.0-35.9); MEAN CELL VOLUME 78.7 fl (80-96); MEAN PLT VOLUME 6.6 fl (7.5-11.1); MONO % 7.4 % (3.8-10.2); NEUT % 74.3 % (42.8-82.8); PLATELET COUNT 431 10^3/uL (134-434); RBC 3.22 M/mm3 (4.00-5.60); RDW 17.5 % (11.9-15.9); WHITE BLOOD COUNT 5.8 K/mm3 (4.0-10.0)
[2021-05-04] MEDS: FUROSEMIDE 40 MG TABLET (FP) PO SCH (10:31)
[2021-05-04] MEDS: PANTOPRAZOLE 40 MG TABLET PO SCH (10:31)
[2021-05-04] MEDS: MULTIVIT-MINERALS ORAL LIQUID PO SCH (10:31)
[2021-05-04] MEDS ORDERED: PT OWN MED DRAWER 7, Y5N ONE ×2 (10:39→20:31)
[2021-05-04] MEDS: levETIRAcetam 500 MG TABLET (FP) PO SCH ×2 (10:49→21:19)
[2021-05-04] MEDS: PRAMIPEXOLE DIHYDROCHLORIDE 0.25 MG TABLET PO SCH ×2 (10:49→21:19)
[2021-05-04] MEDS: METOPROLOL TARTRATE 25 MG TABLET (FP) PO SCH ×2 (10:49→21:19)
[2021-05-04] MEDS: ENOXAPARIN NA (PORCINE) 40 MG/0.4 ML DISP.SYRIN SQ SCH (10:50)
[2021-05-04] MEDS: PANTOPRAZOLE SODIUM 40 MG VIAL IVPUSH SCH ×2 (10:50→21:22)
[2021-05-04 10:54] LABS: CALCIUM 9.7 mg/dL (8.5-10.1)
[2021-05-04 10:55] LABS: ALBUMIN 2.9 g/dl (3.4-5.0); BLOOD UREA NITROGEN 23.4 mg/dL (7-18); MAGNESIUM 2.8 mg/dL (1.8-2.4)
[2021-05-04 10:58] LABS: CREATININE 1.2 mg/dL (0.55-1.3)
[2021-05-04 10:59] LABS: BILIRUBIN,TOTAL 0.4 mg/dL (0.2-1)
[2021-05-04] MEDS: MELATONIN 5 MG TABLETS PO SCH (21:19)
[2021-05-04] MEDS: ATORVASTATIN CA 80 MG TABLET (FP) PO SCH (21:19)
[2021-05-05 08:10] LABS: BASO % 0.6 % (0-2.0); EOS % 3.6 % (0-4.5); HEMATOCRIT 22.3 % (35.4-49); HEMOGLOBIN 7.4 GM/dL (11.7-16.9); LYMPH % 20.4 % (8-40); MCH 26.1 pg (25.7-33.7); MCHC 33.3 g/dl (32.0-35.9); MEAN CELL VOLUME 78.4 fl (80-96); MEAN PLT VOLUME 6.5 fl (7.5-11.1); MONO % 7.3 % (3.8-10.2); NEUT % 68.1 % (42.8-82.8); PLATELET COUNT 355 10^3/uL (134-434); RBC 2.85 M/mm3 (4.00-5.60); RDW 17.2 % (11.9-15.9); WHITE BLOOD COUNT 5.4 K/mm3 (4.0-10.0)
[2021-05-05 08:32] LABS: CALCIUM 9.1 mg/dL (8.5-10.1)
[2021-05-05 08:33] LABS: BLOOD UREA NITROGEN 17.9 mg/dL (7-18); MAGNESIUM 2.5 mg/dL (1.8-2.4)
[2021-05-05 08:34] LABS: ALBUMIN 2.6 g/dl (3.4-5.0)
[2021-05-05 08:35] LABS: CREATININE 1.1 mg/dL (0.55-1.3)
[2021-05-05 08:37] LABS: BILIRUBIN,TOTAL 0.4 mg/dL (0.2-1); TOT PROT 6.4 g/dl (6.4-8.2)
[2021-05-05] MEDS: AMINO ACIDS/PROTEIN HYDROLYS 30 ML LIQUID.PKT PO SCH ×4 (08:38→17:52)
[2021-05-05] MEDS ORDERED: PT OWN MED DRAWER 7, Y5N ONE (09:52)
[2021-05-05] MEDS: levETIRAcetam 500 MG TABLET (FP) PO SCH ×2 (09:54→22:24)
[2021-05-05] MEDS: MULTIVITAMINS (DAILY MVI) TABLET (FP) PO SCH (09:55)
[2021-05-05] MEDS: PANTOPRAZOLE SODIUM 40 MG VIAL IVPUSH SCH ×2 (09:55→10:06)
[2021-05-05] MEDS: PRAMIPEXOLE DIHYDROCHLORIDE 0.25 MG TABLET PO SCH ×2 (09:55→22:24)
[2021-05-05] MEDS: METOPROLOL TARTRATE 25 MG TABLET (FP) PO SCH ×2 (09:55→22:25)
[2021-05-05] MEDS: ATORVASTATIN CA 80 MG TABLET (FP) PO SCH (22:24)
[2021-05-05] MEDS: MELATONIN 5 MG TABLETS PO SCH (22:25)
[2021-05-06] MEDS ORDERED: PANTOPRAZOLE 40 MG TABLET PO ONE (00:11)
[2021-05-06] MEDS: PANTOPRAZOLE SODIUM 40 MG VIAL IVPUSH SCH (00:58)
[2021-05-06] MEDS ORDERED: PT OWN MED DRAWER 7, Y5N ONE ×2 (09:18→21:26)
[2021-05-06] MEDS: METOPROLOL TARTRATE 25 MG TABLET (FP) PO SCH ×2 (09:29→21:25)
[2021-05-06] MEDS: PANTOPRAZOLE 40 MG TABLET PO SCH ×2 (09:29→21:25)
[2021-05-06] MEDS: AMINO ACIDS/PROTEIN HYDROLYS 30 ML LIQUID.PKT PO SCH ×2 (09:29→17:59)
[2021-05-06] MEDS: levETIRAcetam 500 MG TABLET (FP) PO SCH ×2 (09:29→21:24)
[2021-05-06] MEDS: PRAMIPEXOLE DIHYDROCHLORIDE 0.25 MG TABLET PO SCH ×2 (09:29→21:26)
[2021-05-06] MEDS: MULTIVITAMINS (DAILY MVI) TABLET (FP) PO SCH (09:29)
[2021-05-06 11:54] LABS: BASO % 0.2 % (0-2.0); HEMATOCRIT 24.5 % (35.4-49); HEMOGLOBIN 7.9 GM/dL (11.7-16.9); LYMPH % 14.5 % (8-40); MCH 25.5 pg (25.7-33.7); MCHC 32.1 g/dl (32.0-35.9); MEAN CELL VOLUME 79.4 fl (80-96); MEAN PLT VOLUME 6.6 fl (7.5-11.1); MONO % 6.5 % (3.8-10.2); NEUT % 76.8 % (42.8-82.8); PLATELET COUNT 401 10^3/uL (134-434); RBC 3.08 M/mm3 (4.00-5.60); RDW 17.1 % (11.9-15.9); WHITE BLOOD COUNT 6.5 K/mm3 (4.0-10.0)
[2021-05-06 12:16] LABS: CALCIUM 9.5 mg/dL (8.5-10.1)
[2021-05-06 12:18] LABS: ALBUMIN 2.8 g/dl (3.4-5.0); BLOOD UREA NITROGEN 19.4 mg/dL (7-18); MAGNESIUM 2.5 mg/dL (1.8-2.4)
[2021-05-06 12:21] LABS: CREATININE 1.1 mg/dL (0.55-1.3)
[2021-05-06 12:23] LABS: BILIRUBIN,TOTAL 0.4 mg/dL (0.2-1); TOT PROT 6.7 g/dl (6.4-8.2)
[2021-05-06] MEDS ORDERED: LACTATED RINGERS SOLUTION 1,000 ML/1,000 ML INFUS.BAG IV SCH ×2 (13:45→14:15)
[2021-05-06] MEDS: MELATONIN 5 MG TABLETS PO SCH (21:25)
[2021-05-06] MEDS: ATORVASTATIN CA 80 MG TABLET (FP) PO SCH (21:25)
[2021-05-07] MEDS: AMINO ACIDS/PROTEIN HYDROLYS 30 ML LIQUID.PKT PO SCH ×2 (09:44→18:36)
[2021-05-07] MEDS: levETIRAcetam 500 MG TABLET (FP) PO SCH (09:44)
[2021-05-07] MEDS: METOPROLOL TARTRATE 25 MG TABLET (FP) PO SCH (09:45)
[2021-05-07] MEDS: PANTOPRAZOLE 40 MG TABLET PO SCH (09:45)
[2021-05-07] MEDS: MULTIVITAMINS (DAILY MVI) TABLET (FP) PO SCH (09:45)
[2021-05-07 11:29] LABS: ALBUMIN 2.7 g/dl (3.4-5.0); BILIRUBIN,TOTAL 0.5 mg/dL (0.2-1); BLOOD UREA NITROGEN 20.3 mg/dL (7-18); CALCIUM 9.1 mg/dL (8.5-10.1); TOT PROT 6.5 g/dl (6.4-8.2)
[2021-05-07] MEDS: PRAMIPEXOLE DIHYDROCHLORIDE 0.25 MG TABLET PO SCH (14:26)
[2021-05-07 14:34] VITALS: BP 108/50; PULSE 72; TEMP 98.5
== END 2021-05-07 18:09 | disposition home health service (06) | DRG 100 ==
LOC: JER 23:19 → JERBED 04-29 01:31 → JICU 04-29 16:38 → J8W 05-01 11:44
PROVIDERS: ATTEND Nurse Practitioner Family
DX: G40.201 Localization-related (focal) (partial) symptomatic epilepsy and epileptic syndromes with complex partial seizures, not intractable, with status epilepticus (principal); L89.153 Pressure ulcer of sacral region, stage 3; G93.41 Metabolic encephalopathy; G82.20 Paraplegia, unspecified; G95.0 Syringomyelia and syringobulbia; E44.0 Moderate protein-calorie malnutrition; K92.0 Hematemesis; I10 Essential (primary) hypertension; E78.5 Hyperlipidemia, unspecified; Z68.23 Body mass index [BMI] 23.0-23.9, adult
CPT/HCPCS: 36415; 36600; 70450-TC; 71045-TC-FY; 80053; 80307; 81003; 82803; 82962; 83605; 83735; 84100; 84439; 84443; 84484; 85025; 85610; 85730; 86850; 86900; 86901; 87040; 87086; 87186; 93005; 93010; 97161-GP; 99285-25; C9803; U0003; U0005

== ENCOUNTER 2021-05-13 03:19 | Observation (INO) | payer OTHER ==
[2021-05-13] MEDS ORDERED: HALOPERIDOL LACTATE 5 MG/ML IM ONE (04:04)
[2021-05-13] MEDS ORDERED: LORazepam 2 MG/ML SDV VIAL IM ONE (04:05)
[2021-05-13] MEDS ORDERED: HALOPERIDOL LACTATE 5 MG/ML ONE (04:06)
[2021-05-13] MEDS ORDERED: LORazepam 2 MG/ML SDV VIAL ONE (04:07)
[2021-05-13 04:51] LABS: BASO % 0.5 % (0-2.0); EOS % 0.9 % (0-4.5); HEMATOCRIT 28.7 % (35.4-49); HEMOGLOBIN 9.1 GM/dL (11.7-16.9); LYMPH % 10.9 % (8-40); MCH 24.7 pg (25.7-33.7); MCHC 31.9 g/dl (32.0-35.9); MEAN CELL VOLUME 77.5 fl (80-96); MEAN PLT VOLUME 6.6 fl (7.5-11.1); MONO % 4.8 % (3.8-10.2); NEUT % 82.9 % (42.8-82.8); PLATELET COUNT 528 10^3/uL (134-434); RDW 17.2 % (11.9-15.9); WHITE BLOOD COUNT 11.3 K/mm3 (4.0-10.0)
[2021-05-13 05:10] LABS: INR 1.18 (0.83-1.09); PROTHROMBIN TIME (PATIENT) 13.8 SEC (9.7-13.0)
[2021-05-13 05:13] LABS: ACTIVATED PTT 37.1 SECONDS (25.2-36.5)
[2021-05-13 05:14] LABS: CHLORIDE 101 mmol/L (98-107); SODIUM 139 mmol/L (136-145)
[2021-05-13 05:16] LABS: ANION GAP 10 MMOL/L (8-16); CO2 28 mmol/L (21-32)
[2021-05-13 05:17] LABS: BLOOD UREA NITROGEN 17.7 mg/dL (7-18); GLUCOSE,RANDOM 117 mg/dL (74-106)
[2021-05-13 05:19] LABS: SGPT/ALT 33 U/L (13-61)
[2021-05-13 05:20] LABS: CREATININE 1.2 mg/dL (0.55-1.3); SGOT/AST 36 U/L (15-37)
[2021-05-13 05:21] LABS: BILIRUBIN,TOTAL 0.3 mg/dL (0.2-1); TOT PROT 7.6 g/dl (6.4-8.2)
[2021-05-13 05:22] LABS: ALK PHOS 122 U/L (45-117)
[2021-05-13 08:01] LABS: EPI CELLS 3 /uL (0-25.1); HYALINE CASTS 4 /uL (0-3.1); URINE APPEARANCE CLOUDY; URINE BACTERIA 1980 /uL (0-1359); URINE BILIRUBIN NEGATIVE (NEGATIVE); URINE COLOR YELLOW; URINE GLUCOSE (UA) NEGATIVE (NEGATIVE); URINE KETONE NEGATIVE (NEGATIVE); URINE LEUK ESTERASE 3+ (NEGATIVE); URINE NITRITE NEGATIVE (NEGATIVE); URINE PROTEIN NEGATIVE (NEGATIVE); URINE RBC 4 /uL (0-23.9); URINE UROBILINOGEN 0.2 mg/dL (0.2-1.0); URINE WBC 301 /uL (0-25.8)
[2021-05-13] MEDS ORDERED: PIPERACILLIN/TAZOB 3.375 GM 3.375 GM in DEXTROSE 5%-WATER - 50 ML IVPB ONE (08:32)
[2021-05-13] MEDS ORDERED: PIPERACILLIN/TAZOB 3.375 GM 3.375 GM/50 ML BAG IVPB ONE (08:50)
[2021-05-13] MEDS: SODIUM CHLORIDE 1,000 ML IV SCH (14:19)
[2021-05-13] MEDS ORDERED: TOBRAMYCIN SULFATE 250 MG in SODIUM CHLORIDE 100 ML IVPB ONE (14:27)
[2021-05-14] MEDS: levETIRAcetam 500 MG TABLET (FP) PO SCH ×3 (02:08→20:59)
[2021-05-14] MEDS: PRAMIPEXOLE DIHYDROCHLORIDE 0.25 MG TABLET PO SCH ×3 (02:09→20:59)
[2021-05-14] MEDS: ATORVASTATIN CA 80 MG TABLET (FP) PO SCH ×2 (02:09→22:02)
[2021-05-14 09:04] LABS: HEMATOCRIT 26.6 % (35.4-49); HEMOGLOBIN 8.7 GM/dL (11.7-16.9); MCH 25.5 pg (25.7-33.7); MCHC 32.7 g/dl (32.0-35.9); MEAN PLT VOLUME 6.4 fl (7.5-11.1); PLATELET COUNT 462 10^3/uL (134-434); RBC 3.41 M/mm3 (4.00-5.60); WHITE BLOOD COUNT 6.5 K/mm3 (4.0-10.0)
[2021-05-14] MEDS ORDERED: PT OWN MED DRAWER 7, Y5N ONE (09:11)
[2021-05-14 09:21] LABS: CALCIUM 9.3 mg/dL (8.5-10.1)
[2021-05-14 09:22] LABS: BLOOD UREA NITROGEN 13.8 mg/dL (7-18); MAGNESIUM 2.6 mg/dL (1.8-2.4)
[2021-05-14 09:25] LABS: CREATININE 0.9 mg/dL (0.55-1.3); PHOSPHOROUS 3.6 mg/dL (2.5-4.9)
[2021-05-14 09:26] LABS: BILIRUBIN,TOTAL 0.5 mg/dL (0.2-1)
[2021-05-14 09:27] LABS: TOT PROT 6.9 g/dl (6.4-8.2)
[2021-05-14] MEDS: AMINO ACIDS/PROTEIN HYDROLYS 30 ML LIQUID.PKT PO SCH (17:02)
[2021-05-14] MEDS: QUEtiapine FUMARATE 25 MG TABLET PO SCH (20:59)
[2021-05-14] MEDS: METOPROLOL TARTRATE 25 MG TABLET (FP) PO SCH (20:59)
[2021-05-14] MEDS: SODIUM CHLORIDE 1,000 ML IV SCH (21:00)
[2021-05-15] MEDS: COLLAGENASE CLOSTRIDIUM HIST. 30 GRAMS TUBE TP SCH (10:11)
[2021-05-15] MEDS: levETIRAcetam 500 MG TABLET (FP) PO SCH ×2 (11:15→22:37)
[2021-05-15] MEDS: METOPROLOL TARTRATE 25 MG TABLET (FP) PO SCH ×2 (11:15→22:37)
[2021-05-15] MEDS: PRAMIPEXOLE DIHYDROCHLORIDE 0.25 MG TABLET PO SCH ×2 (11:15→22:37)
[2021-05-15] MEDS: PANTOPRAZOLE 40 MG TABLET PO SCH (11:16)
[2021-05-15] MEDS: MULTIVITAMINS (DAILY MVI) TABLET (FP) PO SCH (11:16)
[2021-05-15] MEDS: AMINO ACIDS/PROTEIN HYDROLYS 30 ML LIQUID.PKT PO SCH ×2 (11:16→18:11)
[2021-05-15 12:51] LABS: BASO % 0.7 % (0-2.0); EOS % 1.5 % (0-4.5); HEMATOCRIT 28.8 % (35.4-49); HEMOGLOBIN 9.2 GM/dL (11.7-16.9); LYMPH % 16.7 % (8-40); MCH 24.9 pg (25.7-33.7); MEAN CELL VOLUME 77.6 fl (80-96); MEAN PLT VOLUME 6.3 fl (7.5-11.1); MONO % 4.9 % (3.8-10.2); NEUT % 76.2 % (42.8-82.8); PLATELET COUNT 538 10^3/uL (134-434); RBC 3.71 M/mm3 (4.00-5.60); RDW 17.1 % (11.9-15.9); WHITE BLOOD COUNT 5.7 K/mm3 (4.0-10.0)
[2021-05-15 13:16] LABS: ALBUMIN 3.1 g/dl (3.4-5.0); BLOOD UREA NITROGEN 15.5 mg/dL (7-18); CALCIUM 9.5 mg/dL (8.5-10.1); MAGNESIUM 2.6 mg/dL (1.8-2.4)
[2021-05-15 13:21] LABS: BILIRUBIN,TOTAL 0.4 mg/dL (0.2-1); TOT PROT 7.6 g/dl (6.4-8.2)
[2021-05-15] MEDS ORDERED: PT OWN MED DRAWER 7, Y5N ONE (15:57)
[2021-05-15] MEDS: QUEtiapine FUMARATE 25 MG TABLET PO SCH (22:37)
[2021-05-15] MEDS: ATORVASTATIN CA 80 MG TABLET (FP) PO SCH (22:37)
[2021-05-16] MEDS ORDERED: MELATONIN 5 MG TABLETS PO PRN (00:18)
[2021-05-16 08:40] LABS: HEMOGLOBIN 7.8 GM/dL (11.7-16.9); RBC 3.08 M/mm3 (4.00-5.60); WHITE BLOOD COUNT 4.7 K/mm3 (4.0-10.0)
[2021-05-16 08:41] LABS: BASO % 0.8 % (0-2.0); EOS % 1.6 % (0-4.5); HEMATOCRIT 23.7 % (35.4-49); LYMPH % 26.9 % (8-40); MCH 25.2 pg (25.7-33.7); MCHC 32.8 g/dl (32.0-35.9); MEAN CELL VOLUME 76.8 fl (80-96); MEAN PLT VOLUME 6.4 fl (7.5-11.1); MONO % 6.8 % (3.8-10.2); NEUT % 63.9 % (42.8-82.8); PLATELET COUNT 477 10^3/uL (134-434); RDW 17.4 % (11.9-15.9)
[2021-05-16] MEDS: AMINO ACIDS/PROTEIN HYDROLYS 30 ML LIQUID.PKT PO SCH (09:08)
[2021-05-16] MEDS: PANTOPRAZOLE 40 MG TABLET PO SCH (09:09)
[2021-05-16] MEDS: levETIRAcetam 500 MG TABLET (FP) PO SCH (09:10)
[2021-05-16] MEDS: MULTIVITAMINS (DAILY MVI) TABLET (FP) PO SCH (09:10)
[2021-05-16] MEDS: METOPROLOL TARTRATE 25 MG TABLET (FP) PO SCH (09:11)
[2021-05-16 09:38] LABS: ALBUMIN 2.6 g/dl (3.4-5.0); BLOOD UREA NITROGEN 17.1 mg/dL (7-18); CALCIUM 9.1 mg/dL (8.5-10.1)
[2021-05-16 09:39] LABS: MAGNESIUM 2.8 mg/dL (1.8-2.4)
[2021-05-16 09:43] LABS: BILIRUBIN,TOTAL 0.4 mg/dL (0.2-1); TOT PROT 6.5 g/dl (6.4-8.2)
[2021-05-16] MEDS: PRAMIPEXOLE DIHYDROCHLORIDE 0.25 MG TABLET PO SCH (10:05)
[2021-05-16] MEDS: COLLAGENASE CLOSTRIDIUM HIST. 30 GRAMS TUBE TP SCH (10:06)
[2021-05-16 15:34] VITALS: BMI 23.1
[2021-05-16 15:47] VITALS: BP 128/72; PULSE 70; TEMP 98.5
== END 2021-05-16 15:58 | disposition home health service (06) ==
LOC: JER 03:19 → INTOOBSV 09:54 → UNDOADMOB 09:54 → JERBED 09:54 → J8W 21:24 → JERBED 05-14 11:59
PROVIDERS: ADMIT Internal Medicine; ATTEND Nurse Practitioner Acute Care
PROC: 3E023NZ Introduction of Analgesics, Hypnotics, Sedatives into Muscle, Percutaneous Approach (ICD-10-PCS; principal; 2021-05-14)
PROC: 3E03329 Introduction of Other Anti-infective into Peripheral Vein, Percutaneous Approach (ICD-10-PCS; 2021-05-14)
DX: G92.8 Other toxic encephalopathy (principal); G95.0 Syringomyelia and syringobulbia; M24.50 Contracture, unspecified joint; A52.17 General paresis; N31.9 Neuromuscular dysfunction of bladder, unspecified; N39.498 Other specified urinary incontinence; Z96.0 Presence of urogenital implants; R56.9 Unspecified convulsions; Z86.73 Personal history of transient ischemic attack (TIA), and cerebral infarction without residual deficits; I10 Essential (primary) hypertension; Z87.440 Personal history of urinary (tract) infections; N39.0 Urinary tract infection, site not specified; Z29.9 Encounter for prophylactic measures, unspecified; T65.91XA Toxic effect of unspecified substance, accidental (unintentional), initial encounter; Y92.9 Unspecified place or not applicable
CPT/HCPCS: 36415; 70450-TC; 71045-TC-FY; 80053; 80177; 80200; 81003; 82550; 82553; 83735; 84100; 84484; 85025; 85027; 85610; 85730; 86850; 86900; 86901; 87040; 87086; 87186; 93005; 93010; 96365; 96367; 96372; 97161-GP; 99285-25; C9803; G0378; U0003; U0005

== ENCOUNTER 2021-05-18 21:21 | Observation (INO) | payer OTHER ==
[2021-05-18] MEDS ORDERED: HALOPERIDOL LACTATE 5 MG/ML IM ONE ×2 (22:11→23:15)
[2021-05-18] MEDS ORDERED: HALOPERIDOL LACTATE 5 MG/ML ONE ×2 (22:17→23:15)
[2021-05-18] MEDS ORDERED: LORazepam 2 MG/ML SDV VIAL IM ONE (22:49)
[2021-05-18] MEDS ORDERED: LORazepam 2 MG/ML SDV VIAL ONE (22:54)
[2021-05-19 00:12] LABS: BASO % 0.5 % (0-2.0); EOS % 1.2 % (0-4.5); HEMOGLOBIN 8.4 GM/dL (11.7-16.9); LYMPH % 11.3 % (8-40); MCH 24.7 pg (25.7-33.7); MCHC 32.3 g/dl (32.0-35.9); MEAN CELL VOLUME 76.6 fl (80-96); MEAN PLT VOLUME 6.2 fl (7.5-11.1); MONO % 5.1 % (3.8-10.2); NEUT % 81.9 % (42.8-82.8); PLATELET COUNT 483 10^3/uL (134-434); RBC 3.39 M/mm3 (4.00-5.60); RDW 17.1 % (11.9-15.9); WHITE BLOOD COUNT 8.2 K/mm3 (4.0-10.0)
[2021-05-19 00:32] LABS: CHLORIDE 104 mmol/L (98-107); INR 1.18 (0.83-1.09); PROTHROMBIN TIME (PATIENT) 13.8 SEC (9.7-13.0); SODIUM 142 mmol/L (136-145)
[2021-05-19 00:34] LABS: ACTIVATED PTT 36.5 SECONDS (25.2-36.5); CALCIUM 9.1 mg/dL (8.5-10.1)
[2021-05-19 00:35] LABS: ANION GAP 8 MMOL/L (8-16); BLOOD UREA NITROGEN 19.3 mg/dL (7-18); CO2 30 mmol/L (21-32); GLUCOSE,RANDOM 119 mg/dL (74-106); MAGNESIUM 2.5 mg/dL (1.8-2.4)
[2021-05-19 00:38] LABS: CREATININE 1.1 mg/dL (0.55-1.3); SGOT/AST 32 U/L (15-37); SGPT/ALT 29 U/L (13-61)
[2021-05-19 00:39] LABS: TOT PROT 7.6 g/dl (6.4-8.2)
[2021-05-19 00:40] LABS: BILIRUBIN,TOTAL 0.3 mg/dL (0.2-1)
[2021-05-19 02:34] LABS: ALBUMIN 3.2 g/dl (3.4-5.0); ALK PHOS 130 U/L (45-117)
[2021-05-19 02:35] LABS: LACTIC ACID 2.4 mmol/L (0.4-2.0)
[2021-05-19] MEDS ORDERED: SODIUM CHLORIDE 0.9% 500 ML INFUS.BAG IV ONE ×2 (02:52→02:53)
[2021-05-19] MEDS ORDERED: SODIUM CHLORIDE 1,000 ML IV STA (03:37)
[2021-05-19 04:15] LABS: EPI CELLS 10 /uL (0-25.1); HYALINE CASTS 3 /uL (0-3.1); PH,URINE 6.5 (5.0-8.0); URINE APPEARANCE Error; URINE BACTERIA >9,000 /uL (0-1359); URINE BILIRUBIN NEGATIVE (NEGATIVE); URINE COLOR YELLOW; URINE GLUCOSE (UA) NEGATIVE (NEGATIVE); URINE KETONE NEGATIVE (NEGATIVE); URINE LEUK ESTERASE 3+ (NEGATIVE); URINE NITRITE POSITIVE (NEGATIVE); URINE PROTEIN TRACE (NEGATIVE); URINE RBC 31 /uL (0-23.9); URINE UROBILINOGEN 0.2 mg/dL (0.2-1.0); URINE WBC 727 /uL (0-25.8)
[2021-05-19] MEDS ORDERED: TOBRAMYCIN SULFATE IVPB ONE (05:30)
[2021-05-19] MEDS ORDERED: SODIUM CHLORIDE IVPB ONE (05:30)
[2021-05-19 05:37] LABS: BASO % 0.4 % (0-2.0); EOS % 1.5 % (0-4.5); HEMATOCRIT 25.9 % (35.4-49); HEMOGLOBIN 8.2 GM/dL (11.7-16.9); LYMPH % 13.4 % (8-40); MCH 24.7 pg (25.7-33.7); MCHC 31.7 g/dl (32.0-35.9); MEAN CELL VOLUME 77.7 fl (80-96); MEAN PLT VOLUME 6.3 fl (7.5-11.1); MONO % 5.9 % (3.8-10.2); NEUT % 78.8 % (42.8-82.8); PLATELET COUNT 429 10^3/uL (134-434); RBC 3.33 M/mm3 (4.00-5.60); RDW 17.4 % (11.9-15.9); WHITE BLOOD COUNT 7.6 K/mm3 (4.0-10.0)
[2021-05-19] MEDS ORDERED: PT OWN MED DRAWER 7, Y5N ONE (05:45)
[2021-05-19] MEDS: SODIUM CHLORIDE 1,000 ML IV SCH (05:52)
[2021-05-19 05:58] LABS: ALBUMIN 2.8 g/dl (3.4-5.0); BLOOD UREA NITROGEN 18.8 mg/dL (7-18); CALCIUM 8.8 mg/dL (8.5-10.1); MAGNESIUM 2.2 mg/dL (1.8-2.4)
[2021-05-19 06:01] LABS: PHOSPHOROUS 3.6 mg/dL (2.5-4.9)
[2021-05-19 06:03] LABS: BILIRUBIN,TOTAL 0.2 mg/dL (0.2-1); TOT PROT 6.8 g/dl (6.4-8.2)
[2021-05-19] MEDS ORDERED: HEPARIN NA (PORCINE) 5,000 UNITS/ML 1ML VIAL ONE ×2 (06:13→14:40)
[2021-05-19] MEDS: HEPARIN NA (PORCINE) 5,000 UNITS/ML 1ML VIAL SQ SCH ×3 (06:32→23:54)
[2021-05-19 07:13] LABS: ERYTHROCYTE SEDIMENTATION RATE 95 mm/hr (0-20)
[2021-05-19] MEDS: AMINO ACIDS/PROTEIN HYDROLYS 30 ML LIQUID.PKT PO SCH ×2 (08:05→17:34)
[2021-05-19] MEDS ORDERED: levETIRAcetam 500 MG TABLET (FP) PO ONE (09:54)
[2021-05-19] MEDS ORDERED: MULTIVITAMINS (DAILY MVI) TABLET (FP) ONE (09:55)
[2021-05-19] MEDS ORDERED: PANTOPRAZOLE 40 MG TABLET ONE (09:55)
[2021-05-19] MEDS: levETIRAcetam 500 MG TABLET (FP) PO SCH ×2 (10:05→23:54)
[2021-05-19] MEDS: PRAMIPEXOLE DIHYDROCHLORIDE 0.25 MG TABLET PO SCH (10:05)
[2021-05-19] MEDS: COLLAGENASE CLOSTRIDIUM HIST. 30 GRAMS TUBE TP SCH (10:45)
[2021-05-19] MEDS: PANTOPRAZOLE 40 MG TABLET PO SCH ×2 (10:45→23:54)
[2021-05-19] MEDS: METOPROLOL TARTRATE 25 MG TABLET (FP) PO SCH ×2 (10:45→23:54)
[2021-05-19] MEDS: MULTIVITAMINS (DAILY MVI) TABLET (FP) PO SCH (10:59)
[2021-05-19] MEDS: SODIUM CHLORIDE IVPB SCH ×2 (11:40→18:00)
[2021-05-19] MEDS: TOBRAMYCIN SULFATE IVPB SCH ×2 (11:40→18:00)
[2021-05-19] MEDS: ATORVASTATIN CA 80 MG TABLET (FP) PO SCH (23:54)
[2021-05-19] MEDS: QUEtiapine FUMARATE 25 MG TABLET PO SCH (23:54)
[2021-05-20] MEDS: PRAMIPEXOLE DIHYDROCHLORIDE 0.25 MG TABLET PO SCH ×3 (00:21→22:07)
[2021-05-20] MEDS: SODIUM CHLORIDE IVPB SCH ×3 (01:59→11:08)
[2021-05-20] MEDS: TOBRAMYCIN SULFATE IVPB SCH ×3 (01:59→11:08)
[2021-05-20] MEDS ORDERED: VANCOMYCIN 1 GRAM (PRE-DOCKED) 1,000 MG/250 ML BAG IVPB ONE (04:17)
[2021-05-20] MEDS: SODIUM CHLORIDE 1,000 ML IV SCH ×2 (05:39→19:06)
[2021-05-20] MEDS: HEPARIN NA (PORCINE) 5,000 UNITS/ML 1ML VIAL SQ SCH ×3 (05:39→22:06)
[2021-05-20 09:13] LABS: BASO % 0.8 % (0-2.0); EOS % 2.5 % (0-4.5); HEMATOCRIT 24.3 % (35.4-49); HEMOGLOBIN 7.9 GM/dL (11.7-16.9); LYMPH % 27.9 % (8-40); MCH 24.7 pg (25.7-33.7); MCHC 32.5 g/dl (32.0-35.9); MEAN CELL VOLUME 75.9 fl (80-96); MEAN PLT VOLUME 6.3 fl (7.5-11.1); MONO % 6.6 % (3.8-10.2); NEUT % 62.2 % (42.8-82.8); PLATELET COUNT 395 10^3/uL (134-434); RDW 17.1 % (11.9-15.9); WHITE BLOOD COUNT 4.8 K/mm3 (4.0-10.0)
[2021-05-20 09:33] LABS: CALCIUM 8.8 mg/dL (8.5-10.1)
[2021-05-20 09:34] LABS: ALBUMIN 2.6 g/dl (3.4-5.0); MAGNESIUM 2.4 mg/dL (1.8-2.4)
[2021-05-20 09:37] LABS: CREATININE 0.9 mg/dL (0.55-1.3)
[2021-05-20 09:39] LABS: BILIRUBIN,TOTAL 0.5 mg/dL (0.2-1); TOT PROT 6.6 g/dl (6.4-8.2)
[2021-05-20] MEDS: levETIRAcetam 500 MG TABLET (FP) PO SCH ×2 (10:00→22:07)
[2021-05-20] MEDS: AMINO ACIDS/PROTEIN HYDROLYS 30 ML LIQUID.PKT PO SCH ×2 (10:00→16:55)
[2021-05-20] MEDS: METOPROLOL TARTRATE 25 MG TABLET (FP) PO SCH ×2 (10:01→22:07)
[2021-05-20] MEDS: MULTIVITAMINS (DAILY MVI) TABLET (FP) PO SCH (10:01)
[2021-05-20] MEDS: PANTOPRAZOLE 40 MG TABLET PO SCH ×2 (10:01→22:07)
[2021-05-20] MEDS: VANCOMYCIN 1 GRAM (PRE-DOCKED) 1,000 MG/250 ML BAG IVPB SCH ×2 (11:06→22:07)
[2021-05-20] MEDS: COLLAGENASE CLOSTRIDIUM HIST. 30 GRAMS TUBE TP SCH (15:43)
[2021-05-20] MEDS: QUEtiapine FUMARATE 25 MG TABLET PO SCH (22:07)
[2021-05-20] MEDS: ATORVASTATIN CA 80 MG TABLET (FP) PO SCH (22:07)
[2021-05-21] MEDS: HEPARIN NA (PORCINE) 5,000 UNITS/ML 1ML VIAL SQ SCH ×4 (05:55→21:29)
[2021-05-21] MEDS: SODIUM CHLORIDE 1,000 ML IV SCH ×3 (05:55→21:46)
[2021-05-21] MEDS ORDERED: PT OWN MED DRAWER 7, Y5N ONE ×2 (07:57→10:54)
[2021-05-21] MEDS: PRAMIPEXOLE DIHYDROCHLORIDE 0.25 MG TABLET PO SCH ×2 (10:58→21:29)
[2021-05-21] MEDS: AMINO ACIDS/PROTEIN HYDROLYS 30 ML LIQUID.PKT PO SCH ×3 (10:58→17:42)
[2021-05-21] MEDS: MULTIVITAMINS (DAILY MVI) TABLET (FP) PO SCH (10:58)
[2021-05-21] MEDS: PANTOPRAZOLE 40 MG TABLET PO SCH ×2 (10:58→21:28)
[2021-05-21] MEDS: METOPROLOL TARTRATE 25 MG TABLET (FP) PO SCH ×2 (10:58→21:28)
[2021-05-21] MEDS: levETIRAcetam 500 MG TABLET (FP) PO SCH ×2 (10:58→21:29)
[2021-05-21] MEDS: VANCOMYCIN 1 GRAM (PRE-DOCKED) 1,000 MG/250 ML BAG IVPB SCH ×2 (10:59→21:29)
[2021-05-21] MEDS: COLLAGENASE CLOSTRIDIUM HIST. 30 GRAMS TUBE TP SCH (10:59)
[2021-05-21 11:00] LABS: BASO % 1.2 % (0-2.0); HEMATOCRIT 22.9 % (35.4-49); HEMOGLOBIN 7.4 GM/dL (11.7-16.9); LYMPH % 27.5 % (8-40); MCH 24.3 pg (25.7-33.7); MCHC 32.1 g/dl (32.0-35.9); MEAN CELL VOLUME 75.7 fl (80-96); MEAN PLT VOLUME 6.4 fl (7.5-11.1); MONO % 7.7 % (3.8-10.2); NEUT % 60.6 % (42.8-82.8); PLATELET COUNT 400 10^3/uL (134-434); RBC 3.02 M/mm3 (4.00-5.60); RDW 17.2 % (11.9-15.9); WHITE BLOOD COUNT 4.5 K/mm3 (4.0-10.0)
[2021-05-21 11:31] LABS: CALCIUM 8.6 mg/dL (8.5-10.1)
[2021-05-21 11:32] LABS: ALBUMIN 2.5 g/dl (3.4-5.0); BLOOD UREA NITROGEN 15.4 mg/dL (7-18); MAGNESIUM 2.2 mg/dL (1.8-2.4)
[2021-05-21 11:35] LABS: CREATININE 0.8 mg/dL (0.55-1.3)
[2021-05-21 11:36] LABS: BILIRUBIN,TOTAL 0.5 mg/dL (0.2-1); TOT PROT 6.1 g/dl (6.4-8.2)
[2021-05-21 11:47] LABS: BILIRUBIN,DIRECT 0.2 mg/dL (0.0-0.2)
[2021-05-21 18:20] VITALS: BMI 21.1
[2021-05-21] MEDS ORDERED: MELATONIN 5 MG TABLETS PO ONE (20:42)
[2021-05-21] MEDS: QUEtiapine FUMARATE 25 MG TABLET PO SCH (21:28)
[2021-05-21] MEDS: ATORVASTATIN CA 80 MG TABLET (FP) PO SCH (21:29)
[2021-05-22] MEDS ORDERED: SODIUM CHLORIDE NASAL SPRAY 44 ML BOTTLE NS PRN (00:56)
[2021-05-22] MEDS: HEPARIN NA (PORCINE) 5,000 UNITS/ML 1ML VIAL SQ SCH ×4 (05:40→21:04)
[2021-05-22] MEDS ORDERED: MELATONIN 5 MG TABLETS PO PRN (07:31)
[2021-05-22 08:40] LABS: BASO % 0.9 % (0-2.0); EOS % 2.8 % (0-4.5); HEMATOCRIT 22.7 % (35.4-49); HEMOGLOBIN 7.4 GM/dL (11.7-16.9); LYMPH % 25.7 % (8-40); MCH 24.6 pg (25.7-33.7); MCHC 32.4 g/dl (32.0-35.9); MEAN CELL VOLUME 75.8 fl (80-96); MEAN PLT VOLUME 6.5 fl (7.5-11.1); MONO % 7.7 % (3.8-10.2); NEUT % 62.9 % (42.8-82.8); PLATELET COUNT 392 10^3/uL (134-434); WHITE BLOOD COUNT 4.2 K/mm3 (4.0-10.0)
[2021-05-22 09:32] LABS: ALBUMIN 2.3 g/dl (3.4-5.0); BLOOD UREA NITROGEN 12.2 mg/dL (7-18); CALCIUM 8.8 mg/dL (8.5-10.1); CREATININE 0.9 mg/dL (0.55-1.3); MAGNESIUM 2.2 mg/dL (1.8-2.4)
[2021-05-22 09:34] LABS: BILIRUBIN,TOTAL 0.4 mg/dL (0.2-1); TOT PROT 5.9 g/dl (6.4-8.2)
[2021-05-22] MEDS: VANCOMYCIN 1 GRAM (PRE-DOCKED) 1,000 MG/250 ML BAG IVPB SCH (10:55)
[2021-05-22] MEDS: ASCORBIC ACID 500 MG TABLET (FP) GT SCH (10:56)
[2021-05-22] MEDS: levETIRAcetam 500 MG TABLET (FP) PO SCH ×2 (10:56→21:07)
[2021-05-22] MEDS: PRAMIPEXOLE DIHYDROCHLORIDE 0.25 MG TABLET PO SCH ×2 (10:56→21:06)
[2021-05-22] MEDS: METOPROLOL TARTRATE 25 MG TABLET (FP) PO SCH ×2 (10:56→21:05)
[2021-05-22] MEDS: AMINO ACIDS/PROTEIN HYDROLYS 30 ML LIQUID.PKT PO SCH ×2 (10:56→17:44)
[2021-05-22] MEDS: ZINC SULFATE 220 MG CAPSULE (FP) PO SCH (10:56)
[2021-05-22] MEDS: MULTIVITAMINS (DAILY MVI) TABLET (FP) PO SCH (10:56)
[2021-05-22] MEDS: PANTOPRAZOLE 40 MG TABLET PO SCH ×2 (10:56→21:05)
[2021-05-22] MEDS: SODIUM CHLORIDE 1,000 ML IV SCH (10:57)
[2021-05-22] MEDS: COLLAGENASE CLOSTRIDIUM HIST. 30 GRAMS TUBE TP SCH (10:57)
[2021-05-22] MEDS ORDERED: PT OWN MED DRAWER 7, Y5N ONE (20:59)
[2021-05-22] MEDS: ATORVASTATIN CA 80 MG TABLET (FP) PO SCH (21:06)
[2021-05-22] MEDS: QUEtiapine FUMARATE 25 MG TABLET PO SCH (21:06)
[2021-05-23] MEDS: SODIUM CHLORIDE 1,000 ML IV SCH (06:08)
[2021-05-23] MEDS: HEPARIN NA (PORCINE) 5,000 UNITS/ML 1ML VIAL SQ SCH ×3 (06:09→21:35)
[2021-05-23 09:39] LABS: BASO % 0.5 % (0-2.0); EOS % 2.6 % (0-4.5); HEMATOCRIT 23.8 % (35.4-49); HEMOGLOBIN 7.7 GM/dL (11.7-16.9); LYMPH % 19.5 % (8-40); MCH 24.3 pg (25.7-33.7); MCHC 32.6 g/dl (32.0-35.9); MEAN CELL VOLUME 74.5 fl (80-96); MEAN PLT VOLUME 6.1 fl (7.5-11.1); MONO % 6.9 % (3.8-10.2); NEUT % 70.5 % (42.8-82.8); PLATELET COUNT 384 10^3/uL (134-434); RBC 3.19 M/mm3 (4.00-5.60); RDW 17.5 % (11.9-15.9); WHITE BLOOD COUNT 6.3 K/mm3 (4.0-10.0)
[2021-05-23] MEDS: AMINO ACIDS/PROTEIN HYDROLYS 30 ML LIQUID.PKT PO SCH ×2 (09:47→16:41)
[2021-05-23] MEDS: METOPROLOL TARTRATE 25 MG TABLET (FP) PO SCH ×2 (09:48→21:34)
[2021-05-23] MEDS: ZINC SULFATE 220 MG CAPSULE (FP) PO SCH (09:48)
[2021-05-23] MEDS: levETIRAcetam 500 MG TABLET (FP) PO SCH (09:48)
[2021-05-23] MEDS: ASCORBIC ACID 500 MG TABLET (FP) GT SCH (09:48)
[2021-05-23] MEDS: PRAMIPEXOLE DIHYDROCHLORIDE 0.25 MG TABLET PO SCH ×2 (09:48→21:34)
[2021-05-23] MEDS: MULTIVITAMINS (DAILY MVI) TABLET (FP) PO SCH (09:48)
[2021-05-23] MEDS: COLLAGENASE CLOSTRIDIUM HIST. 30 GRAMS TUBE TP SCH (09:48)
[2021-05-23] MEDS: PANTOPRAZOLE 40 MG TABLET PO SCH ×2 (09:48→21:34)
[2021-05-23 09:52] LABS: ALBUMIN 2.6 g/dl (3.4-5.0); MAGNESIUM 2.1 mg/dL (1.8-2.4)
[2021-05-23 09:56] LABS: BILIRUBIN,TOTAL 0.4 mg/dL (0.2-1)
[2021-05-23 09:57] LABS: TOT PROT 6.4 g/dl (6.4-8.2)
[2021-05-23] MEDS ORDERED: levETIRAcetam 500 MG TABLET (FP) PO SCH ×2 (11:20→12:12)
[2021-05-23] MEDS ORDERED: PT OWN MED DRAWER 7, Y5N ONE ×2 (14:37→21:23)
[2021-05-23] MEDS: ATORVASTATIN CA 80 MG TABLET (FP) PO SCH (21:34)
[2021-05-23] MEDS: QUEtiapine FUMARATE 25 MG TABLET PO SCH (21:35)
[2021-05-23 23:06] VITALS: BP 133/69; PULSE 89; TEMP 98.2
== END 2021-05-24 01:00 | disposition home or self-care (01) ==
LOC: JER 21:21 → INTOOBSV 05-19 03:59 → JERBED 05-19 03:59 → J8W 05-19 22:49 → J4S 05-21 14:06
PROVIDERS: ADMIT Internal Medicine; ATTEND Nurse Practitioner Family
PROC: 3E023NZ Introduction of Analgesics, Hypnotics, Sedatives into Muscle, Percutaneous Approach (ICD-10-PCS; principal; 2021-05-19)
PROC: 3E0337Z Introduction of Electrolytic and Water Balance Substance into Peripheral Vein, Percutaneous Approach (ICD-10-PCS; 2021-05-19)
PROC: 3E03329 Introduction of Other Anti-infective into Peripheral Vein, Percutaneous Approach (ICD-10-PCS; 2021-05-19)
DX: N39.0 Urinary tract infection, site not specified (principal); R41.82 Altered mental status, unspecified; I10 Essential (primary) hypertension; G82.20 Paraplegia, unspecified; R31.9 Hematuria, unspecified; G40.909 Epilepsy, unspecified, not intractable, without status epilepticus; L89.220 Pressure ulcer of left hip, unstageable; Z93.59 Other cystostomy status; G95.0 Syringomyelia and syringobulbia; J44.9 Chronic obstructive pulmonary disease, unspecified; K59.00 Constipation, unspecified; Z29.9 Encounter for prophylactic measures, unspecified; Z96.0 Presence of urogenital implants; Z86.14 Personal history of Methicillin resistant Staphylococcus aureus infection; Z87.440 Personal history of urinary (tract) infections; Z87.891 Personal history of nicotine dependence; Z86.73 Personal history of transient ischemic attack (TIA), and cerebral infarction without residual deficits
CPT/HCPCS: 36415; 70450-TC; 71045-TC-FY; 76775-TC; 80053; 80076; 81003; 82550; 82553; 83605; 83690; 83735; 84100; 84484; 85025; 85610; 85651; 85730; 86140; 87040; 87086; 87186; 93005; 93010; 95705; 96361; 96365; 96366; 96372; 96375; 97161-GP; 99285-25; C9803; G0378; J1644; U0003; U0005

== ENCOUNTER 2021-06-05 02:36 | Observation (INO) | payer OTHER ==
[2021-06-05 04:58] LABS: BASO % 0.7 % (0-2.0); HEMATOCRIT 23.2 % (35.4-49); HEMOGLOBIN 7.6 GM/dL (11.7-16.9); LYMPH % 15.3 % (8-40); MCH 23.9 pg (25.7-33.7); MCHC 32.6 g/dl (32.0-35.9); MEAN CELL VOLUME 73.2 fl (80-96); MEAN PLT VOLUME 5.9 fl (7.5-11.1); MONO % 8.2 % (3.8-10.2); NEUT % 72.8 % (42.8-82.8); PLATELET COUNT 425 10^3/uL (134-434); RBC 3.18 M/mm3 (4.00-5.60); RDW 17.6 % (11.9-15.9); WHITE BLOOD COUNT 6.7 K/mm3 (4.0-10.0)
[2021-06-05 05:25] LABS: CHLORIDE 105 mmol/L (98-107); SODIUM 141 mmol/L (136-145)
[2021-06-05 05:27] LABS: ALBUMIN 2.8 g/dl (3.4-5.0); ANION GAP 6 MMOL/L (8-16); BLOOD UREA NITROGEN 17.2 mg/dL (7-18); CALCIUM 8.9 mg/dL (8.5-10.1); CO2 30 mmol/L (21-32); GLUCOSE,RANDOM 133 mg/dL (74-106); MAGNESIUM 2.4 mg/dL (1.8-2.4)
[2021-06-05 05:30] LABS: SGPT/ALT 14 U/L (13-61)
[2021-06-05 05:31] LABS: SGOT/AST 11 U/L (15-37)
[2021-06-05] MEDS ORDERED: MEROPENEM 1 GM in DEXTROSE 5%-WATER 100 ML IVPB ONE (05:31)
[2021-06-05 05:32] LABS: BILIRUBIN,TOTAL 0.2 mg/dL (0.2-1); TOT PROT 6.8 g/dl (6.4-8.2)
[2021-06-05] MEDS ORDERED: VANCOMYCIN 1 GM in D5W (PRE-DOCKED) 1,000 MG/250 ML IVPB ONE (05:32)
[2021-06-05 05:33] LABS: ALK PHOS 125 U/L (45-117)
[2021-06-05] MEDS ORDERED: VANCOMYCIN 1 GRAM (PRE-DOCKED) 1,000 MG/250 ML BAG IVPB ONE (05:57)
[2021-06-05 08:23] LABS: EPI CELLS 1 /uL (0-25.1); HYALINE CASTS 1 /uL (0-3.1); URINE APPEARANCE CLEAR; URINE BACTERIA >9,000 /uL (0-1359); URINE BILIRUBIN NEGATIVE (NEGATIVE); URINE COLOR YELLOW; URINE GLUCOSE (UA) NEGATIVE (NEGATIVE); URINE KETONE NEGATIVE (NEGATIVE); URINE LEUK ESTERASE 3+ (NEGATIVE); URINE NITRITE POSITIVE (NEGATIVE); URINE PROTEIN NEGATIVE (NEGATIVE); URINE RBC 1 /uL (0-23.9); URINE UROBILINOGEN 0.2 mg/dL (0.2-1.0); URINE WBC 217 /uL (0-25.8)
[2021-06-05 12:55] LABS: BASO % 0.4 % (0-2.0); HEMATOCRIT 26.3 % (35.4-49); HEMOGLOBIN 8.5 GM/dL (11.7-16.9); LYMPH % 14.5 % (8-40); MCHC 32.3 g/dl (32.0-35.9); MEAN CELL VOLUME 74.4 fl (80-96); MEAN PLT VOLUME 6.3 fl (7.5-11.1); MONO % 7.2 % (3.8-10.2); NEUT % 75.9 % (42.8-82.8); PLATELET COUNT 421 10^3/uL (134-434); RBC 3.53 M/mm3 (4.00-5.60); RDW 18.1 % (11.9-15.9); WHITE BLOOD COUNT 6.2 K/mm3 (4.0-10.0)
[2021-06-05] MEDS: PRAMIPEXOLE DIHYDROCHLORIDE 0.25 MG TABLET PO SCH (22:45)
[2021-06-05] MEDS: QUEtiapine FUMARATE 25 MG TABLET PO SCH (22:45)
[2021-06-05] MEDS: ATORVASTATIN CA 80 MG TABLET (FP) PO SCH (22:45)
[2021-06-05] MEDS: levETIRAcetam 500 MG TABLET (FP) PO SCH (22:45)
[2021-06-05] MEDS: PANTOPRAZOLE 40 MG TABLET PO SCH (22:45)
[2021-06-05] MEDS: METOPROLOL TARTRATE 25 MG TABLET (FP) PO SCH (22:46)
[2021-06-05] MEDS: MELATONIN 5 MG TABLETS PO SCH (22:46)
[2021-06-06 01:56] VITALS: BMI 22.8
[2021-06-06] MEDS: levETIRAcetam 500 MG TABLET (FP) PO SCH ×2 (10:59→21:37)
[2021-06-06] MEDS: FUROSEMIDE 40 MG TABLET (FP) PO SCH (11:00)
[2021-06-06] MEDS: MULTIVITAMINS (DAILY MVI) TABLET (FP) PO SCH (11:00)
[2021-06-06] MEDS: AMINO ACIDS/PROTEIN HYDROLYS 30 ML LIQUID.PKT PO SCH ×3 (11:00→18:13)
[2021-06-06] MEDS: PRAMIPEXOLE DIHYDROCHLORIDE 0.25 MG TABLET PO SCH ×2 (11:00→21:37)
[2021-06-06] MEDS: METOPROLOL TARTRATE 25 MG TABLET (FP) PO SCH ×2 (11:00→21:37)
[2021-06-06] MEDS: ENOXAPARIN NA (PORCINE) 40 MG/0.4 ML DISP.SYRIN SQ SCH (11:00)
[2021-06-06] MEDS: PANTOPRAZOLE 40 MG TABLET PO SCH ×2 (11:00→21:37)
[2021-06-06] MEDS: MELATONIN 5 MG TABLETS PO SCH (21:37)
[2021-06-06] MEDS: QUEtiapine FUMARATE 25 MG TABLET PO SCH (21:37)
[2021-06-06] MEDS: ATORVASTATIN CA 80 MG TABLET (FP) PO SCH (21:37)
[2021-06-07 05:21] VITALS: BP 130/55; PULSE 94; TEMP 98.7
[2021-06-07] MEDS ORDERED: COLLAGENASE CLOSTRIDIUM HIST. 30 GRAMS TUBE TP SCH (10:00)
[2021-06-07] MEDS: METOPROLOL TARTRATE 25 MG TABLET (FP) PO SCH (10:14)
[2021-06-07] MEDS: AMINO ACIDS/PROTEIN HYDROLYS 30 ML LIQUID.PKT PO SCH (10:14)
[2021-06-07] MEDS: ENOXAPARIN NA (PORCINE) 40 MG/0.4 ML DISP.SYRIN SQ SCH (10:14)
[2021-06-07] MEDS: MULTIVITAMINS (DAILY MVI) TABLET (FP) PO SCH (10:14)
[2021-06-07] MEDS: levETIRAcetam 500 MG TABLET (FP) PO SCH (10:14)
[2021-06-07] MEDS: PANTOPRAZOLE 40 MG TABLET PO SCH (10:14)
[2021-06-07] MEDS: FUROSEMIDE 40 MG TABLET (FP) PO SCH (10:15)
[2021-06-07] MEDS: PRAMIPEXOLE DIHYDROCHLORIDE 0.25 MG TABLET PO SCH (10:15)
== END 2021-06-07 17:11 | disposition home or self-care (01) ==
LOC: JER 02:36 → UNDOADMOB 07:17 → INTOOBSV 07:17 → JERBED 07:17 → J7W 20:58
PROVIDERS: ADMIT Internal Medicine; ATTEND Nurse Practitioner Family
PROC: 3E03329 Introduction of Other Anti-infective into Peripheral Vein, Percutaneous Approach (ICD-10-PCS; principal; 2021-06-05)
PROC: 3E013GC Introduction of Other Therapeutic Substance into Subcutaneous Tissue, Percutaneous Approach (ICD-10-PCS; 2021-06-05)
DX: R41.82 Altered mental status, unspecified (principal); N39.0 Urinary tract infection, site not specified; G93.41 Metabolic encephalopathy; L89.329 Pressure ulcer of left buttock, unspecified stage; L89.229 Pressure ulcer of left hip, unspecified stage; L89.629 Pressure ulcer of left heel, unspecified stage; L89.619 Pressure ulcer of right heel, unspecified stage; I10 Essential (primary) hypertension; J44.9 Chronic obstructive pulmonary disease, unspecified; E78.5 Hyperlipidemia, unspecified; G40.909 Epilepsy, unspecified, not intractable, without status epilepticus; R00.0 Tachycardia, unspecified; Z29.9 Encounter for prophylactic measures, unspecified; Z87.891 Personal history of nicotine dependence; Z86.14 Personal history of Methicillin resistant Staphylococcus aureus infection; Z87.440 Personal history of urinary (tract) infections; Z86.73 Personal history of transient ischemic attack (TIA), and cerebral infarction without residual deficits
CPT/HCPCS: 36415; 71045-TC-FY; 80053; 81003; 83735; 84484; 85025; 87040; 87086; 87186; 87804; 93005; 93010; 96365; 96372; 96375; 99285-25; C9803; G0378; U0003; U0005

== ENCOUNTER 2021-06-11 17:20 | Observation (INO) | payer OTHER ==
[2021-06-11 18:01] VITALS: BMI 29.0
[2021-06-11] MEDS ORDERED: SODIUM CHLORIDE IV ONE (19:14)
[2021-06-11] MEDS ORDERED: levETIRAcetam 500 MG/5 ML INJECTION VIAL IVPB ONE ×2 (20:09→20:16)
[2021-06-11 21:08] LABS: BASO % 0.2 % (0-2.0); EOS % 1.9 % (0-4.5); HEMATOCRIT 25.1 % (35.4-49); LYMPH % 15.7 % (8-40); MCH 23.5 pg (25.7-33.7); MCHC 31.8 g/dl (32.0-35.9); MEAN PLT VOLUME 6.4 fl (7.5-11.1); MONO % 3.9 % (3.8-10.2); NEUT % 78.3 % (42.8-82.8); PLATELET COUNT 477 10^3/uL (134-434); RBC 3.39 M/mm3 (4.00-5.60); RDW 18.5 % (11.9-15.9); WHITE BLOOD COUNT 7.7 K/mm3 (4.0-10.0)
[2021-06-11 21:13] LABS: EPI CELLS 8 /uL (0-25.1); HYALINE CASTS 3 /uL (0-3.1); PH,URINE 7.5 (5.0-8.0); URINE APPEARANCE CLOUDY; URINE BACTERIA >9,000 /uL (0-1359); URINE BILIRUBIN NEGATIVE (NEGATIVE); URINE COLOR YELLOW; URINE GLUCOSE (UA) NEGATIVE (NEGATIVE); URINE KETONE NEGATIVE (NEGATIVE); URINE LEUK ESTERASE 3+ (NEGATIVE); URINE NITRITE NEGATIVE (NEGATIVE); URINE PROTEIN TRACE (NEGATIVE); URINE RBC 3 /uL (0-23.9); URINE UROBILINOGEN 0.2 mg/dL (0.2-1.0); URINE WBC 220 /uL (0-25.8)
[2021-06-11 21:15] LABS: INR 1.09 (0.83-1.09); PROTHROMBIN TIME (PATIENT) 12.8 SEC (9.7-13.0)
[2021-06-11 21:18] LABS: ACTIVATED PTT 33.5 SECONDS (25.2-36.5)
[2021-06-11] MEDS ORDERED: VANCOMYCIN 1,000 MG in DEXTROSE 5%-WATER - 250 ML IVPB ONE (21:23)
[2021-06-11] MEDS ORDERED: MEROPENEM 1 GM in DEXTROSE 5%-WATER 100 ML IVPB ONE (21:23)
[2021-06-11 21:29] LABS: CHLORIDE 102 mmol/L (98-107); SODIUM 141 mmol/L (136-145)
[2021-06-11 21:33] LABS: ANION GAP 9 MMOL/L (8-16); BLOOD UREA NITROGEN 26.2 mg/dL (7-18); CALCIUM 9.2 mg/dL (8.5-10.1); CO2 30 mmol/L (21-32); GLUCOSE,RANDOM 115 mg/dL (74-106)
[2021-06-11 21:36] LABS: SGPT/ALT 17 U/L (13-61)
[2021-06-11 21:37] LABS: CREATININE 1.1 mg/dL (0.55-1.3); SGOT/AST 20 U/L (15-37)
[2021-06-11 21:38] LABS: BILIRUBIN,TOTAL 0.4 mg/dL (0.2-1)
[2021-06-11] MEDS ORDERED: MEROPENEM 1 GM VIAL (RESTRICTED TO ID) IVPB ONE (21:38)
[2021-06-11 21:39] LABS: ALK PHOS 123 U/L (45-117); LACTIC ACID 3.3 mmol/L (0.4-2.0)
[2021-06-11] MEDS ORDERED: VANCOMYCIN 1 GRAM (PRE-DOCKED) 1,000 MG/250 ML BAG IVPB ONE (21:39)
[2021-06-11 21:42] LABS: ALBUMIN 3.4 g/dl (3.4-5.0)
[2021-06-12] MEDS ORDERED: SODIUM CHLORIDE 1,000 ML IV SCH (00:15)
[2021-06-12] MEDS ORDERED: HALOPERIDOL LACTATE 5 MG/ML IM ONE ×2 (06:10)
[2021-06-12] MEDS ORDERED: HALOPERIDOL LACTATE 5 MG/ML ONE ×2 (06:19→06:59)
[2021-06-12 08:10] LABS: BASO % 0.2 % (0-2.0); EOS % 1.3 % (0-4.5); HEMATOCRIT 22.4 % (35.4-49); HEMOGLOBIN 7.1 GM/dL (11.7-16.9); LYMPH % 12.1 % (8-40); MCH 23.6 pg (25.7-33.7); MCHC 31.5 g/dl (32.0-35.9); MEAN CELL VOLUME 74.9 fl (80-96); MEAN PLT VOLUME 6.4 fl (7.5-11.1); MONO % 6.2 % (3.8-10.2); NEUT % 80.2 % (42.8-82.8); PLATELET COUNT 387 10^3/uL (134-434); RDW 18.4 % (11.9-15.9); WHITE BLOOD COUNT 7.7 K/mm3 (4.0-10.0)
[2021-06-12 08:31] LABS: BLOOD UREA NITROGEN 21.3 mg/dL (7-18); MAGNESIUM 2.4 mg/dL (1.8-2.4)
[2021-06-12 08:34] LABS: PHOSPHOROUS 2.8 mg/dL (2.5-4.9)
[2021-06-12] MEDS: AMINO ACIDS/PROTEIN HYDROLYS 30 ML LIQUID.PKT PO SCH (09:03)
[2021-06-12] MEDS: levETIRAcetam 500 MG TABLET (FP) PO SCH (10:03)
[2021-06-12] MEDS: PRAMIPEXOLE DIHYDROCHLORIDE 0.25 MG TABLET PO SCH (10:04)
[2021-06-12] MEDS: METOPROLOL TARTRATE 25 MG TABLET (FP) PO SCH (10:04)
[2021-06-12] MEDS: PANTOPRAZOLE 40 MG TABLET PO SCH (10:04)
[2021-06-12] MEDS: MULTIVITAMINS (DAILY MVI) TABLET (FP) PO SCH (10:05)
[2021-06-12] MEDS: ENOXAPARIN NA (PORCINE) 40 MG/0.4 ML DISP.SYRIN SQ SCH (13:04)
[2021-06-12] MEDS: COLLAGENASE CLOSTRIDIUM HIST. 30 GRAMS TUBE TP SCH (20:16)
[2021-06-12] MEDS ORDERED: ATORVASTATIN CA 80 MG TABLET (FP) PO SCH (22:00)
[2021-06-12] MEDS ORDERED: QUEtiapine FUMARATE 25 MG TABLET PO SCH (22:00)
[2021-06-12] MEDS ORDERED: MELATONIN 5 MG TABLETS PO SCH (22:00)
[2021-06-13] MEDS ORDERED: METOPROLOL TARTRATE 25 MG TABLET (FP) ONE (00:22)
[2021-06-13] MEDS ORDERED: MELATONIN 5 MG TABLETS ONE (00:22)
[2021-06-13] MEDS ORDERED: QUEtiapine FUMARATE 25 MG TABLET ONE (00:23)
[2021-06-13] MEDS ORDERED: PANTOPRAZOLE 40 MG TABLET ONE (00:23)
[2021-06-13] MEDS ORDERED: levETIRAcetam 500 MG TABLET (FP) PO ONE (00:35)
[2021-06-13] MEDS: METOPROLOL TARTRATE 25 MG TABLET (FP) PO SCH ×2 (00:37→10:43)
[2021-06-13] MEDS: levETIRAcetam 500 MG TABLET (FP) PO SCH ×2 (00:37→10:43)
[2021-06-13] MEDS: PANTOPRAZOLE 40 MG TABLET PO SCH ×2 (00:37→10:43)
[2021-06-13] MEDS: PRAMIPEXOLE DIHYDROCHLORIDE 0.25 MG TABLET PO SCH (00:37)
[2021-06-13] MEDS: AMINO ACIDS/PROTEIN HYDROLYS 30 ML LIQUID.PKT PO SCH ×2 (00:38→10:43)
[2021-06-13] MEDS ORDERED: QUEtiapine FUMARATE 25 MG TABLET PO SCH (09:40)
[2021-06-13] MEDS ORDERED: PT OWN MED DRAWER 7, Y5N ONE (10:34)
[2021-06-13] MEDS: ENOXAPARIN NA (PORCINE) 40 MG/0.4 ML DISP.SYRIN SQ SCH (10:43)
[2021-06-13] MEDS: MULTIVITAMINS (DAILY MVI) TABLET (FP) PO SCH (10:43)
[2021-06-13 11:42] LABS: BASO % 0.7 % (0-2.0); EOS % 3.1 % (0-4.5); HEMATOCRIT 22.1 % (35.4-49); HEMOGLOBIN 7.1 GM/dL (11.7-16.9); LYMPH % 13.5 % (8-40); MCH 23.4 pg (25.7-33.7); MEAN CELL VOLUME 73.3 fl (80-96); MEAN PLT VOLUME 6.5 fl (7.5-11.1); MONO % 5.4 % (3.8-10.2); NEUT % 77.3 % (42.8-82.8); PLATELET COUNT 426 10^3/uL (134-434); RBC 3.01 M/mm3 (4.00-5.60); RDW 18.5 % (11.9-15.9); WHITE BLOOD COUNT 6.9 K/mm3 (4.0-10.0)
[2021-06-13 12:12] LABS: ALBUMIN 2.9 g/dl (3.4-5.0); BLOOD UREA NITROGEN 18.6 mg/dL (7-18); CALCIUM 9.2 mg/dL (8.5-10.1)
[2021-06-13 12:14] LABS: CREATININE 0.9 mg/dL (0.55-1.3)
[2021-06-13 12:17] LABS: BILIRUBIN,TOTAL 0.9 mg/dL (0.2-1); TOT PROT 6.5 g/dl (6.4-8.2)
[2021-06-13 12:33] LABS: MAGNESIUM 2.6 mg/dL (1.8-2.4)
[2021-06-13 14:29] VITALS: BP 106/53; PULSE 80; TEMP 98.8
[2021-06-13] MEDS: COLLAGENASE CLOSTRIDIUM HIST. 30 GRAMS TUBE TP SCH (16:34)
== END 2021-06-13 18:06 | disposition home health service (06) ==
LOC: JER 17:20 → INTOOBSV 23:12 → UNDOADMOB 23:12 → JERBED 23:12 → J6S 06-13 01:10
PROVIDERS: ADMIT Hospitalist; ATTEND Nurse Practitioner Acute Care
PROC: 3E023GC Introduction of Other Therapeutic Substance into Muscle, Percutaneous Approach (ICD-10-PCS; principal; 2021-06-12)
PROC: 3E033GC Introduction of Other Therapeutic Substance into Peripheral Vein, Percutaneous Approach (ICD-10-PCS; 2021-06-12)
PROC: 3E03329 Introduction of Other Anti-infective into Peripheral Vein, Percutaneous Approach (ICD-10-PCS; 2021-06-12)
PROC: 3E0337Z Introduction of Electrolytic and Water Balance Substance into Peripheral Vein, Percutaneous Approach (ICD-10-PCS; 2021-06-12)
DX: N39.0 Urinary tract infection, site not specified (principal); R00.0 Tachycardia, unspecified; H05.20 Unspecified exophthalmos; G95.0 Syringomyelia and syringobulbia; N31.9 Neuromuscular dysfunction of bladder, unspecified; R13.10 Dysphagia, unspecified; L89.90 Pressure ulcer of unspecified site, unspecified stage; G82.20 Paraplegia, unspecified; R56.9 Unspecified convulsions; Z29.9 Encounter for prophylactic measures, unspecified; I10 Essential (primary) hypertension; Z86.73 Personal history of transient ischemic attack (TIA), and cerebral infarction without residual deficits; E44.0 Moderate protein-calorie malnutrition; Z96.0 Presence of urogenital implants; N17.9 Acute kidney failure, unspecified
CPT/HCPCS: 36415; 71045-TC-FY; 80048; 80053; 80177; 81003; 82140; 83605; 83735; 84100; 84439; 84443; 84484; 85025; 85610; 85730; 87040; 87086; 87186; 93005; 93010; 96361; 96365; 96367; 96372; 96375; 99285-25; C9803; G0378; U0003; U0005

== ENCOUNTER 2021-06-15 10:43 | Inpatient (IN) | payer OTHER ==
[2021-06-15] MEDS ORDERED: LACTATED RINGERS SOLUTION 1000 ML INFUS.BAG IV ONE ×2 (12:48→19:35)
[2021-06-15] MEDS ORDERED: HALOPERIDOL LACTATE 5 MG/ML IM ONE ×2 (14:59→15:27)
[2021-06-15] MEDS ORDERED: HALOPERIDOL LACTATE 5 MG/ML ONE ×2 (15:01→15:38)
[2021-06-15 16:16] LABS: BASO % 0.6 % (0-2.0); EOS % 2.2 % (0-4.5); HEMATOCRIT 22.5 % (35.4-49); LYMPH % 11.3 % (8-40); MCH 23.1 pg (25.7-33.7); MCHC 30.9 g/dl (32.0-35.9); MEAN CELL VOLUME 74.8 fl (80-96); MEAN PLT VOLUME 6.8 fl (7.5-11.1); MONO % 5.8 % (3.8-10.2); NEUT % 80.1 % (42.8-82.8); PLATELET COUNT 436 10^3/uL (134-434); RBC 3.01 M/mm3 (4.00-5.60); WHITE BLOOD COUNT 7.1 K/mm3 (4.0-10.0)
[2021-06-15 16:19] LABS: HEMOGLOBIN 6.9 GM/dL (11.7-16.9)
[2021-06-15 16:23] LABS: EPI CELLS 10 /uL (0-25.1); HYALINE CASTS 16 /uL (0-3.1); PH,URINE 6.5 (5.0-8.0); URINE APPEARANCE CLOUDY; URINE BACTERIA >9,000 /uL (0-1359); URINE BILIRUBIN NEGATIVE (NEGATIVE); URINE COLOR YELLOW; URINE GLUCOSE (UA) NEGATIVE (NEGATIVE); URINE KETONE NEGATIVE (NEGATIVE); URINE LEUK ESTERASE 3+ (NEGATIVE); URINE NITRITE NEGATIVE (NEGATIVE); URINE PROTEIN NEGATIVE (NEGATIVE); URINE RBC 17 /uL (0-23.9); URINE UROBILINOGEN 0.2 mg/dL (0.2-1.0); URINE WBC 363 /uL (0-25.8)
[2021-06-15] MEDS ORDERED: MEROPENEM 1 GM in DEXTROSE 5%-WATER 100 ML IVPB ONE (16:28)
[2021-06-15 16:33] LABS: CHLORIDE 108 mmol/L (98-107); SODIUM 140 mmol/L (136-145)
[2021-06-15 16:35] LABS: ALBUMIN 2.9 g/dl (3.4-5.0); ANION GAP 9 MMOL/L (8-16); BLOOD UREA NITROGEN 16.3 mg/dL (7-18); CALCIUM 9.2 mg/dL (8.5-10.1); CO2 23 mmol/L (21-32)
[2021-06-15 16:36] LABS: GLUCOSE,RANDOM 111 mg/dL (74-106)
[2021-06-15 16:38] LABS: CREATININE 1.1 mg/dL (0.55-1.3); SGOT/AST 69 U/L (15-37)
[2021-06-15 16:40] LABS: BILIRUBIN,TOTAL 0.5 mg/dL (0.2-1); SGPT/ALT 23 U/L (13-61); TOT PROT 7.3 g/dl (6.4-8.2)
[2021-06-15 16:41] LABS: ALK PHOS 94 U/L (45-117)
[2021-06-15 16:52] LABS: URINE CRYSTALS FEW /hpf; YEAST FEW (NEGATIVE)
[2021-06-15] MEDS ORDERED: MEROPENEM 1 GM VIAL (RESTRICTED TO ID) IVPB ONE (18:02)
[2021-06-15] MEDS ORDERED: MIDAZOLAM HCL 2 MG/2 ML SINGLE DOSE VIAL IVPUSH ONE (18:20)
[2021-06-15] MEDS ORDERED: MIDAZOLAM HCL 2 MG/2 ML SINGLE DOSE VIAL ONE (18:27)
[2021-06-15] MEDS ORDERED: ASPIRIN 325 MG TABLET PO ONE (19:31)
[2021-06-15] MEDS ORDERED: SODIUM CHLORIDE 0.9% 500 ML INFUS.BAG IV ONE (19:35)
[2021-06-15] MEDS ORDERED: HEPARIN NA (PORCINE) 5,000 UNITS/ML 1ML VIAL IVPUSH PRN ×2 (19:51)
[2021-06-15] MEDS ORDERED: CLOPIDOGREL BISULFATE 75 MG TABLET (FP) PO ONE (20:03)
[2021-06-15] MEDS ORDERED: ATORVASTATIN CA 80 MG TABLET (FP) PO ONE (20:04)
[2021-06-15] MEDS ORDERED: metoPROLOL SUCCINATE 25 MG TAB.SR.24H (FP) PO ONE (20:05)
[2021-06-15] MEDS ORDERED: METOPROLOL TARTRATE 25 MG TABLET (FP) PO ONE (20:07)
[2021-06-15 20:37] LABS: LDL CHOLESTEROL (ONLY SJRH) 67 mg/dL (5-100)
[2021-06-15 20:40] LABS: N-TERMINAL BNP 3116.2 pg/ml (5-125)
[2021-06-15 20:51] LABS: CHOLESTEROL 145 mg/dL (50-200); HDL CHOLESTEROL 54 mg/dL (40-60); TRIGLYCERIDES 92 mg/dL (0-150)
[2021-06-15] MEDS ORDERED: METOPROLOL TARTRATE 25 MG TABLET (FP) ONE (21:04)
[2021-06-15] MEDS ORDERED: ATORVASTATIN CA 80 MG TABLET (FP) ONE (21:04)
[2021-06-15] MEDS ORDERED: CLOPIDOGREL BISULFATE 75 MG TABLET (FP) ONE (21:05)
[2021-06-15] MEDS ORDERED: HEPARIN INFUSION - 25,000 UNITS/500 ML INFUS.BAG IVPB ONE (21:05)
[2021-06-15] MEDS ORDERED: ASPIRIN 325 MG ENTERIC COATED TABLET (FP) ONE (22:09)
[2021-06-15] MEDS: HEPARIN INFUSION - 25,000 UNITS/500 ML INFUS.BAG IVPB SCH (22:47)
[2021-06-15] MEDS ORDERED: POLYETHYLENE GLYCOL (HEALTHYLAX) 3350 17 GM PACKET PO PRN (23:05)
[2021-06-15] MEDS ORDERED: ACETAMINOPHEN 325 MG TABLET (FP) PO PRN (23:05)
[2021-06-16 05:31] LABS: ANION GAP 6 MMOL/L (8-16); CALCIUM 8.7 mg/dL (8.5-10.1); CHLORIDE 110 mmol/L (98-107); CO2 25 mmol/L (21-32); SODIUM 140 mmol/L (136-145)
[2021-06-16 05:32] LABS: BLOOD UREA NITROGEN 12.9 mg/dL (7-18); GLUCOSE,RANDOM 92 mg/dL (74-106); MAGNESIUM 2.3 mg/dL (1.8-2.4)
[2021-06-16 05:35] LABS: CREATININE 0.9 mg/dL (0.55-1.3)
[2021-06-16 05:36] LABS: INR 1.19 (0.83-1.09); PROTHROMBIN TIME (PATIENT) 13.9 SEC (9.7-13.0)
[2021-06-16 05:39] LABS: ACTIVATED PTT 68.4 SECONDS (25.2-36.5)
[2021-06-16] MEDS ORDERED: CLOPIDOGREL BISULFATE 75 MG TABLET (FP) ONE (09:55)
[2021-06-16] MEDS ORDERED: ASPIRIN 325 MG ENTERIC COATED TABLET (FP) ONE (09:55)
[2021-06-16] MEDS: CLOPIDOGREL BISULFATE 75 MG TABLET (FP) PO SCH (10:18)
[2021-06-16] MEDS: ASPIRIN 325 MG ENTERIC COATED TABLET (FP) PO SCH (10:18)
[2021-06-16] MEDS ORDERED: HEPARIN INFUSION - 25,000 UNITS/500 ML INFUS.BAG IVPB ONE (23:57)
[2021-06-17] MEDS ORDERED: MELATONIN 5 MG TABLETS ONE (00:11)
[2021-06-17] MEDS ORDERED: METOPROLOL TARTRATE 25 MG TABLET (FP) ONE ×2 (00:12→10:59)
[2021-06-17] MEDS ORDERED: levETIRAcetam 500 MG TABLET (FP) PO ONE ×2 (00:12→11:00)
[2021-06-17] MEDS ORDERED: ATORVASTATIN CA 80 MG TABLET (FP) ONE (00:12)
[2021-06-17] MEDS ORDERED: QUEtiapine FUMARATE 25 MG TABLET ONE ×2 (00:12→11:01)
[2021-06-17] MEDS ORDERED: PANTOPRAZOLE 40 MG TABLET ONE ×2 (00:12→11:00)
[2021-06-17] MEDS: POLYETHYLENE GLYCOL (HEALTHYLAX) 3350 17 GM PACKET PO SCH ×2 (00:37→11:09)
[2021-06-17] MEDS: ATORVASTATIN CA 80 MG TABLET (FP) PO SCH (00:37)
[2021-06-17] MEDS: levETIRAcetam 500 MG TABLET (FP) PO SCH ×2 (00:37→11:09)
[2021-06-17] MEDS: QUEtiapine FUMARATE 25 MG TABLET PO SCH (00:37)
[2021-06-17] MEDS: MELATONIN 5 MG TABLETS PO SCH (00:37)
[2021-06-17] MEDS: DOCUSATE SODIUM 100 MG CAPSULE (FP) PO SCH (00:37)
[2021-06-17] MEDS: PANTOPRAZOLE 40 MG TABLET PO SCH ×2 (00:45→11:09)
[2021-06-17] MEDS: METOPROLOL TARTRATE 25 MG TABLET (FP) PO SCH ×2 (00:45→11:09)
[2021-06-17] MEDS: HEPARIN INFUSION - 25,000 UNITS/500 ML INFUS.BAG IVPB SCH (03:43)
[2021-06-17 10:19] LABS: BASO % 0.6 % (0-2.0); HEMOGLOBIN 8.2 GM/dL (11.7-16.9); LYMPH % 21.6 % (8-40); MCH 24.4 pg (25.7-33.7); MCHC 32.8 g/dl (32.0-35.9); MEAN CELL VOLUME 74.4 fl (80-96); MEAN PLT VOLUME 6.8 fl (7.5-11.1); MONO % 8.6 % (3.8-10.2); NEUT % 65.2 % (42.8-82.8); PLATELET COUNT 452 10^3/uL (134-434); RBC 3.36 M/mm3 (4.00-5.60); RDW 18.2 % (11.9-15.9); WHITE BLOOD COUNT 5.3 K/mm3 (4.0-10.0)
[2021-06-17 10:32] LABS: CALCIUM 9.1 mg/dL (8.5-10.1)
[2021-06-17 10:33] LABS: ALBUMIN 2.8 g/dl (3.4-5.0); BLOOD UREA NITROGEN 11.7 mg/dL (7-18); MAGNESIUM 2.4 mg/dL (1.8-2.4)
[2021-06-17 10:37] LABS: BILIRUBIN,TOTAL 0.6 mg/dL (0.2-1); TOT PROT 6.3 g/dl (6.4-8.2)
[2021-06-17] MEDS ORDERED: POLYETHYLENE GLYCOL (HEALTHYLAX) 3350 17 GM PACKET ONE (10:59)
[2021-06-17] MEDS ORDERED: FUROSEMIDE 40 MG TABLET (FP) ONE (11:00)
[2021-06-17] MEDS ORDERED: CLOPIDOGREL BISULFATE 75 MG TABLET (FP) ONE (11:00)
[2021-06-17] MEDS ORDERED: MULTIVITAMINS (DAILY MVI) TABLET (FP) ONE (11:00)
[2021-06-17] MEDS ORDERED: ASPIRIN 325 MG ENTERIC COATED TABLET (FP) ONE (11:00)
[2021-06-17] MEDS: ASPIRIN 325 MG ENTERIC COATED TABLET (FP) PO SCH (11:08)
[2021-06-17] MEDS: CLOPIDOGREL BISULFATE 75 MG TABLET (FP) PO SCH (11:09)
[2021-06-17] MEDS: AMINO ACIDS/PROTEIN HYDROLYS 30 ML LIQUID.PKT PO SCH (11:09)
[2021-06-17] MEDS: FUROSEMIDE 40 MG TABLET (FP) PO SCH (11:09)
[2021-06-17] MEDS: MULTIVITAMINS (DAILY MVI) TABLET (FP) PO SCH (11:10)
[2021-06-17] MEDS ORDERED: HEPARIN NA (PORCINE) 5,000 UNITS/ML 1ML VIAL ONE (11:18)
[2021-06-17] MEDS: COLLAGENASE CLOSTRIDIUM HIST. 30 GRAMS TUBE TP SCH (11:30)
[2021-06-18] MEDS: ATORVASTATIN CA 80 MG TABLET (FP) PO SCH ×2 (00:58→21:36)
[2021-06-18] MEDS: MELATONIN 5 MG TABLETS PO SCH ×2 (00:58→21:36)
[2021-06-18] MEDS: levETIRAcetam 500 MG TABLET (FP) PO SCH ×3 (00:58→21:36)
[2021-06-18] MEDS: QUEtiapine FUMARATE 25 MG TABLET PO SCH ×2 (00:58→21:36)
[2021-06-18] MEDS: PANTOPRAZOLE 40 MG TABLET PO SCH ×3 (00:58→21:36)
[2021-06-18] MEDS: POLYETHYLENE GLYCOL (HEALTHYLAX) 3350 17 GM PACKET PO SCH ×3 (00:59→21:36)
[2021-06-18] MEDS: DOCUSATE SODIUM 100 MG CAPSULE (FP) PO SCH ×2 (00:59→21:36)
[2021-06-18] MEDS: METOPROLOL TARTRATE 25 MG TABLET (FP) PO SCH ×3 (00:59→21:36)
[2021-06-18 04:12] VITALS: BMI 28.9
[2021-06-18] MEDS: AMINO ACIDS/PROTEIN HYDROLYS 30 ML LIQUID.PKT PO SCH ×3 (07:48→18:47)
[2021-06-18 07:54] LABS: BASO % 0.3 % (0-2.0); EOS % 2.7 % (0-4.5); HEMATOCRIT 26.2 % (35.4-49); HEMOGLOBIN 8.3 GM/dL (11.7-16.9); MCH 23.9 pg (25.7-33.7); MCHC 31.6 g/dl (32.0-35.9); MEAN CELL VOLUME 75.8 fl (80-96); MEAN PLT VOLUME 6.6 fl (7.5-11.1); PLATELET COUNT 496 10^3/uL (134-434); RBC 3.45 M/mm3 (4.00-5.60); RDW 18.7 % (11.9-15.9); WHITE BLOOD COUNT 6.4 K/mm3 (4.0-10.0)
[2021-06-18 08:13] LABS: ALBUMIN 2.9 g/dl (3.4-5.0); BLOOD UREA NITROGEN 18.9 mg/dL (7-18); CALCIUM 9.1 mg/dL (8.5-10.1); MAGNESIUM 2.2 mg/dL (1.8-2.4)
[2021-06-18] MEDS ORDERED: PT OWN MED DRAWER 7, Y5N ONE (08:14)
[2021-06-18 08:15] LABS: TOT PROT 6.3 g/dl (6.4-8.2)
[2021-06-18 08:16] LABS: BILIRUBIN,TOTAL 0.8 mg/dL (0.2-1)
[2021-06-18 08:17] LABS: CREATININE 0.9 mg/dL (0.55-1.3)
[2021-06-18] MEDS: FUROSEMIDE 40 MG TABLET (FP) PO SCH (10:05)
[2021-06-18] MEDS: MULTIVITAMINS (DAILY MVI) TABLET (FP) PO SCH (10:05)
[2021-06-18] MEDS: ASPIRIN 325 MG ENTERIC COATED TABLET (FP) PO SCH (11:50)
[2021-06-18] MEDS: COLLAGENASE CLOSTRIDIUM HIST. 30 GRAMS TUBE TP SCH (12:10)
[2021-06-19 07:40] LABS: BASO % 0.4 % (0-2.0); EOS % 2.6 % (0-4.5); HEMATOCRIT 26.3 % (35.4-49); HEMOGLOBIN 8.5 GM/dL (11.7-16.9); LYMPH % 18.4 % (8-40); MCHC 32.4 g/dl (32.0-35.9); MEAN PLT VOLUME 6.7 fl (7.5-11.1); MONO % 7.4 % (3.8-10.2); NEUT % 71.2 % (42.8-82.8); PLATELET COUNT 516 10^3/uL (134-434); RBC 3.56 M/mm3 (4.00-5.60); RDW 18.8 % (11.9-15.9); WHITE BLOOD COUNT 5.6 K/mm3 (4.0-10.0)
[2021-06-19 08:02] LABS: ALBUMIN 2.8 g/dl (3.4-5.0); BLOOD UREA NITROGEN 19.2 mg/dL (7-18); MAGNESIUM 2.1 mg/dL (1.8-2.4)
[2021-06-19 08:05] LABS: CREATININE 1.1 mg/dL (0.55-1.3)
[2021-06-19 08:07] LABS: BILIRUBIN,TOTAL 0.6 mg/dL (0.2-1); TOT PROT 6.7 g/dl (6.4-8.2)
[2021-06-19] MEDS: PANTOPRAZOLE 40 MG TABLET PO SCH (09:52)
[2021-06-19] MEDS: METOPROLOL TARTRATE 25 MG TABLET (FP) PO SCH (09:52)
[2021-06-19] MEDS: levETIRAcetam 500 MG TABLET (FP) PO SCH (09:52)
[2021-06-19] MEDS: FUROSEMIDE 40 MG TABLET (FP) PO SCH (09:52)
[2021-06-19] MEDS: MULTIVITAMINS (DAILY MVI) TABLET (FP) PO SCH (09:53)
[2021-06-19] MEDS: POLYETHYLENE GLYCOL (HEALTHYLAX) 3350 17 GM PACKET PO SCH (09:53)
[2021-06-19] MEDS: ASPIRIN 325 MG ENTERIC COATED TABLET (FP) PO SCH (09:53)
[2021-06-19] MEDS: AMINO ACIDS/PROTEIN HYDROLYS 30 ML LIQUID.PKT PO SCH (09:53)
[2021-06-19] MEDS: COLLAGENASE CLOSTRIDIUM HIST. 30 GRAMS TUBE TP SCH (09:53)
[2021-06-19 13:34] VITALS: BP 129/62; PULSE 88; TEMP 98
== END 2021-06-19 13:30 | DRG 280 ==
LOC: JER 10:43 → JERBED 12:47 → J4W 06-18 00:38
PROVIDERS: ADMIT Internal Medicine; ATTEND Nurse Practitioner Family
PROC: 30233N1 Transfusion of Nonautologous Red Blood Cells into Peripheral Vein, Percutaneous Approach (ICD-10-PCS; principal; 2021-06-15)
DX: I21.4 Non-ST elevation (NSTEMI) myocardial infarction (principal); G93.41 Metabolic encephalopathy; N39.0 Urinary tract infection, site not specified; N17.9 Acute kidney failure, unspecified; E44.0 Moderate protein-calorie malnutrition; G82.20 Paraplegia, unspecified; G95.0 Syringomyelia and syringobulbia; I24.8 Other forms of acute ischemic heart disease; D64.9 Anemia, unspecified; I10 Essential (primary) hypertension; R41.82 Altered mental status, unspecified; K59.00 Constipation, unspecified; Z93.50 Unspecified cystostomy status; N31.9 Neuromuscular dysfunction of bladder, unspecified; Z68.28 Body mass index [BMI] 28.0-28.9, adult
CPT/HCPCS: 36415; 36430; 74177-TC; 80048; 80053; 80061; 81003; 82272; 82465; 82550; 82553; 82962; 83605; 83690; 83718; 83721; 83735; 83880; 84443; 84478; 84484; 85025; 85610; 85730; 86850; 86900; 86901; 86922; 93005; 93010; 93306-TC; 99285-25; C9803-CS; J1644; P9058; Q9967; U0003; U0005

== ENCOUNTER 2021-07-17 04:27 | Day surgery (SDC) | payer OTHER ==
[2021-07-16 14:33] VITALS: BMI 22.1
[2021-07-17] MEDS ORDERED: LIDOCAINE HCL 1%, 10 MG/ML (20ML VIAL) ONE (14:16)
[2021-07-17] MEDS ORDERED: PROPOFOL 20 ML ONE ×2 (15:31)
[2021-07-17] MEDS ORDERED: KETAMINE HCL 200 MG/20 ML VIAL ONE (15:32)
[2021-07-17] MEDS ORDERED: ceFAZolin SODIUM 1 GM VIAL IVPB ONE (15:45)
[2021-07-17] MEDS ORDERED: oxyCODONE HCL 5 MG TABLET PO PRN (16:31)
[2021-07-17] MEDS ORDERED: ACETAMINOPHEN 325 MG TABLET (FP) PO PRN ×2 (16:31)
[2021-07-17] MEDS ORDERED: ONDANSETRON 4 MG/2 ML VIAL IVPUSH PRN (17:29)
[2021-07-17 18:32] VITALS: BP 123/70; PULSE 74; TEMP 97.8
== END 2021-07-17 18:45 | disposition home or self-care (01) ==
LOC: JASU-SURG 04:27
PROVIDERS: ATTEND Urology
PROC: 0TCB3ZZ Extirpation of Matter from Bladder, Percutaneous Approach (ICD-10-PCS; principal; 2021-07-17 14:00)
DX: T83.89XA Other specified complication of genitourinary prosthetic devices, implants and grafts, initial encounter (principal); Y84.6 Urinary catheterization as the cause of abnormal reaction of the patient, or of later complication, without mention of misadventure at the time of the procedure; Y92.9 Unspecified place or not applicable; N31.9 Neuromuscular dysfunction of bladder, unspecified
CPT/HCPCS: 51710; C2627; 88108; 88304-TC; 94760

== ENCOUNTER 2021-07-21 18:51 | Inpatient (IN) | payer OTHER ==
[2021-07-21] MEDS ORDERED: PIPERACILLIN/TAZOB 4.5 GM 4.5 GM in DEXTROSE 5%-WATER 100 ML IVPB ONE (20:21)
[2021-07-21] MEDS ORDERED: PIPERACILLIN/TAZOB 4.5 GM 4.5 GM/100 ML BAG IVPB ONE (21:34)
[2021-07-21 21:36] LABS: BASO % 0.5 % (0-2.0); EOS % 1.6 % (0-4.5); HEMATOCRIT 26.2 % (35.4-49); HEMOGLOBIN 8.4 GM/dL (11.7-16.9); LYMPH % 10.1 % (8-40); MCH 22.9 pg (25.7-33.7); MCHC 31.9 g/dl (32.0-35.9); MEAN CELL VOLUME 71.9 fl (80-96); NEUT % 83.8 % (42.8-82.8); PLATELET COUNT 758 10^3/uL (134-434); RBC 3.65 M/mm3 (4.00-5.60); RDW 19.8 % (11.9-15.9); WHITE BLOOD COUNT 9.4 K/mm3 (4.0-10.0)
[2021-07-21 21:52] LABS: ALBUMIN 3.2 g/dl (3.4-5.0); BLOOD UREA NITROGEN 17.4 mg/dL (7-18); CALCIUM 9.8 mg/dL (8.5-10.1)
[2021-07-21 21:55] LABS: CREATININE 1.2 mg/dL (0.55-1.3)
[2021-07-21 21:56] LABS: BILIRUBIN,TOTAL 0.2 mg/dL (0.2-1); TOT PROT 8.5 g/dl (6.4-8.2)
[2021-07-21 22:56] LABS: EPI CELLS 2 /uL (0-25.1); HYALINE CASTS 2 /uL (0-3.1); PH,URINE 5.5 (5.0-8.0); URINE APPEARANCE CLOUDY; URINE BACTERIA 3683 /uL (0-1359); URINE BILIRUBIN NEGATIVE (NEGATIVE); URINE COLOR YELLOW; URINE GLUCOSE (UA) NEGATIVE (NEGATIVE); URINE KETONE TRACE (NEGATIVE); URINE LEUK ESTERASE 2+ (NEGATIVE); URINE NITRITE NEGATIVE (NEGATIVE); URINE PROTEIN 1+ (NEGATIVE); URINE RBC 1294 /uL (0-23.9); URINE UROBILINOGEN 0.2 mg/dL (0.2-1.0); URINE WBC 565 /uL (0-25.8)
[2021-07-21] MEDS ORDERED: VANCOMYCIN 1 GM in D5W (PRE-DOCKED) 1,000 MG/250 ML IVPB SCH (23:54)
[2021-07-22] MEDS ORDERED: VANCOMYCIN 1 GM in D5W (PRE-DOCKED) 1,000 MG/250 ML IVPB SCH ×2 (01:21→01:30)
[2021-07-22] MEDS ORDERED: PIPERACILLIN/TAZOB 3.375 GM 3.375 GM/50 ML BAG IVPB ONE ×2 (03:45→10:23)
[2021-07-22] MEDS: PIPERACILLIN/TAZOB 3.375 GM 3.375 GM in DEXTROSE 5%-WATER - 50 ML IVPB SCH ×3 (04:50→18:35)
[2021-07-22] MEDS ORDERED: ENOXAPARIN NA (PORCINE) 40 MG/0.4 ML DISP.SYRIN SQ SCH (10:00)
[2021-07-22] MEDS ORDERED: PANTOPRAZOLE 40 MG TABLET PO SCH (10:00)
[2021-07-22] MEDS ORDERED: levETIRAcetam 500 MG TABLET (FP) PO SCH (10:00)
[2021-07-22] MEDS: METOPROLOL TARTRATE 25 MG TABLET (FP) PO SCH ×2 (10:15→21:41)
[2021-07-22] MEDS: FUROSEMIDE 40 MG TABLET (FP) PO SCH (10:15)
[2021-07-22] MEDS ORDERED: PANTOPRAZOLE 40 MG TABLET ONE (10:19)
[2021-07-22] MEDS ORDERED: MULTIVITAMINS (DAILY MVI) TABLET (FP) ONE (10:19)
[2021-07-22] MEDS ORDERED: METOPROLOL TARTRATE 25 MG TABLET (FP) ONE (10:22)
[2021-07-22] MEDS ORDERED: POLYETHYLENE GLYCOL (HEALTHYLAX) 3350 17 GM PACKET ONE (10:22)
[2021-07-22] MEDS ORDERED: FUROSEMIDE 40 MG TABLET (FP) ONE (10:22)
[2021-07-22] MEDS ORDERED: levETIRAcetam 500 MG TABLET (FP) PO ONE (10:23)
[2021-07-22] MEDS ORDERED: ONDANSETRON 4 MG/2 ML VIAL IVPUSH PRN (11:51)
[2021-07-22] MEDS ORDERED: ONDANSETRON 4 MG/2 ML VIAL ONE (12:21)
[2021-07-22 12:58] LABS: HEMATOCRIT 26.5 % (35.4-49); HEMOGLOBIN 8.3 GM/dL (11.7-16.9); MCH 22.5 pg (25.7-33.7); MCHC 31.2 g/dl (32.0-35.9); MEAN CELL VOLUME 72.1 fl (80-96); MEAN PLT VOLUME 5.9 fl (7.5-11.1); PLATELET COUNT 767 10^3/uL (134-434); RBC 3.68 M/mm3 (4.00-5.60); RDW 19.4 % (11.9-15.9); WHITE BLOOD COUNT 11.8 K/mm3 (4.0-10.0)
[2021-07-22 13:19] LABS: BLOOD UREA NITROGEN 19.5 mg/dL (7-18)
[2021-07-22 13:22] LABS: CREATININE 1.2 mg/dL (0.55-1.3); PHOSPHOROUS 3.8 mg/dL (2.5-4.9)
[2021-07-22 13:37] LABS: ERYTHROCYTE SEDIMENTATION RATE 103 mm/hr (0-20)
[2021-07-22] MEDS: POLYETHYLENE GLYCOL (HEALTHYLAX) 3350 17 GM PACKET PO SCH ×2 (13:53→21:40)
[2021-07-22] MEDS: MULTIVITAMINS (DAILY MVI) TABLET (FP) PO SCH (13:55)
[2021-07-22] MEDS: levETIRAcetam 500 MG/5 ML INJECTION VIAL IVPB SCH ×2 (15:36→21:45)
[2021-07-22 15:51] LABS: INR 1.2 (0.83-1.09); PROTHROMBIN TIME (PATIENT) 13.8 SEC (9.7-13.0)
[2021-07-22] MEDS: COLLAGENASE CLOSTRIDIUM HIST. 30 GRAMS TUBE TP SCH (16:21)
[2021-07-22] MEDS ORDERED: PIPERACILLIN/TAZOBACTAM 3.375 GM VIAL IVPB ONE (18:12)
[2021-07-22] MEDS ORDERED: DEXTROSE 5%-WATER - 50 ML IVPB ONE (18:12)
[2021-07-22] MEDS ORDERED: BISACODYL 10 MG SUPP.RECT PR ONE (18:39)
[2021-07-22] MEDS ORDERED: LORazepam 2 MG/ML SDV VIAL IVPB PRN (20:33)
[2021-07-22] MEDS: ATORVASTATIN CA 80 MG TABLET (FP) PO SCH (21:40)
[2021-07-22] MEDS: QUEtiapine FUMARATE 50 MG TABLET PO SCH (21:41)
[2021-07-22] MEDS: MELATONIN 5 MG TABLETS PO SCH (21:41)
[2021-07-22] MEDS ORDERED: DOCUSATE SODIUM 100 MG CAPSULE (FP) PO SCH (22:00)
[2021-07-23] MEDS ORDERED: VANCOMYCIN 1 GM in D5W (PRE-DOCKED) 1,000 MG/250 ML IVPB SCH (01:00)
[2021-07-23] MEDS ORDERED: DEXTROSE 5%-WATER - 50 ML IVPB ONE ×3 (01:49→17:27)
[2021-07-23] MEDS ORDERED: PIPERACILLIN/TAZOBACTAM 3.375 GM VIAL IVPB ONE ×3 (01:49→17:26)
[2021-07-23] MEDS ORDERED: PIPERACILLIN/TAZOB 3.375 GM 3.375 GM in DEXTROSE 5%-WATER - 50 ML IVPB SCH (02:00)
[2021-07-23] MEDS: PIPERACILLIN/TAZOB 3.375 GM 3.375 GM in DEXTROSE 5%-WATER - 50 ML IVPB SCH ×3 (02:16→17:29)
[2021-07-23] MEDS: ENOXAPARIN NA (PORCINE) 40 MG/0.4 ML DISP.SYRIN SQ SCH (10:41)
[2021-07-23] MEDS: PANTOPRAZOLE 40 MG TABLET PO SCH (10:42)
[2021-07-23] MEDS: POLYETHYLENE GLYCOL (HEALTHYLAX) 3350 17 GM PACKET PO SCH ×3 (10:42→21:42)
[2021-07-23] MEDS: METOPROLOL TARTRATE 25 MG TABLET (FP) PO SCH ×3 (10:42→21:42)
[2021-07-23] MEDS: MULTIVITAMINS (DAILY MVI) TABLET (FP) PO SCH (10:42)
[2021-07-23] MEDS: FUROSEMIDE 40 MG TABLET (FP) PO SCH ×2 (10:42→12:48)
[2021-07-23] MEDS ORDERED: PEG 3350/NA SULF BICARB CL/KCL 4000 ML SOLN.RECON PO ONE ×2 (11:13)
[2021-07-23] MEDS: levETIRAcetam 500 MG/5 ML INJECTION VIAL IVPB SCH ×2 (11:19→21:41)
[2021-07-23] MEDS: COLLAGENASE CLOSTRIDIUM HIST. 30 GRAMS TUBE TP SCH (12:47)
[2021-07-23 12:52] LABS: BASO % 0.7 % (0-2.0); EOS % 0.2 % (0-4.5); HEMATOCRIT 22.9 % (35.4-49); HEMOGLOBIN 7.1 GM/dL (11.7-16.9); LYMPH % 9.2 % (8-40); MCH 23.1 pg (25.7-33.7); MCHC 31.1 g/dl (32.0-35.9); MEAN CELL VOLUME 74.3 fl (80-96); NEUT % 86.9 % (42.8-82.8); PLATELET COUNT 624 10^3/uL (134-434); RBC 3.08 M/mm3 (4.00-5.60); RDW 19.6 % (11.9-15.9); WHITE BLOOD COUNT 12.1 K/mm3 (4.0-10.0)
[2021-07-23 13:08] LABS: ALBUMIN 2.9 g/dl (3.4-5.0); MAGNESIUM 2.6 mg/dL (1.8-2.4)
[2021-07-23 13:09] LABS: BLOOD UREA NITROGEN 25.7 mg/dL (7-18)
[2021-07-23 13:11] LABS: CREATININE 1.3 mg/dL (0.55-1.3)
[2021-07-23 13:14] LABS: BILIRUBIN,TOTAL 0.4 mg/dL (0.2-1); TOT PROT 7.3 g/dl (6.4-8.2)
[2021-07-23 15:08] VITALS: BMI 25.2
[2021-07-23] MEDS: MELATONIN 5 MG TABLETS PO SCH (21:41)
[2021-07-23] MEDS: QUEtiapine FUMARATE 50 MG TABLET PO SCH (21:42)
[2021-07-23] MEDS: ATORVASTATIN CA 80 MG TABLET (FP) PO SCH (21:42)
[2021-07-23] MEDS: ASCORBIC ACID 250 MG TABLET (FP) PO SCH (21:42)
[2021-07-23] MEDS ORDERED: ASCORBIC ACID 250 MG TABLET (FP) PO SCH (22:00)
[2021-07-24] MEDS ORDERED: PIPERACILLIN/TAZOBACTAM 3.375 GM VIAL IVPB ONE ×3 (01:02→16:48)
[2021-07-24] MEDS ORDERED: DEXTROSE 5%-WATER - 50 ML IVPB ONE ×2 (01:02→09:53)
[2021-07-24] MEDS: PIPERACILLIN/TAZOB 3.375 GM 3.375 GM in DEXTROSE 5%-WATER - 50 ML IVPB SCH ×3 (02:51→17:30)
[2021-07-24] MEDS ORDERED: MULTIVITAMINS (DAILY MVI) TABLET (FP) PO SCH (10:00)
[2021-07-24] MEDS ORDERED: ZINC SULFATE 220 MG CAPSULE (FP) PO SCH (10:00)
[2021-07-24] MEDS: ENOXAPARIN NA (PORCINE) 40 MG/0.4 ML DISP.SYRIN SQ SCH (10:06)
[2021-07-24] MEDS: FUROSEMIDE 40 MG TABLET (FP) PO SCH (10:07)
[2021-07-24] MEDS: MULTIVITAMINS (DAILY MVI) TABLET (FP) PO SCH (10:07)
[2021-07-24] MEDS: PANTOPRAZOLE 40 MG TABLET PO SCH (10:07)
[2021-07-24] MEDS: ZINC SULFATE 220 MG CAPSULE (FP) PO SCH (10:07)
[2021-07-24] MEDS: levETIRAcetam 500 MG/5 ML INJECTION VIAL IVPB SCH ×2 (10:07→21:52)
[2021-07-24] MEDS: METOPROLOL TARTRATE 25 MG TABLET (FP) PO SCH ×2 (10:07→21:52)
[2021-07-24] MEDS: ASCORBIC ACID 250 MG TABLET (FP) PO SCH ×2 (10:08→21:52)
[2021-07-24] MEDS: COLLAGENASE CLOSTRIDIUM HIST. 30 GRAMS TUBE TP SCH (13:28)
[2021-07-24] MEDS: POLYETHYLENE GLYCOL (HEALTHYLAX) 3350 17 GM PACKET PO SCH ×2 (13:28→21:52)
[2021-07-24] MEDS: AMINO ACIDS/PROTEIN HYDROLYS 30 ML LIQUID.PKT PO SCH (17:30)
[2021-07-24] MEDS: SENNOSIDES 8.6MG TABLET (FP) PO SCH (21:52)
[2021-07-24] MEDS: ATORVASTATIN CA 80 MG TABLET (FP) PO SCH (21:52)
[2021-07-24] MEDS: MELATONIN 5 MG TABLETS PO SCH (21:52)
[2021-07-24] MEDS: QUEtiapine FUMARATE 50 MG TABLET PO SCH (21:52)
[2021-07-25] MEDS ORDERED: PIPERACILLIN/TAZOBACTAM 3.375 GM VIAL IVPB ONE ×3 (00:55→16:07)
[2021-07-25] MEDS ORDERED: DEXTROSE 5%-WATER - 50 ML IVPB ONE ×3 (00:56→16:07)
[2021-07-25] MEDS: PIPERACILLIN/TAZOB 3.375 GM 3.375 GM in DEXTROSE 5%-WATER - 50 ML IVPB SCH ×3 (01:25→17:29)
[2021-07-25] MEDS: POLYETHYLENE GLYCOL (HEALTHYLAX) 3350 17 GM PACKET PO SCH ×3 (05:55→21:29)
[2021-07-25 08:38] LABS: BASO % 0.4 % (0-2.0); EOS % 2.7 % (0-4.5); HEMATOCRIT 18.4 % (35.4-49); LYMPH % 11.6 % (8-40); MCH 23.2 pg (25.7-33.7); MEAN CELL VOLUME 72.4 fl (80-96); MONO % 6.2 % (3.8-10.2); NEUT % 79.1 % (42.8-82.8); PLATELET COUNT 499 10^3/uL (134-434); RBC 2.54 M/mm3 (4.00-5.60); WHITE BLOOD COUNT 7.1 K/mm3 (4.0-10.0)
[2021-07-25 08:46] LABS: MEAN PLT VOLUME 5.7 fl (7.5-11.1)
[2021-07-25 08:48] LABS: HEMOGLOBIN 5.9 GM/dL (11.7-16.9)
[2021-07-25 08:53] LABS: CHLORIDE 103 mmol/L (98-107); SODIUM 139 mmol/L (136-145)
[2021-07-25 08:54] LABS: BLOOD UREA NITROGEN 16.5 mg/dL (7-18)
[2021-07-25 08:55] LABS: CALCIUM 8.4 mg/dL (8.5-10.1); CO2 30 mmol/L (21-32); GLUCOSE,RANDOM 93 mg/dL (74-106); MAGNESIUM 2.3 mg/dL (1.8-2.4)
[2021-07-25 08:59] LABS: CREATININE 0.8 mg/dL (0.55-1.3); SGOT/AST 14 U/L (15-37); SGPT/ALT 10 U/L (13-61)
[2021-07-25 09:00] LABS: BILIRUBIN,TOTAL 0.7 mg/dL (0.2-1); TOT PROT 5.9 g/dl (6.4-8.2)
[2021-07-25 09:01] LABS: ALK PHOS 62 U/L (45-117)
[2021-07-25 09:03] LABS: ALBUMIN 2.2 g/dl (3.4-5.0); ANION GAP 6 MMOL/L (8-16)
[2021-07-25] MEDS: METOPROLOL TARTRATE 25 MG TABLET (FP) PO SCH ×2 (09:56→21:31)
[2021-07-25] MEDS: AMINO ACIDS/PROTEIN HYDROLYS 30 ML LIQUID.PKT PO SCH ×2 (09:56→17:29)
[2021-07-25] MEDS: PANTOPRAZOLE 40 MG TABLET PO SCH (09:56)
[2021-07-25] MEDS: MULTIVITAMINS (DAILY MVI) TABLET (FP) PO SCH (09:57)
[2021-07-25] MEDS: ENOXAPARIN NA (PORCINE) 40 MG/0.4 ML DISP.SYRIN SQ SCH (09:57)
[2021-07-25] MEDS: levETIRAcetam 500 MG/5 ML INJECTION VIAL IVPB SCH ×2 (09:57→21:31)
[2021-07-25] MEDS: ZINC SULFATE 220 MG CAPSULE (FP) PO SCH (09:57)
[2021-07-25] MEDS: FUROSEMIDE 40 MG TABLET (FP) PO SCH (09:57)
[2021-07-25] MEDS: ASCORBIC ACID 250 MG TABLET (FP) PO SCH ×2 (09:58→21:35)
[2021-07-25 13:19] LABS: BASO % 0.3 % (0-2.0); EOS % 2.2 % (0-4.5); HEMATOCRIT 20.3 % (35.4-49); LYMPH % 8.2 % (8-40); MCH 23.4 pg (25.7-33.7); MONO % 6.4 % (3.8-10.2); NEUT % 82.9 % (42.8-82.8); PLATELET COUNT 541 10^3/uL (134-434); RBC 2.79 M/mm3 (4.00-5.60); RDW 19.8 % (11.9-15.9); WHITE BLOOD COUNT 7.9 K/mm3 (4.0-10.0)
[2021-07-25 13:25] LABS: MEAN PLT VOLUME 5.8 fl (7.5-11.1)
[2021-07-25] MEDS: COLLAGENASE CLOSTRIDIUM HIST. 30 GRAMS TUBE TP SCH (13:27)
[2021-07-25 13:29] LABS: HEMOGLOBIN 6.5 GM/dL (11.7-16.9)
[2021-07-25 13:53] LABS: ALBUMIN 2.4 g/dl (3.4-5.0); BILIRUBIN,TOTAL 0.5 mg/dL (0.2-1)
[2021-07-25 13:56] LABS: CALCIUM 8.4 mg/dL (8.5-10.1); CREATININE 0.9 mg/dL (0.55-1.3)
[2021-07-25 13:57] LABS: BLOOD UREA NITROGEN 16.3 mg/dL (7-18); MAGNESIUM 2.3 mg/dL (1.8-2.4); TOT PROT 6.3 g/dl (6.4-8.2)
[2021-07-25] MEDS: POTASSIUM CHLORIDE TABS 20 MEQ TABLET.ER (FP) PO SCH ×3 (17:29→21:40)
[2021-07-25] MEDS ORDERED: ACETAMINOPHEN 325 MG TABLET (FP) PO PRN (20:28)
[2021-07-25] MEDS: MELATONIN 5 MG TABLETS PO SCH (21:31)
[2021-07-25] MEDS: QUEtiapine FUMARATE 50 MG TABLET PO SCH (21:31)
[2021-07-25] MEDS: SENNOSIDES 8.6MG TABLET (FP) PO SCH (21:31)
[2021-07-25] MEDS: ATORVASTATIN CA 80 MG TABLET (FP) PO SCH (21:31)
[2021-07-26] MEDS ORDERED: IBUPROFEN 400 MG TABLET (FP) PO ONE (00:28)
[2021-07-26] MEDS ORDERED: ACETAMINOPHEN 1000 MG/100 ML BAG IVPB ONE (02:02)
[2021-07-26] MEDS: PIPERACILLIN/TAZOB 3.375 GM 3.375 GM in DEXTROSE 5%-WATER - 50 ML IVPB SCH ×3 (06:00→18:27)
[2021-07-26] MEDS: POLYETHYLENE GLYCOL (HEALTHYLAX) 3350 17 GM PACKET PO SCH ×2 (06:01→21:49)
[2021-07-26] MEDS: AMINO ACIDS/PROTEIN HYDROLYS 30 ML LIQUID.PKT PO SCH ×2 (08:38→18:27)
[2021-07-26] MEDS ORDERED: PIPERACILLIN/TAZOBACTAM 3.375 GM VIAL IVPB ONE ×2 (09:11→17:51)
[2021-07-26] MEDS ORDERED: DEXTROSE 5%-WATER - 50 ML IVPB ONE ×2 (09:11→17:51)
[2021-07-26] MEDS: COLLAGENASE CLOSTRIDIUM HIST. 30 GRAMS TUBE TP SCH (09:33)
[2021-07-26] MEDS: PANTOPRAZOLE 40 MG TABLET PO SCH (09:58)
[2021-07-26] MEDS: METOPROLOL TARTRATE 25 MG TABLET (FP) PO SCH ×2 (09:58→21:50)
[2021-07-26] MEDS: FUROSEMIDE 40 MG TABLET (FP) PO SCH (09:58)
[2021-07-26] MEDS: ZINC SULFATE 220 MG CAPSULE (FP) PO SCH (09:58)
[2021-07-26] MEDS: levETIRAcetam 500 MG/5 ML INJECTION VIAL IVPB SCH ×2 (09:58→21:49)
[2021-07-26] MEDS: ASCORBIC ACID 250 MG TABLET (FP) PO SCH ×2 (09:58→21:50)
[2021-07-26] MEDS: MULTIVITAMINS (DAILY MVI) TABLET (FP) PO SCH (09:58)
[2021-07-26] MEDS: ENOXAPARIN NA (PORCINE) 40 MG/0.4 ML DISP.SYRIN SQ SCH (10:08)
[2021-07-26 10:22] LABS: BASO % 0.3 % (0-2.0); EOS % 1.5 % (0-4.5); HEMATOCRIT 23.1 % (35.4-49); HEMOGLOBIN 7.5 GM/dL (11.7-16.9); LYMPH % 7.9 % (8-40); MCH 24.3 pg (25.7-33.7); MCHC 32.4 g/dl (32.0-35.9); MEAN PLT VOLUME 6.3 fl (7.5-11.1); MONO % 6.6 % (3.8-10.2); NEUT % 83.7 % (42.8-82.8); PLATELET COUNT 490 10^3/uL (134-434); RBC 3.08 M/mm3 (4.00-5.60); RDW 20.3 % (11.9-15.9); WHITE BLOOD COUNT 7.9 K/mm3 (4.0-10.0)
[2021-07-26 10:26] LABS: INR 1.28 (0.83-1.09); PROTHROMBIN TIME (PATIENT) 14.8 SEC (9.7-13.0)
[2021-07-26 10:37] LABS: CHLORIDE 106 mmol/L (98-107); SODIUM 142 mmol/L (136-145)
[2021-07-26 10:39] LABS: CALCIUM 8.9 mg/dL (8.5-10.1)
[2021-07-26 10:40] LABS: ALBUMIN 2.4 g/dl (3.4-5.0); BLOOD UREA NITROGEN 14.5 mg/dL (7-18); CO2 30 mmol/L (21-32); GLUCOSE,RANDOM 92 mg/dL (74-106); MAGNESIUM 2.4 mg/dL (1.8-2.4)
[2021-07-26 10:43] LABS: SGOT/AST 17 U/L (15-37); SGPT/ALT 10 U/L (13-61)
[2021-07-26 10:44] LABS: BILIRUBIN,TOTAL 0.8 mg/dL (0.2-1); TOT PROT 5.9 g/dl (6.4-8.2)
[2021-07-26] MEDS ORDERED: ACETAMINOPHEN INJECTION 100 ML IVPB ONE (10:45)
[2021-07-26] MEDS ORDERED: DEXMEDETOMIDINE HCL 200 MCG/2 ML IVPB ONE (10:45)
[2021-07-26 10:46] LABS: ALK PHOS 67 U/L (45-117)
[2021-07-26 10:49] LABS: ANION GAP 6 MMOL/L (8-16)
[2021-07-26] MEDS ORDERED: PROPOFOL 20 ML ONE (11:27)
[2021-07-26] MEDS ORDERED: ROCURONIUM BROMIDE 50 MG/5 ML SYRINGE ONE (11:28)
[2021-07-26] MEDS ORDERED: POTASSIUM CHLORIDE TABS 20 MEQ TABLET.ER (FP) PO SCH (12:15)
[2021-07-26] MEDS ORDERED: LORazepam 2 MG/ML SDV VIAL IVPB PRN (12:28)
[2021-07-26] MEDS ORDERED: ACETAMINOPHEN 325 MG TABLET (FP) PO PRN (12:28)
[2021-07-26] MEDS ORDERED: POLYETHYLENE GLYCOL (HEALTHYLAX) 3350 17 GM PACKET PO SCH (14:00)
[2021-07-26] MEDS: POTASSIUM CHLORIDE ORAL LIQUID 20 MEQ/15 ML PO SCH ×2 (14:02→22:05)
[2021-07-26] MEDS: ATORVASTATIN CA 80 MG TABLET (FP) PO SCH (21:49)
[2021-07-26] MEDS: SENNOSIDES 8.6MG TABLET (FP) PO SCH (21:49)
[2021-07-26] MEDS: QUEtiapine FUMARATE 50 MG TABLET PO SCH (21:49)
[2021-07-26] MEDS: MELATONIN 5 MG TABLETS PO SCH (21:50)
[2021-07-27] MEDS ORDERED: DEXTROSE 5%-WATER - 50 ML IVPB ONE ×3 (01:16→14:54)
[2021-07-27] MEDS ORDERED: PIPERACILLIN/TAZOBACTAM 3.375 GM VIAL IVPB ONE ×3 (01:16→14:54)
[2021-07-27] MEDS: PIPERACILLIN/TAZOB 3.375 GM 3.375 GM in DEXTROSE 5%-WATER - 50 ML IVPB SCH ×3 (01:44→17:03)
[2021-07-27 09:05] LABS: BASO % 0.4 % (0-2.0); EOS % 3.9 % (0-4.5); LYMPH % 12.7 % (8-40); MCH 24.5 pg (25.7-33.7); MEAN CELL VOLUME 76.7 fl (80-96); MEAN PLT VOLUME 6.1 fl (7.5-11.1); MONO % 8.4 % (3.8-10.2); NEUT % 74.6 % (42.8-82.8); PLATELET COUNT 426 10^3/uL (134-434); RBC 3.26 M/mm3 (4.00-5.60); RDW 20.7 % (11.9-15.9); WHITE BLOOD COUNT 6.8 K/mm3 (4.0-10.0)
[2021-07-27] MEDS: AMINO ACIDS/PROTEIN HYDROLYS 30 ML LIQUID.PKT PO SCH ×2 (09:21→16:36)
[2021-07-27] MEDS: POLYETHYLENE GLYCOL (HEALTHYLAX) 3350 17 GM PACKET PO SCH ×2 (09:21→21:13)
[2021-07-27] MEDS: ENOXAPARIN NA (PORCINE) 40 MG/0.4 ML DISP.SYRIN SQ SCH (09:22)
[2021-07-27] MEDS: levETIRAcetam 500 MG/5 ML INJECTION VIAL IVPB SCH ×2 (09:22→21:14)
[2021-07-27] MEDS: MULTIVITAMINS (DAILY MVI) TABLET (FP) PO SCH (09:25)
[2021-07-27] MEDS: FUROSEMIDE 40 MG TABLET (FP) PO SCH (09:25)
[2021-07-27] MEDS: ASCORBIC ACID 250 MG TABLET (FP) PO SCH ×2 (09:25→21:14)
[2021-07-27] MEDS: PANTOPRAZOLE 40 MG TABLET PO SCH (09:25)
[2021-07-27] MEDS: METOPROLOL TARTRATE 25 MG TABLET (FP) PO SCH ×2 (09:25→21:14)
[2021-07-27 09:26] LABS: CHLORIDE 107 mmol/L (98-107); SODIUM 142 mmol/L (136-145)
[2021-07-27] MEDS: ZINC SULFATE 220 MG CAPSULE (FP) PO SCH (09:26)
[2021-07-27] MEDS: COLLAGENASE CLOSTRIDIUM HIST. 30 GRAMS TUBE TP SCH (09:26)
[2021-07-27 09:28] LABS: CALCIUM 9.1 mg/dL (8.5-10.1)
[2021-07-27 09:29] LABS: ALBUMIN 2.2 g/dl (3.4-5.0); BLOOD UREA NITROGEN 13.3 mg/dL (7-18); CO2 28 mmol/L (21-32); GLUCOSE,RANDOM 86 mg/dL (74-106); MAGNESIUM 2.3 mg/dL (1.8-2.4)
[2021-07-27 09:32] LABS: CREATININE 0.9 mg/dL (0.55-1.3); SGOT/AST 15 U/L (15-37); SGPT/ALT 10 U/L (13-61)
[2021-07-27 09:34] LABS: BILIRUBIN,TOTAL 0.8 mg/dL (0.2-1); TOT PROT 5.8 g/dl (6.4-8.2)
[2021-07-27 09:35] LABS: ALK PHOS 61 U/L (45-117)
[2021-07-27 09:37] LABS: ANION GAP 6 MMOL/L (8-16)
[2021-07-27] MEDS: KCL 10 MEQ IVPB 10 MEQ/100 ML INFUS.BAG IVPB SCH ×3 (11:35→14:52)
[2021-07-27 12:48] LABS: ANISOCYTOSIS 2+; MACROCYTOSIS 0; OVALOCYTE 1+; PLATELET ESTIMATE NORMAL; TEAR DROP CELLS 1+
[2021-07-27] MEDS: QUEtiapine FUMARATE 50 MG TABLET PO SCH (21:14)
[2021-07-27] MEDS: ATORVASTATIN CA 80 MG TABLET (FP) PO SCH (21:14)
[2021-07-27] MEDS: SENNOSIDES 8.6MG TABLET (FP) PO SCH (21:14)
[2021-07-27] MEDS: MELATONIN 5 MG TABLETS PO SCH (21:14)
[2021-07-28] MEDS ORDERED: PIPERACILLIN/TAZOBACTAM 3.375 GM VIAL IVPB ONE ×3 (00:30→17:28)
[2021-07-28] MEDS ORDERED: DEXTROSE 5%-WATER - 50 ML IVPB ONE ×3 (00:30→17:28)
[2021-07-28] MEDS: PIPERACILLIN/TAZOB 3.375 GM 3.375 GM in DEXTROSE 5%-WATER - 50 ML IVPB SCH ×3 (01:04→18:23)
[2021-07-28 09:32] LABS: BASO % 0.4 % (0-2.0); EOS % 4.7 % (0-4.5); HEMOGLOBIN 8.9 GM/dL (11.7-16.9); LYMPH % 16.1 % (8-40); MCHC 32.9 g/dl (32.0-35.9); MEAN CELL VOLUME 76.1 fl (80-96); MEAN PLT VOLUME 6.2 fl (7.5-11.1); MONO % 6.1 % (3.8-10.2); NEUT % 72.7 % (42.8-82.8); PLATELET COUNT 483 10^3/uL (134-434); RBC 3.56 M/mm3 (4.00-5.60); RDW 21.7 % (11.9-15.9); WHITE BLOOD COUNT 8.7 K/mm3 (4.0-10.0)
[2021-07-28 09:59] LABS: ALBUMIN 2.4 g/dl (3.4-5.0); BLOOD UREA NITROGEN 13.8 mg/dL (7-18); MAGNESIUM 2.3 mg/dL (1.8-2.4)
[2021-07-28 10:02] LABS: BILIRUBIN,TOTAL 0.5 mg/dL (0.2-1)
[2021-07-28 10:03] LABS: TOT PROT 6.3 g/dl (6.4-8.2)
[2021-07-28] MEDS: AMINO ACIDS/PROTEIN HYDROLYS 30 ML LIQUID.PKT PO SCH ×2 (10:58→18:23)
[2021-07-28] MEDS: levETIRAcetam 500 MG/5 ML INJECTION VIAL IVPB SCH ×2 (10:58→21:31)
[2021-07-28] MEDS: POLYETHYLENE GLYCOL (HEALTHYLAX) 3350 17 GM PACKET PO SCH ×2 (10:58→21:31)
[2021-07-28] MEDS: ZINC SULFATE 220 MG CAPSULE (FP) PO SCH (10:59)
[2021-07-28] MEDS: MULTIVITAMINS (DAILY MVI) TABLET (FP) PO SCH (10:59)
[2021-07-28] MEDS: METOPROLOL TARTRATE 25 MG TABLET (FP) PO SCH ×2 (10:59→21:32)
[2021-07-28] MEDS: ASCORBIC ACID 250 MG TABLET (FP) PO SCH ×2 (10:59→21:31)
[2021-07-28] MEDS: FUROSEMIDE 40 MG TABLET (FP) PO SCH (10:59)
[2021-07-28] MEDS: PANTOPRAZOLE 40 MG TABLET PO SCH (10:59)
[2021-07-28] MEDS: ENOXAPARIN NA (PORCINE) 40 MG/0.4 ML DISP.SYRIN SQ SCH (10:59)
[2021-07-28] MEDS: COLLAGENASE CLOSTRIDIUM HIST. 30 GRAMS TUBE TP SCH (11:00)
[2021-07-28] MEDS: QUEtiapine FUMARATE 50 MG TABLET PO SCH (21:31)
[2021-07-28] MEDS: MELATONIN 5 MG TABLETS PO SCH (21:31)
[2021-07-28] MEDS: SENNOSIDES 8.6MG TABLET (FP) PO SCH (21:31)
[2021-07-28] MEDS: ATORVASTATIN CA 80 MG TABLET (FP) PO SCH (21:31)
[2021-07-29] MEDS ORDERED: PIPERACILLIN/TAZOBACTAM 3.375 GM VIAL IVPB ONE ×2 (00:53→11:45)
[2021-07-29] MEDS ORDERED: DEXTROSE 5%-WATER - 50 ML IVPB ONE ×2 (00:54→11:45)
[2021-07-29] MEDS: PIPERACILLIN/TAZOB 3.375 GM 3.375 GM in DEXTROSE 5%-WATER - 50 ML IVPB SCH ×2 (02:03→13:23)
[2021-07-29 08:21] LABS: BASO % 0.6 % (0-2.0); EOS % 3.6 % (0-4.5); LYMPH % 18.5 % (8-40); MCH 25.2 pg (25.7-33.7); MCHC 32.1 g/dl (32.0-35.9); MEAN CELL VOLUME 78.3 fl (80-96); MEAN PLT VOLUME 6.3 fl (7.5-11.1); MONO % 6.3 % (3.8-10.2); PLATELET COUNT 455 10^3/uL (134-434); RBC 3.19 M/mm3 (4.00-5.60); RDW 21.7 % (11.9-15.9); WHITE BLOOD COUNT 6.8 K/mm3 (4.0-10.0)
[2021-07-29 08:30] LABS: CALCIUM 8.7 mg/dL (8.5-10.1)
[2021-07-29 08:31] LABS: ALBUMIN 2.3 g/dl (3.4-5.0); BLOOD UREA NITROGEN 18.7 mg/dL (7-18)
[2021-07-29 08:34] LABS: CREATININE 0.9 mg/dL (0.55-1.3)
[2021-07-29 08:35] LABS: BILIRUBIN,TOTAL 0.3 mg/dL (0.2-1); TOT PROT 5.9 g/dl (6.4-8.2)
[2021-07-29] MEDS: COLLAGENASE CLOSTRIDIUM HIST. 30 GRAMS TUBE TP SCH (11:37)
[2021-07-29] MEDS: POLYETHYLENE GLYCOL (HEALTHYLAX) 3350 17 GM PACKET PO SCH ×2 (11:54→22:18)
[2021-07-29] MEDS: levETIRAcetam 500 MG/5 ML INJECTION VIAL IVPB SCH ×2 (11:55→22:18)
[2021-07-29] MEDS: AMINO ACIDS/PROTEIN HYDROLYS 30 ML LIQUID.PKT PO SCH ×2 (11:55→18:20)
[2021-07-29] MEDS: PANTOPRAZOLE 40 MG TABLET PO SCH (11:55)
[2021-07-29] MEDS: ENOXAPARIN NA (PORCINE) 40 MG/0.4 ML DISP.SYRIN SQ SCH (11:56)
[2021-07-29] MEDS: ZINC SULFATE 220 MG CAPSULE (FP) PO SCH (11:56)
[2021-07-29] MEDS: FUROSEMIDE 40 MG TABLET (FP) PO SCH (11:56)
[2021-07-29] MEDS: METOPROLOL TARTRATE 25 MG TABLET (FP) PO SCH ×2 (11:56→22:19)
[2021-07-29] MEDS: MULTIVITAMINS (DAILY MVI) TABLET (FP) PO SCH (11:56)
[2021-07-29] MEDS: ASCORBIC ACID 250 MG TABLET (FP) PO SCH ×2 (11:57→22:23)
[2021-07-29] MEDS: ATORVASTATIN CA 80 MG TABLET (FP) PO SCH (22:18)
[2021-07-29] MEDS: SENNOSIDES 8.6MG TABLET (FP) PO SCH (22:20)
[2021-07-29] MEDS: QUEtiapine FUMARATE 50 MG TABLET PO SCH (22:20)
[2021-07-29] MEDS: MELATONIN 5 MG TABLETS PO SCH (22:20)
[2021-07-30 09:04] LABS: BASO % 0.5 % (0-2.0); EOS % 3.5 % (0-4.5); HEMATOCRIT 26.6 % (35.4-49); HEMOGLOBIN 8.5 GM/dL (11.7-16.9); LYMPH % 14.2 % (8-40); MCH 24.8 pg (25.7-33.7); MCHC 31.9 g/dl (32.0-35.9); MEAN CELL VOLUME 77.8 fl (80-96); MEAN PLT VOLUME 6.5 fl (7.5-11.1); NEUT % 74.8 % (42.8-82.8); PLATELET COUNT 449 10^3/uL (134-434); RBC 3.42 M/mm3 (4.00-5.60); RDW 22.4 % (11.9-15.9); WHITE BLOOD COUNT 6.7 K/mm3 (4.0-10.0)
[2021-07-30 10:08] LABS: SARS-CoV-2 NAA Not Detected (Not Detected)
[2021-07-30 10:11] LABS: CALCIUM 8.6 mg/dL (8.5-10.1)
[2021-07-30 10:12] LABS: ALBUMIN 2.3 g/dl (3.4-5.0); BLOOD UREA NITROGEN 16.1 mg/dL (7-18); MAGNESIUM 2.3 mg/dL (1.8-2.4)
[2021-07-30 10:16] LABS: TOT PROT 6.1 g/dl (6.4-8.2)
[2021-07-30 10:17] LABS: BILIRUBIN,TOTAL 0.4 mg/dL (0.2-1)
[2021-07-30] MEDS: POLYETHYLENE GLYCOL (HEALTHYLAX) 3350 17 GM PACKET PO SCH (11:08)
[2021-07-30] MEDS: ENOXAPARIN NA (PORCINE) 40 MG/0.4 ML DISP.SYRIN SQ SCH (11:35)
[2021-07-30] MEDS: FUROSEMIDE 40 MG TABLET (FP) PO SCH (11:36)
[2021-07-30] MEDS: levETIRAcetam 500 MG/5 ML INJECTION VIAL IVPB SCH (11:36)
[2021-07-30] MEDS: METOPROLOL TARTRATE 25 MG TABLET (FP) PO SCH (11:36)
[2021-07-30] MEDS: MULTIVITAMINS (DAILY MVI) TABLET (FP) PO SCH (11:36)
[2021-07-30] MEDS: PANTOPRAZOLE 40 MG TABLET PO SCH (11:36)
[2021-07-30] MEDS: ASCORBIC ACID 250 MG TABLET (FP) PO SCH (11:37)
[2021-07-30] MEDS: ZINC SULFATE 220 MG CAPSULE (FP) PO SCH (11:37)
[2021-07-30] MEDS: COLLAGENASE CLOSTRIDIUM HIST. 30 GRAMS TUBE TP SCH (11:37)
[2021-07-30] MEDS: AMINO ACIDS/PROTEIN HYDROLYS 30 ML LIQUID.PKT PO SCH ×2 (11:37→18:59)
[2021-07-30 14:59] VITALS: BP 119/61; PULSE 74; TEMP 98.4
== END 2021-07-30 19:34 | DRG 981 ==
LOC: JER 18:51 → JERBED 22:31 → OBSVTOIN 22:44 → J7W 07-22 15:39
PROVIDERS: ADMIT Hospitalist; ATTEND Nurse Practitioner Family
PROC: 0D9670Z Drainage of Stomach with Drainage Device, Via Natural or Artificial Opening (ICD-10-PCS; principal; 2021-07-22)
PROC: 0KBP0ZZ Excision of Left Hip Muscle, Open Approach (ICD-10-PCS; 2021-07-29)
DX: T83.030A Leakage of cystostomy catheter, initial encounter (principal); L89.224 Pressure ulcer of left hip, stage 4; L89.153 Pressure ulcer of sacral region, stage 3; G93.41 Metabolic encephalopathy; G82.20 Paraplegia, unspecified; G95.9 Disease of spinal cord, unspecified; N39.0 Urinary tract infection, site not specified; I96 Gangrene, not elsewhere classified; E44.0 Moderate protein-calorie malnutrition; G95.0 Syringomyelia and syringobulbia; L02.31 Cutaneous abscess of buttock; T83.090A Other mechanical complication of cystostomy catheter, initial encounter; Y84.8 Other medical procedures as the cause of abnormal reaction of the patient, or of later complication, without mention of misadventure at the time of the procedure; I10 Essential (primary) hypertension; G40.909 Epilepsy, unspecified, not intractable, without status epilepticus; J44.9 Chronic obstructive pulmonary disease, unspecified; K56.41 Fecal impaction; N31.9 Neuromuscular dysfunction of bladder, unspecified; G62.9 Polyneuropathy, unspecified; D64.9 Anemia, unspecified; L89.896 Pressure-induced deep tissue damage of other site; R14.0 Abdominal distension (gaseous); K64.8 Other hemorrhoids; Z68.25 Body mass index [BMI] 25.0-25.9, adult; Z74.01 Bed confinement status; Z86.73 Personal history of transient ischemic attack (TIA), and cerebral infarction without residual deficits
CPT/HCPCS: 36415; 36430; 71045-TC-FY; 72170-TC-FY; 74018-TC-FY; 74177-TC; 76705-TC; 76775-TC; 76856-TC; 80048; 80053; 81003; 83605; 83735; 84100; 85025; 85027; 85610; 85651; 86140; 86850; 86900; 86901; 86922; 87040; 87070; 87076; 87086; 87186; 87205; 88304-TC; 93005; 93010; 94760; 99285-25; C9803; G0378; P9058; Q9967; U0003; U0005

== ENCOUNTER 2021-08-27 23:11 | Inpatient (IN) | payer OTHER ==
[2021-08-28 00:53] LABS: EPI CELLS 21 /uL (0-25.1); HYALINE CASTS 14 /uL (0-3.1); PH,URINE 5.5 (5.0-8.0); URINE APPEARANCE CLOUDY; URINE BACTERIA >9,000 /uL (0-1359); URINE BILIRUBIN NEGATIVE (NEGATIVE); URINE COLOR YELLOW; URINE GLUCOSE (UA) NEGATIVE (NEGATIVE); URINE KETONE NEGATIVE (NEGATIVE); URINE LEUK ESTERASE 3+ (NEGATIVE); URINE NITRITE NEGATIVE (NEGATIVE); URINE PROTEIN 1+ (NEGATIVE); URINE RBC 26 /uL (0-23.9); URINE UROBILINOGEN 0.2 mg/dL (0.2-1.0); URINE WBC 965 /uL (0-25.8)
[2021-08-28 01:01] LABS: BASO % 0.3 % (0-2.0); EOS % 0.2 % (0-4.5); HEMATOCRIT 27.7 % (35.4-49); HEMOGLOBIN 8.9 GM/dL (11.7-16.9); LYMPH % 6.8 % (8-40); MCH 23.7 pg (25.7-33.7); MCHC 32.2 g/dl (32.0-35.9); MEAN CELL VOLUME 73.4 fl (80-96); MEAN PLT VOLUME 6.7 fl (7.5-11.1); MONO % 8.6 % (3.8-10.2); NEUT % 84.1 % (42.8-82.8); PLATELET COUNT 535 10^3/uL (134-434); RBC 3.77 M/mm3 (4.00-5.60); RDW 22.2 % (11.9-15.9); WHITE BLOOD COUNT 11.4 K/mm3 (4.0-10.0)
[2021-08-28] MEDS ORDERED: CEFTRIAXONE 1,000 MG in DEXTROSE 5%-WATER - 50 ML IVPB ONE (01:12)
[2021-08-28 01:17] LABS: VENOUS BASE EXCESS 1.4 mmol/L (-2-2); VENOUS O2 SATURATION 73.2 % (70-80); VENOUS PCO2 50.5 mmHg (38-52); VENOUS PH 7.354 (7.310-7.410)
[2021-08-28 01:19] LABS: ALBUMIN 2.2 g/dl (3.4-5.0); BLOOD UREA NITROGEN 34.3 mg/dL (7-18); MAGNESIUM 2.4 mg/dL (1.8-2.4)
[2021-08-28 01:22] LABS: CREATININE 1.2 mg/dL (0.55-1.3)
[2021-08-28 01:24] LABS: BILIRUBIN,TOTAL 0.5 mg/dL (0.2-1)
[2021-08-28] MEDS ORDERED: CEFTRIAXONE 1 GM/50 ML BAG ONE (03:05)
[2021-08-28 03:26] LABS: ANISOCYTOSIS 1+; MACROCYTOSIS 0; OVALOCYTE 1+; TEAR DROP CELLS 1+
[2021-08-28] MEDS ORDERED: MEROPENEM 500 MG VIAL (RESTRICTED TO ID) IVPB ONE (03:52)
[2021-08-28] MEDS: SODIUM CHLORIDE 1,000 ML IV SCH (06:30)
[2021-08-28] MEDS: MEROPENEM 500 MG in DEXTROSE 5%-WATER 100 ML IVPB SCH ×3 (06:30→19:05)
[2021-08-28] MEDS: levETIRAcetam 500 MG/5 ML INJECTION VIAL IVPB SCH ×2 (11:01→21:38)
[2021-08-28] MEDS: ENOXAPARIN NA (PORCINE) 40 MG/0.4 ML DISP.SYRIN SQ SCH ×2 (11:01→11:41)
[2021-08-28] MEDS: ATORVASTATIN CA 80 MG TABLET (FP) PO SCH ×2 (21:38→21:48)
[2021-08-28] MEDS: OXYBUTYNIN CHLORIDE 5 MG TABLET PO SCH ×2 (21:38→21:47)
[2021-08-28] MEDS: MELATONIN 5 MG TABLETS PO SCH ×2 (21:38→21:48)
[2021-08-29] MEDS: MEROPENEM 500 MG in DEXTROSE 5%-WATER 100 ML IVPB SCH ×3 (02:11→12:25)
[2021-08-29] MEDS: SODIUM CHLORIDE 1,000 ML IV SCH ×2 (05:37→23:06)
[2021-08-29 08:54] LABS: HEMATOCRIT 23.3 % (35.4-49); HEMOGLOBIN 7.7 GM/dL (11.7-16.9); MCH 24.2 pg (25.7-33.7); MEAN CELL VOLUME 73.4 fl (80-96); MEAN PLT VOLUME 6.5 fl (7.5-11.1); PLATELET COUNT 560 10^3/uL (134-434); RBC 3.18 M/mm3 (4.00-5.60); RDW 22.2 % (11.9-15.9); WHITE BLOOD COUNT 7.6 K/mm3 (4.0-10.0)
[2021-08-29 09:07] LABS: BLOOD UREA NITROGEN 24.1 mg/dL (7-18); CALCIUM 8.6 mg/dL (8.5-10.1)
[2021-08-29 09:10] LABS: CREATININE 0.8 mg/dL (0.55-1.3)
[2021-08-29] MEDS: ENOXAPARIN NA (PORCINE) 40 MG/0.4 ML DISP.SYRIN SQ SCH (10:42)
[2021-08-29] MEDS: OXYBUTYNIN CHLORIDE 5 MG TABLET PO SCH ×2 (10:42→21:44)
[2021-08-29] MEDS: levETIRAcetam 500 MG/5 ML INJECTION VIAL IVPB SCH ×2 (10:43→21:49)
[2021-08-29] MEDS: PANTOPRAZOLE 40 MG TABLET PO SCH (10:54)
[2021-08-29] MEDS: COLLAGENASE CLOSTRIDIUM HIST. 30 GRAMS TUBE TP SCH (10:54)
[2021-08-29] MEDS: MEROPENEM 1 GM in DEXTROSE 5%-WATER 100 ML IVPB SCH (17:34)
[2021-08-29] MEDS: MELATONIN 5 MG TABLETS PO SCH (21:43)
[2021-08-29] MEDS: ATORVASTATIN CA 80 MG TABLET (FP) PO SCH (21:43)
[2021-08-30] MEDS ORDERED: MEROPENEM 1 GM VIAL (RESTRICTED TO ID) IVPB ONE ×3 (00:56→17:44)
[2021-08-30] MEDS ORDERED: DEXTROSE 5%-WATER 100 ML IVPB ONE ×3 (00:56→17:44)
[2021-08-30] MEDS: MEROPENEM 1 GM in DEXTROSE 5%-WATER 100 ML IVPB SCH ×3 (02:32→17:49)
[2021-08-30] MEDS: ENOXAPARIN NA (PORCINE) 40 MG/0.4 ML DISP.SYRIN SQ SCH (09:34)
[2021-08-30] MEDS: SODIUM CHLORIDE 1,000 ML IV SCH ×2 (09:35→14:12)
[2021-08-30] MEDS: OXYBUTYNIN CHLORIDE 5 MG TABLET PO SCH ×2 (09:35→21:00)
[2021-08-30] MEDS: PANTOPRAZOLE 40 MG TABLET PO SCH (09:35)
[2021-08-30] MEDS: levETIRAcetam 500 MG/5 ML INJECTION VIAL IVPB SCH ×2 (09:35→21:00)
[2021-08-30] MEDS: COLLAGENASE CLOSTRIDIUM HIST. 30 GRAMS TUBE TP SCH (14:22)
[2021-08-30 16:50] VITALS: BMI 19.8
[2021-08-30] MEDS: AMINO ACIDS/PROTEIN HYDROLYS 30 ML LIQUID.PKT PO SCH (17:49)
[2021-08-30] MEDS: ATORVASTATIN CA 80 MG TABLET (FP) PO SCH (21:00)
[2021-08-30] MEDS: MELATONIN 5 MG TABLETS PO SCH (21:00)
[2021-08-31] MEDS ORDERED: MEROPENEM 1 GM VIAL (RESTRICTED TO ID) IVPB ONE ×3 (00:38→17:38)
[2021-08-31] MEDS ORDERED: DEXTROSE 5%-WATER 100 ML IVPB ONE ×3 (00:39→17:39)
[2021-08-31] MEDS: MEROPENEM 1 GM in DEXTROSE 5%-WATER 100 ML IVPB SCH ×3 (01:00→17:55)
[2021-08-31] MEDS: SODIUM CHLORIDE 1,000 ML IV SCH (05:21)
[2021-08-31 07:56] LABS: HEMATOCRIT 22.7 % (35.4-49); HEMOGLOBIN 7.5 GM/dL (11.7-16.9); MCH 24.4 pg (25.7-33.7); MCHC 32.9 g/dl (32.0-35.9); MEAN PLT VOLUME 6.3 fl (7.5-11.1); PLATELET COUNT 557 10^3/uL (134-434); RBC 3.07 M/mm3 (4.00-5.60); RDW 22.6 % (11.9-15.9); WHITE BLOOD COUNT 7.5 K/mm3 (4.0-10.0)
[2021-08-31 08:22] LABS: CALCIUM 7.8 mg/dL (8.5-10.1)
[2021-08-31 08:26] LABS: CREATININE 0.8 mg/dL (0.55-1.3)
[2021-08-31 08:27] LABS: BILIRUBIN,TOTAL 0.4 mg/dL (0.2-1); TOT PROT 5.7 g/dl (6.4-8.2)
[2021-08-31 08:32] LABS: ALBUMIN 1.7 g/dl (3.4-5.0)
[2021-08-31] MEDS: ENOXAPARIN NA (PORCINE) 40 MG/0.4 ML DISP.SYRIN SQ SCH (10:11)
[2021-08-31] MEDS: OXYBUTYNIN CHLORIDE 5 MG TABLET PO SCH ×2 (10:11→21:48)
[2021-08-31] MEDS: ASCORBIC ACID 500 MG TABLET (FP) PO SCH (10:12)
[2021-08-31] MEDS: MULTIVITAMINS (DAILY MVI) TABLET (FP) PO SCH (10:12)
[2021-08-31] MEDS: PANTOPRAZOLE 40 MG TABLET PO SCH (10:12)
[2021-08-31] MEDS: COLLAGENASE CLOSTRIDIUM HIST. 30 GRAMS TUBE TP SCH (10:12)
[2021-08-31] MEDS: AMINO ACIDS/PROTEIN HYDROLYS 30 ML LIQUID.PKT PO SCH ×3 (10:12→17:55)
[2021-08-31] MEDS: levETIRAcetam 500 MG/5 ML INJECTION VIAL IVPB SCH ×2 (10:57→21:53)
[2021-08-31] MEDS ORDERED: IRON SUCROSE INJECTION 300 MG in SODIUM CHLORIDE 235 ML IVPB ONE (12:41)
[2021-08-31] MEDS ORDERED: DOCUSATE SODIUM 100 MG CAPSULE (FP) PO ONE (18:10)
[2021-08-31] MEDS: POLYETHYLENE GLYCOL (HEALTHYLAX) 3350 17 GM PACKET PO SCH (18:25)
[2021-08-31] MEDS: MELATONIN 5 MG TABLETS PO SCH (21:48)
[2021-08-31] MEDS: ATORVASTATIN CA 80 MG TABLET (FP) PO SCH (21:48)
[2021-09-01] MEDS ORDERED: MEROPENEM 1 GM VIAL (RESTRICTED TO ID) IVPB ONE ×3 (02:50→16:58)
[2021-09-01] MEDS ORDERED: DEXTROSE 5%-WATER 100 ML IVPB ONE ×3 (02:50→16:58)
[2021-09-01] MEDS: MEROPENEM 1 GM in DEXTROSE 5%-WATER 100 ML IVPB SCH ×3 (02:53→18:40)
[2021-09-01 09:13] LABS: HEMATOCRIT 20.6 % (35.4-49); MCH 24.6 pg (25.7-33.7); MCHC 32.9 g/dl (32.0-35.9); MEAN CELL VOLUME 74.8 fl (80-96); PLATELET COUNT 499 10^3/uL (134-434); RBC 2.76 M/mm3 (4.00-5.60); RDW 22.3 % (11.9-15.9); WHITE BLOOD COUNT 6.7 K/mm3 (4.0-10.0)
[2021-09-01 09:34] LABS: HEMOGLOBIN 6.8 GM/dL (11.7-16.9)
[2021-09-01] MEDS: POLYETHYLENE GLYCOL (HEALTHYLAX) 3350 17 GM PACKET PO SCH ×2 (09:52→14:14)
[2021-09-01] MEDS: AMINO ACIDS/PROTEIN HYDROLYS 30 ML LIQUID.PKT PO SCH ×3 (09:52→17:24)
[2021-09-01] MEDS: MULTIVITAMINS (DAILY MVI) TABLET (FP) PO SCH (09:52)
[2021-09-01] MEDS: PANTOPRAZOLE 40 MG TABLET PO SCH (09:52)
[2021-09-01] MEDS: ENOXAPARIN NA (PORCINE) 40 MG/0.4 ML DISP.SYRIN SQ SCH (09:52)
[2021-09-01] MEDS: COLLAGENASE CLOSTRIDIUM HIST. 30 GRAMS TUBE TP SCH (09:52)
[2021-09-01] MEDS: OXYBUTYNIN CHLORIDE 5 MG TABLET PO SCH ×2 (09:52→22:12)
[2021-09-01] MEDS: ASCORBIC ACID 500 MG TABLET (FP) PO SCH (09:52)
[2021-09-01] MEDS: levETIRAcetam 500 MG/5 ML INJECTION VIAL IVPB SCH (10:53)
[2021-09-01] MEDS: SODIUM CHLORIDE 1,000 ML IV SCH (12:00)
[2021-09-01] MEDS: ACETAMINOPHEN 325 MG TABLET (FP) PO SCH ×2 (14:23→20:49)
[2021-09-01] MEDS: MELATONIN 5 MG TABLETS PO SCH (22:12)
[2021-09-01] MEDS: ATORVASTATIN CA 80 MG TABLET (FP) PO SCH (22:13)
[2021-09-02] MEDS: levETIRAcetam 500 MG/5 ML INJECTION VIAL IVPB SCH ×3 (00:04→21:59)
[2021-09-02] MEDS ORDERED: MEROPENEM 1 GM VIAL (RESTRICTED TO ID) IVPB ONE ×3 (02:42→17:28)
[2021-09-02] MEDS ORDERED: DEXTROSE 5%-WATER 100 ML IVPB ONE ×3 (02:42→17:28)
[2021-09-02] MEDS: MEROPENEM 1 GM in DEXTROSE 5%-WATER 100 ML IVPB SCH ×3 (02:46→17:37)
[2021-09-02] MEDS: AMINO ACIDS/PROTEIN HYDROLYS 30 ML LIQUID.PKT PO SCH ×3 (09:07→17:37)
[2021-09-02] MEDS: SODIUM CHLORIDE 1,000 ML IV SCH ×2 (09:44→19:36)
[2021-09-02] MEDS: COLLAGENASE CLOSTRIDIUM HIST. 30 GRAMS TUBE TP SCH (10:30)
[2021-09-02] MEDS ORDERED: MIDAZOLAM HCL 2 MG/2 ML SINGLE DOSE VIAL ONE ×2 (12:41→12:43)
[2021-09-02] MEDS ORDERED: LIDOCAINE HCL 1%, 10 MG/ML (20ML VIAL) ONE (12:42)
[2021-09-02] MEDS ORDERED: LIDOCAINE HCL 1%, 10 MG/ML (20ML VIAL) NR ONE (12:47)
[2021-09-02] MEDS ORDERED: PROPOFOL 20 ML ONE (12:51)
[2021-09-02] MEDS: POLYETHYLENE GLYCOL (HEALTHYLAX) 3350 17 GM PACKET PO SCH (17:32)
[2021-09-02] MEDS: OXYBUTYNIN CHLORIDE 5 MG TABLET PO SCH ×2 (17:33→21:59)
[2021-09-02] MEDS: PANTOPRAZOLE 40 MG TABLET PO SCH (17:33)
[2021-09-02] MEDS: ENOXAPARIN NA (PORCINE) 40 MG/0.4 ML DISP.SYRIN SQ SCH (17:34)
[2021-09-02] MEDS: MULTIVITAMINS (DAILY MVI) TABLET (FP) PO SCH (17:34)
[2021-09-02] MEDS: ASCORBIC ACID 500 MG TABLET (FP) PO SCH (17:34)
[2021-09-02] MEDS: MELATONIN 5 MG TABLETS PO SCH (21:58)
[2021-09-02] MEDS: ATORVASTATIN CA 80 MG TABLET (FP) PO SCH (21:59)
[2021-09-03] MEDS ORDERED: DEXTROSE 5%-WATER 100 ML IVPB ONE ×3 (01:14→16:56)
[2021-09-03] MEDS ORDERED: MEROPENEM 1 GM VIAL (RESTRICTED TO ID) IVPB ONE ×3 (01:14→16:55)
[2021-09-03] MEDS: MEROPENEM 1 GM in DEXTROSE 5%-WATER 100 ML IVPB SCH ×3 (02:00→17:01)
[2021-09-03] MEDS: SODIUM CHLORIDE 1,000 ML IV SCH ×2 (07:57→14:32)
[2021-09-03] MEDS: AMINO ACIDS/PROTEIN HYDROLYS 30 ML LIQUID.PKT PO SCH ×3 (08:55→17:00)
[2021-09-03] MEDS: POLYETHYLENE GLYCOL (HEALTHYLAX) 3350 17 GM PACKET PO SCH (10:00)
[2021-09-03] MEDS: OXYBUTYNIN CHLORIDE 5 MG TABLET PO SCH ×2 (10:00→22:23)
[2021-09-03] MEDS: MULTIVITAMINS (DAILY MVI) TABLET (FP) PO SCH (10:01)
[2021-09-03] MEDS: PANTOPRAZOLE 40 MG TABLET PO SCH (10:01)
[2021-09-03] MEDS: levETIRAcetam 500 MG/5 ML INJECTION VIAL IVPB SCH ×2 (10:01→22:23)
[2021-09-03] MEDS: ASCORBIC ACID 500 MG TABLET (FP) PO SCH (10:04)
[2021-09-03] MEDS: ENOXAPARIN NA (PORCINE) 40 MG/0.4 ML DISP.SYRIN SQ SCH (10:04)
[2021-09-03] MEDS: COLLAGENASE CLOSTRIDIUM HIST. 30 GRAMS TUBE TP SCH ×2 (10:06→16:53)
[2021-09-03] MEDS ORDERED: MAG HYDROX/AL HYDROX/SIMETH 30 ML UNIT-DOSE CUP PO PRN (13:43)
[2021-09-03 18:51] LABS: HEMATOCRIT 28.8 % (35.4-49); HEMOGLOBIN 9.5 GM/dL (11.7-16.9); MEAN CELL VOLUME 75.8 fl (80-96); PLATELET COUNT 448 10^3/uL (134-434); RDW 20.9 % (11.9-15.9); WHITE BLOOD COUNT 7.7 K/mm3 (4.0-10.0)
[2021-09-03 19:19] LABS: ALBUMIN 1.7 g/dl (3.4-5.0); BLOOD UREA NITROGEN 15.4 mg/dL (7-18); CALCIUM 8.1 mg/dL (8.5-10.1)
[2021-09-03 19:22] LABS: CREATININE 0.6 mg/dL (0.55-1.3)
[2021-09-03 19:24] LABS: BILIRUBIN,TOTAL 0.5 mg/dL (0.2-1); TOT PROT 5.4 g/dl (6.4-8.2)
[2021-09-03] MEDS: MELATONIN 5 MG TABLETS PO SCH (22:23)
[2021-09-03] MEDS: ATORVASTATIN CA 80 MG TABLET (FP) PO SCH (22:23)
[2021-09-04] MEDS: MEROPENEM 1 GM in DEXTROSE 5%-WATER 100 ML IVPB SCH ×3 (02:10→17:43)
[2021-09-04] MEDS ORDERED: MEROPENEM 1 GM VIAL (RESTRICTED TO ID) IVPB ONE ×4 (02:54→23:32)
[2021-09-04] MEDS ORDERED: DEXTROSE 5%-WATER 100 ML IVPB ONE ×4 (02:55→23:32)
[2021-09-04 08:43] LABS: HEMATOCRIT 26.8 % (35.4-49); HEMOGLOBIN 8.8 GM/dL (11.7-16.9); MCH 24.9 pg (25.7-33.7); MCHC 32.8 g/dl (32.0-35.9); MEAN CELL VOLUME 75.9 fl (80-96); MEAN PLT VOLUME 6.2 fl (7.5-11.1); PLATELET COUNT 411 10^3/uL (134-434); RBC 3.53 M/mm3 (4.00-5.60); RDW 21.2 % (11.9-15.9); WHITE BLOOD COUNT 7.5 K/mm3 (4.0-10.0)
[2021-09-04 08:55] LABS: CALCIUM 8.2 mg/dL (8.5-10.1)
[2021-09-04 08:56] LABS: ALBUMIN 1.7 g/dl (3.4-5.0); BLOOD UREA NITROGEN 14.1 mg/dL (7-18)
[2021-09-04 08:59] LABS: CREATININE 0.5 mg/dL (0.55-1.3)
[2021-09-04 09:00] LABS: BILIRUBIN,TOTAL 0.9 mg/dL (0.2-1); TOT PROT 5.1 g/dl (6.4-8.2)
[2021-09-04] MEDS ORDERED: IRON SUCROSE INJECTION 300 MG in SODIUM CHLORIDE 235 ML IVPB ONE (09:58)
[2021-09-04] MEDS: MULTIVITAMINS (DAILY MVI) TABLET (FP) PO SCH (11:09)
[2021-09-04] MEDS: ASCORBIC ACID 500 MG TABLET (FP) PO SCH (11:09)
[2021-09-04] MEDS: levETIRAcetam 500 MG/5 ML INJECTION VIAL IVPB SCH ×2 (11:10→21:48)
[2021-09-04] MEDS: PANTOPRAZOLE 40 MG TABLET PO SCH (11:11)
[2021-09-04] MEDS: POLYETHYLENE GLYCOL (HEALTHYLAX) 3350 17 GM PACKET PO SCH (11:11)
[2021-09-04] MEDS: OXYBUTYNIN CHLORIDE 5 MG TABLET PO SCH ×2 (11:11→21:47)
[2021-09-04] MEDS: AMINO ACIDS/PROTEIN HYDROLYS 30 ML LIQUID.PKT PO SCH ×3 (11:11→17:44)
[2021-09-04] MEDS: ENOXAPARIN NA (PORCINE) 40 MG/0.4 ML DISP.SYRIN SQ SCH (11:11)
[2021-09-04] MEDS: SODIUM CHLORIDE 1,000 ML IV SCH (17:44)
[2021-09-04] MEDS: COLLAGENASE CLOSTRIDIUM HIST. 30 GRAMS TUBE TP SCH (17:44)
[2021-09-04] MEDS: ATORVASTATIN CA 80 MG TABLET (FP) PO SCH (21:47)
[2021-09-04] MEDS: MELATONIN 5 MG TABLETS PO SCH (21:47)
[2021-09-05] MEDS: MEROPENEM 1 GM in DEXTROSE 5%-WATER 100 ML IVPB SCH ×2 (01:08→09:41)
[2021-09-05] MEDS ORDERED: MEROPENEM 1 GM VIAL (RESTRICTED TO ID) IVPB ONE (09:18)
[2021-09-05] MEDS ORDERED: DEXTROSE 5%-WATER 100 ML IVPB ONE (09:19)
[2021-09-05] MEDS: AMINO ACIDS/PROTEIN HYDROLYS 30 ML LIQUID.PKT PO SCH ×3 (09:41→17:23)
[2021-09-05] MEDS: levETIRAcetam 500 MG/5 ML INJECTION VIAL IVPB SCH (09:42)
[2021-09-05] MEDS: MULTIVITAMINS (DAILY MVI) TABLET (FP) PO SCH (09:42)
[2021-09-05] MEDS: ASCORBIC ACID 500 MG TABLET (FP) PO SCH (09:42)
[2021-09-05] MEDS: PANTOPRAZOLE 40 MG TABLET PO SCH (09:42)
[2021-09-05] MEDS: POLYETHYLENE GLYCOL (HEALTHYLAX) 3350 17 GM PACKET PO SCH (09:42)
[2021-09-05] MEDS: ENOXAPARIN NA (PORCINE) 40 MG/0.4 ML DISP.SYRIN SQ SCH (09:43)
[2021-09-05] MEDS: OXYBUTYNIN CHLORIDE 5 MG TABLET PO SCH ×2 (09:43→22:48)
[2021-09-05] MEDS: COLLAGENASE CLOSTRIDIUM HIST. 30 GRAMS TUBE TP SCH (14:58)
[2021-09-05] MEDS: SOLIFENACIN SUCCINATE 5 MG TAB PO SCH (19:48)
[2021-09-05] MEDS: ATORVASTATIN CA 80 MG TABLET (FP) PO SCH (22:48)
[2021-09-05] MEDS: levETIRAcetam 500 MG TABLET (FP) PO SCH (22:48)
[2021-09-05] MEDS: MELATONIN 5 MG TABLETS PO SCH (22:48)
[2021-09-06] MEDS: AMINO ACIDS/PROTEIN HYDROLYS 30 ML LIQUID.PKT PO SCH ×3 (08:48→17:20)
[2021-09-06] MEDS: PANTOPRAZOLE 40 MG TABLET PO SCH (10:10)
[2021-09-06] MEDS: OXYBUTYNIN CHLORIDE 5 MG TABLET PO SCH ×2 (10:10→23:17)
[2021-09-06] MEDS: MULTIVITAMINS (DAILY MVI) TABLET (FP) PO SCH (10:10)
[2021-09-06] MEDS: ASCORBIC ACID 500 MG TABLET (FP) PO SCH (10:10)
[2021-09-06] MEDS: levETIRAcetam 500 MG TABLET (FP) PO SCH ×2 (10:10→23:17)
[2021-09-06] MEDS: POLYETHYLENE GLYCOL (HEALTHYLAX) 3350 17 GM PACKET PO SCH (10:10)
[2021-09-06] MEDS: SOLIFENACIN SUCCINATE 5 MG TAB PO SCH (10:10)
[2021-09-06] MEDS: ENOXAPARIN NA (PORCINE) 40 MG/0.4 ML DISP.SYRIN SQ SCH (10:11)
[2021-09-06] MEDS: COLLAGENASE CLOSTRIDIUM HIST. 30 GRAMS TUBE TP SCH (10:27)
[2021-09-06] MEDS: MELATONIN 5 MG TABLETS PO SCH (23:16)
[2021-09-06] MEDS: ATORVASTATIN CA 80 MG TABLET (FP) PO SCH (23:17)
[2021-09-07] MEDS: SOLIFENACIN SUCCINATE 5 MG TAB PO SCH (09:55)
[2021-09-07] MEDS: POLYETHYLENE GLYCOL (HEALTHYLAX) 3350 17 GM PACKET PO SCH (09:55)
[2021-09-07] MEDS: AMINO ACIDS/PROTEIN HYDROLYS 30 ML LIQUID.PKT PO SCH ×3 (09:55→17:29)
[2021-09-07] MEDS: PANTOPRAZOLE 40 MG TABLET PO SCH (09:56)
[2021-09-07] MEDS: OXYBUTYNIN CHLORIDE 5 MG TABLET PO SCH ×2 (09:56→22:18)
[2021-09-07] MEDS: levETIRAcetam 500 MG TABLET (FP) PO SCH ×2 (09:56→22:18)
[2021-09-07] MEDS: ASCORBIC ACID 500 MG TABLET (FP) PO SCH (09:56)
[2021-09-07] MEDS: COLLAGENASE CLOSTRIDIUM HIST. 30 GRAMS TUBE TP SCH (09:56)
[2021-09-07] MEDS: ENOXAPARIN NA (PORCINE) 40 MG/0.4 ML DISP.SYRIN SQ SCH (09:56)
[2021-09-07] MEDS: MULTIVITAMINS (DAILY MVI) TABLET (FP) PO SCH (09:56)
[2021-09-07] MEDS ORDERED: ACETAMINOPHEN 325 MG TABLET (FP) PO PRN (16:21)
[2021-09-07 17:50] LABS: BASO % 1.2 % (0-2.0); EOS % 2.4 % (0-4.5); HEMATOCRIT 28.7 % (35.4-49); HEMOGLOBIN 9.4 GM/dL (11.7-16.9); LYMPH % 13.4 % (8-40); MCH 25.1 pg (25.7-33.7); MCHC 32.7 g/dl (32.0-35.9); MEAN PLT VOLUME 6.1 fl (7.5-11.1); MONO % 4.9 % (3.8-10.2); NEUT % 78.1 % (42.8-82.8); PLATELET COUNT 462 10^3/uL (134-434); RBC 3.72 M/mm3 (4.00-5.60); RDW 22.2 % (11.9-15.9); WHITE BLOOD COUNT 7.1 K/mm3 (4.0-10.0)
[2021-09-07 18:10] LABS: CALCIUM 8.4 mg/dL (8.5-10.1)
[2021-09-07 18:11] LABS: ALBUMIN 1.8 g/dl (3.4-5.0); BLOOD UREA NITROGEN 11.3 mg/dL (7-18)
[2021-09-07 18:14] LABS: CREATININE 0.6 mg/dL (0.55-1.3)
[2021-09-07 18:15] LABS: TOT PROT 5.4 g/dl (6.4-8.2)
[2021-09-07 18:16] LABS: BILIRUBIN,TOTAL 0.3 mg/dL (0.2-1)
[2021-09-07 19:12] LABS: SARS-CoV-2 NAA Not Detected (Not Detected)
[2021-09-07 19:25] LABS: ANISOCYTOSIS 3+; MACROCYTOSIS 1+
[2021-09-07] MEDS: MELATONIN 5 MG TABLETS PO SCH (22:18)
[2021-09-07] MEDS: ATORVASTATIN CA 80 MG TABLET (FP) PO SCH (22:18)
[2021-09-07] MEDS: NYSTATIN 100,000 UNIT/GM TOPICAL CREAM 15 GM TUBE TP SCH (22:20)
[2021-09-08] MEDS: PANTOPRAZOLE 40 MG TABLET PO SCH (09:50)
[2021-09-08] MEDS: OXYBUTYNIN CHLORIDE 5 MG TABLET PO SCH ×2 (09:50→22:59)
[2021-09-08] MEDS: SOLIFENACIN SUCCINATE 5 MG TAB PO SCH (09:50)
[2021-09-08] MEDS: ENOXAPARIN NA (PORCINE) 40 MG/0.4 ML DISP.SYRIN SQ SCH (09:50)
[2021-09-08] MEDS: POLYETHYLENE GLYCOL (HEALTHYLAX) 3350 17 GM PACKET PO SCH (09:50)
[2021-09-08] MEDS: levETIRAcetam 500 MG TABLET (FP) PO SCH ×2 (09:50→22:59)
[2021-09-08] MEDS: ASCORBIC ACID 500 MG TABLET (FP) PO SCH (09:50)
[2021-09-08] MEDS: AMINO ACIDS/PROTEIN HYDROLYS 30 ML LIQUID.PKT PO SCH ×3 (09:50→16:50)
[2021-09-08] MEDS: COLLAGENASE CLOSTRIDIUM HIST. 30 GRAMS TUBE TP SCH (09:51)
[2021-09-08] MEDS: MULTIVITAMINS (DAILY MVI) TABLET (FP) PO SCH (09:51)
[2021-09-08] MEDS: NYSTATIN 100,000 UNIT/GM TOPICAL CREAM 15 GM TUBE TP SCH ×2 (09:51→22:59)
[2021-09-08] MEDS: ATORVASTATIN CA 80 MG TABLET (FP) PO SCH (22:59)
[2021-09-08] MEDS: MELATONIN 5 MG TABLETS PO SCH (22:59)
[2021-09-09] MEDS: SOLIFENACIN SUCCINATE 5 MG TAB PO SCH (10:38)
[2021-09-09] MEDS: NYSTATIN 100,000 UNIT/GM TOPICAL CREAM 15 GM TUBE TP SCH ×2 (10:38→21:52)
[2021-09-09] MEDS: MULTIVITAMINS (DAILY MVI) TABLET (FP) PO SCH (10:38)
[2021-09-09] MEDS: PANTOPRAZOLE 40 MG TABLET PO SCH (10:38)
[2021-09-09] MEDS: ENOXAPARIN NA (PORCINE) 40 MG/0.4 ML DISP.SYRIN SQ SCH (10:38)
[2021-09-09] MEDS: POLYETHYLENE GLYCOL (HEALTHYLAX) 3350 17 GM PACKET PO SCH (10:38)
[2021-09-09] MEDS: COLLAGENASE CLOSTRIDIUM HIST. 30 GRAMS TUBE TP SCH (10:38)
[2021-09-09] MEDS: levETIRAcetam 500 MG TABLET (FP) PO SCH ×2 (10:38→21:52)
[2021-09-09] MEDS: OXYBUTYNIN CHLORIDE 5 MG TABLET PO SCH ×2 (10:38→21:51)
[2021-09-09] MEDS: ASCORBIC ACID 500 MG TABLET (FP) PO SCH (10:38)
[2021-09-09] MEDS: AMINO ACIDS/PROTEIN HYDROLYS 30 ML LIQUID.PKT PO SCH ×3 (10:38→17:29)
[2021-09-09] MEDS: MELATONIN 5 MG TABLETS PO SCH (21:51)
[2021-09-09] MEDS: ATORVASTATIN CA 80 MG TABLET (FP) PO SCH (21:52)
[2021-09-10 08:43] LABS: HEMATOCRIT 29.8 % (35.4-49); HEMOGLOBIN 9.6 GM/dL (11.7-16.9); MCH 25.2 pg (25.7-33.7); MCHC 32.2 g/dl (32.0-35.9); MEAN CELL VOLUME 78.3 fl (80-96); MEAN PLT VOLUME 6.2 fl (7.5-11.1); PLATELET COUNT 443 10^3/uL (134-434); RBC 3.81 M/mm3 (4.00-5.60); RDW 22.9 % (11.9-15.9); WHITE BLOOD COUNT 6.2 K/mm3 (4.0-10.0)
[2021-09-10 09:08] LABS: BLOOD UREA NITROGEN 12.7 mg/dL (7-18); MAGNESIUM 2.1 mg/dL (1.8-2.4)
[2021-09-10 09:09] LABS: CALCIUM 8.4 mg/dL (8.5-10.1)
[2021-09-10 09:11] LABS: CREATININE 0.7 mg/dL (0.55-1.3)
[2021-09-10] MEDS: AMINO ACIDS/PROTEIN HYDROLYS 30 ML LIQUID.PKT PO SCH ×3 (09:13→17:55)
[2021-09-10] MEDS: levETIRAcetam 500 MG TABLET (FP) PO SCH ×2 (10:12→21:15)
[2021-09-10] MEDS: PANTOPRAZOLE 40 MG TABLET PO SCH (10:13)
[2021-09-10] MEDS: COLLAGENASE CLOSTRIDIUM HIST. 30 GRAMS TUBE TP SCH (10:13)
[2021-09-10] MEDS: SOLIFENACIN SUCCINATE 5 MG TAB PO SCH (10:13)
[2021-09-10] MEDS: OXYBUTYNIN CHLORIDE 5 MG TABLET PO SCH ×2 (10:13→21:15)
[2021-09-10] MEDS: MULTIVITAMINS (DAILY MVI) TABLET (FP) PO SCH (10:13)
[2021-09-10] MEDS: NYSTATIN 100,000 UNIT/GM TOPICAL CREAM 15 GM TUBE TP SCH ×2 (10:13→21:15)
[2021-09-10] MEDS: ASCORBIC ACID 500 MG TABLET (FP) PO SCH (10:13)
[2021-09-10] MEDS: ENOXAPARIN NA (PORCINE) 40 MG/0.4 ML DISP.SYRIN SQ SCH (10:13)
[2021-09-10] MEDS: POLYETHYLENE GLYCOL (HEALTHYLAX) 3350 17 GM PACKET PO SCH (10:13)
[2021-09-10] MEDS: ATORVASTATIN CA 80 MG TABLET (FP) PO SCH (21:15)
[2021-09-10] MEDS: MELATONIN 5 MG TABLETS PO SCH (21:15)
[2021-09-11] MEDS: AMINO ACIDS/PROTEIN HYDROLYS 30 ML LIQUID.PKT PO SCH ×3 (08:00→17:38)
[2021-09-11] MEDS: ENOXAPARIN NA (PORCINE) 40 MG/0.4 ML DISP.SYRIN SQ SCH (10:36)
[2021-09-11] MEDS: OXYBUTYNIN CHLORIDE 5 MG TABLET PO SCH ×2 (10:37→22:38)
[2021-09-11] MEDS: levETIRAcetam 500 MG TABLET (FP) PO SCH ×2 (10:37→22:37)
[2021-09-11] MEDS: PANTOPRAZOLE 40 MG TABLET PO SCH (10:37)
[2021-09-11] MEDS: ASCORBIC ACID 500 MG TABLET (FP) PO SCH (10:37)
[2021-09-11] MEDS: SOLIFENACIN SUCCINATE 5 MG TAB PO SCH (10:37)
[2021-09-11] MEDS: MULTIVITAMINS (DAILY MVI) TABLET (FP) PO SCH (10:37)
[2021-09-11] MEDS: NYSTATIN 100,000 UNIT/GM TOPICAL CREAM 15 GM TUBE TP SCH ×2 (10:58→22:38)
[2021-09-11] MEDS: POLYETHYLENE GLYCOL (HEALTHYLAX) 3350 17 GM PACKET PO SCH (11:02)
[2021-09-11] MEDS: COLLAGENASE CLOSTRIDIUM HIST. 30 GRAMS TUBE TP SCH (11:04)
[2021-09-11] MEDS: MELATONIN 5 MG TABLETS PO SCH (22:37)
[2021-09-11] MEDS: ATORVASTATIN CA 80 MG TABLET (FP) PO SCH (22:38)
[2021-09-11 23:44] VITALS: BP 108/61; PULSE 80; TEMP 97.9
== END 2021-09-12 00:12 | disposition home health service (06) | DRG 987 ==
LOC: JER 23:11 → JERBED 08-28 04:26 → J8W 08-28 09:18
PROVIDERS: ADMIT Internal Medicine; ATTEND Family Medicine
PROC: 30233N1 Transfusion of Nonautologous Red Blood Cells into Peripheral Vein, Percutaneous Approach (ICD-10-PCS; 2021-09-01)
PROC: 0K9G0ZZ Drainage of Left Trunk Muscle, Open Approach (ICD-10-PCS; 2021-09-02)
PROC: 0K9R0ZZ Drainage of Left Upper Leg Muscle, Open Approach (ICD-10-PCS; principal; 2021-09-02 11:30)
PROC: 0T2BX0Z Change Drainage Device in Bladder, External Approach (ICD-10-PCS; 2021-09-05)
DX: N39.0 Urinary tract infection, site not specified (principal); L89.324 Pressure ulcer of left buttock, stage 4; G93.41 Metabolic encephalopathy; G92.8 Other toxic encephalopathy; M60.059 Infective myositis, unspecified thigh; G82.20 Paraplegia, unspecified; E44.0 Moderate protein-calorie malnutrition; G95.9 Disease of spinal cord, unspecified; N17.9 Acute kidney failure, unspecified; L03.90 Cellulitis, unspecified; E87.1 Hypo-osmolality and hyponatremia; L02.416 Cutaneous abscess of left lower limb; R64 Cachexia; Z93.59 Other cystostomy status; L89.200 Pressure ulcer of unspecified hip, unstageable; F03.90 Unspecified dementia, unspecified severity, without behavioral disturbance, psychotic disturbance, mood disturbance, and anxiety; J44.9 Chronic obstructive pulmonary disease, unspecified; G40.909 Epilepsy, unspecified, not intractable, without status epilepticus; I10 Essential (primary) hypertension; D64.9 Anemia, unspecified; Z93.50 Unspecified cystostomy status; E78.5 Hyperlipidemia, unspecified; N31.9 Neuromuscular dysfunction of bladder, unspecified; E86.0 Dehydration; R31.9 Hematuria, unspecified; D72.829 Elevated white blood cell count, unspecified; R13.10 Dysphagia, unspecified; R41.82 Altered mental status, unspecified; E88.09 Other disorders of plasma-protein metabolism, not elsewhere classified
CPT/HCPCS: 36415; 36430; 70450-TC; 71045-TC-FY; 72193-TC; 80048; 80053; 81003; 82272; 82570; 82803; 83540; 83550; 83605; 83735; 83930; 83935; 84300; 84443; 85025; 85027; 86850; 86900; 86901; 86922; 87040; 87086; 87186; 93005; 93010; 94760; 97161-GP; 99285-25; C9803-CS; J1756; P9058; Q9967; U0003; U0005

== ENCOUNTER 2021-09-18 12:40 | Inpatient (IN) | payer OTHER ==
[2021-09-18 14:05] VITALS: BMI 19.9
[2021-09-18] MEDS ORDERED: VANCOMYCIN 1 GM in D5W (PRE-DOCKED) 1,000 MG/250 ML IVPB ONE (14:15)
[2021-09-18] MEDS ORDERED: PIPERACILLIN/TAZOB 4.5 GM 4.5 GM in DEXTROSE 5%-WATER 100 ML IVPB ONE (14:15)
[2021-09-18] MEDS ORDERED: PIPERACILLIN/TAZOB 4.5 GM 4.5 GM/100 ML BAG IVPB ONE (15:52)
[2021-09-18] MEDS ORDERED: VANCOMYCIN 1 GRAM (PRE-DOCKED) 1,000 MG/250 ML BAG IVPB ONE (15:52)
[2021-09-18 16:38] LABS: BASO % 0.3 % (0-2.0); EOS % 1.3 % (0-4.5); HEMATOCRIT 31.7 % (35.4-49); HEMOGLOBIN 10.4 GM/dL (11.7-16.9); LYMPH % 10.1 % (8-40); MCH 26.1 pg (25.7-33.7); MCHC 32.7 g/dl (32.0-35.9); MEAN CELL VOLUME 79.9 fl (80-96); MEAN PLT VOLUME 6.5 fl (7.5-11.1); MONO % 3.9 % (3.8-10.2); NEUT % 84.4 % (42.8-82.8); PLATELET COUNT 561 10^3/uL (134-434); RBC 3.97 M/mm3 (4.00-5.60); RDW 25.5 % (11.9-15.9); WHITE BLOOD COUNT 9.4 K/mm3 (4.0-10.0)
[2021-09-18 17:05] LABS: ANISOCYTOSIS 3+; MACROCYTOSIS 0; TEAR DROP CELLS 1+
[2021-09-18 17:10] LABS: ALBUMIN 2.1 g/dl (3.4-5.0); BLOOD UREA NITROGEN 13.8 mg/dL (7-18); CALCIUM 8.5 mg/dL (8.5-10.1)
[2021-09-18 17:13] LABS: CREATININE 0.8 mg/dL (0.55-1.3)
[2021-09-18 17:15] LABS: BILIRUBIN,TOTAL 0.4 mg/dL (0.2-1); TOT PROT 6.8 g/dl (6.4-8.2)
[2021-09-18 17:26] LABS: LACTIC ACID 2.2 mmol/L (0.4-2.0)
[2021-09-18] MEDS ORDERED: SODIUM CHLORIDE 0.9% 500 ML INFUS.BAG IV ONE (17:27)
[2021-09-18 17:30] LABS: EPI CELLS 9 /uL (0-25.1); HYALINE CASTS 3 /uL (0-3.1); URINE APPEARANCE TURBID; URINE BACTERIA >9,000 /uL (0-1359); URINE BILIRUBIN NEGATIVE (NEGATIVE); URINE COLOR YELLOW; URINE GLUCOSE (UA) NEGATIVE (NEGATIVE); URINE KETONE NEGATIVE (NEGATIVE); URINE LEUK ESTERASE 3+ (NEGATIVE); URINE NITRITE POSITIVE (NEGATIVE); URINE PROTEIN 2+ (NEGATIVE); URINE RBC 58 /uL (0-23.9); URINE UROBILINOGEN 0.2 mg/dL (0.2-1.0); URINE WBC 4322 /uL (0-25.8)
[2021-09-18 18:46] LABS: YEAST FEW (NEGATIVE)
[2021-09-19] MEDS ORDERED: PIPERACILLIN/TAZOB 3.375 GM 3.375 GM in DEXTROSE 5%-WATER - 50 ML IVPB SCH ×2 (02:00→02:45)
[2021-09-19] MEDS ORDERED: ACETAMINOPHEN 325 MG TABLET (FP) PO PRN (02:21)
[2021-09-19] MEDS ORDERED: POLYETHYLENE GLYCOL 3350 119 GM BTL PO PRN (02:21)
[2021-09-19] MEDS ORDERED: DEXTROSE 5%-NORMAL SALINE 1,000 ML IV SCH (02:30)
[2021-09-19] MEDS ORDERED: PIPERACILLIN/TAZOB 3.375 GM 3.375 GM/50 ML BAG IVPB ONE (03:16)
[2021-09-19] MEDS ORDERED: VANCOMYCIN 1 GM in D5W (PRE-DOCKED) 1,000 MG/250 ML IVPB SCH ×2 (04:00→05:45)
[2021-09-19] MEDS ORDERED: PATIENT'S OWN MEDICATION (NON-FORMULARY) (Tizanidine Hcl [Tizanidine Hcl] 6 MG Capsule) PO PRN (04:25)
[2021-09-19] MEDS ORDERED: oxyCODONE HCL 5 MG TABLET PO PRN (06:25)
[2021-09-19] MEDS: MAG HYDROX/AL HYDROX/SIMETH 30 ML UNIT-DOSE CUP PO SCH (07:00)
[2021-09-19] MEDS: HEPARIN NA (PORCINE) 5,000 UNITS/ML 1ML VIAL SQ SCH ×3 (07:52→21:11)
[2021-09-19] MEDS: AMINO ACIDS/PROTEIN HYDROLYS 30 ML LIQUID.PKT PO SCH ×2 (07:54→16:36)
[2021-09-19] MEDS ORDERED: VANCOMYCIN 1 GM/200 ML PREMIX BAG IVPB SCH (08:00)
[2021-09-19] MEDS: levETIRAcetam 500 MG TABLET (FP) PO SCH ×2 (09:51→21:12)
[2021-09-19] MEDS: ASCORBIC ACID 500 MG TABLET (FP) PO SCH (09:51)
[2021-09-19] MEDS: MULTIVITAMINS (DAILY MVI) TABLET (FP) PO SCH (09:51)
[2021-09-19] MEDS: PANTOPRAZOLE 40 MG TABLET PO SCH ×2 (09:51→21:13)
[2021-09-19] MEDS: FERROUS SO4 325 MG TABLET (FP) PO SCH (09:51)
[2021-09-19] MEDS: METOPROLOL TARTRATE 25 MG TABLET (FP) PO SCH ×2 (09:51→21:13)
[2021-09-19] MEDS: FUROSEMIDE 40 MG TABLET (FP) PO SCH (09:51)
[2021-09-19] MEDS ORDERED: ZINC SULFATE 220 MG CAPSULE (FP) PO SCH ×2 (10:00→10:56)
[2021-09-19] MEDS ORDERED: ENOXAPARIN NA (PORCINE) 40 MG/0.4 ML DISP.SYRIN SQ SCH (10:00)
[2021-09-19] MEDS ORDERED: PATIENT'S OWN MEDICATION (NON-FORMULARY) (Menthol/Zinc Oxide [Calmoseptine Ointment] 71 GM TP SCH (10:00)
[2021-09-19] MEDS ORDERED: CEFTRIAXONE 1 GM in DEXTROSE 5%-WATER - 50 ML IVPB SCH ×2 (10:00→14:00)
[2021-09-19] MEDS: ZINC SULFATE 220 MG CAPSULE (FP) PO SCH (11:09)
[2021-09-19] MEDS: OXYBUTYNIN CHLORIDE 5 MG TABLET PO SCH ×2 (11:41→21:13)
[2021-09-19] MEDS ORDERED: ATORVASTATIN CA 40 MG TABLET (FP) ONE (21:01)
[2021-09-19] MEDS: SENNOSIDES 8.6MG TABLET (FP) PO SCH (21:12)
[2021-09-19] MEDS: MELATONIN 5 MG TABLETS PO SCH (21:12)
[2021-09-19] MEDS: QUEtiapine FUMARATE 25 MG TABLET PO SCH (21:12)
[2021-09-19] MEDS: ATORVASTATIN CA 80 MG TABLET (FP) PO SCH (21:13)
[2021-09-20] MEDS: HEPARIN NA (PORCINE) 5,000 UNITS/ML 1ML VIAL SQ SCH ×3 (06:02→21:05)
[2021-09-20 07:30] LABS: BASO % 0.4 % (0-2.0); EOS % 1.6 % (0-4.5); HEMOGLOBIN 8.6 GM/dL (11.7-16.9); LYMPH % 18.6 % (8-40); MCH 26.1 pg (25.7-33.7); MCHC 32.9 g/dl (32.0-35.9); MEAN CELL VOLUME 79.2 fl (80-96); MEAN PLT VOLUME 6.5 fl (7.5-11.1); MONO % 6.5 % (3.8-10.2); NEUT % 72.9 % (42.8-82.8); PLATELET COUNT 438 10^3/uL (134-434); RBC 3.28 M/mm3 (4.00-5.60); RDW 24.4 % (11.9-15.9); WHITE BLOOD COUNT 7.1 K/mm3 (4.0-10.0)
[2021-09-20 07:49] LABS: INR 1.28 (0.83-1.09); PROTHROMBIN TIME (PATIENT) 14.7 SEC (9.7-13.0)
[2021-09-20 07:50] LABS: ACTIVATED PTT 35.6 SECONDS (25.2-36.5)
[2021-09-20] MEDS: AMINO ACIDS/PROTEIN HYDROLYS 30 ML LIQUID.PKT PO SCH ×3 (07:54→18:02)
[2021-09-20 08:45] LABS: BLOOD UREA NITROGEN 18.5 mg/dL (7-18); CALCIUM 8.2 mg/dL (8.5-10.1); MAGNESIUM 2.1 mg/dL (1.8-2.4)
[2021-09-20 08:47] LABS: CREATININE 0.8 mg/dL (0.55-1.3)
[2021-09-20 08:49] LABS: BILIRUBIN,TOTAL 0.5 mg/dL (0.2-1); TOT PROT 5.6 g/dl (6.4-8.2)
[2021-09-20] MEDS ORDERED: POTASSIUM CHLORIDE TABS 20 MEQ TABLET.ER (FP) PO ONE (08:58)
[2021-09-20] MEDS ORDERED: CEFTRIAXONE 1 GM in DEXTROSE 5%-WATER - 50 ML IVPB SCH (10:00)
[2021-09-20] MEDS ORDERED: cefTRIAXone SODIUM 1 GM VIAL ONE (10:19)
[2021-09-20] MEDS ORDERED: DEXTROSE 5%-WATER - 50 ML IVPB ONE (10:19)
[2021-09-20] MEDS: CEFTRIAXONE 1 GM in DEXTROSE 5%-WATER - 50 ML IVPB SCH (10:24)
[2021-09-20] MEDS: FERROUS SO4 325 MG TABLET (FP) PO SCH (10:28)
[2021-09-20] MEDS: FUROSEMIDE 40 MG TABLET (FP) PO SCH (10:28)
[2021-09-20] MEDS: ZINC SULFATE 220 MG CAPSULE (FP) PO SCH (10:28)
[2021-09-20] MEDS: METOPROLOL TARTRATE 25 MG TABLET (FP) PO SCH ×2 (10:28→21:07)
[2021-09-20] MEDS: ASCORBIC ACID 500 MG TABLET (FP) PO SCH (10:28)
[2021-09-20] MEDS: OXYBUTYNIN CHLORIDE 5 MG TABLET PO SCH ×2 (10:28→21:05)
[2021-09-20] MEDS: levETIRAcetam 500 MG TABLET (FP) PO SCH ×2 (10:28→21:05)
[2021-09-20] MEDS: PANTOPRAZOLE 40 MG TABLET PO SCH ×2 (10:28→21:07)
[2021-09-20] MEDS: MULTIVITAMINS (DAILY MVI) TABLET (FP) PO SCH (10:29)
[2021-09-20] MEDS ORDERED: ATORVASTATIN CA 40 MG TABLET (FP) ONE (20:59)
[2021-09-20] MEDS: QUEtiapine FUMARATE 25 MG TABLET PO SCH (21:05)
[2021-09-20] MEDS: SENNOSIDES 8.6MG TABLET (FP) PO SCH (21:05)
[2021-09-20] MEDS: MELATONIN 5 MG TABLETS PO SCH (21:07)
[2021-09-20] MEDS: ATORVASTATIN CA 80 MG TABLET (FP) PO SCH (21:07)
[2021-09-21] MEDS: HEPARIN NA (PORCINE) 5,000 UNITS/ML 1ML VIAL SQ SCH ×3 (05:44→21:37)
[2021-09-21 09:13] LABS: BASO % 0.5 % (0-2.0); EOS % 2.6 % (0-4.5); HEMATOCRIT 24.3 % (35.4-49); HEMOGLOBIN 8.2 GM/dL (11.7-16.9); LYMPH % 18.3 % (8-40); MCH 26.3 pg (25.7-33.7); MCHC 33.8 g/dl (32.0-35.9); MEAN CELL VOLUME 77.8 fl (80-96); MEAN PLT VOLUME 6.5 fl (7.5-11.1); MONO % 6.8 % (3.8-10.2); NEUT % 71.8 % (42.8-82.8); PLATELET COUNT 414 10^3/uL (134-434); RBC 3.13 M/mm3 (4.00-5.60); RDW 24.5 % (11.9-15.9); WHITE BLOOD COUNT 6.4 K/mm3 (4.0-10.0)
[2021-09-21 09:37] LABS: CALCIUM 8.4 mg/dL (8.5-10.1)
[2021-09-21 09:39] LABS: ALBUMIN 1.7 g/dl (3.4-5.0); BLOOD UREA NITROGEN 16.1 mg/dL (7-18); MAGNESIUM 2.1 mg/dL (1.8-2.4)
[2021-09-21] MEDS ORDERED: POTASSIUM CHLORIDE TABS 20 MEQ TABLET.ER (FP) PO ONE (09:40)
[2021-09-21 09:42] LABS: BILIRUBIN,TOTAL 0.7 mg/dL (0.2-1); CREATININE 0.7 mg/dL (0.55-1.3)
[2021-09-21 09:43] LABS: TOT PROT 5.5 g/dl (6.4-8.2)
[2021-09-21] MEDS ORDERED: DEXTROSE 5%-WATER - 50 ML IVPB ONE (10:12)
[2021-09-21] MEDS ORDERED: cefTRIAXone SODIUM 1 GM VIAL ONE (10:12)
[2021-09-21] MEDS: METOPROLOL TARTRATE 25 MG TABLET (FP) PO SCH ×2 (10:23→21:34)
[2021-09-21] MEDS: FUROSEMIDE 40 MG TABLET (FP) PO SCH (10:23)
[2021-09-21] MEDS: MULTIVITAMINS (DAILY MVI) TABLET (FP) PO SCH (10:23)
[2021-09-21] MEDS: levETIRAcetam 500 MG TABLET (FP) PO SCH ×2 (10:23→21:35)
[2021-09-21] MEDS: OXYBUTYNIN CHLORIDE 5 MG TABLET PO SCH ×2 (10:23→21:34)
[2021-09-21] MEDS: ASCORBIC ACID 500 MG TABLET (FP) PO SCH (10:23)
[2021-09-21] MEDS: AMINO ACIDS/PROTEIN HYDROLYS 30 ML LIQUID.PKT PO SCH ×3 (10:23→17:18)
[2021-09-21] MEDS: FERROUS SO4 325 MG TABLET (FP) PO SCH (10:23)
[2021-09-21] MEDS: CEFTRIAXONE 1 GM in DEXTROSE 5%-WATER - 50 ML IVPB SCH (10:23)
[2021-09-21] MEDS: ZINC SULFATE 220 MG CAPSULE (FP) PO SCH (10:23)
[2021-09-21] MEDS: PANTOPRAZOLE 40 MG TABLET PO SCH ×2 (10:26→21:35)
[2021-09-21] MEDS: ACETAMINOPHEN 325 MG TABLET (FP) PO PRN ×2 (16:03→22:42)
[2021-09-21] MEDS ORDERED: MEROPENEM 1 GM VIAL (RESTRICTED TO ID) IVPB ONE (16:07)
[2021-09-21] MEDS ORDERED: DEXTROSE 5%-WATER 100 ML IVPB ONE (16:08)
[2021-09-21] MEDS: MEROPENEM 1 GM in DEXTROSE 5%-WATER 100 ML IVPB SCH (16:10)
[2021-09-21] MEDS: SODIUM CHLORIDE IVPB SCH (17:23)
[2021-09-21] MEDS: DAPTOMYCIN IVPB SCH (17:23)
[2021-09-21] MEDS ORDERED: ATORVASTATIN CA 40 MG TABLET (FP) ONE (21:30)
[2021-09-21] MEDS: MELATONIN 5 MG TABLETS PO SCH (21:34)
[2021-09-21] MEDS: QUEtiapine FUMARATE 25 MG TABLET PO SCH (21:34)
[2021-09-21] MEDS: SENNOSIDES 8.6MG TABLET (FP) PO SCH (21:34)
[2021-09-21] MEDS: ATORVASTATIN CA 80 MG TABLET (FP) PO SCH (21:35)
[2021-09-22] MEDS ORDERED: MEROPENEM 1 GM VIAL (RESTRICTED TO ID) IVPB ONE ×2 (03:12→14:39)
[2021-09-22] MEDS ORDERED: DEXTROSE 5%-WATER 100 ML IVPB ONE ×2 (03:13→14:40)
[2021-09-22] MEDS: MEROPENEM 1 GM in DEXTROSE 5%-WATER 100 ML IVPB SCH ×2 (03:16→15:13)
[2021-09-22] MEDS: MAG HYDROX/AL HYDROX/SIMETH 30 ML UNIT-DOSE CUP PO SCH (04:43)
[2021-09-22] MEDS: HEPARIN NA (PORCINE) 5,000 UNITS/ML 1ML VIAL SQ SCH ×4 (05:39→21:56)
[2021-09-22] MEDS: AMINO ACIDS/PROTEIN HYDROLYS 30 ML LIQUID.PKT PO SCH ×2 (09:04→17:11)
[2021-09-22] MEDS: METOPROLOL TARTRATE 25 MG TABLET (FP) PO SCH ×2 (09:59→21:48)
[2021-09-22] MEDS: PANTOPRAZOLE 40 MG TABLET PO SCH ×2 (09:59→21:48)
[2021-09-22] MEDS: FERROUS SO4 325 MG TABLET (FP) PO SCH (10:00)
[2021-09-22] MEDS: ZINC SULFATE 220 MG CAPSULE (FP) PO SCH (10:01)
[2021-09-22] MEDS: FUROSEMIDE 40 MG TABLET (FP) PO SCH (10:02)
[2021-09-22] MEDS: levETIRAcetam 500 MG TABLET (FP) PO SCH ×2 (10:03→21:48)
[2021-09-22] MEDS: MULTIVITAMINS (DAILY MVI) TABLET (FP) PO SCH (10:04)
[2021-09-22] MEDS: OXYBUTYNIN CHLORIDE 5 MG TABLET PO SCH ×2 (10:04→21:48)
[2021-09-22] MEDS: SODIUM CHLORIDE IVPB SCH (10:06)
[2021-09-22] MEDS: DAPTOMYCIN IVPB SCH (10:06)
[2021-09-22] MEDS: ASCORBIC ACID 500 MG TABLET (FP) PO SCH (10:43)
[2021-09-22] MEDS: ACETAMINOPHEN 325 MG TABLET (FP) PO PRN ×2 (10:48→18:49)
[2021-09-22 12:46] LABS: BASO % 0.7 % (0-2.0); EOS % 2.9 % (0-4.5); HEMATOCRIT 28.8 % (35.4-49); HEMOGLOBIN 9.4 GM/dL (11.7-16.9); LYMPH % 10.9 % (8-40); MCHC 32.8 g/dl (32.0-35.9); MEAN CELL VOLUME 79.4 fl (80-96); MEAN PLT VOLUME 6.3 fl (7.5-11.1); MONO % 6.4 % (3.8-10.2); NEUT % 79.1 % (42.8-82.8); PLATELET COUNT 415 10^3/uL (134-434); RBC 3.62 M/mm3 (4.00-5.60); RDW 23.8 % (11.9-15.9)
[2021-09-22 13:17] LABS: CALCIUM 8.9 mg/dL (8.5-10.1)
[2021-09-22 13:18] LABS: BLOOD UREA NITROGEN 14.8 mg/dL (7-18); MAGNESIUM 2.2 mg/dL (1.8-2.4)
[2021-09-22 13:21] LABS: CREATININE 0.9 mg/dL (0.55-1.3)
[2021-09-22 13:23] LABS: BILIRUBIN,TOTAL 0.6 mg/dL (0.2-1); TOT PROT 6.5 g/dl (6.4-8.2)
[2021-09-22 14:08] LABS: ANISOCYTOSIS 1+; MACROCYTOSIS 1+; PLATELET ESTIMATE INCREASED
[2021-09-22] MEDS ORDERED: ATORVASTATIN CA 40 MG TABLET (FP) ONE (21:29)
[2021-09-22] MEDS: MELATONIN 5 MG TABLETS PO SCH (21:47)
[2021-09-22] MEDS: ATORVASTATIN CA 80 MG TABLET (FP) PO SCH (21:47)
[2021-09-22] MEDS: QUEtiapine FUMARATE 25 MG TABLET PO SCH (21:48)
[2021-09-22] MEDS: SENNOSIDES 8.6MG TABLET (FP) PO SCH (21:48)
[2021-09-22] MEDS ORDERED: ONDANSETRON 4 MG/2 ML VIAL IVPUSH ONE (22:27)
[2021-09-23] MEDS ORDERED: MEROPENEM 1 GM VIAL (RESTRICTED TO ID) IVPB ONE ×2 (02:38→15:43)
[2021-09-23] MEDS ORDERED: DEXTROSE 5%-WATER 100 ML IVPB ONE ×2 (02:39→15:43)
[2021-09-23] MEDS: MEROPENEM 1 GM in DEXTROSE 5%-WATER 100 ML IVPB SCH ×2 (03:06→15:44)
[2021-09-23] MEDS ORDERED: PANTOPRAZOLE SODIUM 40 MG VIAL IVPUSH ONE (04:13)
[2021-09-23] MEDS: HEPARIN NA (PORCINE) 5,000 UNITS/ML 1ML VIAL SQ SCH ×4 (05:51→22:24)
[2021-09-23] MEDS: PANTOPRAZOLE 40 MG TABLET PO SCH ×2 (09:17→22:14)
[2021-09-23] MEDS: AMINO ACIDS/PROTEIN HYDROLYS 30 ML LIQUID.PKT PO SCH ×4 (09:18→16:39)
[2021-09-23] MEDS: FUROSEMIDE 40 MG TABLET (FP) PO SCH (09:18)
[2021-09-23] MEDS: MULTIVITAMINS (DAILY MVI) TABLET (FP) PO SCH (09:18)
[2021-09-23] MEDS: METOPROLOL TARTRATE 25 MG TABLET (FP) PO SCH ×2 (09:18→22:14)
[2021-09-23] MEDS: FERROUS SO4 325 MG TABLET (FP) PO SCH (09:18)
[2021-09-23] MEDS: levETIRAcetam 500 MG TABLET (FP) PO SCH ×2 (09:18→22:15)
[2021-09-23] MEDS: ZINC SULFATE 220 MG CAPSULE (FP) PO SCH (09:18)
[2021-09-23] MEDS: ASCORBIC ACID 500 MG TABLET (FP) PO SCH (09:18)
[2021-09-23] MEDS: OXYBUTYNIN CHLORIDE 5 MG TABLET PO SCH ×2 (09:19→22:15)
[2021-09-23 09:31] LABS: BASO % 0.8 % (0-2.0); EOS % 2.8 % (0-4.5); HEMATOCRIT 26.6 % (35.4-49); HEMOGLOBIN 8.8 GM/dL (11.7-16.9); LYMPH % 10.3 % (8-40); MCH 26.2 pg (25.7-33.7); MCHC 33.1 g/dl (32.0-35.9); MEAN CELL VOLUME 78.9 fl (80-96); MEAN PLT VOLUME 6.7 fl (7.5-11.1); MONO % 5.7 % (3.8-10.2); NEUT % 80.4 % (42.8-82.8); PLATELET COUNT 398 10^3/uL (134-434); RBC 3.37 M/mm3 (4.00-5.60); RDW 23.9 % (11.9-15.9); WHITE BLOOD COUNT 9.1 K/mm3 (4.0-10.0)
[2021-09-23 09:55] LABS: ALBUMIN 1.8 g/dl (3.4-5.0); BLOOD UREA NITROGEN 20.6 mg/dL (7-18); MAGNESIUM 2.1 mg/dL (1.8-2.4)
[2021-09-23 09:56] LABS: CALCIUM 8.4 mg/dL (8.5-10.1)
[2021-09-23 09:58] LABS: CREATININE 0.8 mg/dL (0.55-1.3)
[2021-09-23 09:59] LABS: BILIRUBIN,TOTAL 0.8 mg/dL (0.2-1); TOT PROT 5.8 g/dl (6.4-8.2)
[2021-09-23] MEDS: DAPTOMYCIN IVPB SCH (10:47)
[2021-09-23] MEDS: SODIUM CHLORIDE IVPB SCH (10:47)
[2021-09-23] MEDS: COLLAGENASE CLOSTRIDIUM HIST. 30 GRAMS TUBE TP SCH (13:19)
[2021-09-23] MEDS ORDERED: ATORVASTATIN CA 40 MG TABLET (FP) ONE (21:23)
[2021-09-23] MEDS: QUEtiapine FUMARATE 25 MG TABLET PO SCH (22:14)
[2021-09-23] MEDS: ATORVASTATIN CA 80 MG TABLET (FP) PO SCH (22:14)
[2021-09-23] MEDS: MELATONIN 5 MG TABLETS PO SCH (22:15)
[2021-09-23] MEDS: SENNOSIDES 8.6MG TABLET (FP) PO SCH (22:24)
[2021-09-24] MEDS ORDERED: MEROPENEM 1 GM VIAL (RESTRICTED TO ID) IVPB ONE ×2 (02:23→15:06)
[2021-09-24] MEDS ORDERED: DEXTROSE 5%-WATER 100 ML IVPB ONE ×2 (02:23→15:06)
[2021-09-24] MEDS: MEROPENEM 1 GM in DEXTROSE 5%-WATER 100 ML IVPB SCH ×2 (02:31→16:06)
[2021-09-24] MEDS: HEPARIN NA (PORCINE) 5,000 UNITS/ML 1ML VIAL SQ SCH ×3 (06:03→23:41)
[2021-09-24 06:48] LABS: BASO % 0.4 % (0-2.0); EOS % 3.5 % (0-4.5); HEMATOCRIT 24.7 % (35.4-49); HEMOGLOBIN 8.2 GM/dL (11.7-16.9); LYMPH % 13.4 % (8-40); MCH 26.1 pg (25.7-33.7); MEAN PLT VOLUME 6.5 fl (7.5-11.1); MONO % 6.6 % (3.8-10.2); NEUT % 76.1 % (42.8-82.8); PLATELET COUNT 335 10^3/uL (134-434); RBC 3.13 M/mm3 (4.00-5.60); RDW 24.1 % (11.9-15.9); WHITE BLOOD COUNT 7.5 K/mm3 (4.0-10.0)
[2021-09-24 07:07] LABS: ALBUMIN 1.8 g/dl (3.4-5.0); BLOOD UREA NITROGEN 15.5 mg/dL (7-18); CREATININE 0.7 mg/dL (0.55-1.3)
[2021-09-24 07:09] LABS: BILIRUBIN,TOTAL 0.5 mg/dL (0.2-1); TOT PROT 5.8 g/dl (6.4-8.2)
[2021-09-24 07:11] LABS: MAGNESIUM 2.3 mg/dL (1.8-2.4)
[2021-09-24] MEDS: MULTIVITAMINS (DAILY MVI) TABLET (FP) PO SCH (09:26)
[2021-09-24] MEDS: AMINO ACIDS/PROTEIN HYDROLYS 30 ML LIQUID.PKT PO SCH ×3 (09:26→16:53)
[2021-09-24] MEDS: levETIRAcetam 500 MG TABLET (FP) PO SCH ×2 (09:26→23:43)
[2021-09-24] MEDS: ZINC SULFATE 220 MG CAPSULE (FP) PO SCH (09:27)
[2021-09-24] MEDS: COLLAGENASE CLOSTRIDIUM HIST. 30 GRAMS TUBE TP SCH (09:27)
[2021-09-24] MEDS: FERROUS SO4 325 MG TABLET (FP) PO SCH (09:27)
[2021-09-24] MEDS: FUROSEMIDE 40 MG TABLET (FP) PO SCH (09:27)
[2021-09-24] MEDS: METOPROLOL TARTRATE 25 MG TABLET (FP) PO SCH ×2 (09:27→23:44)
[2021-09-24] MEDS: ASCORBIC ACID 500 MG TABLET (FP) PO SCH (09:27)
[2021-09-24] MEDS: PANTOPRAZOLE 40 MG TABLET PO SCH ×2 (09:27→23:43)
[2021-09-24] MEDS: OXYBUTYNIN CHLORIDE 5 MG TABLET PO SCH ×2 (09:30→23:41)
[2021-09-24] MEDS: DAPTOMYCIN IVPB SCH (10:35)
[2021-09-24] MEDS: SODIUM CHLORIDE IVPB SCH (10:35)
[2021-09-24] MEDS: ATORVASTATIN CA 80 MG TABLET (FP) PO SCH (23:41)
[2021-09-24] MEDS: MELATONIN 5 MG TABLETS PO SCH (23:42)
[2021-09-24] MEDS: SENNOSIDES 8.6MG TABLET (FP) PO SCH (23:43)
[2021-09-24] MEDS: QUEtiapine FUMARATE 25 MG TABLET PO SCH (23:43)
[2021-09-25] MEDS ORDERED: DEXTROSE 5%-WATER 100 ML IVPB ONE (03:25)
[2021-09-25] MEDS ORDERED: MEROPENEM 1 GM VIAL (RESTRICTED TO ID) IVPB ONE (03:25)
[2021-09-25] MEDS: MAG HYDROX/AL HYDROX/SIMETH 30 ML UNIT-DOSE CUP PO SCH (03:48)
[2021-09-25] MEDS: MEROPENEM 1 GM in DEXTROSE 5%-WATER 100 ML IVPB SCH (03:48)
[2021-09-25] MEDS: HEPARIN NA (PORCINE) 5,000 UNITS/ML 1ML VIAL SQ SCH ×3 (07:05→21:20)
[2021-09-25 08:30] LABS: BASO % 0.6 % (0-2.0); EOS % 3.4 % (0-4.5); HEMOGLOBIN 8.7 GM/dL (11.7-16.9); MCH 26.5 pg (25.7-33.7); MCHC 33.4 g/dl (32.0-35.9); MEAN CELL VOLUME 79.1 fl (80-96); MEAN PLT VOLUME 6.6 fl (7.5-11.1); MONO % 5.8 % (3.8-10.2); NEUT % 77.2 % (42.8-82.8); PLATELET COUNT 404 10^3/uL (134-434); RBC 3.29 M/mm3 (4.00-5.60); RDW 23.8 % (11.9-15.9)
[2021-09-25 08:46] LABS: CALCIUM 8.4 mg/dL (8.5-10.1)
[2021-09-25 08:47] LABS: ALBUMIN 1.9 g/dl (3.4-5.0); MAGNESIUM 2.2 mg/dL (1.8-2.4)
[2021-09-25 08:50] LABS: CREATININE 0.8 mg/dL (0.55-1.3)
[2021-09-25 08:52] LABS: BILIRUBIN,TOTAL 0.3 mg/dL (0.2-1); TOT PROT 6.2 g/dl (6.4-8.2)
[2021-09-25] MEDS: AMINO ACIDS/PROTEIN HYDROLYS 30 ML LIQUID.PKT PO SCH ×3 (10:26→17:22)
[2021-09-25] MEDS: OXYBUTYNIN CHLORIDE 5 MG TABLET PO SCH ×2 (10:27→21:26)
[2021-09-25] MEDS: ZINC SULFATE 220 MG CAPSULE (FP) PO SCH (10:27)
[2021-09-25] MEDS: FUROSEMIDE 40 MG TABLET (FP) PO SCH (10:27)
[2021-09-25] MEDS: METOPROLOL TARTRATE 25 MG TABLET (FP) PO SCH ×2 (10:27→21:27)
[2021-09-25] MEDS: MULTIVITAMINS (DAILY MVI) TABLET (FP) PO SCH (10:27)
[2021-09-25] MEDS: FERROUS SO4 325 MG TABLET (FP) PO SCH (10:27)
[2021-09-25] MEDS: PANTOPRAZOLE 40 MG TABLET PO SCH ×2 (10:27→21:26)
[2021-09-25] MEDS: ASCORBIC ACID 500 MG TABLET (FP) PO SCH (10:27)
[2021-09-25] MEDS: levETIRAcetam 500 MG TABLET (FP) PO SCH ×2 (10:27→21:26)
[2021-09-25] MEDS: ACETAMINOPHEN 325 MG TABLET (FP) PO PRN (10:29)
[2021-09-25] MEDS: SODIUM CHLORIDE IVPB SCH (11:05)
[2021-09-25] MEDS: DAPTOMYCIN IVPB SCH (11:05)
[2021-09-25] MEDS ORDERED: MAG HYDROX/AL HYDROX/SIMETH 30 ML UNIT-DOSE CUP PO PRN (12:06)
[2021-09-25] MEDS: COLLAGENASE CLOSTRIDIUM HIST. 30 GRAMS TUBE TP SCH (12:06)
[2021-09-25] MEDS ORDERED: THIAMINE HCL 200 MG/2 ML VIAL IVPB SCH (13:00)
[2021-09-25] MEDS: THIAMINE HCL 200 MG/2 ML VIAL IVPB SCH (17:21)
[2021-09-25] MEDS: SENNOSIDES 8.6MG TABLET (FP) PO SCH (21:26)
[2021-09-25] MEDS: QUEtiapine FUMARATE 25 MG TABLET PO SCH (21:26)
[2021-09-25] MEDS: ATORVASTATIN CA 80 MG TABLET (FP) PO SCH (21:27)
[2021-09-25] MEDS: MELATONIN 5 MG TABLETS PO SCH (21:27)
[2021-09-26] MEDS: HEPARIN NA (PORCINE) 5,000 UNITS/ML 1ML VIAL SQ SCH ×3 (05:55→21:01)
[2021-09-26] MEDS: ACETAMINOPHEN 325 MG TABLET (FP) PO PRN ×2 (06:26→20:11)
[2021-09-26 08:36] LABS: BASO % 0.5 % (0-2.0); EOS % 2.4 % (0-4.5); HEMATOCRIT 26.3 % (35.4-49); HEMOGLOBIN 8.9 GM/dL (11.7-16.9); LYMPH % 14.8 % (8-40); MCH 26.6 pg (25.7-33.7); MCHC 33.9 g/dl (32.0-35.9); MEAN CELL VOLUME 78.5 fl (80-96); MEAN PLT VOLUME 6.5 fl (7.5-11.1); NEUT % 76.3 % (42.8-82.8); PLATELET COUNT 363 10^3/uL (134-434); RBC 3.35 M/mm3 (4.00-5.60); RDW 23.7 % (11.9-15.9); WHITE BLOOD COUNT 6.6 K/mm3 (4.0-10.0)
[2021-09-26 09:11] LABS: ALBUMIN 1.9 g/dl (3.4-5.0); BLOOD UREA NITROGEN 15.2 mg/dL (7-18); CALCIUM 8.7 mg/dL (8.5-10.1); MAGNESIUM 2.6 mg/dL (1.8-2.4)
[2021-09-26 09:14] LABS: CREATININE 0.8 mg/dL (0.55-1.3)
[2021-09-26 09:16] LABS: BILIRUBIN,TOTAL 0.4 mg/dL (0.2-1); TOT PROT 6.1 g/dl (6.4-8.2)
[2021-09-26] MEDS: AMINO ACIDS/PROTEIN HYDROLYS 30 ML LIQUID.PKT PO SCH ×3 (09:26→16:51)
[2021-09-26] MEDS: MULTIVITAMINS (DAILY MVI) TABLET (FP) PO SCH (10:32)
[2021-09-26] MEDS: OXYBUTYNIN CHLORIDE 5 MG TABLET PO SCH ×2 (10:32→21:01)
[2021-09-26] MEDS: FERROUS SO4 325 MG TABLET (FP) PO SCH (10:32)
[2021-09-26] MEDS: levETIRAcetam 500 MG TABLET (FP) PO SCH ×2 (10:32→21:04)
[2021-09-26] MEDS: ZINC SULFATE 220 MG CAPSULE (FP) PO SCH (10:32)
[2021-09-26] MEDS: ASCORBIC ACID 500 MG TABLET (FP) PO SCH (10:33)
[2021-09-26] MEDS: PANTOPRAZOLE 40 MG TABLET PO SCH ×2 (10:33→21:01)
[2021-09-26] MEDS: METOPROLOL TARTRATE 25 MG TABLET (FP) PO SCH ×2 (10:33→21:01)
[2021-09-26] MEDS: THIAMINE HCL 200 MG/2 ML VIAL IVPB SCH (10:33)
[2021-09-26] MEDS: FUROSEMIDE 40 MG TABLET (FP) PO SCH (10:33)
[2021-09-26] MEDS: COLLAGENASE CLOSTRIDIUM HIST. 30 GRAMS TUBE TP SCH (10:33)
[2021-09-26] MEDS: POVIDONE-IODINE 10% SOLN 118 ML BOTTLE TP SCH (12:31)
[2021-09-26 12:49] LABS: ANISOCYTOSIS 2+; MACROCYTOSIS 0; OVALOCYTE 2+; TEAR DROP CELLS 2+
[2021-09-26] MEDS: QUEtiapine FUMARATE 25 MG TABLET PO SCH (21:01)
[2021-09-26] MEDS: MELATONIN 5 MG TABLETS PO SCH (21:04)
[2021-09-26] MEDS: SENNOSIDES 8.6MG TABLET (FP) PO SCH (21:04)
[2021-09-26] MEDS: ATORVASTATIN CA 80 MG TABLET (FP) PO SCH (21:04)
[2021-09-26] MEDS ORDERED: MIRTAZAPINE 15 MG TABLET (FP) PO SCH (22:00)
[2021-09-27] MEDS: HEPARIN NA (PORCINE) 5,000 UNITS/ML 1ML VIAL SQ SCH ×2 (06:03→13:25)
[2021-09-27] MEDS: AMINO ACIDS/PROTEIN HYDROLYS 30 ML LIQUID.PKT PO SCH ×3 (08:44→17:33)
[2021-09-27] MEDS ORDERED: traMADol HCL 50 MG TABLET PO ONE (09:30)
[2021-09-27] MEDS: FERROUS SO4 325 MG TABLET (FP) PO SCH (10:24)
[2021-09-27] MEDS: MULTIVITAMINS (DAILY MVI) TABLET (FP) PO SCH (10:24)
[2021-09-27] MEDS: METOPROLOL TARTRATE 25 MG TABLET (FP) PO SCH (10:24)
[2021-09-27] MEDS: OXYBUTYNIN CHLORIDE 5 MG TABLET PO SCH (10:24)
[2021-09-27] MEDS: FUROSEMIDE 40 MG TABLET (FP) PO SCH (10:24)
[2021-09-27] MEDS: ZINC SULFATE 220 MG CAPSULE (FP) PO SCH (10:24)
[2021-09-27] MEDS: ASCORBIC ACID 500 MG TABLET (FP) PO SCH (10:25)
[2021-09-27] MEDS: PANTOPRAZOLE 40 MG TABLET PO SCH (10:25)
[2021-09-27] MEDS: levETIRAcetam 500 MG TABLET (FP) PO SCH (10:25)
[2021-09-27] MEDS: THIAMINE HCL 200 MG/2 ML VIAL IVPB SCH (10:30)
[2021-09-27 13:28] LABS: BASO % 0.6 % (0-2.0); EOS % 2.3 % (0-4.5); HEMATOCRIT 28.8 % (35.4-49); HEMOGLOBIN 9.4 GM/dL (11.7-16.9); LYMPH % 11.6 % (8-40); MCH 26.3 pg (25.7-33.7); MCHC 32.8 g/dl (32.0-35.9); MEAN CELL VOLUME 80.3 fl (80-96); MEAN PLT VOLUME 6.8 fl (7.5-11.1); MONO % 5.3 % (3.8-10.2); NEUT % 80.2 % (42.8-82.8); PLATELET COUNT 425 10^3/uL (134-434); RBC 3.59 M/mm3 (4.00-5.60); RDW 23.6 % (11.9-15.9); WHITE BLOOD COUNT 8.5 K/mm3 (4.0-10.0)
[2021-09-27 14:04] LABS: CALCIUM 8.9 mg/dL (8.5-10.1)
[2021-09-27 14:05] LABS: ALBUMIN 2.3 g/dl (3.4-5.0); BLOOD UREA NITROGEN 18.8 mg/dL (7-18); MAGNESIUM 2.4 mg/dL (1.8-2.4)
[2021-09-27 14:09] LABS: BILIRUBIN,TOTAL 0.4 mg/dL (0.2-1); TOT PROT 6.7 g/dl (6.4-8.2)
[2021-09-27 14:11] LABS: CREATININE 0.9 mg/dL (0.55-1.3)
[2021-09-27 14:34] VITALS: BP 138/76; PULSE 92; TEMP 97.6
[2021-09-27] MEDS: POVIDONE-IODINE 10% SOLN 118 ML BOTTLE TP SCH (15:48)
[2021-09-27] MEDS: COLLAGENASE CLOSTRIDIUM HIST. 30 GRAMS TUBE TP SCH (15:48)
== END 2021-09-27 20:42 | disposition home or self-care (01) | DRG 698 ==
LOC: JER 12:40 → INTOOBSV 14:13 → JERBED 14:13 → UNDOADMOB 14:13 → J4S 09-19 05:33 → JERBED 09-19 05:33 → J4S 09-19 08:47 → JERBED 09-19 08:47 → OBSVTOIN 09-24 11:15 → J7W 09-24 13:00
PROVIDERS: ADMIT Hospitalist; ATTEND Nurse Practitioner Family
DX: T83.090A Other mechanical complication of cystostomy catheter, initial encounter (principal); L89.153 Pressure ulcer of sacral region, stage 3; G92.8 Other toxic encephalopathy; G82.20 Paraplegia, unspecified; G95.0 Syringomyelia and syringobulbia; E44.0 Moderate protein-calorie malnutrition; N39.0 Urinary tract infection, site not specified; Z68.1 Body mass index [BMI] 19.9 or less, adult; E78.5 Hyperlipidemia, unspecified; N31.9 Neuromuscular dysfunction of bladder, unspecified; Z74.01 Bed confinement status; L97.519 Non-pressure chronic ulcer of other part of right foot with unspecified severity; D64.9 Anemia, unspecified; R56.9 Unspecified convulsions; Y84.6 Urinary catheterization as the cause of abnormal reaction of the patient, or of later complication, without mention of misadventure at the time of the procedure; L89.311 Pressure ulcer of right buttock, stage 1; L89.891 Pressure ulcer of other site, stage 1; Z86.73 Personal history of transient ischemic attack (TIA), and cerebral infarction without residual deficits; E87.6 Hypokalemia; I73.9 Peripheral vascular disease, unspecified; I25.2 Old myocardial infarction
CPT/HCPCS: 36415; 70450-TC; 71045-TC-FY; 72193-TC; 80048; 80053; 81003; 82550; 82962; 83605; 83735; 85025; 85610; 85730; 86140; 87040; 87070; 87086; 87186; 87205; 93005; 93010; 99285-25; C9803-CS; E0372; G0378; J0878; J1644; Q9967; U0003; U0005

== ENCOUNTER 2021-12-01 18:57 | Inpatient (IN) | payer OTHER ==
[2021-12-02] MEDS ORDERED: MELATONIN 5 MG TABLETS PO PRN (02:22)
[2021-12-02 03:50] LABS: BASO % 0.6 % (0-2.0); HEMATOCRIT 16.6 % (35.4-49); LYMPH % 10.3 % (8-40); MCH 27.3 pg (25.7-33.7); MCHC 32.9 g/dl (32.0-35.9); NEUT % 81.1 % (42.8-82.8); PLATELET COUNT 694 10^3/uL (134-434); RDW 17.1 % (11.9-15.9); WHITE BLOOD COUNT 11.4 K/mm3 (4.0-10.0)
[2021-12-02 03:51] LABS: HEMOGLOBIN 5.5 GM/dL (11.7-16.9); MEAN PLT VOLUME 5.6 fl (7.5-11.1)
[2021-12-02 03:55] LABS: INR 2.36 (0.83-1.09); PROTHROMBIN TIME (PATIENT) 27.4 SEC (9.7-13.0)
[2021-12-02 04:22] LABS: ALBUMIN 1.9 g/dl (3.4-5.0); BLOOD UREA NITROGEN 14.8 mg/dL (7-18); CALCIUM 8.5 mg/dL (8.5-10.1)
[2021-12-02 04:25] LABS: CREATININE 0.8 mg/dL (0.55-1.3)
[2021-12-02 04:27] LABS: BILIRUBIN,TOTAL 0.3 mg/dL (0.2-1); TOT PROT 6.3 g/dl (6.4-8.2)
[2021-12-02] MEDS ORDERED: HEPARIN NA (PORCINE) 5,000 UNITS/ML 1ML VIAL SQ SCH (06:00)
[2021-12-02 06:36] LABS: RETICULOCYTES 1.16 % (0.5-1.5)
[2021-12-02] MEDS: METOPROLOL TARTRATE 25 MG TABLET (FP) PO SCH ×2 (09:19→21:20)
[2021-12-02] MEDS: levETIRAcetam 500 MG TABLET (FP) PO SCH ×2 (09:20→21:19)
[2021-12-02] MEDS: FUROSEMIDE 40 MG TABLET (FP) PO SCH (09:20)
[2021-12-02] MEDS: PANTOPRAZOLE 40 MG TABLET PO SCH (09:20)
[2021-12-02 09:44] LABS: EPI CELLS 8 /uL (0-25.1); HYALINE CASTS 3 /uL (0-3.1); PH,URINE 6.5 (5.0-8.0); URINE APPEARANCE CLOUDY; URINE BACTERIA >9,000 /uL (0-1359); URINE BILIRUBIN NEGATIVE (NEGATIVE); URINE COLOR YELLOW; URINE GLUCOSE (UA) NEGATIVE (NEGATIVE); URINE KETONE NEGATIVE (NEGATIVE); URINE LEUK ESTERASE 3+ (NEGATIVE); URINE NITRITE POSITIVE (NEGATIVE); URINE PROTEIN 2+ (NEGATIVE); URINE WBC 1473 /uL (0-25.8)
[2021-12-02] MEDS ORDERED: APIXABAN 5 MG TABLET PO SCH (10:00)
[2021-12-02] MEDS: OXYBUTYNIN CHLORIDE 5 MG TABLET PO SCH ×2 (10:17→21:20)
[2021-12-02] MEDS: SODIUM HYPOCHLORITE 0.25%- 473 ML BULK BOTTLE TP SCH (10:18)
[2021-12-02] MEDS: COLLAGENASE CLOSTRIDIUM HIST. 30 GRAMS TUBE TP SCH (10:19)
[2021-12-02 10:53] LABS: URINE RBC 25.6 /uL (0-23.9)
[2021-12-02 10:54] LABS: URINE CRYSTALS MODERATE OXALATE CA /hpf
[2021-12-02] MEDS: BACLOFEN 10 MG TABLET (FP) PO SCH ×3 (12:02→21:20)
[2021-12-02] MEDS ORDERED: DEXTROSE 5%-WATER - 50 ML IVPB ONE ×2 (14:42→17:00)
[2021-12-02] MEDS ORDERED: PIPERACILLIN/TAZOBACTAM 3.375 GM VIAL IVPB ONE ×2 (14:42→17:00)
[2021-12-02] MEDS: PIPERACILLIN/TAZOB 3.375 GM 3.375 GM in DEXTROSE 5%-WATER - 50 ML IVPB SCH ×2 (14:46→17:06)
[2021-12-02] MEDS: AMINO ACIDS/PROTEIN HYDROLYS 30 ML LIQUID.PKT PO SCH (17:06)
[2021-12-02 18:28] LABS: BASO % 0.4 % (0-2.0); EOS % 2.5 % (0-4.5); HEMATOCRIT 31.2 % (35.4-49); HEMOGLOBIN 9.9 GM/dL (11.7-16.9); LYMPH % 12.2 % (8-40); MCH 28.1 pg (25.7-33.7); MCHC 31.7 g/dl (32.0-35.9); MEAN CELL VOLUME 88.7 fl (80-96); MONO % 7.2 % (3.8-10.2); NEUT % 77.7 % (42.8-82.8); PLATELET COUNT 469 10^3/uL (134-434); RBC 3.52 M/mm3 (4.00-5.60); RDW 16.6 % (11.9-15.9); WHITE BLOOD COUNT 8.7 K/mm3 (4.0-10.0)
[2021-12-02 18:50] LABS: MEAN PLT VOLUME 5.2 fl (7.5-11.1)
[2021-12-02] MEDS ORDERED: MIRTAZAPINE 15 MG TABLET (FP) PO SCH (22:00)
[2021-12-02] MEDS ORDERED: ATORVASTATIN CA 80 MG TABLET (FP) PO SCH (22:00)
[2021-12-03] MEDS ORDERED: PIPERACILLIN/TAZOBACTAM 3.375 GM VIAL IVPB ONE ×3 (00:50→17:38)
[2021-12-03] MEDS ORDERED: DEXTROSE 5%-WATER - 50 ML IVPB ONE ×3 (00:51→17:39)
[2021-12-03] MEDS: PIPERACILLIN/TAZOB 3.375 GM 3.375 GM in DEXTROSE 5%-WATER - 50 ML IVPB SCH ×3 (01:50→18:19)
[2021-12-03] MEDS: BACLOFEN 10 MG TABLET (FP) PO SCH ×3 (06:36→22:00)
[2021-12-03] MEDS: AMINO ACIDS/PROTEIN HYDROLYS 30 ML LIQUID.PKT PO SCH ×2 (09:51→16:36)
[2021-12-03] MEDS: SODIUM HYPOCHLORITE 0.25%- 473 ML BULK BOTTLE TP SCH (09:52)
[2021-12-03] MEDS: METOPROLOL TARTRATE 25 MG TABLET (FP) PO SCH ×2 (09:53→22:00)
[2021-12-03] MEDS: COLLAGENASE CLOSTRIDIUM HIST. 30 GRAMS TUBE TP SCH (09:53)
[2021-12-03] MEDS: OXYBUTYNIN CHLORIDE 5 MG TABLET PO SCH ×2 (09:53→22:05)
[2021-12-03] MEDS: levETIRAcetam 500 MG TABLET (FP) PO SCH ×2 (09:53→22:01)
[2021-12-03] MEDS: FUROSEMIDE 40 MG TABLET (FP) PO SCH (09:53)
[2021-12-03] MEDS: PANTOPRAZOLE 40 MG TABLET PO SCH (09:53)
[2021-12-03] MEDS ORDERED: MULTIVITAMINS (DAILY MVI) TABLET (FP) PO SCH (10:00)
[2021-12-03] MEDS ORDERED: FERROUS SO4 325 MG TABLET (FP) PO SCH (10:00)
[2021-12-03] MEDS ORDERED: SODIUM HYPOCHLORITE 0.25%- 473 ML BULK BOTTLE TP ONE (12:45)
[2021-12-03] MEDS ORDERED: SODIUM HYPOCHLORITE 0.5% 473 ML- BULK BOTTLE TP ONE (12:45)
[2021-12-03] MEDS ORDERED: ONDANSETRON 4 MG/2 ML VIAL IVPUSH PRN ×2 (13:02→13:12)
[2021-12-03] MEDS ORDERED: ACETAMINOPHEN 500 MG TABLET (FP) PO PRN (13:12)
[2021-12-03] MEDS ORDERED: DEXMEDETOMIDINE HCL 200 MCG/2 ML IVPB ONE (13:44)
[2021-12-03] MEDS ORDERED: ACETAMINOPHEN INJECTION 100 ML IVPB ONE (13:45)
[2021-12-03] MEDS ORDERED: ROCURONIUM BROMIDE 50 MG/5 ML SYRINGE ONE (13:57)
[2021-12-03] MEDS ORDERED: SUGAMMADEX SODIUM 200 MG/2 ML VIAL ONE (14:05)
[2021-12-03] MEDS: ATORVASTATIN CA 80 MG TABLET (FP) PO SCH (22:00)
[2021-12-03] MEDS: MELATONIN 5 MG TABLETS PO PRN (22:11)
[2021-12-03] MEDS: MIRTAZAPINE 15 MG TABLET (FP) PO SCH (22:11)
[2021-12-04] MEDS ORDERED: PIPERACILLIN/TAZOBACTAM 3.375 GM VIAL IVPB ONE ×3 (01:26→16:49)
[2021-12-04] MEDS ORDERED: DEXTROSE 5%-WATER - 50 ML IVPB ONE ×3 (01:26→16:49)
[2021-12-04] MEDS: PIPERACILLIN/TAZOB 3.375 GM 3.375 GM in DEXTROSE 5%-WATER - 50 ML IVPB SCH ×3 (01:37→17:02)
[2021-12-04] MEDS: BACLOFEN 10 MG TABLET (FP) PO SCH ×3 (06:32→22:44)
[2021-12-04] MEDS: levETIRAcetam 500 MG TABLET (FP) PO SCH ×2 (10:30→22:43)
[2021-12-04] MEDS: METOPROLOL TARTRATE 25 MG TABLET (FP) PO SCH ×2 (10:30→22:44)
[2021-12-04] MEDS: ASCORBIC ACID 500 MG TABLET (FP) PO SCH (10:30)
[2021-12-04] MEDS: FUROSEMIDE 40 MG TABLET (FP) PO SCH (10:31)
[2021-12-04] MEDS: FERROUS SO4 325 MG TABLET (FP) PO SCH (10:31)
[2021-12-04] MEDS: ZINC SULFATE 220 MG CAPSULE (FP) PO SCH (10:32)
[2021-12-04] MEDS: SODIUM HYPOCHLORITE 0.25%- 473 ML BULK BOTTLE TP SCH (10:32)
[2021-12-04] MEDS: AMINO ACIDS/PROTEIN HYDROLYS 30 ML LIQUID.PKT PO SCH ×2 (10:32→17:03)
[2021-12-04] MEDS: MULTIVITAMINS (DAILY MVI) TABLET (FP) PO SCH (10:33)
[2021-12-04] MEDS: PANTOPRAZOLE 40 MG TABLET PO SCH (10:33)
[2021-12-04] MEDS: COLLAGENASE CLOSTRIDIUM HIST. 30 GRAMS TUBE TP SCH (10:33)
[2021-12-04] MEDS: OXYBUTYNIN CHLORIDE 5 MG TABLET PO SCH ×2 (10:34→22:43)
[2021-12-04 11:28] LABS: BASO % 0.4 % (0-2.0); HEMATOCRIT 32.3 % (35.4-49); HEMOGLOBIN 10.7 GM/dL (11.7-16.9); LYMPH % 10.4 % (8-40); MCH 27.7 pg (25.7-33.7); MCHC 33.2 g/dl (32.0-35.9); MEAN CELL VOLUME 83.6 fl (80-96); MONO % 5.2 % (3.8-10.2); PLATELET COUNT 597 10^3/uL (134-434); RBC 3.86 M/mm3 (4.00-5.60); RDW 16.4 % (11.9-15.9); WHITE BLOOD COUNT 11.5 K/mm3 (4.0-10.0)
[2021-12-04 11:58] LABS: BLOOD UREA NITROGEN 19.3 mg/dL (7-18); CALCIUM 9.2 mg/dL (8.5-10.1)
[2021-12-04 11:59] LABS: MAGNESIUM 2.2 mg/dL (1.8-2.4)
[2021-12-04 12:02] LABS: CREATININE 0.9 mg/dL (0.55-1.3)
[2021-12-04 12:03] LABS: BILIRUBIN,TOTAL 0.6 mg/dL (0.2-1); TOT PROT 6.7 g/dl (6.4-8.2)
[2021-12-04] MEDS ORDERED: LORazepam 2 MG/ML SDV VIAL IVPUSH PRN (12:18)
[2021-12-04] MEDS: SODIUM CHLORIDE 1,000 ML IV SCH (13:48)
[2021-12-04] MEDS: HEPARIN NA (PORCINE) 5,000 UNITS/ML 1ML VIAL SQ SCH (22:44)
[2021-12-04] MEDS: ATORVASTATIN CA 80 MG TABLET (FP) PO SCH (22:44)
[2021-12-04] MEDS: MIRTAZAPINE 15 MG TABLET (FP) PO SCH (22:44)
[2021-12-05] MEDS ORDERED: DEXTROSE 5%-WATER - 50 ML IVPB ONE ×3 (00:56→18:30)
[2021-12-05] MEDS ORDERED: PIPERACILLIN/TAZOBACTAM 3.375 GM VIAL IVPB ONE ×3 (00:56→18:29)
[2021-12-05] MEDS: PIPERACILLIN/TAZOB 3.375 GM 3.375 GM in DEXTROSE 5%-WATER - 50 ML IVPB SCH ×3 (01:27→18:32)
[2021-12-05] MEDS: BACLOFEN 10 MG TABLET (FP) PO SCH ×4 (04:59→22:28)
[2021-12-05] MEDS ORDERED: ACETAMINOPHEN 1000 MG/100 ML BAG IVPB ONE (06:34)
[2021-12-05 07:41] LABS: CALCIUM 9.2 mg/dL (8.5-10.1)
[2021-12-05 07:42] LABS: MAGNESIUM 2.1 mg/dL (1.8-2.4)
[2021-12-05 07:45] LABS: CREATININE 0.8 mg/dL (0.55-1.3)
[2021-12-05 07:46] LABS: BILIRUBIN,TOTAL 0.7 mg/dL (0.2-1); TOT PROT 6.8 g/dl (6.4-8.2)
[2021-12-05] MEDS: FERROUS SO4 325 MG TABLET (FP) PO SCH ×2 (10:00→10:31)
[2021-12-05] MEDS: FUROSEMIDE 40 MG TABLET (FP) PO SCH ×2 (10:00→10:31)
[2021-12-05] MEDS: ZINC SULFATE 220 MG CAPSULE (FP) PO SCH ×2 (10:00→10:32)
[2021-12-05] MEDS: AMINO ACIDS/PROTEIN HYDROLYS 30 ML LIQUID.PKT PO SCH ×3 (10:00→18:33)
[2021-12-05] MEDS: OXYBUTYNIN CHLORIDE 5 MG TABLET PO SCH ×3 (10:00→22:28)
[2021-12-05] MEDS: ASCORBIC ACID 500 MG TABLET (FP) PO SCH ×2 (10:00→10:31)
[2021-12-05] MEDS: MULTIVITAMINS (DAILY MVI) TABLET (FP) PO SCH ×2 (10:00→10:31)
[2021-12-05] MEDS: PANTOPRAZOLE 40 MG TABLET PO SCH ×2 (10:00→10:31)
[2021-12-05] MEDS: METOPROLOL TARTRATE 25 MG TABLET (FP) PO SCH ×3 (10:00→22:27)
[2021-12-05] MEDS: levETIRAcetam 500 MG TABLET (FP) PO SCH ×3 (10:00→22:27)
[2021-12-05] MEDS: HEPARIN NA (PORCINE) 5,000 UNITS/ML 1ML VIAL SQ SCH ×3 (10:00→22:43)
[2021-12-05 11:13] LABS: BASO % 0.6 % (0-2.0); EOS % 3.9 % (0-4.5); HEMATOCRIT 30.1 % (35.4-49); LYMPH % 10.8 % (8-40); MCH 27.9 pg (25.7-33.7); MCHC 33.3 g/dl (32.0-35.9); MEAN CELL VOLUME 83.8 fl (80-96); NEUT % 80.7 % (42.8-82.8); PLATELET COUNT 535 10^3/uL (134-434); RBC 3.59 M/mm3 (4.00-5.60); RDW 16.1 % (11.9-15.9); WHITE BLOOD COUNT 8.8 K/mm3 (4.0-10.0)
[2021-12-05 11:35] LABS: MEAN PLT VOLUME 5.8 fl (7.5-11.1)
[2021-12-05] MEDS ORDERED: LACTULOSE 20 GM/30 ML UDC (FOR ORAL USE ONLY) PO PRN (12:31)
[2021-12-05] MEDS: COLLAGENASE CLOSTRIDIUM HIST. 30 GRAMS TUBE TP SCH (14:30)
[2021-12-05] MEDS: SODIUM HYPOCHLORITE 0.25%- 473 ML BULK BOTTLE TP SCH (14:30)
[2021-12-05] MEDS: SODIUM CHLORIDE 1,000 ML IV SCH (20:39)
[2021-12-05] MEDS: ATORVASTATIN CA 80 MG TABLET (FP) PO SCH (22:27)
[2021-12-05] MEDS: MIRTAZAPINE 15 MG TABLET (FP) PO SCH (22:27)
[2021-12-05] MEDS: MELATONIN 5 MG TABLETS PO PRN (22:28)
[2021-12-06] MEDS ORDERED: DEXTROSE 5%-WATER - 50 ML IVPB ONE ×2 (01:04→10:04)
[2021-12-06] MEDS ORDERED: PIPERACILLIN/TAZOBACTAM 3.375 GM VIAL IVPB ONE ×2 (01:04→10:04)
[2021-12-06] MEDS: PIPERACILLIN/TAZOB 3.375 GM 3.375 GM in DEXTROSE 5%-WATER - 50 ML IVPB SCH ×2 (01:25→10:42)
[2021-12-06] MEDS: BACLOFEN 10 MG TABLET (FP) PO SCH ×3 (05:26→22:05)
[2021-12-06] MEDS: FUROSEMIDE 40 MG TABLET (FP) PO SCH (10:42)
[2021-12-06] MEDS: LACTULOSE 20 GM/30 ML UDC (FOR ORAL USE ONLY) PO SCH ×3 (10:42→15:52)
[2021-12-06] MEDS: HEPARIN NA (PORCINE) 5,000 UNITS/ML 1ML VIAL SQ SCH ×2 (10:42→22:07)
[2021-12-06] MEDS: OXYBUTYNIN CHLORIDE 5 MG TABLET PO SCH ×2 (10:42→22:07)
[2021-12-06] MEDS: METOPROLOL TARTRATE 25 MG TABLET (FP) PO SCH ×2 (10:43→22:08)
[2021-12-06] MEDS: AMINO ACIDS/PROTEIN HYDROLYS 30 ML LIQUID.PKT PO SCH ×2 (10:43→17:40)
[2021-12-06] MEDS: SODIUM CHLORIDE 1,000 ML IV SCH ×3 (10:44→15:52)
[2021-12-06] MEDS: FERROUS SO4 325 MG TABLET (FP) PO SCH (10:44)
[2021-12-06] MEDS: MULTIVITAMINS (DAILY MVI) TABLET (FP) PO SCH (10:44)
[2021-12-06] MEDS: ZINC SULFATE 220 MG CAPSULE (FP) PO SCH (10:44)
[2021-12-06] MEDS: ASCORBIC ACID 500 MG TABLET (FP) PO SCH (10:44)
[2021-12-06] MEDS: PANTOPRAZOLE 40 MG TABLET PO SCH (10:45)
[2021-12-06] MEDS: levETIRAcetam 500 MG TABLET (FP) PO SCH ×2 (10:45→22:05)
[2021-12-06 13:55] LABS: BASO % 0.5 % (0-2.0); EOS % 3.1 % (0-4.5); HEMATOCRIT 28.4 % (35.4-49); HEMOGLOBIN 9.5 GM/dL (11.7-16.9); LYMPH % 11.3 % (8-40); MCH 28.4 pg (25.7-33.7); MCHC 33.5 g/dl (32.0-35.9); MEAN CELL VOLUME 84.8 fl (80-96); MONO % 4.7 % (3.8-10.2); NEUT % 80.4 % (42.8-82.8); PLATELET COUNT 569 10^3/uL (134-434); RBC 3.35 M/mm3 (4.00-5.60); RDW 16.6 % (11.9-15.9); WHITE BLOOD COUNT 10.1 K/mm3 (4.0-10.0)
[2021-12-06 13:56] LABS: MEAN PLT VOLUME 5.5 fl (7.5-11.1)
[2021-12-06 14:16] LABS: BLOOD UREA NITROGEN 20.1 mg/dL (7-18); MAGNESIUM 2.3 mg/dL (1.8-2.4)
[2021-12-06 14:21] LABS: BILIRUBIN,TOTAL 0.7 mg/dL (0.2-1); TOT PROT 6.6 g/dl (6.4-8.2)
[2021-12-06] MEDS ORDERED: LORazepam 2 MG/ML SDV VIAL IM PRN (16:21)
[2021-12-06] MEDS: AMOX TR/POT CLAV 875MG/125MG TABLETS (FP) PO SCH (17:39)
[2021-12-06] MEDS: SODIUM HYPOCHLORITE 0.25%- 473 ML BULK BOTTLE TP SCH (17:39)
[2021-12-06] MEDS: COLLAGENASE CLOSTRIDIUM HIST. 30 GRAMS TUBE TP SCH (17:40)
[2021-12-06] MEDS: MELATONIN 5 MG TABLETS PO PRN (22:00)
[2021-12-06] MEDS: MIRTAZAPINE 15 MG TABLET (FP) PO SCH (22:01)
[2021-12-06] MEDS: ATORVASTATIN CA 80 MG TABLET (FP) PO SCH (22:07)
[2021-12-07] MEDS: BACLOFEN 10 MG TABLET (FP) PO SCH ×3 (05:34→23:06)
[2021-12-07 09:27] LABS: BASO % 0.6 % (0-2.0); EOS % 2.3 % (0-4.5); HEMATOCRIT 27.3 % (35.4-49); HEMOGLOBIN 9.2 GM/dL (11.7-16.9); MCH 28.4 pg (25.7-33.7); MCHC 33.7 g/dl (32.0-35.9); MEAN CELL VOLUME 84.2 fl (80-96); MONO % 6.3 % (3.8-10.2); NEUT % 78.8 % (42.8-82.8); PLATELET COUNT 473 10^3/uL (134-434); RBC 3.24 M/mm3 (4.00-5.60); RDW 16.4 % (11.9-15.9); WHITE BLOOD COUNT 10.1 K/mm3 (4.0-10.0)
[2021-12-07 09:42] LABS: MEAN PLT VOLUME 5.7 fl (7.5-11.1)
[2021-12-07 09:50] LABS: CALCIUM 9.1 mg/dL (8.5-10.1); MAGNESIUM 2.4 mg/dL (1.8-2.4)
[2021-12-07 09:51] LABS: BLOOD UREA NITROGEN 20.9 mg/dL (7-18)
[2021-12-07 09:53] LABS: CREATININE 0.8 mg/dL (0.55-1.3)
[2021-12-07 09:55] LABS: BILIRUBIN,TOTAL 0.8 mg/dL (0.2-1); TOT PROT 6.6 g/dl (6.4-8.2)
[2021-12-07] MEDS: HEPARIN NA (PORCINE) 5,000 UNITS/ML 1ML VIAL SQ SCH (11:31)
[2021-12-07] MEDS: METOPROLOL TARTRATE 25 MG TABLET (FP) PO SCH ×2 (11:31→23:07)
[2021-12-07] MEDS: FUROSEMIDE 40 MG TABLET (FP) PO SCH (11:31)
[2021-12-07] MEDS: MULTIVITAMINS (DAILY MVI) TABLET (FP) PO SCH (11:32)
[2021-12-07] MEDS: FERROUS SO4 325 MG TABLET (FP) PO SCH (11:32)
[2021-12-07] MEDS: ZINC SULFATE 220 MG CAPSULE (FP) PO SCH (11:32)
[2021-12-07] MEDS: COLLAGENASE CLOSTRIDIUM HIST. 30 GRAMS TUBE TP SCH (11:32)
[2021-12-07] MEDS: PANTOPRAZOLE 40 MG TABLET PO SCH (11:32)
[2021-12-07] MEDS: levETIRAcetam 500 MG TABLET (FP) PO SCH ×2 (11:32→23:06)
[2021-12-07] MEDS: AMINO ACIDS/PROTEIN HYDROLYS 30 ML LIQUID.PKT PO SCH ×2 (11:32→16:49)
[2021-12-07] MEDS: ASCORBIC ACID 500 MG TABLET (FP) PO SCH (11:32)
[2021-12-07] MEDS: SODIUM HYPOCHLORITE 0.25%- 473 ML BULK BOTTLE TP SCH (11:32)
[2021-12-07] MEDS: OXYBUTYNIN CHLORIDE 5 MG TABLET PO SCH ×2 (11:33→23:06)
[2021-12-07] MEDS: AMOX TR/POT CLAV 875MG/125MG TABLETS (FP) PO SCH ×2 (11:35→17:01)
[2021-12-07 21:59] VITALS: BMI 23.8
[2021-12-07] MEDS: MIRTAZAPINE 15 MG TABLET (FP) PO SCH (23:05)
[2021-12-07] MEDS: ATORVASTATIN CA 80 MG TABLET (FP) PO SCH (23:06)
[2021-12-07] MEDS: APIXABAN 5 MG TABLET PO SCH (23:07)
[2021-12-08] MEDS: BACLOFEN 10 MG TABLET (FP) PO SCH ×3 (06:09→22:23)
[2021-12-08 08:28] LABS: CALCIUM 8.7 mg/dL (8.5-10.1)
[2021-12-08 08:29] LABS: ALBUMIN 1.9 g/dl (3.4-5.0); MAGNESIUM 2.3 mg/dL (1.8-2.4)
[2021-12-08 08:32] LABS: CREATININE 0.8 mg/dL (0.55-1.3)
[2021-12-08 08:33] LABS: BILIRUBIN,TOTAL 0.4 mg/dL (0.2-1)
[2021-12-08 08:34] LABS: TOT PROT 6.3 g/dl (6.4-8.2)
[2021-12-08 08:40] LABS: BASO % 0.4 % (0-2.0); EOS % 3.5 % (0-4.5); HEMATOCRIT 26.9 % (35.4-49); HEMOGLOBIN 8.6 GM/dL (11.7-16.9); LYMPH % 14.6 % (8-40); MCH 27.6 pg (25.7-33.7); MCHC 32.1 g/dl (32.0-35.9); MONO % 6.2 % (3.8-10.2); NEUT % 75.3 % (42.8-82.8); PLATELET COUNT 464 10^3/uL (134-434); RBC 3.13 M/mm3 (4.00-5.60); RDW 16.3 % (11.9-15.9)
[2021-12-08] MEDS: AMOX TR/POT CLAV 875MG/125MG TABLETS (FP) PO SCH ×2 (09:45→16:32)
[2021-12-08] MEDS: ZINC SULFATE 220 MG CAPSULE (FP) PO SCH (10:41)
[2021-12-08] MEDS: ASCORBIC ACID 500 MG TABLET (FP) PO SCH (10:41)
[2021-12-08] MEDS: FERROUS SO4 325 MG TABLET (FP) PO SCH (10:41)
[2021-12-08] MEDS: APIXABAN 5 MG TABLET PO SCH ×2 (10:42→22:23)
[2021-12-08] MEDS: FUROSEMIDE 40 MG TABLET (FP) PO SCH (10:42)
[2021-12-08] MEDS: levETIRAcetam 500 MG TABLET (FP) PO SCH ×2 (10:42→22:23)
[2021-12-08] MEDS: MULTIVITAMINS (DAILY MVI) TABLET (FP) PO SCH (10:42)
[2021-12-08] MEDS: METOPROLOL TARTRATE 25 MG TABLET (FP) PO SCH ×2 (10:42→22:23)
[2021-12-08] MEDS: AMINO ACIDS/PROTEIN HYDROLYS 30 ML LIQUID.PKT PO SCH ×2 (10:42→16:32)
[2021-12-08] MEDS: PANTOPRAZOLE 40 MG TABLET PO SCH (10:42)
[2021-12-08] MEDS: SODIUM HYPOCHLORITE 0.25%- 473 ML BULK BOTTLE TP SCH (10:43)
[2021-12-08] MEDS: OXYBUTYNIN CHLORIDE 5 MG TABLET PO SCH ×2 (10:44→22:23)
[2021-12-08] MEDS: COLLAGENASE CLOSTRIDIUM HIST. 30 GRAMS TUBE TP SCH (10:45)
[2021-12-08] MEDS: MIRTAZAPINE 15 MG TABLET (FP) PO SCH (22:23)
[2021-12-08] MEDS: ATORVASTATIN CA 80 MG TABLET (FP) PO SCH (22:23)
[2021-12-09] MEDS: BACLOFEN 10 MG TABLET (FP) PO SCH ×2 (05:31→14:28)
[2021-12-09] MEDS: AMOX TR/POT CLAV 875MG/125MG TABLETS (FP) PO SCH ×2 (08:32→17:49)
[2021-12-09] MEDS: AMINO ACIDS/PROTEIN HYDROLYS 30 ML LIQUID.PKT PO SCH ×2 (08:33→17:49)
[2021-12-09] MEDS: SODIUM HYPOCHLORITE 0.25%- 473 ML BULK BOTTLE TP SCH (09:33)
[2021-12-09] MEDS: FERROUS SO4 325 MG TABLET (FP) PO SCH (09:34)
[2021-12-09] MEDS: APIXABAN 5 MG TABLET PO SCH (09:34)
[2021-12-09] MEDS: OXYBUTYNIN CHLORIDE 5 MG TABLET PO SCH (09:34)
[2021-12-09] MEDS: ASCORBIC ACID 500 MG TABLET (FP) PO SCH (09:35)
[2021-12-09] MEDS: ZINC SULFATE 220 MG CAPSULE (FP) PO SCH (09:36)
[2021-12-09] MEDS: COLLAGENASE CLOSTRIDIUM HIST. 30 GRAMS TUBE TP SCH (09:36)
[2021-12-09] MEDS: PANTOPRAZOLE 40 MG TABLET PO SCH (09:36)
[2021-12-09] MEDS: MULTIVITAMINS (DAILY MVI) TABLET (FP) PO SCH (09:36)
[2021-12-09] MEDS: FUROSEMIDE 40 MG TABLET (FP) PO SCH (09:37)
[2021-12-09] MEDS: levETIRAcetam 500 MG TABLET (FP) PO SCH (09:37)
[2021-12-09] MEDS: METOPROLOL TARTRATE 25 MG TABLET (FP) PO SCH (09:37)
[2021-12-09 14:56] VITALS: TEMP 98.7
[2021-12-09 19:23] VITALS: BP 116/66; PULSE 96
== END 2021-12-09 20:06 | disposition home or self-care (01) | DRG 570 ==
LOC: JER 18:57 → JERBED 23:40 → J4S 12-02 06:50 → OBSVTOIN 12-03 13:14
PROVIDERS: ADMIT Internal Medicine; ATTEND Nurse Practitioner Family
PROC: 0T2BX0Z Change Drainage Device in Bladder, External Approach (ICD-10-PCS; 2021-12-01)
PROC: 30233N1 Transfusion of Nonautologous Red Blood Cells into Peripheral Vein, Percutaneous Approach (ICD-10-PCS; 2021-12-02)
PROC: 0JB90ZZ Excision of Buttock Subcutaneous Tissue and Fascia, Open Approach (ICD-10-PCS; principal; 2021-12-03 12:00)
DX: L89.150 Pressure ulcer of sacral region, unstageable (principal); G93.41 Metabolic encephalopathy; N39.0 Urinary tract infection, site not specified; E44.0 Moderate protein-calorie malnutrition; L97.818 Non-pressure chronic ulcer of other part of right lower leg with other specified severity; L97.518 Non-pressure chronic ulcer of other part of right foot with other specified severity; G82.20 Paraplegia, unspecified; L89.210 Pressure ulcer of right hip, unstageable; N31.9 Neuromuscular dysfunction of bladder, unspecified; D72.829 Elevated white blood cell count, unspecified; I10 Essential (primary) hypertension; T83.098A Other mechanical complication of other urinary catheter, initial encounter; D47.3 Essential (hemorrhagic) thrombocythemia; E78.5 Hyperlipidemia, unspecified; K64.8 Other hemorrhoids; K59.00 Constipation, unspecified; D64.9 Anemia, unspecified; Z68.23 Body mass index [BMI] 23.0-23.9, adult; B96.89 Other specified bacterial agents as the cause of diseases classified elsewhere; Z86.73 Personal history of transient ischemic attack (TIA), and cerebral infarction without residual deficits; Y84.8 Other medical procedures as the cause of abnormal reaction of the patient, or of later complication, without mention of misadventure at the time of the procedure
CPT/HCPCS: 0241U-QW; 36415; 36430; 36511; 70450-TC; 71045-TC-FY; 80053; 80177; 81003; 82140; 82272; 82728; 83550; 83735; 85025; 85045; 85610; 85730; 86850; 86900; 86901; 86922; 87040; 87086; 87186; 88307-TC; 93005; 93010; 94760; 99285-25; G0378; J0475; J1644; P9016; P9058

== ENCOUNTER 2021-12-10 14:00 | Emergency (ER) | payer OTHER ==
[2021-12-10 14:57] VITALS: BP 126/60; PULSE 99; TEMP 98.8; BMI 52.0
== END 2021-12-10 19:55 | disposition left against medical advice (07) ==
LOC: JER 14:00
DX: T83.010A Breakdown (mechanical) of cystostomy catheter, initial encounter (principal)
CPT/HCPCS: 93005; 93010; 99285-25

== ENCOUNTER 2022-01-14 20:01 | Inpatient (IN) | payer OTHER ==
[2022-01-14] MEDS ORDERED: SODIUM CHLORIDE 1,905 ML IV ONE (20:41)
[2022-01-14] MEDS ORDERED: SODIUM CHLORIDE 0.9% 500 ML INFUS.BAG IV ONE ×2 (20:45→23:44)
[2022-01-14] MEDS ORDERED: ACETAMINOPHEN 1000 MG/100 ML BAG IVPB ONE (20:45)
[2022-01-14 22:56] LABS: BASO % 0.1 % (0-2.0); HEMOGLOBIN 10.3 GM/dL (11.7-16.9); LYMPH % 2.5 % (8-40); MCH 24.7 pg (25.7-33.7); MCHC 31.1 g/dl (32.0-35.9); MEAN CELL VOLUME 79.4 fl (80-96); MONO % 2.4 % (3.8-10.2); RBC 4.16 M/mm3 (4.00-5.60); RDW 17.4 % (11.9-15.9); WHITE BLOOD COUNT 24.9 K/mm3 (4.0-10.0)
[2022-01-14 23:04] LABS: INR 3.49 (0.83-1.09); PROTHROMBIN TIME (PATIENT) 40.7 SEC (9.7-13.0)
[2022-01-14] MEDS ORDERED: ACETAMINOPHEN INJECTION 100 ML IVPB ONE (23:06)
[2022-01-14] MEDS ORDERED: VANCOMYCIN 1 GM in D5W (PRE-DOCKED) 1,000 MG/250 ML IVPB ONE (23:07)
[2022-01-14] MEDS ORDERED: PIPERACILLIN/TAZOB 4.5 GM 4.5 GM in DEXTROSE 5%-WATER 100 ML IVPB ONE (23:07)
[2022-01-14] MEDS ORDERED: ONDANSETRON 4 MG/2 ML VIAL IVPUSH ONE (23:12)
[2022-01-14] MEDS ORDERED: ONDANSETRON 4 MG/2 ML VIAL ONE (23:13)
[2022-01-14 23:14] LABS: VENOUS BASE EXCESS -1.1 mmol/L (-2-2); VENOUS O2 SATURATION 29.6 % (70-80); VENOUS PCO2 69.5 mmHg (38-52); VENOUS PH 7.222 (7.310-7.410)
[2022-01-14 23:18] LABS: CALCIUM 10.2 mg/dL (8.5-10.1)
[2022-01-14 23:19] LABS: ALBUMIN 2.2 g/dl (3.4-5.0)
[2022-01-14 23:22] LABS: ACTIVATED PTT 303.7 SECONDS (25.2-36.5); CREATININE 1.8 mg/dL (0.55-1.3)
[2022-01-14 23:23] LABS: BILIRUBIN,TOTAL 0.8 mg/dL (0.2-1); TOT PROT 8.2 g/dl (6.4-8.2)
[2022-01-14 23:36] LABS: MEAN PLT VOLUME 5.7 fl (7.5-11.1); PLATELET COUNT 1138 10^3/uL (134-434)
[2022-01-14 23:40] LABS: LACTIC ACID 6.4 mmol/L (0.4-2.0)
[2022-01-15] MEDS ORDERED: VANCOMYCIN/WATER 1250 MG 1,250 MG/250 ML BAG IVPB ONE (01:10)
[2022-01-15 02:45] LABS: EPI CELLS >36 /uL (0-25.1); HYALINE CASTS 52 /uL (0-3.1); PH,URINE 7.5 (5.0-8.0); URINE APPEARANCE TURBID; URINE BACTERIA >9,000 /uL (0-1359); URINE BILIRUBIN 2+ (NEGATIVE); URINE COLOR ORANGE; URINE GLUCOSE (UA) NEGATIVE (NEGATIVE); URINE KETONE NEGATIVE (NEGATIVE); URINE LEUK ESTERASE 3+ (NEGATIVE); URINE NITRITE POSITIVE (NEGATIVE); URINE PROTEIN 2+ (NEGATIVE); URINE WBC 15874 /uL (0-25.8)
[2022-01-15] MEDS ORDERED: LACTATED RINGERS SOLUTION 1,000 ML/1,000 ML INFUS.BAG IV SCH (03:45)
[2022-01-15] MEDS ORDERED: HEPARIN NA (PORCINE) 5,000 UNITS/ML 1ML VIAL ONE ×2 (06:51→14:41)
[2022-01-15 06:52] LABS: LACTIC ACID 4.4 mmol/L (0.4-2.0)
[2022-01-15 06:58] LABS: URINE CRYSTALS FEW /hpf; URINE RBC 7887.8 /uL (0-23.9); YEAST NONE SEEN (NEGATIVE)
[2022-01-15] MEDS: HEPARIN NA (PORCINE) 5,000 UNITS/ML 1ML VIAL SQ SCH ×3 (07:03→21:59)
[2022-01-15] MEDS ORDERED: PANTOPRAZOLE SODIUM 40 MG/100 ML BAG IVPB ONE (09:47)
[2022-01-15] MEDS ORDERED: PIPERACILLIN/TAZOB 3.375 GM 3.375 GM/50 ML BAG IVPB ONE (09:47)
[2022-01-15] MEDS: PANTOPRAZOLE SODIUM 40 MG VIAL IVPUSH SCH (10:00)
[2022-01-15] MEDS: PIPERACILLIN/TAZOB 3.375 GM 3.375 GM in DEXTROSE 5%-WATER - 50 ML IVPB SCH ×2 (11:39→18:39)
[2022-01-15 12:40] LABS: CHLORIDE 92 mmol/L (98-107); SODIUM 134 mmol/L (136-145)
[2022-01-15 12:42] LABS: CALCIUM 9.3 mg/dL (8.5-10.1)
[2022-01-15 12:43] LABS: ALBUMIN 1.8 g/dl (3.4-5.0); ANION GAP 17 MMOL/L (8-16); BLOOD UREA NITROGEN 46.9 mg/dL (7-18); CO2 25 mmol/L (21-32); GLUCOSE,RANDOM 101 mg/dL (74-106); MAGNESIUM 5.5 mg/dL (1.8-2.4)
[2022-01-15 12:46] LABS: CREATININE 2.1 mg/dL (0.55-1.3); PHOSPHOROUS 7.6 mg/dL (2.5-4.9); SGOT/AST 43 U/L (15-37); SGPT/ALT 19 U/L (13-61)
[2022-01-15 12:48] LABS: BILIRUBIN,TOTAL 0.8 mg/dL (0.2-1); TOT PROT 6.3 g/dl (6.4-8.2)
[2022-01-15 12:49] LABS: ALK PHOS 90 U/L (45-117)
[2022-01-15] MEDS ORDERED: SODIUM CHLORIDE 1,000 ML IV STA (13:28)
[2022-01-15] MEDS ORDERED: PIPERACILLIN/TAZOB 3.375 GM 3.375 GM in DEXTROSE 5%-WATER - 50 ML IVPB ONE (14:00)
[2022-01-15] MEDS: levETIRAcetam 500 MG/5 ML INJECTION VIAL IVPB SCH ×2 (14:30→21:59)
[2022-01-15] MEDS ORDERED: levETIRAcetam 500 MG/5 ML INJECTION VIAL IVPB ONE (14:41)
[2022-01-15] MEDS: SODIUM CHLORIDE 1,000 ML IV SCH (15:30)
[2022-01-15 16:52] LABS: HEMATOCRIT 24.8 % (35.4-49); HEMOGLOBIN 7.9 GM/dL (11.7-16.9); MCH 25.3 pg (25.7-33.7); MCHC 31.9 g/dl (32.0-35.9); MEAN CELL VOLUME 79.3 fl (80-96); MEAN PLT VOLUME 5.8 fl (7.5-11.1); PLATELET COUNT 728 10^3/uL (134-434); RBC 3.13 M/mm3 (4.00-5.60); RDW 17.1 % (11.9-15.9); WHITE BLOOD COUNT 15.1 K/mm3 (4.0-10.0)
[2022-01-15] MEDS ORDERED: ACETAMINOPHEN 1000 MG/100 ML BAG IVPB PRN (17:23)
[2022-01-15 18:55] VITALS: BMI 19.3
[2022-01-16] MEDS ORDERED: VANCOMYCIN 1 GM/200 ML PREMIX BAG IVPB SCH (02:00)
[2022-01-16] MEDS: SODIUM CHLORIDE 1,000 ML IV SCH ×2 (02:19→19:28)
[2022-01-16] MEDS: HEPARIN NA (PORCINE) 5,000 UNITS/ML 1ML VIAL SQ SCH ×3 (05:55→22:27)
[2022-01-16] MEDS: PANTOPRAZOLE SODIUM 40 MG VIAL IVPUSH SCH (10:49)
[2022-01-16] MEDS: levETIRAcetam 500 MG/5 ML INJECTION VIAL IVPB SCH ×2 (10:50→22:28)
[2022-01-16] MEDS: PIPERACILLIN/TAZOB 3.375 GM 3.375 GM in DEXTROSE 5%-WATER - 50 ML IVPB SCH ×2 (13:30→19:28)
[2022-01-16] MEDS ORDERED: SODIUM CHLORIDE 250 ML IV STA (16:27)
[2022-01-16] MEDS ORDERED: LORazepam 2 MG/ML SDV VIAL IM PRN (18:44)
[2022-01-17] MEDS: PIPERACILLIN/TAZOB 3.375 GM 3.375 GM in DEXTROSE 5%-WATER - 50 ML IVPB SCH ×3 (01:13→19:14)
[2022-01-17] MEDS ORDERED: VANCOMYCIN 1 GM in D5W (PRE-DOCKED) 1,000 MG/250 ML IVPB SCH (02:00)
[2022-01-17] MEDS: HEPARIN NA (PORCINE) 5,000 UNITS/ML 1ML VIAL SQ SCH ×3 (06:28→22:00)
[2022-01-17 10:13] LABS: HEMATOCRIT 24.2 % (35.4-49); HEMOGLOBIN 7.5 GM/dL (11.7-16.9); MCH 24.8 pg (25.7-33.7); MCHC 31.1 g/dl (32.0-35.9); MEAN CELL VOLUME 79.7 fl (80-96); PLATELET COUNT 626 10^3/uL (134-434); RBC 3.04 M/mm3 (4.00-5.60); RDW 17.2 % (11.9-15.9); WHITE BLOOD COUNT 20.3 K/mm3 (4.0-10.0)
[2022-01-17 10:31] LABS: CHLORIDE 94 mmol/L (98-107); SODIUM 131 mmol/L (136-145)
[2022-01-17 10:33] LABS: CALCIUM 8.2 mg/dL (8.5-10.1)
[2022-01-17 10:34] LABS: ALBUMIN 1.5 g/dl (3.4-5.0); ANION GAP 20 MMOL/L (8-16); CO2 17 mmol/L (21-32); MAGNESIUM 5.9 mg/dL (1.8-2.4)
[2022-01-17 10:36] LABS: SGPT/ALT 89 U/L (13-61)
[2022-01-17 10:37] LABS: CREATININE 3.2 mg/dL (0.55-1.3); SGOT/AST 280 U/L (15-37)
[2022-01-17 10:38] LABS: BILIRUBIN,TOTAL 0.9 mg/dL (0.2-1); TOT PROT 6.4 g/dl (6.4-8.2)
[2022-01-17] MEDS ORDERED: DEXTROSE 50%-WATER 25 GM/50 ML DISP.SYRIN ONE ×2 (10:38→23:10)
[2022-01-17] MEDS ORDERED: DEXTROSE 50%-WATER 25 GM/50 ML DISP.SYRIN IVPUSH ONE (10:38)
[2022-01-17 10:41] LABS: LACTIC ACID 2.2 mmol/L (0.4-2.0)
[2022-01-17 10:41] LABS: ALK PHOS 143 U/L (45-117); BLOOD UREA NITROGEN 78.2 mg/dL (7-18); GLUCOSE,RANDOM 42 mg/dL (74-106)
[2022-01-17] MEDS ORDERED: HALOPERIDOL LACTATE 5 MG/ML IM ONE (12:45)
[2022-01-17 13:10] LABS: ANISOCYTOSIS 2+; MACROCYTOSIS 0; OVALOCYTE 2+; TARGET CELLS 1+
[2022-01-17] MEDS: levETIRAcetam 500 MG/5 ML INJECTION VIAL IVPB SCH ×2 (19:09→23:00)
[2022-01-17] MEDS: SODIUM CHLORIDE 1,000 ML IV SCH (19:14)
[2022-01-17] MEDS ORDERED: SODIUM CHLORIDE 1,000 ML IV SCH (19:30)
[2022-01-17] MEDS: NOREPINEPHRINE D5W PREMIX 16,000 MCG/500 ML BAG IVPB SCH (19:30)
[2022-01-17] MEDS ORDERED: DEXTROSE 50%-WATER - 25 GM/50 ML VIAL IVPUSH ONE (23:11)
[2022-01-17] MEDS ORDERED: DEXTROSE 5%-NORMAL SALINE 1,000 ML IV SCH (23:15)
[2022-01-18] MEDS ORDERED: SODIUM CHLORIDE 500 ML IV STA ×2 (01:44→22:10)
[2022-01-18] MEDS: PIPERACILLIN/TAZOB 3.375 GM 3.375 GM in DEXTROSE 5%-WATER - 50 ML IVPB SCH ×3 (02:34→17:59)
[2022-01-18] MEDS: HEPARIN NA (PORCINE) 5,000 UNITS/ML 1ML VIAL SQ SCH ×3 (07:00→22:03)
[2022-01-18] MEDS: PANTOPRAZOLE SODIUM 40 MG VIAL IVPUSH SCH ×4 (08:15→22:01)
[2022-01-18 09:03] LABS: HEMATOCRIT 19.7 % (35.4-49); MCH 24.7 pg (25.7-33.7); MCHC 31.3 g/dl (32.0-35.9); MEAN CELL VOLUME 78.8 fl (80-96); PLATELET COUNT 549 10^3/uL (134-434); RBC 2.51 M/mm3 (4.00-5.60); RDW 17.2 % (11.9-15.9); WHITE BLOOD COUNT 22.1 K/mm3 (4.0-10.0)
[2022-01-18 09:04] LABS: MEAN PLT VOLUME 5.8 fl (7.5-11.1)
[2022-01-18 09:06] LABS: HEMOGLOBIN 6.2 GM/dL (11.7-16.9)
[2022-01-18 09:26] LABS: CHLORIDE 96 mmol/L (98-107); SODIUM 132 mmol/L (136-145)
[2022-01-18 09:33] LABS: ALBUMIN 1.4 g/dl (3.4-5.0); ANION GAP 17 MMOL/L (8-16); BLOOD UREA NITROGEN 86.7 mg/dL (7-18); CALCIUM 7.5 mg/dL (8.5-10.1); CO2 19 mmol/L (21-32); GLUCOSE,RANDOM 169 mg/dL (74-106); MAGNESIUM 5.6 mg/dL (1.8-2.4)
[2022-01-18 09:36] LABS: CREATININE 3.5 mg/dL (0.55-1.3); PHOSPHOROUS 8.7 mg/dL (2.5-4.9); SGPT/ALT 101 U/L (13-61)
[2022-01-18 09:37] LABS: SGOT/AST 324 U/L (15-37)
[2022-01-18] MEDS: levETIRAcetam 500 MG/5 ML INJECTION VIAL IVPB SCH ×2 (09:37→22:00)
[2022-01-18 09:38] LABS: BILIRUBIN,TOTAL 0.8 mg/dL (0.2-1); TOT PROT 5.8 g/dl (6.4-8.2)
[2022-01-18 09:45] LABS: ALK PHOS 205 U/L (45-117)
[2022-01-18 10:44] LABS: ANISOCYTOSIS 1+; MACROCYTOSIS 0
[2022-01-18] MEDS ORDERED: ALBUMIN HUMAN 5% 250 ML IV SOLUTION IV ONE ×2 (14:36)
[2022-01-18] MEDS: DEXTROSE 5%-NORMAL SALINE 1,000 ML IV SCH (17:57)
[2022-01-18] MEDS: NOREPINEPHRINE D5W PREMIX 16,000 MCG/500 ML BAG IVPB SCH (18:51)
[2022-01-18 22:05] LABS: BASO % 0.1 % (0-2.0); EOS % 0.2 % (0-4.5); HEMATOCRIT 24.8 % (35.4-49); LYMPH % 2.1 % (8-40); MCH 25.6 pg (25.7-33.7); MCHC 32.3 g/dl (32.0-35.9); MEAN CELL VOLUME 79.4 fl (80-96); MONO % 1.8 % (3.8-10.2); NEUT % 95.8 % (42.8-82.8); PLATELET COUNT 409 10^3/uL (134-434); RBC 3.12 M/mm3 (4.00-5.60); RDW 16.6 % (11.9-15.9); WHITE BLOOD COUNT 15.5 K/mm3 (4.0-10.0)
[2022-01-18 22:06] LABS: MEAN PLT VOLUME 5.6 fl (7.5-11.1)
[2022-01-18] MEDS: VASOPRESSIN 40 UNITS/100 ML BAG IV SCH (22:30)
[2022-01-18 22:36] LABS: ANISOCYTOSIS 2+; MACROCYTOSIS 0; TARGET CELLS 1+
[2022-01-18 23:12] LABS: LACTIC ACID 2.3 mmol/L (0.4-2.0)
[2022-01-19] MEDS: PIPERACILLIN/TAZOB 3.375 GM 3.375 GM in DEXTROSE 5%-WATER - 50 ML IVPB SCH ×3 (01:56→17:14)
[2022-01-19] MEDS: HEPARIN NA (PORCINE) 5,000 UNITS/ML 1ML VIAL SQ SCH ×3 (06:18→21:14)
[2022-01-19 07:53] LABS: HEMATOCRIT 23.3 % (35.4-49); HEMOGLOBIN 7.7 GM/dL (11.7-16.9); MCHC 32.9 g/dl (32.0-35.9); MEAN CELL VOLUME 79.1 fl (80-96); PLATELET COUNT 373 10^3/uL (134-434); RBC 2.95 M/mm3 (4.00-5.60); RDW 16.6 % (11.9-15.9); WHITE BLOOD COUNT 14.9 K/mm3 (4.0-10.0)
[2022-01-19 07:54] LABS: MEAN PLT VOLUME 5.7 fl (7.5-11.1)
[2022-01-19 08:42] LABS: ALBUMIN 1.6 g/dl (3.4-5.0); ALK PHOS 489 U/L (45-117); ANION GAP 19 MMOL/L (8-16); BLOOD UREA NITROGEN 89.3 mg/dL (7-18); CALCIUM 6.4 mg/dL (8.5-10.1); CHLORIDE 101 mmol/L (98-107); CO2 15 mmol/L (21-32); CREATININE 3.5 mg/dL (0.55-1.3); GLUCOSE,RANDOM 178 mg/dL (74-106); MAGNESIUM 5.2 mg/dL (1.8-2.4); PHOSPHOROUS 8.1 mg/dL (2.5-4.9); SGOT/AST 288 U/L (15-37); SGPT/ALT 88 U/L (13-61); SODIUM 136 mmol/L (136-145)
[2022-01-19 09:01] LABS: ANISOCYTOSIS 0; HELMET CELLS 0; HOWELL-JOLLY BODIES 0; MACROCYTOSIS 0; OVALOCYTE 0; ROULEAU 0; SICKELED CELLS 0; TARGET CELLS 0; TEAR DROP CELLS 0; TOXIC GRANULATION 0
[2022-01-19] MEDS ORDERED: methylPREDNISolone NA SUCC 40 MG/1 ML VIAL IVPUSH SCH (10:00)
[2022-01-19] MEDS: levETIRAcetam 500 MG/5 ML INJECTION VIAL IVPB SCH ×2 (10:00→21:14)
[2022-01-19] MEDS: PANTOPRAZOLE SODIUM 40 MG VIAL IVPUSH SCH ×2 (10:00→21:10)
[2022-01-19] MEDS: methylPREDNISolone NA SUCC 40 MG/1 ML VIAL IVPUSH SCH ×3 (10:00→21:13)
[2022-01-19 12:40] LABS: INR 1.99 (0.83-1.09); PROTHROMBIN TIME (PATIENT) 23.1 SEC (9.7-13.0)
[2022-01-19 12:42] LABS: ACTIVATED PTT 64.2 SECONDS (25.2-36.5)
[2022-01-19] MEDS: ACETAMINOPHEN 1000 MG/100 ML BAG IVPB SCH ×3 (12:47→21:17)
[2022-01-19] MEDS: DEXTROSE 5%-NORMAL SALINE 1,000 ML IV SCH ×2 (17:13→20:31)
[2022-01-19] MEDS: NOREPINEPHRINE D5W PREMIX 16,000 MCG/500 ML BAG IVPB SCH (19:39)
[2022-01-19] MEDS: LYTES/YERBA SANTA 60 ML SPRAY MM PRN (21:29)
[2022-01-19] MEDS: VASOPRESSIN 40 UNITS/100 ML BAG IV SCH (22:15)
[2022-01-20] MEDS: PIPERACILLIN/TAZOB 3.375 GM 3.375 GM in DEXTROSE 5%-WATER - 50 ML IVPB SCH ×3 (02:12→17:12)
[2022-01-20] MEDS: methylPREDNISolone NA SUCC 40 MG/1 ML VIAL IVPUSH SCH ×2 (02:13→09:21)
[2022-01-20] MEDS: ACETAMINOPHEN 1000 MG/100 ML BAG IVPB SCH (03:04)
[2022-01-20] MEDS: NOREPINEPHRINE D5W PREMIX 16,000 MCG/500 ML BAG IVPB SCH ×3 (03:10→22:06)
[2022-01-20] MEDS: HEPARIN NA (PORCINE) 5,000 UNITS/ML 1ML VIAL SQ SCH (05:52)
[2022-01-20 07:02] LABS: HEMATOCRIT 20.2 % (35.4-49); MCH 25.8 pg (25.7-33.7); MCHC 33.2 g/dl (32.0-35.9); MEAN CELL VOLUME 77.7 fl (80-96); PLATELET COUNT 227 10^3/uL (134-434); RDW 16.8 % (11.9-15.9)
[2022-01-20 07:12] LABS: MEAN PLT VOLUME 5.7 fl (7.5-11.1)
[2022-01-20 07:13] LABS: HEMOGLOBIN 6.7 GM/dL (11.7-16.9)
[2022-01-20 07:24] LABS: INR 2.12 (0.83-1.09); PROTHROMBIN TIME (PATIENT) 24.6 SEC (9.7-13.0)
[2022-01-20 08:01] LABS: CHLORIDE 103 mmol/L (98-107); SODIUM 136 mmol/L (136-145)
[2022-01-20 08:04] LABS: GLUCOSE,RANDOM 228 mg/dL (74-106)
[2022-01-20] MEDS: DEXTROSE 5%-NORMAL SALINE 1,000 ML IV SCH (08:20)
[2022-01-20 08:30] LABS: ANION GAP 16 MMOL/L (8-16); BLOOD UREA NITROGEN 78.1 mg/dL (7-18); CALCIUM 6.1 mg/dL (8.5-10.1); CO2 17 mmol/L (21-32); CREATININE 2.9 mg/dL (0.55-1.3); MAGNESIUM 4.7 mg/dL (1.8-2.4); PHOSPHOROUS 6.4 mg/dL (2.5-4.9)
[2022-01-20] MEDS ORDERED: CALCIUM GLUC IN NACL, ISO-OSM 1 GM/50 ML BAG IVPB ONE (08:36)
[2022-01-20] MEDS: KCL 10 MEQ IVPB 10 MEQ/100 ML INFUS.BAG IVPB SCH ×2 (08:44→09:56)
[2022-01-20] MEDS: SODIUM CHLORIDE 1,000 ML IV SCH (08:47)
[2022-01-20] MEDS: levETIRAcetam 500 MG/5 ML INJECTION VIAL IVPB SCH ×2 (09:58→22:13)
[2022-01-20] MEDS: PANTOPRAZOLE SODIUM 40 MG VIAL IVPUSH SCH ×2 (09:58→22:13)
[2022-01-20] MEDS ORDERED: POLYETHYLENE GLYCOL (HEALTHYLAX) 3350 17 GM PACKET PO SCH (10:00)
[2022-01-20] MEDS ORDERED: PHYTONADIONE 10 MG/1 ML AMP IVPB ONE (12:13)
[2022-01-20] MEDS ORDERED: THIAMINE HCL 200 MG/2 ML VIAL IM SCH (13:00)
[2022-01-20] MEDS ORDERED: THIAMINE HCL 200 MG/2 ML VIAL IVPB SCH (14:10)
[2022-01-20] MEDS: THIAMINE HCL 200 MG/2 ML VIAL IVPB SCH (14:39)
[2022-01-20 15:34] LABS: HEMATOCRIT 23.5 % (35.4-49); HEMOGLOBIN 7.7 GM/dL (11.7-16.9); MCHC 32.9 g/dl (32.0-35.9); MEAN CELL VOLUME 69.8 fl (80-96); PLATELET COUNT 179 10^3/uL (134-434); RBC 3.36 M/mm3 (4.00-5.60); RDW 27.4 % (11.9-15.9); WHITE BLOOD COUNT 20.6 K/mm3 (4.0-10.0)
[2022-01-20 16:37] LABS: ANION GAP 17 MMOL/L (8-16); BLOOD UREA NITROGEN 77.9 mg/dL (7-18); CALCIUM 6.3 mg/dL (8.5-10.1); CHLORIDE 105 mmol/L (98-107); CO2 15 mmol/L (21-32); CREATININE 2.7 mg/dL (0.55-1.3); GLUCOSE,RANDOM 180 mg/dL (74-106); SODIUM 137 mmol/L (136-145)
[2022-01-20] MEDS: AMINO ACIDS 4.25%/D5W 1,000 ML IV SCH (16:52)
[2022-01-20] MEDS: POTASSIUM CHLORIDE 20 MEQ PREMIX IVPB 100 ML IVPB SCH ×2 (17:38→18:26)
[2022-01-20 17:48] LABS: ANISOCYTOSIS 3+; MACROCYTOSIS 0
[2022-01-20 19:49] LABS: INR 2.17 (0.83-1.09); PROTHROMBIN TIME (PATIENT) 25.2 SEC (9.7-13.0)
[2022-01-20] MEDS ORDERED: POTASSIUM CHLORIDE 20 MEQ PREMIX IVPB 100 ML IVPB SCH (21:30)
[2022-01-20] MEDS ORDERED: SMOFLIPID - FAT EMUL/SOY/MCT/OLIV/FISH OIL 250 ML EMULSION IV SCH (22:00)
[2022-01-20] MEDS: FAT EMUL/SOY/MCT/OLIV/FISH OIL 250 ML IV SCH (22:14)
[2022-01-20] MEDS: POLYETHYLENE GLYCOL (HEALTHYLAX) 3350 17 GM PACKET PO SCH (22:14)
[2022-01-20] MEDS: VASOPRESSIN 40 UNITS/100 ML BAG IV SCH (22:15)
[2022-01-21 01:11] LABS: HEMATOCRIT 26.1 % (35.4-49); HEMOGLOBIN 8.9 GM/dL (11.7-16.9); MCH 24.1 pg (25.7-33.7); PLATELET COUNT 154 10^3/uL (134-434); RBC 3.68 M/mm3 (4.00-5.60); WHITE BLOOD COUNT 20.4 K/mm3 (4.0-10.0)
[2022-01-21] MEDS: PIPERACILLIN/TAZOB 3.375 GM 3.375 GM in DEXTROSE 5%-WATER - 50 ML IVPB SCH ×3 (01:12→17:50)
[2022-01-21 01:13] LABS: MEAN PLT VOLUME 5.5 fl (7.5-11.1)
[2022-01-21 01:28] LABS: CHLORIDE 107 mmol/L (98-107); SODIUM 139 mmol/L (136-145)
[2022-01-21 01:31] LABS: ALBUMIN 1.3 g/dl (3.4-5.0); ANION GAP 16 MMOL/L (8-16); BLOOD UREA NITROGEN 82.4 mg/dL (7-18); CO2 16 mmol/L (21-32); GLUCOSE,RANDOM 141 mg/dL (74-106)
[2022-01-21 01:33] LABS: CREATININE 2.5 mg/dL (0.55-1.3); SGOT/AST 213 U/L (15-37); SGPT/ALT 66 U/L (13-61)
[2022-01-21 01:35] LABS: BILIRUBIN,TOTAL 0.8 mg/dL (0.2-1); TOT PROT 4.6 g/dl (6.4-8.2)
[2022-01-21 01:47] LABS: ALK PHOS 680 U/L (45-117); CALCIUM 6.1 mg/dL (8.5-10.1)
[2022-01-21] MEDS: POTASSIUM CHLORIDE 20 MEQ PREMIX IVPB 100 ML IVPB SCH ×3 (02:41→05:26)
[2022-01-21] MEDS: POLYETHYLENE GLYCOL (HEALTHYLAX) 3350 17 GM PACKET PO SCH ×3 (06:15→21:45)
[2022-01-21 07:53] LABS: HEMATOCRIT 25.3 % (35.4-49); HEMOGLOBIN 8.6 GM/dL (11.7-16.9); MCH 24.5 pg (25.7-33.7); MEAN CELL VOLUME 72.2 fl (80-96); MEAN PLT VOLUME 7.8 fl (7.5-11.1); PLATELET COUNT 146 10^3/uL (134-434)
[2022-01-21 08:00] LABS: INR 1.7 (0.83-1.09); PROTHROMBIN TIME (PATIENT) 19.6 SEC (9.7-13.0)
[2022-01-21 08:12] LABS: CHLORIDE 106 mmol/L (98-107); SODIUM 136 mmol/L (136-145)
[2022-01-21 08:15] LABS: ALBUMIN 1.2 g/dl (3.4-5.0); ANION GAP 14 MMOL/L (8-16); BLOOD UREA NITROGEN 85.9 mg/dL (7-18); CO2 15 mmol/L (21-32); GLUCOSE,RANDOM 138 mg/dL (74-106); MAGNESIUM 4.3 mg/dL (1.8-2.4)
[2022-01-21 08:19] LABS: CREATININE 2.5 mg/dL (0.55-1.3); PHOSPHOROUS 4.6 mg/dL (2.5-4.9); SGOT/AST 206 U/L (15-37); SGPT/ALT 63 U/L (13-61)
[2022-01-21 08:21] LABS: ALK PHOS 698 U/L (45-117); BILIRUBIN,TOTAL 0.9 mg/dL (0.2-1); TOT PROT 4.6 g/dl (6.4-8.2)
[2022-01-21 08:58] LABS: CALCIUM 5.8 mg/dL (8.5-10.1)
[2022-01-21] MEDS: levETIRAcetam 500 MG/5 ML INJECTION VIAL IVPB SCH ×2 (10:03→21:45)
[2022-01-21] MEDS: SODIUM CHLORIDE 1,000 ML IV SCH (10:03)
[2022-01-21] MEDS: PANTOPRAZOLE SODIUM 40 MG VIAL IVPUSH SCH ×2 (10:04→21:46)
[2022-01-21] MEDS: THIAMINE HCL 200 MG/2 ML VIAL IVPB SCH (10:05)
[2022-01-21 10:45] LABS: ANISOCYTOSIS 0; MACROCYTOSIS 0
[2022-01-21] MEDS ORDERED: PHYTONADIONE 10 MG/1 ML AMP IVPB ONE (11:45)
[2022-01-21] MEDS ORDERED: CALCIUM GLUCONATE IN NACL 1 GM/50 ML BAG IVPB ONE (12:30)
[2022-01-21] MEDS: AMINO ACIDS 4.25%/D5W 1,000 ML IV SCH (15:48)
[2022-01-21 20:59] LABS: ANION GAP 15 MMOL/L (8-16); BLOOD UREA NITROGEN 94.3 mg/dL (7-18); CALCIUM 6.2 mg/dL (8.5-10.1); CHLORIDE 108 mmol/L (98-107); CO2 14 mmol/L (21-32); CREATININE 2.6 mg/dL (0.55-1.3); GLUCOSE,RANDOM 151 mg/dL (74-106); SODIUM 136 mmol/L (136-145)
[2022-01-21] MEDS: NOREPINEPHRINE D5W PREMIX 16,000 MCG/500 ML BAG IVPB SCH (21:31)
[2022-01-21] MEDS: LYTES/YERBA SANTA 60 ML SPRAY MM PRN (21:46)
[2022-01-21] MEDS: FAT EMUL/SOY/MCT/OLIV/FISH OIL 250 ML IV SCH (21:46)
[2022-01-22] MEDS: PIPERACILLIN/TAZOB 3.375 GM 3.375 GM in DEXTROSE 5%-WATER - 50 ML IVPB SCH ×2 (01:17→10:45)
[2022-01-22] MEDS: VASOPRESSIN 40 UNITS/100 ML BAG IV SCH (01:18)
[2022-01-22] MEDS: NOREPINEPHRINE D5W PREMIX 16,000 MCG/500 ML BAG IVPB SCH (01:20)
[2022-01-22] MEDS: POLYETHYLENE GLYCOL (HEALTHYLAX) 3350 17 GM PACKET PO SCH (05:38)
[2022-01-22] MEDS: SODIUM CHLORIDE 1,000 ML IV SCH (06:48)
[2022-01-22 08:09] LABS: HEMATOCRIT 18.6 % (35.4-49); MCH 26.7 pg (25.7-33.7); MCHC 36.6 g/dl (32.0-35.9); MEAN CELL VOLUME 73.1 fl (80-96); MEAN PLT VOLUME 6.6 fl (7.5-11.1); PLATELET COUNT 90 10^3/uL (134-434); RBC 2.54 M/mm3 (4.00-5.60); RDW 27.7 % (11.9-15.9); WHITE BLOOD COUNT 29.1 K/mm3 (4.0-10.0)
[2022-01-22 08:11] LABS: INR 1.4 (0.83-1.09); PROTHROMBIN TIME (PATIENT) 16.1 SEC (9.7-13.0)
[2022-01-22 08:19] LABS: CHLORIDE 104 mmol/L (98-107); SODIUM 134 mmol/L (136-145)
[2022-01-22 08:23] LABS: GLUCOSE,RANDOM 164 mg/dL (74-106)
[2022-01-22 08:24] LABS: ALBUMIN 1.1 g/dl (3.4-5.0); ANION GAP 14 MMOL/L (8-16); CO2 17 mmol/L (21-32); MAGNESIUM 4.2 mg/dL (1.8-2.4)
[2022-01-22 08:27] LABS: ALBUMIN 1.1 g/dl (3.4-5.0); CREATININE 2.5 mg/dL (0.55-1.3); PHOSPHOROUS 4.8 mg/dL (2.5-4.9)
[2022-01-22 08:31] LABS: BILIRUBIN,DIRECT 0.5 mg/dL (0.0-0.2); BILIRUBIN,TOTAL 1.3 mg/dL (0.2-1)
[2022-01-22 08:57] LABS: ALK PHOS 792 U/L (45-117); BLOOD UREA NITROGEN 91.8 mg/dL (7-18); CALCIUM 5.4 mg/dL (8.5-10.1); HEMOGLOBIN 6.8 GM/dL (11.7-16.9); SGOT/AST 197 U/L (15-37); SGPT/ALT 62 U/L (13-61); TOT PROT 4.4 g/dl (6.4-8.2)
[2022-01-22] MEDS ORDERED: CALCIUM GLUCONATE IN NACL 1 GM/50 ML BAG IVPB ONE (09:50)
[2022-01-22 10:19] LABS: ANISOCYTOSIS 2+; MACROCYTOSIS 1+; OVALOCYTE 1+; ROULEAU 2+
[2022-01-22] MEDS ORDERED: COLLAGENASE CLOSTRIDIUM HIST. 30 GRAMS TUBE TP SCH (10:30)
[2022-01-22] MEDS: levETIRAcetam 500 MG/5 ML INJECTION VIAL IVPB SCH (10:38)
[2022-01-22 11:00] VITALS: RESP 22
[2022-01-22] MEDS: PANTOPRAZOLE SODIUM 40 MG VIAL IVPUSH SCH (11:59)
[2022-01-22] MEDS: THIAMINE HCL 200 MG/2 ML VIAL IVPB SCH (12:06)
[2022-01-22 13:55] LABS: TOT PROT 4.4 g/dl (6.4-8.2)
[2022-01-22 14:33] VITALS: TEMP 97.4
[2022-01-22] MEDS ORDERED: CALCIUM GLUCONATE 10% - 1,000 MG/10 ML VIAL IVPB ONE (15:00)
[2022-01-22] MEDS ORDERED: INSULIN (NOVOLOG) ASPART 100 UNITS/ML 10ML VIAL ONE (15:12)
[2022-01-22] MEDS ORDERED: PARICALCITOL 5 MCG/ML VIAL IVPUSH ONE (15:45)
[2022-01-22 17:48] VITALS: BP 102/20; PULSE 79
== END 2022-01-22 17:30 | disposition expired | DRG 871 ==
LOC: JER 20:01 → JERBED 01-15 00:13 → J7W 01-15 18:25 → JICU 01-17 10:47
PROVIDERS: ADMIT Internal Medicine; ATTEND Internal Medicine Pulmonary Disease
PROC: 0D9670Z Drainage of Stomach with Drainage Device, Via Natural or Artificial Opening (ICD-10-PCS; 2022-01-18)
PROC: 5A1935Z Respiratory Ventilation, Less than 24 Consecutive Hours (ICD-10-PCS; principal; 2022-01-22)
PROC: 0BH17EZ Insertion of Endotracheal Airway into Trachea, Via Natural or Artificial Opening (ICD-10-PCS; 2022-01-22)
DX: A41.89 Other specified sepsis (principal); G93.41 Metabolic encephalopathy; J69.0 Pneumonitis due to inhalation of food and vomit; N17.0 Acute kidney failure with tubular necrosis; G82.20 Paraplegia, unspecified; E87.2 Acidosis; R64 Cachexia; E46 Unspecified protein-calorie malnutrition; K56.7 Ileus, unspecified; N39.0 Urinary tract infection, site not specified; G95.0 Syringomyelia and syringobulbia; Z68.1 Body mass index [BMI] 19.9 or less, adult; I10 Essential (primary) hypertension; K56.41 Fecal impaction; N31.9 Neuromuscular dysfunction of bladder, unspecified; Z86.73 Personal history of transient ischemic attack (TIA), and cerebral infarction without residual deficits; E83.52 Hypercalcemia; R65.20 Severe sepsis without septic shock; G40.909 Epilepsy, unspecified, not intractable, without status epilepticus; D64.9 Anemia, unspecified; D69.6 Thrombocytopenia, unspecified; E87.6 Hypokalemia
CPT/HCPCS: 36415; 36430; 71045-TC-FY; 71250-TC; 74018-TC-FY; 74176-TC; 76700-TC; 80048; 80053; 80076; 81003; 82550; 82553; 82728; 82803; 82947; 82962; 83540; 83550; 83605; 83735; 84100; 84155; 84165; 84484; 85025; 85027; 85045; 85610; 85730; 86140; 86704; 86803; 86850; 86900; 86901; 86922; 87040; 87086; 87340; 87517; 93005; 93010; 99285-25; C9803-CS; J1644; J3490; P9058; U0003; U0005